=== PATIENT | female | born 1935 | race Caucasian/White ===

== ENCOUNTER 2016-08-11 12:30 | Inpatient (IN) | payer OTHER ==
[~2016-08-11] VITALS: Ht 167.6 cm; Wt 72.6 kg
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
--- NOTE | 2016-08-11 13:12 | NUR ---
PT TO AND FROM RADIOLOGY VIA STRETCHER.
--- NOTE | 2016-08-11 13:25 | RADIOLOGY REPORT ---
EXAMINATION: XR CHEST CLINICAL INFORMATION: Cough COMPARISON: None TECHNIQUE: 2 views of the chest were obtained. FINDINGS: The lungs are well expanded. No dense consolidation. Bronchial wall thickening noted. No pleural effusion or pneumothorax. The cardiomediastinal silhouette is normal in size with a tortuous aorta. No acute osseous abnormality. IMPRESSION: No dense consolidation. Bronchial wall thickening can be seen with a small airways process such as asthma or atypical/viral infection.
[2016-08-11 13:36] LABS: ABSOLUTE BASOPHIL COUNT 0 /CUMM (0.0-0.2); ABSOLUTE EOSINOPHIL COUNT 0.1 /CUMM (0.0-0.7); ABSOLUTE GRANULOCYTE CT 6.2 /CUMM (1.4-6.5); ABSOLUTE LYMPH COUNT 1.9 /CUMM (1.2-3.4); ABSOLUTE MONOCYTE COUNT 0.6 /CUMM (0.10-0.60); BASOPHIL % 0.3 % (0.0-2.0); EOSINOPHIL % 1.5 % (0-5); HEMATOCRIT 41.6 % (37-47); MEAN CORPUSCULAR HGB 30.1 PG (27.0-31.0); MEAN CORPUSCULAR HGB CONC 33.5 G/DL (33.0-37.0); MEAN CORPUSCULAR VOLUME 89.8 FL (81.0-99.0); MEAN PLATELET VOLUME 7.2 FL (7.4-10.4); PLATELET COUNT 348 /CUMM (130-400); RBC DISTRIBUTION WIDTH 12.9 % (11.5-14.5); RED BLOOD CELL CT 4.63 /CUMM (4.20-5.40); WHITE BLOOD CELL COUNT 8.8 /CUMM (4.8-10.8)
--- NOTE | 2016-08-11 13:38 | NUR ---
PT TO CAT SCAN AT THIS TIME.
--- NOTE | 2016-08-11 13:46 | NUR ---
CRITICAL TEST RESULTS [id number] DAIN PULIDO 81 F TESTS AND RESULTS: LACTIC 2.0 Results received and read back by: ESTEFANIA WIGGINS Results received date and time: 08/11/16 1606 The following provider was notified of the results, and read the results back: DR. MONDRAGON Notified date and time: 08/11/16 at 1606
--- NOTE | 2016-08-11 14:04 | NUR ---
PT TO CAT SCAN VIA STRETCHER.
--- NOTE | 2016-08-11 14:36 | CT SCAN REPORT ---
EXAMINATION: CT HEAD WITHOUT CONTRAST CLINICAL INFORMATION: Altered mental status. Headaches. COMPARISON: None. TECHNIQUE: Contiguous axial imaging was performed from the skull base to vertex without intravenous administration of contrast. DLP: 625 mGy-cm FINDINGS: Noncontrast CT imaging of the brain is notable for a focal region of hypoattenuation within the right parieto-occipital lobe (series 2, image 36). This finding is indeterminate and incompletely characterized on this examination but may reflect age-indeterminate ischemia within the right parieto-occipital lobe versus an underlying intracranial mass with surrounding vasogenic edema. No acute intracranial hemorrhage, mass effect or abnormal extra-axial fluid collections are identified. Chronic appearing lacunar infarcts are identified within the right nolan radiata, the right caudate lobe as well as the right basal ganglia. Subtle areas of hypoattenuation within the periventricular and deep cortical white matter are nonspecific but may reflect areas of mild chronic microvascular ischemia. The ventricles are normal in size, without hydrocephalus. The density within the dural venous sinuses is within normal limits. No acute calvarial abnormality is identified. There is moderate mucosal thickening of the left sphenoid sinus. The remaining imaged paranasal sinuses and mastoid air cells are well aerated. IMPRESSION: 1. A focal region of hypoattenuation within the right parieto-occipital lobe. This finding is indeterminate and incompletely characterized on this examination. Differential diagnostic considerations include but are not limited to age-indeterminate ischemia versus an underlying intracranial mass with surrounding vasogenic edema. Contrast-enhanced MRI of the brain would be helpful in further evaluation. 2. Chronic lacunar infarcts within the right basal ganglia. Subtle areas of hypoattenuation within the periventricular and deep cortical white matter are nonspecific but may reflect sequela of chronic microvascular ischemia. This critical result was discussed with Mauro Alarcon PA-C at 2:32 PM on 08/11/2016 and it was ascertained that the content and urgency of the report was understood at the time of direct communication.
--- NOTE | 2016-08-11 14:53 | NUR ---
DR. MONDRAGON TO BEDSIDE TO DISCUSS RESULTS AND POC.
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
--- NOTE | 2016-08-11 15:38 | NUR ---
HOUSE STAFF TO BEDSIDE FOR EVAL.
--- NOTE | 2016-08-11 16:19 | NUR ---
PT HAS BED ASSIGNMENT 175-1. RN NOTIFIED.
--- NOTE | 2016-08-11 16:34 | NUR ---
REPORT GIVEN TO RENATO SANTIAGO. ECHO AT BEDSIDE AT THIS TIME. TRANSPORT WILL BE BOOKED AFTER CAROTID US. PT WILL REMAIN NPO AT THIS TIME. HOUSE STAFF PAGED REGARDING PO MEDICATION ORDERS.
[2016-08-11] MEDS ORDERED: LOPRESSOR50 M1 PO (16:47)
[2016-08-11] MEDS ORDERED: NORVASC10 M1 PO (16:47)
[2016-08-11] MEDS ORDERED: LIPITOR40 M1 PO (16:48)
[2016-08-11] MEDS ORDERED: HYDROCHLOROTHIA25 M1 PO (16:49)
[2016-08-11] MEDS ORDERED: METFORMIN HCL500 M3 PO (16:49)
[2016-08-11] MEDS ORDERED: METFORMIN HCL500 M2 PO (16:49)
--- NOTE | 2016-08-11 17:04 | NUR ---
NURIA PAGED AT [phone] FOR SECOND TIME REGARDING PO MEDICATIONS.
--- NOTE | 2016-08-11 17:04 | NUR ---
PT TO US VIA STRETCHER. SITTER WITH PT FOR SAFETY.
--- NOTE | 2016-08-11 17:50 | NUR ---
PT RETURN FROM US VIA STRETCHER. TRANSPORT BOOKED.
[2016-08-11 18:43] VITALS: BP 154/78
--- NOTE | 2016-08-11 18:51 | ECHOCARDIOGRAM REPORT ---
DAIN PULIDO Age: 81 : 1935 Gender: F Exam Date: 08/11/2016 16:25 Exam Location: ER Ht (in): 66 Wt (lb): 150 BSA: 1.79 BP: 165 / 84 Ordering Physician: NURIA WANG MD Referring Physician: NURIA WANG MD Technologist: Bell [place] RDCS Room Number: ER#[id number] Indications: STROKE Rhythm: Sinus Technical Quality: fair FINDINGS Left Ventricle Normal size left ventricle. Left ventricular wall thickness moderately increased. Normal left ventricular ejection fraction estimated at 60-65%. Right Ventricle Normal right ventricular size and function. Right Atrium Normal right atrial size. Left Atrium Left atrial size at the upper limits of normal. Mitral Valve Mild mitral annular calcification. Trace to mild mitral regurgitation. Aortic Valve Diffuse thickening (sclerosis) of the aortic valve cusps without reduced excursion. Tricuspid Valve Tricuspid valve is normal in structure and function. Trace to mild tricuspid regurgitation. Pulmonic Valve Pulmonic valve not well visualized, grossly normal. Pericardium No pericardial effusion. Great Vessels Normal size aortic root. CONCLUSIONS Normal left ventricular systolic function with moderate concentric hypertrophy. Normal right ventricular size and function.No significant valvular abnoralities noted Jose Alejandro Meek M.D. (Electronically Signed) Final Date: 11 August 2016 18:50 MEASUREMENTS (Male / Female) Normal Values 2D ECHO LV Diastolic Diameter PLAX 3.8 cm 4.2 - 5.9 / 3.9 - 5.3 cm LV Systolic Diameter PLAX 2.4 cm 2.1 - 4.0 cm LV Fractional Shortening PLAX 36.8 % 25 - 46 % LV Ejection Fraction 2D Teich 67.5 % IVS Diastolic Thickness 1.7 cm LVPW Diastolic Thickness 1.7 cm LV Relative Wall Thickness 0.9 RV Internal Dim ED PLAX 2.6 cm 1.9 - 3.8 cm LVOT Diameter 1.9 cm Aortic Root Diameter 3.4 cm LA Systolic Diameter LX 2.8 cm 3.0 - 4.0 / 2.7 - 3.8 cm LA Volume 22.0 cm 18 - 58 / 22 - 52 cm Ascending Aorta Diameter 3.3 cm DOPPLER AV Peak Velocity 171.0 cm/s AV Peak Gradient 11.7 mmHg AV Mean Velocity 115.0 cm/s AV Mean Gradient 6.0 mmHg AV Velocity Time Integral 36.2 cm LVOT Peak Velocity 126.0 cm/s LVOT Peak Gradient 6.4 mmHg LVOT Mean Velocity 82.4 cm/s LVOT Mean Gradient 3.0 mmHg LVOT Velocity Time Integral 24.4 cm LVOT Stroke Volume 69.2 cm AV Area Cont Eq vti 1.9 cm AV Area Cont Eq pk 2.1 cm MV Peak Velocity 123.0 cm/s MV Peak Gradient 6.1 mmHg MV Mean Velocity 76.1 cm/s MV Mean Gradient 3.0 mmHg Mitral E Point Velocity 96.3 cm/s Mitral A Point Velocity 120.0 cm/s Mitral E to A Ratio 0.8 MV PHT Velocity 99.4 cm/s MV Deceleration [place] 354.0 cm/s MV Pressure Half Time 84.2 ms MV Area PHT 2.6 cm MV Deceleration Time 288.0 ms TR Peak Velocity 118.0 cm/s TR Peak Gradient 5.6 mmHg Right Atrial Pressure 5.0 mmHg Pulmonary Artery Systolic Pressu 10.6 mmHg Right Ventricular Systolic Press 10.6 mmHg PV Peak Velocity 70.3 cm/s PV Peak Gradient 2.0 mmHg PV Mean Velocity 52.2 cm/s PV Mean Gradient 1.0 mmHg PV Velocity Time Integral 14.0 cm LV E' Lateral Velocity 4.9 cm/s Mitral E to LV E' Lateral Ratio 19.8 LV E' Septal Velocity 5.1 cm/s Mitral E to LV E' Septal Ratio 19.0
--- NOTE | 2016-08-11 22:19 | Admission Certification ---
Admission Certification Certification Statement - As attending physician, I certify that at the time of - admission, based on clinical presentation, severity of - symptoms, need for further diagnostic testing and - therapeutic interventions, and risk of adverse outcomes - without in-hospital treatment, in my clinical assessment, - this patient requires an acute hospital stay for a minimum - of two nights or longer. I have also considered psychsocial - factors such as support system, advanced age, financial - issues, cognitive issues, and failed out-patient treatments, - past re-admission history, safety of patient, and lack of - compliance as applicable. Specific rationale supporting this admission is: Admission is required for further evaluation of stroke and abnormal EKG.
[2016-08-12] VITALS: BP 152/76
--- NOTE | 2016-08-12 04:53 | PN- Housestaff ---
EBONY RODRIGUEZ,APOLLO 08/12/16 0452: Subjective Follow-up For: Acute right MCA/PRINT SHOP MANAGER CVA Right internal carotid stenosis Diabetes Mellitus Hypertension Cardiac Stent Tele-Events Since Last Visit: NSR HR 64-71 No events Subjective: Patient seen and examined. She is seen lying flat in bed resting comfortably. She appears to be in no acute distress. Orange Grower Miley is present at bedside and providing translation as patient is primarily Romanian speaking. Patient reports feeling fine and denies any new or persitent weakness, numbness, or other neurologic deficits. Additionally she denies any fever, chills, chest pain, shortness of breath, nausea, vomiting, diarrhea. Review of Systems Constitutional: Reports: see HPI. Objective Last 24 Hrs of Vital Signs/I&O Vital Signs Date Time Temp Pulse Resp B/P B/P Pulse O2 O2 Flow FiO2 Mean Ox Delivery Rate 08/12 1614 97.6 75 20 138/70 95 08/12 1304 Room Air Room Air 08/12 1250 72 160/86 08/12 1250 72 160/86 08/12 0800 Room Air 08/12 0700 97.9 73 18 160/80 95 Room Air 08/12 0000 Room Air 08/12 0000 98.4 66 18 152/76 94 Room Air 08/11 1931 Room Air Intake & Output 08/12 1600 08/12 0800 08/12 0000 Intake Total 810 750 225 Output Total 675 Balance 810 75 225 Intake, IV 450 750 225 Intake, Oral 360 Output, Urine 675 Patient 72.575 kg Weight Physical Exam General Appearance: Alert, Oriented X3, Cooperative, No Acute Distress Other Physical Findings: General- well developed, well nourished elderly woman in no acute distress HEENT- NCAT, PERRL, EOMI, anicteric sclera, Chest- S1, S2 w/o m/g/r; RRR Lung- CTA bilaterally Abdomen- Soft, nontender, nondistended, bowel sounds intact Neuro- Awake and alert, CN II - XII grossly intact, normal speech/coordination, MMSE 27/30, no appreciable facial droop, all four extremites move spontaneously Ext- normal pulses, no cyanosis/clubbing/edema Current Medications: Current Medications Sig/Marc Start time Last Medication Dose Route Stop Time Status Admin Acetaminophen 650 MG Q4P PRN 06/13 1615 AC PO Aspirin 81 MG DAILY 08/12 1000 AC 08/12 PO 1007 Atorvastatin Calcium 80 MG 1700 08/11 1700 AC 08/12 PO 1730 Clopidogrel Bisulfate 75 MG DAILY 08/12 1415 AC 08/12 PO 1730 Dextrose/Sodium 1,000 ML Q13H 08/11 1645 DC 08/11 Chloride IV 08/12 0544 1901 Insulin Aspart 0 TIDAC 08/12 1200 AC 08/12 SC 1730 Insulin Human Regular 0 Q6 08/11 1800 DC 08/12 SC 0613 Lisinopril 20 MG DAILY 08/12 1000 AC 08/12 PO 1250 Melatonin 5 MG AT BEDTIME 08/11 2200 AC 08/11 PO 2158 Morphine Sulfate 1 MG Q6P PRN 08/11 1615 AC IV Oxycodone HCl 5 MG Q6 PRN 08/11 1615 AC PO Last 24 Hrs of Lab/Talib Results Last 24 Hrs of Labs/Mics: Laboratory Tests 08/12/16 0725: Anion Gap 10, Estimated GFR > 60, BUN/Creatinine Ratio 22.9, Triglycerides 159 H, Cholesterol 232 H, LDL Cholesterol, Calc 155 H, HDL Cholesterol 46, Cholesterol/HDL Ratio 5 H, CBC w Diff NO MAN DIFF REQ, RBC 4.40, MCV 90.2, MCH 30.3, RDW 12.8, MPV 7.5, Gran % 65.6, Lymphocytes % 23.7, Monocytes % 6.1, Eosinophils % 4.2, Basophils % 0.4, Absolute Granulocytes 5.3, Absolute Lymphocytes 1.9, Absolute Monocytes 0.5, Absolute Eosinophils 0.3, Absolute Basophils 0, PUBS MCHC 33.7 08/12/16 0042: Troponin I < 0.01 08/11/16 1936: Troponin I < 0.01 Assessment/Plan Assessment: 81 year old right handed nigerien speaking woman with multiple medical problems significant for CVA, cerebral aneurysm, cardiac stent, hypertension, and hyperlipidemia seen for progressively worsening altered mental status, elevated blood pressure, and headache. Vital signs were significant for elevated blood pressure with normal CBC, BEP, and LFTs. CXR was unremarkable. CT head demonstrated multiple chronic findings suggestive of microvascular ischemia and a focal region of hypoattenuation within the right parieto-occipital lobe concerning for age-indeterminant ischemia versus vasogenic edema. EKG was normal sinus rhythm with t-wave inversion in V2-V5. Acute Right MCA/PRINT SHOP MANAGER CVA / EKG Changes Patient was continued on aspirin and atorvastatin and admitted to the telemetry floor. Echocardiogram demonstrated an ejection fraction of 60-65% without any thrombus. Carotid doppler identified a right carotid stenosis of 50-79% for which a vascular surgery consult was placed. Neurology healthcare network pricing consultant recommended initiation of Plavix for 3-4 weeks. MRI/MRA identified patchy areas of acute infarction seen in the right MCA/PRINT SHOP MANAGER territories suggestive of embolism. -Telemetry -MMSE 27/30 -Aspirin 81mg PO Daily -Clopidogrel 75mg PO Daily -Atorvastatin 80mg PO Daily -Cardio consult -Neuro consult -Vascular consult -PT/OT Hypertension-Lisinopril 20mg PO Daily Hyperlipidemia-statin as above Insomnia-Melatonin 5mg PO QHS Diabetes Mellitus Patient is reported a 'borderline diabetic'. -HbA1c: 6.6 -Accuchecks TIDAC/HS -Hold oral hypoglycemics -Novolog Sliding Scale Insulin -Diabetic Diet Pain Plan-Acetaminophen/Oxycodone/Morphine Diet-Diabetic Diet DVT PPx-ALPS Code Status-FULL CODE Problem List: 1. CVA (cerebral vascular accident) Pain Ratin Pain Location: None Pain Goal: Remain pain free Pain Plan: See assessment Tomorrow's Labs & Rationales: None Consulting Request: Consulting Specialty: Neurology VICENTE RODRIGUEZ,QUINTON 08/12/16 1641: Attending MD Review Statement Attending Statement Attending MD Statement: examined this patient, discuss w/resident/PA/PRINCIPAL TECHNOLOGIST, agreed w/resident/PA/PRINCIPAL TECHNOLOGIST, reviewed EMR data (avail), discussed with nursing, discussed with case mgmt, amended to note Attending Assessment/Plan: Patient seen and examined. No events overnight on telemetry. No new complaints. Denies chest pain. Denies shortness of breath. Denies palpitations. There has been no reports of bizarre behavior here in the hospital as reported by her daughter at baseline at home. HEENT: Pupil equal and reactive. Extraocular muscles intact. Face is symmetric. Heart: S1-S2 regular with no added sounds Lungs: Clear to auscultation bilaterally Extremities: No pedal edema. Neurologic: Power is 5 over 5 bilateral upper extremities. However fine finger movements is interested in the left hand. Power is 4 over 5 in the right lower extremity however this is chronic and secondary to osteoarthritis according to her daughter Problems: 1. 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 2. Right internal carotid artery stenosis of 50-79%. 3. Hypertension 4. Dyslipidemia. 5. Diabetes mellitus 6. Possible vascular dementia. She however did well on a mini mental status evaluation scoring 27 out of 30. Plan: -Antiplatelet therapy with aspirin/Plavix combination for as recommended by the neurology service then continue on aspirin alone. Continue statin therapy. -Vascular surgery consultation has been placed for her right ICA stenosis. -Hypertension control with lisinopril 20 mg orally daily. -Recommend diabetic diet, nutrition is consult and outpatient follow-up for monitoring of her his A1c with diet control. -Anticipate discharge home tomorrow following evaluation by the vascular surgery service and reevaluation by the physical therapist. -Discontinue telemetry as her stroke does not appear to have been of cardio embolic origin.
[2016-08-12 07:00] VITALS: BP 160/80
[2016-08-12 08:23] LABS: ABSOLUTE BASOPHIL COUNT 0 /CUMM (0.0-0.2); ABSOLUTE EOSINOPHIL COUNT 0.3 /CUMM (0.0-0.7); ABSOLUTE GRANULOCYTE CT 5.3 /CUMM (1.4-6.5); ABSOLUTE LYMPH COUNT 1.9 /CUMM (1.2-3.4); ABSOLUTE MONOCYTE COUNT 0.5 /CUMM (0.10-0.60); BASOPHIL % 0.4 % (0.0-2.0); EOSINOPHIL % 4.2 % (0-5); GRANULOCYTE % 65.6 % (42.2-75.2); HEMATOCRIT 39.6 % (37-47); MEAN CORPUSCULAR HGB 30.3 PG (27.0-31.0); MEAN CORPUSCULAR HGB CONC 33.7 G/DL (33.0-37.0); MEAN CORPUSCULAR VOLUME 90.2 FL (81.0-99.0); MEAN PLATELET VOLUME 7.5 FL (7.4-10.4); PLATELET COUNT 333 /CUMM (130-400); RBC DISTRIBUTION WIDTH 12.8 % (11.5-14.5); WHITE BLOOD CELL COUNT 8.1 /CUMM (4.8-10.8)
--- NOTE | 2016-08-12 09:36 | ULTRASOUND REPORT ---
EXAMINATION: DUPLEX BILATERAL CAROTID ULTRASOUND CLINICAL INFORMATION: Stroke. Check for stenosis with vertebral flows. COMPARISON: None. TECHNIQUE: Duplex bilateral carotid US was performed using real-time ultrasound and Doppler techniques (integrating B-mode 2D vascular images, Doppler spectral analysis and color flow Doppler imaging). These techniques were utilized to interrogate the extracranial carotid and vertebral arteries bilaterally. The degree of stenosis is based off criteria similar to NASCET. FINDINGS: 1. On the right: There is a hemodynamically significant stenosis correlating to 50-79% diameter reduction of the proximal internal carotid artery. A [id number] amount of hyperechoic plaque is noted within the proximal internal and external carotid arteries. The peak systolic and diastolic velocities as measured within the proximal internal carotid artery equals 294 and 80 cm/s respectively. The vertebral artery is patent demonstrating antegrade flow. The external carotid artery is heavily calcified with minimal visualized flow. 2. On the left: A moderate amount of plaque is noted within the internal and carotid artery, but velocity measurements are all normal, not suggesting a stenosis of greater than 50% diameter reduction in the left ICA. The vertebral artery is patent demonstrating antegrade flow. The left external carotid artery appears normal. IMPRESSION: 1. Hemodynamically significant stenosis in the right internal carotid artery consistent with a 50-79% diameter reduction. 2. On the left, a stenosis of greater than 50% is not present. 3. Heavily calcified right external carotid artery which limits evaluation of flow, only minimal flow is visualized within the right external carotid artery.
[2016-08-12 12:50] VITALS: BP 160/86
--- NOTE | 2016-08-12 13:00 | MRI REPORT ---
EXAMINATION: MR BRAIN WITHOUT CONTRAST MR ANGIOGRAPHY BRAIN WITHOUT CONTRAST CLINICAL INFORMATION: 81-year-old woman with prior abnormal head CT and confusion. COMPARISON: 08/11/[address] TECHNIQUE: Multiplanar, multisequence MR imaging of the brain was obtained without the use of intravenous gadolinium. In addition, 3D [id number] MR angiography was performed through the brain, and axial source images were reviewed along with rotating MIPs. FINDINGS: BRAIN MRI: Correlating with the region of hypodensity on the patient's recent head CT, there is a focal area of acute infarction in the right parieto-occipital region. There are additional scattered patchy and punctate foci of infarction seen in a linear distribution throughout the centrum semiovale and to a lesser extent nolan radiata, as well as the frontal and parietal cortices. These findings are superimposed upon mild chronic microvascular ischemic changes. Areas of chronic lacunar infarction with hemosiderin staining are seen in the right caudate and putamen. The ventricles and sulcal spaces are diffusely prominent due to chronic volume loss. No intracranial mass, midline shift, or extra-axial collection is apparent. Midline structures, the posterior fossa, and the basal cisterns remain normal in appearance. Mild mucosal thickening is seen in the paranasal sinuses, moderate in the left sphenoid chamber. BRAIN MRA: There is limited visualization of the posterior circulation. The left vertebral artery terminates in PICA. The right vertebral artery is small and only incompletely visualized beyond the PICA origin. The basilar is tiny and not seen in continuity, raising the possibility of retrograde flow. There is a prominent left sided posterior communicating artery, although the left P1 segment is not visualized. There is a right posterior communicating artery and right P1 segment. Flow in the right posterior cerebral artery appears somewhat attenuated without a definite discrete proximal filling defect. Atherosclerotic irregularity affects the anterior circulation, although no definite MCA or DAVID filling defects are appreciated. IMPRESSION: Patchy areas of acute infarction are seen in the right MCA and BURNER HAND territories and are suspected to be embolic in nature. Overall, there is minimal visualization of the posterior circulation which raises the possibility of some retrograde flow in the basilar.
--- NOTE | 2016-08-12 13:06 | Cons- Neurology ---
General Information and HPI Consulting Request Date of Consult: 08/12/16 Requested By: QUINTON ZHANG M.D History of Present Illness: 81-year-old female, [place] speaking, admitted with a subacute history of confusion and urinary incontinence. History is obtained largely from the chart due to language barrier. She has also had a recent mechanical fall without reported head trauma. CAT scan of the brain on admission showed an area of hypoattenuation in the right parieto-occipital region of uncertain etiology. There was also evidence of old lacunar infarcts. MRI was just performed to clarify the abnormalities as there was some initial concern for possible mass. I have reviewed the study with neuroradiology. This reveals the presence of an acute to subacute infarct without significant mass effect. MRA showed benign appearing carotids however there appeared to be stenoses and irregularity in the posterior circulation. Allergies/Medications Allergies: Coded Allergies: No Known Allergies (08/11/16) Home Med List: Amlodipine Besylate (Norvasc) 10 MG TABLET 1 TAB PO DAILY htn (Reported) Atorvastatin Calcium (Lipitor) 40 MG TABLET 1 TAB PO DAILY CHOLESTROL ( Reported) Hydrochlorothiazide 25 MG TABLET 1 TAB PO DAILY HTN (Reported) Metformin HCl 500 MG TABLET 1 TAB PO BID DIABETES (Reported) Metoprolol Tartrate (Lopressor) 50 MG TABLET 1 TAB PO BID Heart (Reported) Review of Systems Review of Systems: Limited due to language barrier Past History Travel History Traveled to [place] past 21 day No Medical History Blood Transfusion Hx: No Neurological: CVA, STROKE ANNEURYSM EENT: NONE Cardiovascular: hypertension, hyperlipidemia, STENT BLOCKED ARTERY Respiratory: NONE Gastrointestinal: NONE Hepatic: NONE Renal: NONE Musculoskeletal: NONE Psychiatric: NONE Endocrine: NONE Blood Disorders: NONE Cancer(s): NONE 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 MOTHER FHx: diabetes mellitus BROTHER FH: myocardial infarction Psychosocial History Where Do You Live? Home Who Do You Live With? child Primary Language: [place] Smoking Status: Never Smoked ETOH Use: denies use Illicit Drug Use: denies illicit drug use Functional Ability ADLs Independent: dressing, eating, toileting, bathing. 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 Exam & Diagnostic Data Vital Signs and I&O Vital Signs Date Time Temp Pulse Resp B/P B/P Pulse O2 O2 Flow FiO2 Mean Ox Delivery Rate 08/12 1250 72 160/86 08/12 0800 Room Air 08/12 0700 97.9 73 18 160/80 95 Room Air 08/12 0000 Room Air 08/12 0000 98.4 66 18 152/76 94 Room Air 08/11 1931 Room Air 08/11 1843 98.2 71 16 154/78 94 Room Air 08/11 1758 98.4 76 18 154/80 97 Room Air Room Air 08/11 1657 98.6 77 18 152/80 96 Room Air Room Air 08/11 1439 98.5 78 18 165/84 96 Room Air Room Air Intake & Output 08/12 1600 08/12 0800 08/12 0000 Intake Total 750 225 Output Total 675 Balance 75 225 Intake, IV 750 225 Output, Urine 675 Patient 160 lb Weight Elderly white female, sitting up in bed and feeding herself with her right hand. The head was normocephalic and atraumatic. We were able to easily perform the examination through use of mime. Pupils were equal and reactive. Extraocular movements were full. Face was symmetric. Tongue was midline. Motor examination showed a drift of the left upper extremity. She was briefly antigravity with both lower extremities in the supine position. Deep tendon reflexes were symmetric. Plantar responses were flexor. Fine finger movements and rapid alternating movements were impaired in the left hand. Gait was not evaluated. Assessment/Plan Assessment: The patient presents with an acute to subacute right hemispheric infarct with findings of weakness and incoordination of the left upper extremity. She has multiple vascular risk factors. Recommendations: The patient will need physical and occupational therapy going forward. She should remain on aspirin and her statin. Plavix may be added for 3-4 weeks but then discontinued due to risk of bleeding with dual antiplatelet therapy outweighing the benefit of further stroke prevention. DVT precautions should be put into place while in hospital and prior to ambulation ad chip. Short-term rehabilitation may be appropriate. As the stroke likely occurred more than several days ago, further inpatient observation is likely unnecessary. Please feel free to call with any further questions. Consult Acknowledgment - Thank you for your consult request.
[2016-08-12 16:14] VITALS: BP 138/70
--- NOTE | 2016-08-12 18:31 | Cons- Cardiology ---
General Information and HPI Consulting Request Date of Consult: 08/12/16 Requested By: QUINTON ZHANG M.D Reason for Consult: Altered mental status. Source of Information: old records Exam Limitations: language barrier History of Present Illness: Mrs. Brayden Cespedes is a 81 year old female of [place] descent who has a history of hypertension, dyslipidemia, "borderline" diabetes mellitus, stroke 2015, and coronary artery disease s/p coronary stents who presented to be ED 08/11/2016 with altered mental status and who was ultimately discovered to have had an acute infarction in the right MCA and [employer] A[employer] territories by an MRI/neck MRA performed earlier today (08/12/2016). Allergies/Medications Allergies: Coded Allergies: No Known Allergies (08/11/16) Home Med List: Amlodipine Besylate (Norvasc) 10 MG TABLET 1 TAB PO DAILY htn (Reported) Aspirin (Aspirin*) 81 MG TAB.CHEW 81 MG PO DAILY STROKE Atorvastatin Calcium (Lipitor) 40 MG TABLET 1 TAB PO DAILY CHOLESTROL ( Reported) Atorvastatin Calcium 80 MG TABLET 1 TAB PO DAILY STROKE Clopidogrel Bisulfate (Plavix) 75 MG TABLET 75 MG PO DAILY STROKE Hydrochlorothiazide 25 MG TABLET 1 TAB PO DAILY HTN (Reported) Lisinopril 20 MG TABLET 20 MG PO DAILY HTN Metformin HCl 500 MG TABLET 1 TAB PO BID DIABETES (Reported) Metoprolol Tartrate (Lopressor) 50 MG TABLET 1 TAB PO BID Heart (Reported) Metoprolol Tartrate 25 MG TABLET 12.5 MG PO BID HEART Review of Systems Review of Systems: A 14 point system review was attempted, but could not be completed due to the language barrier. Past History Travel History Traveled to [place] past 21 day No Medical History Blood Transfusion Hx: No Neurological: CVA, STROKE ANNEURYSM EENT: NONE Cardiovascular: hypertension, hyperlipidemia, STENT BLOCKED ARTERY Respiratory: NONE Gastrointestinal: NONE Hepatic: NONE Renal: NONE Musculoskeletal: NONE Psychiatric: NONE Endocrine: NONE Blood Disorders: NONE Cancer(s): NONE NEUROLOGY HOSPITALIST/Reproductive: NONE Surgical History Surgical History: hip replacement (RIGHT) Family History Relations & Conditions If Any: FATHER, ; Cause: Lung cancer. MOTHER FHx: diabetes mellitus BROTHER FH: myocardial infarction Psychosocial History Where Do You Live? Home Who Do You Live With? child Primary Language: Portuguese Smoking Status: Never Smoked ETOH Use: denies use Illicit Drug Use: denies illicit drug use Functional Ability ADLs Independent: dressing, eating, toileting, bathing. 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[employer] Exam & Diagnostic Data Vital Signs and I&O Vital Signs Date Time Temp Pulse Resp B/P B/P Pulse O2 O2 Flow FiO2 Mean Ox Delivery Rate 08/12 1614 97.6 75 20 138/70 95 08/12 1304 Room Air Room Air 08/12 1250 72 160/86 08/12 1250 72 160/86 08/12 0800 Room Air 08/12 0700 97.9 73 18 160/80 95 Room Air 08/12 0000 Room Air 08/12 0000 98.4 66 18 152/76 94 Room Air 08/11 1931 Room Air 08/11 1843 98.2 71 16 154/78 94 Room Air Intake & Output 08/12 1600 08/12 0800 08/12 0000 08/11 1600 08/11 0800 08/11 0000 Intake Total 810 750 225 Output Total 675 Balance 810 75 225 Intake, IV 450 750 225 Intake, Oral 360 Output, Urine 675 Patient 160 lb 150 lb Weight Physical Exam: Well-developed, well-nourished elderly female in no acute distress with nasal oxygen in place. Vital signs: See above. HEENT: Normocephalic, atraumatic, EOMI, slightly dry mucous membranes. Neck: No JVD, no bruits. Lungs: Clear to auscultation bilaterally. Heart: S1, S2 with grade 1-2/6 systolic ejection murmur best heard at the base. No gallop or rub appreciated. Abdomen: Soft, nontender, positive bowel sounds. Extremities: No edema. Labs/Talib Results: Laboratory Tests 08/12 08/12 08/11 0725 0042 1936 Chemistry Sodium (137 - 145 mmol/L) 138 Potassium (3.5 - 5.1 mmol/L) 3.6 Chloride (98 - 107 mmol/L) 102 Carbon Dioxide (22 - 30 mmol/L) 27 Anion Gap (5 - 16) 10 BUN (7 - 17 mg/dL) 16 Creatinine (0.5 - 1.0 mg/dL) 0.7 Estimated GFR (>60 ml/min) > 60 BUN/Creatinine Ratio (7 - 25 %) 22.9 Troponin I (< 0.11 ng/ml) < 0.01 < 0.01 Triglycerides (<150 mg/dL) 159 H Cholesterol (<200 MG/DL) 232 H LDL Cholesterol, Calc (65 - 129 mg/dL) 155 H HDL Cholesterol (40 - 60 mg/dL) 46 Cholesterol/HDL Ratio (0.00 - 4.23 %) 5 H Hematology CBC w Diff NO MAN DIFF REQ WBC (4.8 - 10.8 /CUMM) 8.1 RBC (4.20 - 5.40 /CUMM) 4.40 Hgb (12.0 - 16.0 G/DL) 13.3 Hct (37 - 47 %) 39.6 MCV (81.0 - 99.0 FL) 90.2 MCH (27.0 - 31.0 PG) 30.3 RDW (11.5 - 14.5 %) 12.8 Plt Count (130 - 400 /CUMM) 333 MPV (7.4 - 10.4 FL) 7.5 Gran % (42.2 - 75.2 %) 65.6 Lymphocytes % (20.5 - 51.1 %) 23.7 Monocytes % (1.7 - 9.3 %) 6.1 Eosinophils % (0 - 5 %) 4.2 Basophils % (0.0 - 2.0 %) 0.4 Absolute Granulocytes (1.4 - 6.5 /CUMM) 5.3 Absolute Lymphocytes (1.2 - 3.4 /CUMM) 1.9 Absolute Monocytes (0.10 - 0.60 /CUMM) 0.5 Absolute Eosinophils (0.0 - 0.7 /CUMM) 0.3 Absolute Basophils (0.0 - 0.2 /CUMM) 0 PUBS MCHC (33.0 - 37.0 G/DL) 33.7 08/11 08/11 1615 1344 Toxicology Urine Opiates Screen (>2000 NG/ML) < 100.00 Methadone Screen (>300 NG/ML) Cancelled < 40 Barbiturate Screen (>200 NG/ML) Cancelled < 60 Ur Phencyclidine Scrn (>25 NG/ML) Cancelled < 6.00 Amphetamines Screen (>1000 NG/ML) Cancelled < 100 U Benzodiazepines Scrn (>200 NG/ML) Cancelled < 85 Urine Cocaine Screen (>300 NG/ML) Cancelled < 50 Urine Cannabis Screen (>50 NG/ML) Cancelled < 5.00 Urines Urinalysis LIGHT H Urine Color (YEL,AMB,STR) YEL Urine Clarity (CLEAR) HAZY H Urine pH (5.0 - 8.0) 5.5 Ur Specific [place] (1.001 - 1.035) >= 1.030 Urine Protein (NEG,<30 MG/DL) 30 H Urine Ketones (NEG) NEG Urine Nitrite (NEG) NEG Urine Bilirubin (NEG) NEG Urine Urobilinogen (0.1 - 1.0 EU/dl) 0.2 Ur Leukocyte Esterase (NEG) NEG Ur Microscopic SEDIMENT EXAMINED Urine RBC (0 - 5 /HPF) 1-3 Urine WBC (0 - 2 /HPF) RARE Ur Epithelial Cells (NONE,FEW) FEW Urine Bacteria (NEG/NONE) FEW H Granular Casts (NONE /LPF) 5-10 H Urine Mucus (FEW,NONE) FEW Urine Hemoglobin (NEG) SMALL H Urine Glucose (N MG/DL) >=1000 H 08/11 1326 Chemistry Sodium (137 - 145 mmol/L) 141 Potassium (3.5 - 5.1 mmol/L) 4.1 Chloride (98 - 107 mmol/L) 104 Carbon Dioxide (22 - 30 mmol/L) 24 Anion Gap (5 - 16) 13 BUN (7 - 17 mg/dL) 24 H Creatinine (0.5 - 1.0 mg/dL) 0.7 Estimated GFR (>60 ml/min) > 60 BUN/Creatinine Ratio (7 - 25 %) 34.3 H Glucose (65 - 99 mg/dL) 133 H Hemoglobin A1c (4.2 - 5.8 %) 6.6 H Lactic Acid (0.7 - 2.1 mmol/L) 2.0 Calcium (8.4 - 10.2 mg/dL) 9.8 Total Bilirubin (0.2 - 1.3 mg/dL) 0.6 AST (14 - 36 U/L) 23 ALT (9 - 52 U/L) 32 Alkaline Phosphatase (<127 U/L) 57 Troponin I (< 0.11 ng/ml) < 0.01 Total Protein (6.3 - 8.2 g/dL) 7.4 Albumin (3.5 - 5.0 g/dL) 4.2 Globulin (1.9 - 4.2 gm/dL) 3.2 Albumin/Globulin Ratio (1.1 - 2.2 %) 1.3 Vitamin B12 (239 - 931 pg/mL) 539 TSH (0.270 - 4.200 uIU/mL) 2.510 Hematology CBC w Diff NO MAN DIFF REQ WBC (4.8 - 10.8 /CUMM) 8.8 RBC (4.20 - 5.40 /CUMM) 4.63 Hgb (12.0 - 16.0 G/DL) 13.9 Hct (37 - 47 %) 41.6 MCV (81.0 - 99.0 FL) 89.8 MCH (27.0 - 31.0 PG) 30.1 RDW (11.5 - 14.5 %) 12.9 Plt Count (130 - 400 /CUMM) 348 MPV (7.4 - 10.4 FL) 7.2 L Gran % (42.2 - 75.2 %) 70.0 Lymphocytes % (20.5 - 51.1 %) 21.4 Monocytes % (1.7 - 9.3 %) 6.8 Eosinophils % (0 - 5 %) 1.5 Basophils % (0.0 - 2.0 %) 0.3 Absolute Granulocytes (1.4 - 6.5 /CUMM) 6.2 Absolute Lymphocytes (1.2 - 3.4 /CUMM) 1.9 Absolute Monocytes (0.10 - 0.60 /CUMM) 0.6 Absolute Eosinophils (0.0 - 0.7 /CUMM) 0.1 Absolute Basophils (0.0 - 0.2 /CUMM) 0 PUBS MCHC (33.0 - 37.0 G/DL) 33.5 Diagnostic Data EKG Results (08/12/2016): Sinus rhythm, LAFB, RBBB, probable indeterminate age ASMI, LVH, and nondiagnostic ST-T wave abnormalities. CXR Results (08/11/2016): No dense consolidation. Bronchial wall thickening can be seen with a small airways process such as asthma or atypical/viral infection. Other Results Head MRI/neck MRA (08/12/2016): Patchy areas of acute infarction are seen in the right MCA and [employer] AFLOAT territories and are suspected to be embolic in nature. Overall, there is minimal visualization of the posterior circulation which raises the possibility of some retrograde flow in the basilar. Carotid ultrasound (08/11/2016): Hemodynamically significant stenosis in the right internal carotid artery consistent with a 50-79% diameter reduction. On the left, a stenosis of greater than 50% is not present. Heavily calcified right external carotid artery which limits evaluation of flow, only minimal flow is visualized within the right external carotid artery. Echocardiogram (08/11/2016): Normal left ventricular systolic function with moderate concentric hypertrophy. Normal right ventricular size and function. No significant valvular abnoralities noted. Head CT (08/11/2016): A focal region of hypoattenuation within the right parieto -occipital lobe. This finding is indeterminate and incompletely characterized on this examination. Differential diagnostic considerations include but are not limited to age-indeterminate ischemia versus an underlying intracranial mass with surrounding vasogenic edema. Contrast-enhanced MRI of the brain would be helpful in further evaluation. Chronic lacunar infarcts within the right basal ganglia. Subtle areas of hypoattenuation within the periventricular and deep cortical white matter are nonspecific but may reflect sequela of chronic microvascular ischemia. Assessment/Plan Assessment/Plan 81 [id number] w/ hx HTN, HLD, pre-DM, previous stroke 2014, and CAD s/p coronary stents who presented to be ED 08/11/2016 with AMS and who was ultimately discovered to have had an acute infarction in the right MCA and [employer] A[employer] territories by MRI/neck MRA performed earlier today (08/12/2016). Fortunately, from a cardiac standpoint, her echocardiogram did not reveal a definite cardioembolic source for her presentation such as an apical thrombus and she has had no paroxysms of atrial fibrillation on telemetry, thus far. Given the findings on her carotid ultrasound, a neck MRA was performed that revealed relatively benign appearing carotids, but possible stenoses and irregularity in the posterior circulation. Recommendations: * Continue on telemetry to help exclude paroxysmal atrial fibrillation. * Continue antiplatelet, statin therapy, etc. * Continue on the rest of her cardiac regimen, given her known history of CAD. * Replete potassium and came to maintain between 4.0-4.5 mEq per liter. * Check magnesium and maintain at or above 2.0 mEq per liter. . * Continue occupational, speech therapy. * Continue DVT prophylaxis. Consult Acknowledgment - Thank you for your consult request.
[2016-08-13] VITALS: BP 148/72
--- NOTE | 2016-08-13 05:58 | Discharge Summary ---
Visit Information Visit Dates Admission Date: 08/11/16 Discharge Date: 08/15/16 Hospital Course Course Attending Physician: QUINTON ZHANG M.D Primary Care Physician: PATIENT HAS NO PRIMARY CARE DR Consulting Request: 1 Consulting Specialty: Neurology Consulting Request: 2 Consulting Specialty: Cardiology Consulting Request: 3 Consulting Specialty: Thoracic/Vascular Surgery Hospital Course: 81-year-old [place] speaking woman who has been non compliant with her medications and has a past medical history of hypertension, hyperlipidemia, pre- diabetic, stroke (2 years ago with no gross neuro deficits), CAD s/p PCI in 2004 at [facility] in [facility] presented to the ED because her daughter was concerned for safety at home as patient has not been acting herself lately and was also found to be hypertensiveto 200 systolic. Vitals at the time of admission blood pressure 176/87, respiratory rate of 20, pulse 88, afebrile saturating 90% on room air. On physical exam she is alert, ,oriented to time, place, person (as per med studednt who conversed iwth the pt in [place]). HEENT revealed PERRLA, EOMI. Examination of neck did not reveal any LAD. Cardiovascular exam pertinent for normal S1, S2, no murmurs, rubs, or gallops appreciated. Chest clear to ausculation bilaterally. Abdominal exam was bengin with abdomen soft, non-tender , non-distended, with normal bowel sound sin all 4 quadrants. Examination of lower extremnities revealed ankle edema 2+. Pulses intact. ROMinRLE was limited by right hip pain, strength wa ss4/5 in LUE, 5/5 in RUE, 5/5 in RLE, and 4/5 inLLE. Sensation grossly intact. Tone normal, subtle pronater drift on left side. Labs pertinent for normal white blood cell count of 8800, H&H of 13.9/41.6 and platelet count of 348,000. Serum chemistries revealed a sodium of 141, potassium of 4.1, bicarbonate 24, anion gap of 13, BUN 24 with a creatinine of 0.7. Serum glucose is elevated to 133. Lactic acid within normal limits at 2.0. LFTs unremarkable with an AST/L2 32/23/alkaline phosphatase of 57, first set troponin negative at less than 0.01. UA was hazy with proteinuria, negative for nitrite or esterase, 5-10 granular casts as well as few bacteria. Chest x-ray showed no dense consolidation, bronchial wall thickening consistent with asthma or atypical or viral infection. Head CT showed a focal region of hypoattenuation within the right parieto- occipital lobe suggestive of age-indeterminate ischemia versus an underlying intracranial mass with surrounding vasogenic edema. There also chronic lactic infarcts within the right basal ganglia, subtle areas of hypoattenuation within the periventricular and deep cortical white matter area which are nonspecific but may reflects equally of chronic microvascular ischemia. EKG: NSR, HR: 76, RBBB, LVH, T wave inversions in V3-V5, q waves in avL and lead I, NV: 176, QTC: 482. She was admitted to Telemetry and the following problems were addressed: # Altered mental status Consult was placed with Neurology and neurosurgery. Carotid Dopplers and Echocardiogram were done to look for any embolic source. Carotid doppler showed hemodynamically significant stenosis correlating to 50-79% diameter reduction of the right proximal internal carotid artery, and echocardiogram showed normal left ventricular systolic function with moderate concentric hypertrophy. Normal right ventricular size and function. No significant valvular abnormalities noted. An MRI and MRA of brain was done for further evluation of the mass and/or stroke, which showed patchy areas of acute infarction are seen in the right MCA and FILLING ROOM OPERATOR territories and are suspected to be embolic in nature. Patient failed bedside swallow eval, and a formal swallow eval was done which she passed and was staretd on regular diet. She was also started on ASA, atorvastatin 80 mg daily. Her TSH 2.510, Vit B12: 539 to r/o reversible causes of dementia. Meanhwhile she was evaluated by PT who recommended STR on discharge. There is concern that her stroke may have been embolic in nature and so she should folow up with cardiology as an outpatient for Holter monitor. She should also follow up with vascular surgery for possible carotid endarterectomy. CTA neck was done which showed 90% stenosis of the right internal carotid artery at its origin and 25% stenosis of the left internal carotid artery at its origin, and there is diffuse high-grade stenosis or occlusion of the vertebrobasilar system. The posterior cerebral arteries and superior cerebellar arteries appear to fill via the posterior communicating arteries. No acute surgical intervention was deemed necessary at this time as the patient had already infarcted. At the time of discharge she has left upper extremity weakness. Patient also has right lower extremity weakness however daughter states that this is chronic secondary to degenerative joint disease. #CAD s/p PCI Not compliant with meds. She was started on ASA 81 mg daily, Atrovstatin 40mg daily, and reduced dose of Ryydflumwr00.5mg BID. Of note, her EKG showed t wave inversions in V3-V5. ACS was r/o with trop and EKG that were negative. #HTN Supposed to be on HCTZ 25mg daily and Amlodipine 10mg daily, which she is not compliant with. These were held in the hospital to allow for permissive HTN. She was satrte don Lisinopril 20mg daily, and Amlodipine and HCTZ was discontinued. #Impaired glycemia HbA1C was 6.6. She was palced on Novolog sliding scale. She should continue taking Metformin 500mg BID upon discharge. #Insomnia - She was started on melatonin 5mg at bedtime to aid with sleep. - DVT prophylaxis - She was on ALPS given concern for hemmorhagic evolution of possible ischemic stroke. Allergies: Coded Allergies: No Known Allergies (08/11/16) Significant Procedures: SERVICE DATE: 08/11/16 EXAM TYPE: RAD - XRY-CHEST XRAY, PA AND LATERAL FINDINGS: The lungs are well expanded. No dense consolidation. Bronchial wall thickening noted. No pleural effusion or pneumothorax. The cardiomediastinal silhouette is normal in size with a tortuous aorta. No acute osseous abnormality. IMPRESSION: No dense consolidation. Bronchial wall thickening can be seen with a small airways process such as asthma or atypical/viral infection. SERVICE DATE: 08/11/16 EXAM TYPE: CAT - CT HEAD WO IV CONTRAST FINDINGS: Noncontrast CT imaging of the brain is notable for a focal region of hypoattenuation within the right parieto-occipital lobe (series 2, image 36). This finding is indeterminate and incompletely characterized on this examination but may reflect age-indeterminate ischemia within the right parieto-occipital lobe versus an underlying intracranial mass with surrounding vasogenic edema. No acute intracranial hemorrhage, mass effect or abnormal extra-axial fluid collections are identified. Chronic appearing lacunar infarcts are identified within the right nolan radiata, the right caudate lobe as well as the right basal ganglia. Subtle areas of hypoattenuation within the periventricular and deep cortical white matter are nonspecific but may reflect areas of mild chronic microvascular ischemia. The ventricles are normal in size, without hydrocephalus. The density within the dural venous sinuses is within normal limits. No acute calvarial abnormality is identified. There is moderate mucosal thickening of the left sphenoid sinus. The remaining imaged paranasal sinuses and mastoid air cells are well aerated. IMPRESSION: 1. A focal region of hypoattenuation within the right parieto-occipital lobe. This finding is indeterminate and incompletely characterized on this examination. Differential diagnostic considerations include but are not limited to age-indeterminate ischemia versus an underlying intracranial mass with surrounding vasogenic edema. Contrast-enhanced MRI of the brain would be helpful in further evaluation. 2. Chronic lacunar infarcts within the right basal ganglia. Subtle areas of hypoattenuation within the periventricular and deep cortical white matter are nonspecific but may reflect sequela of chronic microvascular ischemia. SERVICE DATE: 08/11/16 EXAM TYPE: CARD - ECHOCARDIOGRAM FINDINGS Left Ventricle Normal size left ventricle. Left ventricular wall thickness moderately increased. Normal left ventricular ejection fraction estimated at 60-65%. Right Ventricle Normal right ventricular size and function. Right Atrium Normal right atrial size. Left Atrium Left atrial size at the upper limits of normal. Mitral Valve Mild mitral annular calcification. Trace to mild mitral regurgitation. Aortic Valve Diffuse thickening (sclerosis) of the aortic valve cusps without reduced excursion. Tricuspid Valve Tricuspid valve is normal in structure and function. Trace to mild tricuspid regurgitation. Pulmonic Valve Pulmonic valve not well visualized, grossly normal. Pericardium No pericardial effusion. Great Vessels Normal size aortic root. CONCLUSIONS Normal left ventricular systolic function with moderate concentric hypertrophy. Normal right ventricular size and function.No significant valvular abnoralities noted Jose Alejandro Meek M.D. (Electronically Signed) Final Date: 11 August 2016 18:50 MEASUREMENTS (Male / Female) Normal Values 2D ECHO LV Diastolic Diameter PLAX 3.8 cm 4.2 - 5.9 / 3.9 - 5.3 cm LV Systolic Diameter PLAX 2.4 cm 2.1 - 4.0 cm LV Fractional Shortening PLAX 36.8 % 25 - 46 % LV Ejection Fraction 2D Teich 67.5 % IVS Diastolic Thickness 1.7 cm LVPW Diastolic Thickness 1.7 cm LV Relative Wall Thickness 0.9 RV Internal Dim ED PLAX 2.6 cm 1.9 - 3.8 cm LVOT Diameter 1.9 cm Aortic Root Diameter 3.4 cm LA Systolic Diameter LX 2.8 cm 3.0 - 4.0 / 2.7 - 3.8 cm LA Volume 22.0 cm 18 - 58 / 22 - 52 cm Ascending Aorta Diameter 3.3 cm DOPPLER AV Peak Velocity 171.0 cm/s AV Peak Gradient 11.7 mmHg AV Mean Velocity 115.0 cm/s AV Mean Gradient 6.0 mmHg AV Velocity Time Integral 36.2 cm LVOT Peak Velocity 126.0 cm/s LVOT Peak Gradient 6.4 mmHg LVOT Mean Velocity 82.4 cm/s LVOT Mean Gradient 3.0 mmHg LVOT Velocity Time Integral 24.4 cm LVOT Stroke Volume 69.2 cm AV Area Cont Eq vti 1.9 cm AV Area Cont Eq pk 2.1 cm MV Peak Velocity 123.0 cm/s MV Peak Gradient 6.1 mmHg MV Mean Velocity 76.1 cm/s MV Mean Gradient 3.0 mmHg Mitral E Point Velocity 96.3 cm/s Mitral A Point Velocity 120.0 cm/s Mitral E to A Ratio 0.8 MV PHT Velocity 99.4 cm/s MV Deceleration [place] 354.0 cm/s MV Pressure Half Time 84.2 ms MV Area PHT 2.6 cm MV Deceleration Time 288.0 ms TR Peak Velocity 118.0 cm/s TR Peak Gradient 5.6 mmHg Right Atrial Pressure 5.0 mmHg Pulmonary Artery Systolic Pressu 10.6 mmHg Right Ventricular Systolic Press 10.6 mmHg PV Peak Velocity 70.3 cm/s PV Peak Gradient 2.0 mmHg PV Mean Velocity 52.2 cm/s PV Mean Gradient 1.0 mmHg PV Velocity Time Integral 14.0 cm LV E' Lateral Velocity 4.9 cm/s Mitral E to LV E' Lateral Ratio 19.8 LV E' Septal Velocity 5.1 cm/s Mitral E to LV E' Septal Ratio 19.0 SERVICE DATE: 08/11/16 EXAM TYPE: US - [id number] DOPPLER FINDINGS: 1. On the right: There is a hemodynamically significant stenosis correlating to 50-79% diameter reduction of the proximal internal carotid artery. A adffhibs-od-sdwhht amount of hyperechoic plaque is noted within the proximal internal and external carotid arteries. The peak systolic and diastolic velocities as measured within the proximal internal carotid artery equals 294 and 80 cm/s respectively. The vertebral artery is patent demonstrating antegrade flow. The external carotid artery is heavily calcified with minimal visualized flow. 2. On the left: A moderate amount of plaque is noted within the internal and carotid artery, but velocity measurements are all normal, not suggesting a stenosis of greater than 50% diameter reduction in the left ICA. The vertebral artery is patent demonstrating antegrade flow. The left external carotid artery appears normal. IMPRESSION: 1. Hemodynamically significant stenosis in the right internal carotid artery consistent with a 50-79% diameter reduction. 2. On the left, a stenosis of greater than 50% is not present. 3. Heavily calcified right external carotid artery which limits evaluation of flow, only minimal flow is visualized within the right external carotid artery. SERVICE DATE: 08/12/16 EXAM TYPE: MRI - MRA-HEAD; MRI-HEAD W/O SARTHAK FINDINGS: BRAIN MRI: Correlating with the region of hypodensity on the patient's recent head CT, there is a focal area of acute infarction in the right parieto-occipital region. There are additional scattered patchy and punctate foci of infarction seen in a linear distribution throughout the centrum semiovale and to a lesser extent nolan radiata, as well as the frontal and parietal cortices. These findings are superimposed upon mild chronic microvascular ischemic changes. Areas of chronic lacunar infarction with hemosiderin staining are seen in the right caudate and putamen. The ventricles and sulcal spaces are diffusely prominent due to chronic volume loss. No intracranial mass, midline shift, or extra-axial collection is apparent. Midline structures, the posterior fossa, and the basal cisterns remain normal in appearance. Mild mucosal thickening is seen in the paranasal sinuses, moderate in the left sphenoid chamber. BRAIN MRA: There is limited visualization of the posterior circulation. The left vertebral artery terminates in PICA. The right vertebral artery is small and only incompletely visualized beyond the PICA origin. The basilar is tiny and not seen in continuity, raising the possibility of retrograde flow. There is a prominent left sided posterior communicating artery, although the left P1 segment is not visualized. There is a right posterior communicating artery and right P1 segment. Flow in the right posterior cerebral artery appears somewhat attenuated without a definite discrete proximal filling defect. Atherosclerotic irregularity affects the anterior circulation, although no definite MCA or DAVID filling defects are appreciated. IMPRESSION: Patchy areas of acute infarction are seen in the right MCA and FILLING ROOM OPERATOR territories and are suspected to be embolic in nature. Overall, there is minimal visualization of the posterior circulation which raises the possibility of some retrograde flow in the basilar. SERVICE DATE: 08/14/16- EXAM TYPE: CAT - CT NECK ANGIOGRAM FINDINGS: There is irregular eccentric atheromatous plaque involving the aortic arch apex. The origin of the left subclavian artery cannot be accurately assessed due to the extent of streak artifact related to the high density contrast material within the innominate vein. The left common carotid artery and brachiocephalic artery origins are patent. The right common carotid artery and right subclavian artery origins are patent. Common carotid arteries are patent. Lipid-laden atheromatous plaque causes near occlusive greater than 90% stenosis of the right internal carotid artery at its origin. The right external carotid artery origin also appears to be occluded with reconstitution of filling distally. Partially calcified eccentric atheromatous plaque at the left carotid bifurcation causes 25% stenosis of left internal carotid artery near its origin and mild to moderate focal narrowing at the origin of the left external carotid artery. There is moderate to high-grade focal narrowing of the V1 segment of the right vertebral artery. Mild irregular narrowing of the V1 segment of the left vertebral artery. Calcified atheromatous plaque causes moderate focal narrowing at the dural insertions of both vertebral arteries. There is diffuse high-grade stenosis or occlusion of the vertebrobasilar system and the posterior cerebral arteries and the superior cerebellar arteries appear to fill via the posterior communicating arteries. Calcified plaque causes mild narrowing of the cavernous segments of both internal carotid arteries. Visualized portions of the anterior and middle cerebral artery complexes are unremarkable. Limited visualization of intracranial structures reveals a cortical infarct at the junction of the right occipital and parietal lobes and numerous foci of nonspecific hypoattenuation within the perivenular white matter most likely represent a chronic manifestation of small vessel ischemia. Soft tissues of the neck including the thyroid gland are unremarkable. Visualized lung apices are clear. IMPRESSION: Lipid-laden atheromatous plaque causes 90% stenosis of the right internal carotid artery at its origin and 25% stenosis of the left internal carotid artery at its origin. There is moderate to high-grade focal narrowing of the V1 segment of the right vertebral artery and mild irregular narrowing of the V1 segment of the left vertebral artery. There is diffuse high-grade stenosis or occlusion of the vertebrobasilar system. The posterior cerebral arteries and superior cerebellar arteries appear to fill via the posterior communicating arteries. Calcified atherosclerotic plaque causes mild irregular narrowing of the cavernous segments of both internal carotid arteries. Visualized portions of the anterior and middle cerebral artery complexes are unremarkable. Disposition Summary Disposition Principal Diagnosis: Acute right MCA/FILLING ROOM OPERATOR territory stroke Right internal carotid artery stenosis of 50-79% Additional Diagnosis: - Hypertension - Dyslipidemia - Diabetes mellitus - Possible vascular dementia Discharge Disposition: SNF Discharge Instructions General Discharge Information Code Status: Full Code Patient's Diet: Diabetic (Regular and Thins) Patient's Activity: As tolerated Follow-Up Instructions/Appts: Please follow up with your primary care physician in one week. Please follow up with your neurologist in one week. Please discontinue Plavix 1 month after discharge. Please continue taking Aspirin for lifetime. Please follow up with our cardioloist for an out patient Holter/ event monitor. Follow up with a vascular surgeon as an outpatient for a possible surgical procedure. A referral has been made. Medications at Discharge Discharge Medications: Stop taking the following medications: Amlodipine Besylate (Norvasc) 10 MG TABLET ORAL DAILY Qty = 90 Metoprolol Tartrate (Lopressor) 50 MG TABLET ORAL TWICE DAILY Qty = 90 Atorvastatin Calcium (Lipitor) 40 MG TABLET ORAL DAILY Qty = 90 Hydrochlorothiazide (Hydrochlorothiazide) 25 MG TABLET ORAL DAILY Qty = 90 Continue taking these medications: Metformin HCl (Metformin HCl) 500 MG TABLET 1 Tablet ORAL TWICE DAILY Qty = 120 Comments: NOT GIVEN IN HOSPITAL. PT ON NOVOLOG SLIDING SCALE Start taking the following new medications: Clopidogrel Bisulfate (Plavix) 75 MG TABLET 75 Milligram ORAL DAILY Qty = 30 No Refills Comments: Last Taken: 08/15/16 Time: 9AM Lisinopril (Lisinopril) 20 MG TABLET 20 Milligram ORAL DAILY Qty = 90 No Refills Comments: Last Taken: 08/15/16 Time: 9AM Aspirin (Aspirin*) 81 MG TAB.CHEW 81 Milligram ORAL DAILY Qty = 120 No Refills Comments: Last Taken: 08/15/16 Time: 9AM Metoprolol Tartrate (Metoprolol Tartrate) 25 MG TABLET 12.5 Milligram ORAL TWICE DAILY Qty = 120 No Refills Comments: Last Taken: 08/15/16 Time: 9AM Atorvastatin Calcium (Atorvastatin Calcium) 80 MG TABLET 1 Tablet ORAL DAILY Qty = 120 No Refills Comments: Last Taken: 08/14/16 Time: 5PM Copies To: JUAN RODRIGUEZ,LOR Lloyd; ASHLEE RODRIGUEZ,NEYMAR Rodriguez; RAHEEL RODRIGUEZ,VIOLETTA Attending Review Statement Documenting Attending: QUINTON ZHANG M.D Other Findings: I have reviewed the discharge summaary.
--- NOTE | 2016-08-13 07:06 | PN- Housestaff ---
EBONY RODRIGUEZ,APOLLO 08/13/16 0706: Subjective Follow-up For: Acute right MCA/METAL HANGER CVA Right internal carotid stenosis Diabetes Mellitus Hypertension Cardiac Stent Tele-Events Since Last Visit: Off telemetry Subjective: Patient seen and examined. She is seen sitting upright in bed resting comfortably. She appears to be in no acute distress. She is primary estonian speaking, patients daugher it at bedside and is offering translation. She states that her mother reports that her left hand and left leg feel weaker than in previous days. SHe otherwise denies any new subjective complaints. Review of Systems Constitutional: Reports: see HPI. Objective Last 24 Hrs of Vital Signs/I&O Vital Signs Date Time Temp Pulse Resp B/P B/P Pulse O2 O2 Flow FiO2 Mean Ox Delivery Rate 08/13 0800 Room Air 08/13 0800 98.1 77 20 128/68 95 Room Air 08/13 0000 99.2 72 18 148/72 94 Room Air 08/12 1614 97.6 75 20 138/70 95 08/12 1304 Room Air Room Air 08/12 1250 72 160/86 08/12 1250 72 160/86 Intake & Output 08/13 1600 08/13 0800 08/13 0000 Intake Total 120 900 Output Total 350 300 Balance -230 600 Intake, IV 300 Intake, Oral 120 600 Output, Urine 350 300 Physical Exam General Appearance: Alert, Cooperative, No Acute Distress Other Physical Findings: General- well developed, well nourished elderly woman in no acute distress HEENT- NCAT, PERRL, EOMI, anicteric sclera Chest- S1, S2 w/o m/g/r; RRR Lung- CTA bilaterally Abdomen- Soft, nontender, nondistended, bowel sounds intact Neuro- Awake and alert, CN II - XII grossly intact, normal speech/coordination, no appreciable facial droop, all four extremites move spontaneously, apparent left sided neglect, inability Ext- normal pulses, no cyanosis/clubbing/edema Current Medications: Current Medications Sig/Marc Start time Last Medication Dose Route Stop Time Status Admin Acetaminophen 650 MG Q4P PRN 08/11 1615 AC PO Aspirin 81 MG DAILY 08/12 1000 AC 08/12 PO 1007 Atorvastatin Calcium 80 MG 1700 08/11 1700 AC 08/12 PO 1730 Clopidogrel Bisulfate 75 MG DAILY 08/12 1415 AC 06/14 PO 1730 Insulin Aspart 0 TIDAC 08/12 1200 AC 08/12 SC 1730 Insulin Human Regular 0 Q6 08/11 1800 DC 08/12 SC 0613 Lisinopril 20 MG DAILY 08/12 1000 AC 08/12 PO 1250 Melatonin 5 MG AT BEDTIME 08/11 2200 AC 08/12 PO 2216 Morphine Sulfate 1 MG Q6P PRN 08/11 1615 AC IV Oxycodone HCl 5 MG Q6 PRN 08/11 1615 AC PO Assessment/Plan Assessment: 81 year old right handed estonian speaking woman with multiple medical problems significant for CVA, cerebral aneurysm, cardiac stent, hypertension, and hyperlipidemia seen for progressively worsening altered mental status, elevated blood pressure, and headache. Vital signs were significant for elevated blood pressure with normal CBC, BEP, and LFTs. CXR was unremarkable. CT head demonstrated multiple chronic findings suggestive of microvascular ischemia and a focal region of hypoattenuation within the right parieto-occipital lobe concerning for age-indeterminant ischemia versus vasogenic edema. EKG was normal sinus rhythm with t-wave inversion in V2-V5. Acute Right MCA/METAL HANGER CVA / EKG Changes Patient was continued on aspirin and atorvastatin and admitted to the telemetry floor. Echocardiogram demonstrated an ejection fraction of 60-65% without any thrombus. Carotid doppler identified a right carotid stenosis of 50-79% for which a vascular surgery consult was placed. Neurology golf tournament consultant recommended initiation of Plavix for 3-4 weeks. MRI/MRA identified patchy areas of acute infarction seen in the right MCA/METAL HANGER territories suggestive of embolism. PT evaluation determined that patient will require short term rehabilitation. Vascular surgery recommendations still pending. -Telemetry -MMSE 27/30 -Aspirin 81mg PO Daily -Clopidogrel 75mg PO Daily -Atorvastatin 80mg PO Daily -Cardio following -Neuro following -Vascular consult, recommendations pending -PT/OT: Assist of 1, Rolling walker, STR Hypertension -Lisinopril 20mg PO Daily -Metoprolol 12.5mg PO BID, (HALF OF HOME DOSE) Hyperlipidemia-statin as above Insomnia-Melatonin 5mg PO QHS Diabetes Mellitus Patient is reported a 'borderline diabetic'. -HbA1c: 6.6 -Accuchecks TIDAC/HS -Hold oral hypoglycemics -Novolog Sliding Scale Insulin -Diabetic Diet Pain Plan-Acetaminophen/Oxycodone/Morphine Diet-Diabetic Diet DVT PPx-ALPS Code Status-FULL CODE Problem List: 1. CVA (cerebral vascular accident) Pain Ratin Pain Location: None Pain Goal: Remain pain free Pain Plan: See assessment Tomorrow's Labs & Rationales: None Consulting Request: Consulting Specialty: Thoracic/Vascular Surgery VICENTE RODRIGUEZ,ZELALEMFina 08/13/16 1004: Attending MD Review Statement Attending Statement Attending MD Statement: examined this patient, discuss w/resident/PA/HOSPICE VOLUNTEER COORDINATOR, agreed w/resident/PA/HOSPICE VOLUNTEER COORDINATOR, reviewed EMR data (avail), discussed with nursing, discussed with case mgmt, amended to note Attending Assessment/Plan: Patient seen and examined. Resting comfortably and not in any acute distress. No events overnight. On evaluation this morning she appears to have left-sided neglect. She does move her left upper extremity appropriately to command. However she does appear to help off over 5 in that extremity. She appears to keep her fingers in the contracted state at rest. She has no other deficits on examination other than the right lower extremity weakness. Recommendations: -Continue blood pressure control and lisinopril. Resume beta yael therapy however decrease dose to 12.5 mg twice daily. -Antiplatelet therapy with aspirin/Plavix for 4 weeks then transition to aspirin only. Continue statin therapy. -Basilar surgery service reports that her ICA stenosis may not be the etiology of her ischemic areas noted on MRI. In view of discontinue telemetry monitoring. Patient will be referred to the cardiology service as an outpatient for Holter monitoring. -Physical therapy services recommending [facility]. She'll be discharged once a bed becomes available.
[2016-08-13 08:00] VITALS: BP 128/68
[2016-08-13] MEDS ORDERED: PLAVIX75 M1 PO (09:52)
[2016-08-13] MEDS ORDERED: LISINOPRIL20 M1 PO (09:53)
[2016-08-13] MEDS ORDERED: ASPIRIN81 M4 PO (09:53)
[2016-08-13] MEDS ORDERED: ATORVASTATIN CA80 M1 PO (09:53)
--- NOTE | 2016-08-13 09:58 | Patient Discharge Instructions ---
Discharge Instructions General Discharge Information You were seen/treated for: - Acute right MCA/EMS EDUCATOR stroke Special Instructions: Please follow up with your primary care physician in one week. Please follow up with your neurologist in one week. Please discontinue Plavix 1 month after discharge. Please continue taking Aspirin for lifetime. Please follow up with our cardioloist for an out patient Holter/ event monitor. Follow up with a vascular surgeon as an outpatient for a possible surgical procedure. A referral has been made. Diet Recommended Diet: Diabetic Activity Activity Self Limited: Yes Acute Coronary Syndrome Inclusion Criteria At DC or during hospital stay patient has or had the following: ACS DIAGNOSIS No Discharge Core Measures Meds if any: Prescribed or Continued at Discharge Meds if any: NOT Prescribed or Continued at Discharge Congestive Heart Failure Inclusion Criteria At DC or during hospital stay patient has or had the following: CHF DIAGNOSIS No Discharge Core Measures Meds if any: Prescribed or Continued at Discharge Meds if any: NOT Prescribed or Continued at Discharge Cerebrovascular accident Inclusion Criteria At DC or during hospital stay patient has or had the following: CVA/TIA Diagnosis Yes Discharge Core Measures Meds if any: Prescribed or Continued at Discharge Antithrombotic Yes Statin (required if LDL =>70) Yes Anticoagulant No Meds if any: NOT Prescribed or Continued at Discharge No Anticoagulant d/t Medical Contraindication Venous thromboembolism Inclusion Criteria VTE Diagnosis No VTE Type NONE VTE Confirmed by (Test) NONE Discharge Core Measures - Per Current guidelines, there needs to be overlap - treatment for the first 5 days of Warfarin therapy. - If discharged on Warfarin prior to 5 days of - overlap therapy, the patient will need to be - assessed for post discharge needs including - *Post discharge parental anticoagulation - *Warfarin and/or parental anticoagulation education - *Follow up date to check INR post discharge At least 5 days overlap therapy as Inpatient No Meds if any: Prescribed or Continued at Discharge Note: Overlap Therapy is Warfarin and Anticoagulant Meds if any: NOT Prescribed or Continued at Discharge
[2016-08-13] MEDS ORDERED: METOPROLOL TART25 M1 PO (10:05)
[2016-08-13 11:25] VITALS: BP 146/88
--- NOTE | 2016-08-13 13:49 | PN- Neurology ---
Subjective Subjective: weakness left side Objective Vital Signs and I&Os Vital Signs Date Time Temp Pulse Resp B/P B/P Pulse O2 O2 Flow FiO2 Mean Ox Delivery Rate 08/13 1125 80 146/88 08/13 1124 77 128/68 08/13 1040 Room Air Room Air 08/13 0915 77 128/68 08/13 0800 Room Air 08/13 0800 98.1 77 20 128/68 95 Room Air 08/13 0000 99.2 72 18 148/72 94 Room Air 08/12 1614 97.6 75 20 138/70 95 Intake & Output 08/13 1600 08/13 0800 08/13 0000 08/12 1600 08/12 0800 08/12 0000 Intake Total 120 900 810 750 225 Output Total 350 300 675 Balance -230 600 810 75 225 Intake, IV 300 450 750 225 Intake, Oral 120 600 360 Output, Urine 350 300 675 Patient 160 lb Weight Awake and alert face symmetric drift and clusiness LUE Carotid U/S read as 50-79% stenosis on right Current Medications: Current Medications Sig/Marc Start time Last Medication Dose Route Stop Time Status Admin Acetaminophen 650 MG Q4P PRN 08/11 1615 AC PO Aspirin 81 MG DAILY 08/12 1000 AC 08/13 PO 0915 Atorvastatin Calcium 80 MG 1700 08/11 1700 AC 08/12 PO 1730 Clopidogrel Bisulfate 75 MG DAILY 08/12 1415 AC 08/13 PO 0915 Insulin Aspart 0 TIDAC 08/12 1200 AC 08/13 SC 1311 Lisinopril 20 MG DAILY 08/12 1000 AC 08/13 PO 0915 Melatonin 5 MG AT BEDTIME 08/11 2200 AC 08/12 PO 2216 Metoprolol Tartrate 12.5 MG BID 08/13 1003 AC 08/13 PO 1124 Morphine Sulfate 1 MG Q6P PRN 08/11 1615 AC IV Oxycodone HCl 5 MG Q6 PRN 08/11 1615 AC PO Assessment/Plan Assessment: Stable riht hemispheric stoke, questionably embolic from carotid Plan: Should have vascular surgery evaluation prior to D/C as may be a candidate for CEA in future. Contonue statin and antiplatelet rx. PT, OT
[2016-08-13 16:18] VITALS: BP 132/80
--- NOTE | 2016-08-13 17:57 | PN- Cardiology ---
Subjective Subjective: Language barrier remains a major issue. No evidence of paroxysmal atrial fibrillation on telemetry. Objective Vital Signs and I&Os Vital Signs Date Time Temp Pulse Resp B/P B/P Pulse O2 O2 Flow FiO2 Mean Ox Delivery Rate 08/13 1618 98.3 82 20 132/80 95 Room Air 08/13 1125 80 146/88 08/13 1124 77 128/68 08/13 1040 Room Air Room Air 08/13 0915 77 128/68 08/13 0800 Room Air 08/13 0800 98.1 77 20 128/68 95 Room Air 08/13 0000 99.2 72 18 148/72 94 Room Air Intake & Output 08/13 1600 08/13 0800 08/13 0000 08/12 1600 08/12 0800 08/12 0000 Intake Total 600 120 900 810 750 225 Output Total 300 350 300 675 Balance 300 -230 600 810 75 225 Intake, IV 300 450 750 225 Intake, Oral 600 120 600 360 Number 1 Bowel Movements Output, Urine 300 350 300 675 Patient 160 lb Weight Physical Exam: Well-developed, well-nourished elderly female in no acute distress. Vital signs: See above. Neck: No JVD, no bruits. Lungs: Clear to auscultation bilaterally. Heart: S1, S2 with grade 1-2/6 systolic murmur. No gallop or rub appreciated. Abdomen: Soft, nontender, positive bowel sounds. Extremities: No edema. Current Medications: Current Medications Sig/Marc Start time Last Medication Dose Route Stop Time Status Admin Acetaminophen 650 MG Q4P PRN 08/11 1615 AC PO Aspirin 81 MG DAILY 08/12 1000 AC 08/13 PO 0915 Atorvastatin Calcium 80 MG 1700 08/11 1700 AC 08/13 PO 1632 Clopidogrel Bisulfate 75 MG DAILY 08/12 1415 AC 08/13 PO 0915 Insulin Aspart 0 TIDAC 08/12 1200 AC 08/13 SC 1311 Lisinopril 20 MG DAILY 08/12 1000 AC 08/13 PO 0915 Melatonin 5 MG AT BEDTIME 08/11 2200 AC 08/12 PO 2216 Metoprolol Tartrate 12.5 MG BID 08/13 1003 AC 08/13 PO 1124 Morphine Sulfate 1 MG Q6P PRN 08/11 1615 AC IV Oxycodone HCl 5 MG Q6 PRN 08/11 1615 AC PO Results Last 48 Hrs of Labs/Mics: Laboratory Tests 08/12/16 0725: Anion Gap 10, Estimated GFR > 60, BUN/Creatinine Ratio 22.9, Triglycerides 159 H, Cholesterol 232 H, LDL Cholesterol, Calc 155 H, HDL Cholesterol 46, Cholesterol/HDL Ratio 5 H, CBC w Diff NO MAN DIFF REQ, RBC 4.40, MCV 90.2, MCH 30.3, RDW 12.8, MPV 7.5, Gran % 65.6, Lymphocytes % 23.7, Monocytes % 6.1, Eosinophils % 4.2, Basophils % 0.4, Absolute Granulocytes 5.3, Absolute Lymphocytes 1.9, Absolute Monocytes 0.5, Absolute Eosinophils 0.3, Absolute Basophils 0, PUBS MCHC 33.7 08/12/16 0042: Troponin I < 0.01 08/11/16 1936: Troponin I < 0.01 Assessment/Plan Assessment/Plan 81 [id number]-w-f w/ hx HTN, HLD, pre-DM, previous stroke 2014, and CAD s/p coronary stents who presented to be ED 08/11/2016 with AMS and who was ultimately discovered to have had an acute infarction in the right MCA and [employer] territories by MRI/neck MRA performed 08/12/2016. Fortunately, from a cardiac standpoint, her echocardiogram did not reveal a definite cardioembolic source for her presentation, such as an apical thrombus and she has had no paroxysms of atrial fibrillation on telemetry, thus far. Given the findings on her carotid ultrasound, a neck MRA was performed that revealed relatively benign appearing carotids, but possible stenoses and irregularity in the posterior circulation. Recommendations: * Continue on telemetry. * Vascular surgery consultation to help determine her suitability for carotid endarterectomy. * Continue statin and antiplatelet therapy. * Continue occupational and physical therapy. * Continue DVT prophylaxis. Continue telemetry? Yes
[2016-08-14 00:10] VITALS: BP 120/64
--- NOTE | 2016-08-14 06:52 | PN- Housestaff ---
EBONY RODRIGUEZ,APOLLO 08/14/16 0652: Subjective Follow-up For: Acute right MCA/PRIVATE WEALTH ADVISOR CVA Right internal carotid stenosis Diabetes Mellitus Hypertension Cardiac Stent Tele-Events Since Last Visit: NSR HR 70's/80s No events Subjective: Patient seen and examined. She is seen lying flat in bed resting comfortably. She appears to be in no acute distress. Review of Systems Constitutional: Reports: see HPI. Objective Last 24 Hrs of Vital Signs/I&O Vital Signs Date Time Temp Pulse Resp B/P B/P Pulse O2 O2 Flow FiO2 Mean Ox Delivery Rate 08/14 0010 98.1 82 20 120/64 94 Room Air 08/13 2215 78 134/78 08/13 1618 98.3 82 20 132/80 95 Room Air 08/13 1125 80 146/88 08/13 1124 77 128/68 08/13 1040 Room Air Room Air 08/13 0915 77 128/68 Intake & Output 08/14 1600 08/14 0800 08/14 0000 Intake Total 400 1080 Output Total 625 Balance 400 455 Intake, Oral 400 1080 Number 1 7 Bowel Movements Output, Urine 625 Physical Exam General Appearance: Alert, Cooperative, No Acute Distress Other Physical Findings: General- well developed, well nourished elderly woman in no acute distress HEENT- NCAT, PERRL, EOMI, anicteric sclera Chest- S1, S2 w/o m/g/r; RRR Lung- CTA bilaterally Abdomen- Soft, nontender, nondistended, bowel sounds intact Neuro- Awake and alert, CN II - XII grossly intact, normal speech/coordination, no appreciable facial droop, all four extremites move spontaneously, strength 5/ 5 in all extremities other than distal LUE with grasp minimally weak, coordination poor in LUE extremity Ext- normal pulses, no cyanosis/clubbing/edema Current Medications: Current Medications Sig/Marc Start time Last Medication Dose Route Stop Time Status Admin Acetaminophen 650 MG Q4P PRN 08/11 1615 AC PO Aspirin 81 MG DAILY 08/12 1000 AC 08/13 PO 0915 Atorvastatin Calcium 80 MG 1700 08/11 1700 AC 08/13 PO 1632 Clopidogrel Bisulfate 75 MG DAILY 08/12 1415 AC 08/13 PO 0915 Insulin Aspart 0 TIDAC 08/12 1200 AC 08/13 SC 1311 Lisinopril 20 MG DAILY 08/12 1000 AC 08/13 PO 0915 Melatonin 5 MG AT BEDTIME 08/11 2200 AC 08/13 PO 2215 Metoprolol Tartrate 12.5 MG BID 08/13 1003 AC 08/13 PO 2215 Morphine Sulfate 1 MG Q6P PRN 08/11 1615 AC IV Oxycodone HCl 5 MG Q6 PRN 08/11 1615 AC PO Assessment/Plan Assessment: 81 year old right handed guinean speaking woman with multiple medical problems significant for CVA, cerebral aneurysm, cardiac stent, hypertension, and hyperlipidemia seen for progressively worsening altered mental status, elevated blood pressure, and headache. Vital signs were significant for elevated blood pressure with normal CBC, BEP, and LFTs. CXR was unremarkable. CT head demonstrated multiple chronic findings suggestive of microvascular ischemia and a focal region of hypoattenuation within the right parieto-occipital lobe concerning for age-indeterminant ischemia versus vasogenic edema. EKG was normal sinus rhythm with t-wave inversion in V2-V5. Acute Right MCA/PRIVATE WEALTH ADVISOR CVA / EKG Changes Patient was continued on aspirin and atorvastatin and admitted to the telemetry floor. Echocardiogram demonstrated an ejection fraction of 60-65% without any thrombus. Carotid doppler identified a right carotid stenosis of 50-79% for which a vascular surgery consult was placed. Neurology specification consultant recommended initiation of Plavix for 3-4 weeks. MRI/MRA identified patchy areas of acute infarction seen in the right MCA/PRIVATE WEALTH ADVISOR territories suggestive of embolism. PT evaluation determined that patient will require short term rehabilitation. CTA neck was obtained at the request of vascular fashion consultant sales, results pending. Patient is to follow up with the vasulcar surgeon one to two weeks after discharge as it was determined no urgent surgical interventions are required. Patient is to be discharged to [facility] tomorrow morning. -Telemetry -MMSE 27/30 -Aspirin 81mg PO Daily -Clopidogrel 75mg PO Daily -Atorvastatin 80mg PO Daily -Cardio following -Neuro following -Vascular consult, recommendations pending -PT/OT: Assist of 1, Rolling walker, [facility] Hypertension -Lisinopril 20mg PO Daily -Metoprolol 12.5mg PO BID, (HALF OF HOME DOSE) Hyperlipidemia-statin as above Insomnia-Melatonin 5mg PO QHS Diabetes Mellitus Patient is reported a 'borderline diabetic'. -HbA1c: 6.6 -Accuchecks TIDAC/HS -Hold oral hypoglycemics -Novolog Sliding Scale Insulin -Diabetic Diet Pain Plan-Acetaminophen/Oxycodone/Morphine Diet-Diabetic Diet DVT PPx-ALPS Code Status-FULL CODE Problem List: 1. Altered mental status 2. CVA (cerebral vascular accident) Pain Ratin Pain Location: None Pain Goal: Remain pain free Pain Plan: See assessment Tomorrow's Labs & Rationales: None Consulting Request: Consulting Specialty: Thoracic/Vascular Surgery QUINTON ZHANG MD 08/14/16 1601: Attending MD Review Statement Attending Statement Attending MD Statement: examined this patient, discuss w/resident/PA/GENERAL MANAGER LAND DEPARTMENT, agreed w/resident/PA/GENERAL MANAGER LAND DEPARTMENT, discussed with family, reviewed EMR data (avail), discussed with nursing, discussed with case mgmt, amended to note Attending Assessment/Plan: Patient seen and examined. Resting comfortably and not in any acute distress. No events on telemetry overnight. She remains alert and oriented 3. She remains very jovial. No significant changes in neurologic deficits overnight. Vascular surgery consultation appreciated. Patient will undergo CT angiogram of the head and neck to further assess her vasculature. She is still awaiting placement in a retirement facility and will be discharged once a bed becomes available.
[2016-08-14 08:00] VITALS: BP 120/60
--- NOTE | 2016-08-14 14:51 | Cons- Vascular Surgery ---
General Information and HPI Consulting Request Date of Consult: 08/14/16 Requested By: QUINTON ZHANG M.D History of Present Illness: Patient is a 81-year-old Lao-speaking lady who was admitted to [facility] with the change of mental status and urinary incontinence. She has a history of hypertension, hyperlipidemia and CVA about 2 years ago which initially caused her to have slurred speech and left-sided weakness which resolved. The history is obtained by her daughter was at bedside. The patient denies smoking. She now developed weakness. She now has developed left upper extremity weakness MRI of the brain that showed the acute and subacute infarct in the right MCA AUDITING MANAGER territory. Carotid ultrasound showed a moderate 50-79% stenosis of the right ICA and no significant stenosis of the left ICA. Cardiology workup has shown no specific source for thromboembolic event Allergies/Medications Allergies: Coded Allergies: No Known Allergies (08/11/16) Home Med List: Amlodipine Besylate (Norvasc) 10 MG TABLET 1 TAB PO DAILY htn (Reported) Aspirin (Aspirin*) 81 MG TAB.CHEW 81 MG PO DAILY STROKE Atorvastatin Calcium (Lipitor) 40 MG TABLET 1 TAB PO DAILY CHOLESTROL ( Reported) Atorvastatin Calcium 80 MG TABLET 1 TAB PO DAILY STROKE Clopidogrel Bisulfate (Plavix) 75 MG TABLET 75 MG PO DAILY STROKE Hydrochlorothiazide 25 MG TABLET 1 TAB PO DAILY HTN (Reported) Lisinopril 20 MG TABLET 20 MG PO DAILY HTN Metformin HCl 500 MG TABLET 1 TAB PO BID DIABETES (Reported) Metoprolol Tartrate (Lopressor) 50 MG TABLET 1 TAB PO BID Heart (Reported) Metoprolol Tartrate 25 MG TABLET 12.5 MG PO BID HEART Past History Medical History Blood Transfusion Hx: No Neurological: CVA, STROKE ANNEURYSM EENT: NONE Cardiovascular: hypertension, hyperlipidemia, STENT BLOCKED ARTERY Respiratory: NONE Gastrointestinal: NONE Hepatic: NONE Renal: NONE Musculoskeletal: NONE Psychiatric: NONE Endocrine: NONE Blood Disorders: NONE Cancer(s): NONE ASSOCIATE CIVIL ENGINEER/Reproductive: NONE Surgical History Pertinent Surgical History: hip replacement (RIGHT) Family History Relations & Conditions If Any: FATHER, ; Cause: Lung cancer. MOTHER FHx: diabetes mellitus BROTHER FH: myocardial infarction Psychosocial History Where Do You Live? Home Who Do You Live With? child Primary Language: Lao Smoking Status: Never Smoked ETOH Use: denies use Illicit Drug Use: denies illicit drug use Functional Ability ADLs Independent: dressing, eating, toileting, bathing. 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 Review of Systems Review of Systems: Patient denies headache, dizziness, cough, apposition, diarrhea or constipation Exam & Diagnostic Data Vital Signs and I&O Vital Signs Date Time Temp Pulse Resp B/P B/P Pulse O2 O2 Flow FiO2 Mean Ox Delivery Rate 08/14 1156 79 120/60 08/14 1156 79 120/60 08/14 0800 98.1 79 16 120/60 96 Room Air 08/14 0010 98.1 82 20 120/64 94 Room Air 08/13 2215 78 134/78 08/13 1618 98.3 82 20 132/80 95 Room Air Intake & Output 08/14 1600 08/14 0800 08/14 0000 08/13 1600 08/13 0800 08/13 0000 Intake Total 400 1080 600 120 900 Output Total 625 300 350 300 Balance 400 455 300 -230 600 Intake, IV 300 Intake, Oral 400 1080 600 120 600 Number 1 7 1 Bowel Movements Output, Urine 625 300 350 300 Physical Exam: Patient is alert and oriented and following commands Lungs: Clear to auscultation bilaterally Cardiovascular: Regular rate and rhythm Abdomen: Soft, nontender nondistended Neuro: Cranial nerves II through XII are grossly intact. Patient is able to move her left arm but it is weak in compared to right. Motor and sensation of bilateral lower extremities are equal. Assessment/Plan Assessment/Plan 81-year-old lady with a prior history of CVA was found to have acute right MCA/ AUDITING MANAGER territory infarct with carotid ultrasound showing moderate, 50-70% stenosis of the right ICA. Cardiac source has so far been ruled out. She is currently on antiplatelet therapy. Her left upper extremity weakness has slightly improved according to the patient. Recommendations Continue antiplatelet therapy CTA of the neck to have a better idea of her carotid anatomy for possible future surgery No acute surgical intervention necessary at this time as the patient had already infarcted. I will follow her as outpatient 1-2 weeks after discharge. Consult Acknowledgment - Thank you for your consult request.
[2016-08-14 16:05] VITALS: BP 170/90
--- NOTE | 2016-08-14 17:44 | PN- Cardiology ---
Subjective Subjective: According to nursing, the patient has offered no complaints. Telemetry revealed a brief (10 beat) run of what appeared to be SVT at around 9: 04 this a.m. There is been no evidence of definite atrial fibrillation. Objective Vital Signs and I&Os Vital Signs Date Time Temp Pulse Resp B/P B/P Pulse O2 O2 Flow FiO2 Mean Ox Delivery Rate 08/14 1605 98.0 85 20 170/90 96 Room Air 08/14 1156 79 120/60 08/14 1156 79 120/60 08/14 0800 98.1 79 16 120/60 96 Room Air 08/14 0010 98.1 82 20 120/64 94 Room Air 08/13 2215 78 134/78 Intake & Output 08/14 1600 08/14 0800 08/14 0000 08/13 1600 08/13 0800 08/13 0000 Intake Total 048 781 9776 600 120 900 Output Total 875 625 300 350 300 Balance 25 400 455 300 -230 600 Intake, IV 300 Intake, Oral 759 238 5582 600 120 600 Number 1 1 7 1 Bowel Movements Output, Urine 875 625 300 350 300 Physical Exam: Well-developed, well-nourished elderly female in no acute distress. Vital signs: See above. Neck: No JVD, no bruits. Lungs: Clear to auscultation bilaterally. Heart: S1, S2 with grade 1-2/6 systolic murmur. No gallop or rub appreciated. Abdomen: Soft, nontender, positive bowel sounds. Extremities: No edema. Current Medications: Current Medications Sig/Marc Start time Last Medication Dose Route Stop Time Status Admin Acetaminophen 650 MG Q4P PRN 08/11 1615 AC PO Aspirin 81 MG DAILY 08/12 1000 AC 08/14 PO 1155 Atorvastatin Calcium 80 MG 1700 08/11 1700 AC 08/14 PO 1655 Clopidogrel Bisulfate 75 MG DAILY 08/12 1415 AC 08/14 PO 1156 Insulin Aspart 0 TIDAC 08/12 1200 AC 08/13 SC 1311 Lisinopril 20 MG DAILY 08/12 1000 AC 08/14 PO 1156 Melatonin 5 MG AT BEDTIME 08/11 2200 AC 08/13 PO 2215 Metoprolol Tartrate 12.5 MG BID 08/13 1003 AC 08/14 PO 1156 Morphine Sulfate 1 MG Q6P PRN 08/11 1615 AC IV Oxycodone HCl 5 MG Q6 PRN 08/11 1615 AC PO Assessment/Plan Assessment/Plan 81 [id number] w/ hx HTN, HLD, pre-DM, previous stroke 2014, and CAD s/p coronary stents who presented to be ED 08/11/2016 with AMS and who was ultimately discovered to have had an acute infarction in the right MCA and SIMULATION TECHNICIAN territories by MRI/neck MRA performed 08/12/2016. Fortunately, from a cardiac standpoint, her echocardiogram did not reveal a definite cardioembolic source for her presentation, such as an apical thrombus and she has had no paroxysms of atrial fibrillation on telemetry, thus far. Given the findings on her carotid ultrasound, a neck MRA was performed that revealed relatively benign appearing carotids, but possible stenoses and irregularity in the posterior circulation. Vascular surgery (Ferny Shaffer M.D.) saw Mrs. Cespedes and did not feel as though she was an appropriate candidate for surgery, given the time course of events. Recommendations: * Continue on telemetry. * Follow-up on vascular surgery recommendations. * Continue statin and antiplatelet therapy. * Continue occupational and physical therapy. * Continue DVT prophylaxis. Continue telemetry? Yes
--- NOTE | 2016-08-14 17:56 | CT SCAN REPORT ---
EXAMINATION: CT ANGIOGRAM NECK CLINICAL INFORMATION: Right carotid stenosis. Recent right MCA and SENIOR HR GENERALIST stroke. COMPARISON: Brain MRI 08/12/2016. TECHNIQUE: Test bolus sequences followed by administration of 95 mL of Optiray 350 intravenous contrast. Helical imaging was performed in the axial plane of the neck. The data was processed at the sand technologist workstation for generation of MIP sequences. Three-dimensional volume rendered reformatted images were also generated at an offline 3-D workstation. DLP: 808.19 mGy-cm FINDINGS: There is irregular eccentric atheromatous plaque involving the aortic arch apex. The origin of the left subclavian artery cannot be accurately assessed due to the extent of streak artifact related to the high density contrast material within the innominate vein. The left common carotid artery and brachiocephalic artery origins are patent. The right common carotid artery and right subclavian artery origins are patent. Common carotid arteries are patent. Lipid-laden atheromatous plaque causes near occlusive greater than 90% stenosis of the right internal carotid artery at its origin. The right external carotid artery origin also appears to be occluded with reconstitution of filling distally. Partially calcified eccentric atheromatous plaque at the left carotid bifurcation causes 25% stenosis of left internal carotid artery near its origin and mild to moderate focal narrowing at the origin of the left external carotid artery. There is moderate to high-grade focal narrowing of the V1 segment of the right vertebral artery. Mild irregular narrowing of the V1 segment of the left vertebral artery. Calcified atheromatous plaque causes moderate focal narrowing at the dural insertions of both vertebral arteries. There is diffuse high-grade stenosis or occlusion of the vertebrobasilar system and the posterior cerebral arteries and the superior cerebellar arteries appear to fill via the posterior communicating arteries. Calcified plaque causes mild narrowing of the cavernous segments of both internal carotid arteries. Visualized portions of the anterior and middle cerebral artery complexes are unremarkable. Limited visualization of intracranial structures reveals a cortical infarct at the junction of the right occipital and parietal lobes and numerous foci of nonspecific hypoattenuation within the perivenular white matter most likely represent a chronic manifestation of small vessel ischemia. Soft tissues of the neck including the thyroid gland are unremarkable. Visualized lung apices are clear. IMPRESSION: Lipid-laden atheromatous plaque causes 90% stenosis of the right internal carotid artery at its origin and 25% stenosis of the left internal carotid artery at its origin. There is moderate to high-grade focal narrowing of the V1 segment of the right vertebral artery and mild irregular narrowing of the V1 segment of the left vertebral artery. There is diffuse high-grade stenosis or occlusion of the vertebrobasilar system. The posterior cerebral arteries and superior cerebellar arteries appear to fill via the posterior communicating arteries. Calcified atherosclerotic plaque causes mild irregular narrowing of the cavernous segments of both internal carotid arteries. Visualized portions of the anterior and middle cerebral artery complexes are unremarkable.
[2016-08-14 18:48] VITALS: BP 160/80
--- NOTE | 2016-08-15 07:20 | PN- Housestaff ---
RADHA RODRIGUEZ,[facility] 08/15/16 0719: Subjective Follow-up For: Acute right MCA/MARKETING CO OP CVA Right internal carotid stenosis Diabetes Mellitus Hypertension Cardiac Stent Tele-Events Since Last Visit: Normal sinus rhythm, heart rate between 62-67, bundle-branch block at 12 and 4 AM Subjective: Patient seen and examined this morning she is lying in bed in no acute distress, offers no complaints. Review of Systems Constitutional: Reports: see HPI. Objective Last 24 Hrs of Vital Signs/I&O Vital Signs Date Time Temp Pulse Resp B/P B/P Pulse O2 O2 Flow FiO2 Mean Ox Delivery Rate 08/15 0815 97.5 68 18 142/80 96 Room Air 08/15 0800 Room Air 08/14 1852 160/80 08/14 1848 160/80 08/14 1605 98.0 85 20 170/90 96 Room Air 08/14 1156 79 120/60 08/14 1156 79 120/60 Intake & Output 08/15 1600 08/15 0800 08/15 0000 Intake Total 240 Output Total 300 Balance -60 Intake, Oral 240 Output, Urine 300 Physical Exam General Appearance: Alert, Oriented X3, Cooperative, No Acute Distress Cardiovascular: Regular Rate, Normal S1, Normal S2 Lungs: Clear to Auscultation, Normal Air Movement Abdomen: Normal Bowel Sounds, Soft, No Tenderness Neurological: Awake and alert, CN II - XII grossly intact, normal speech/ coordination, no appreciable facial droop, all four extremites move spontaneously, strength 5/5 in all extremities other than distal LUE with grasp minimally weak, coordination poor in LUE extremity Extremities: No Clubbing, No Cyanosis, No Edema Current Medications: Current Medications Sig/Marc Start time Last Medication Dose Route Stop Time Status Admin Acetaminophen 650 MG Q4P PRN 08/11 1615 AC PO Aspirin 81 MG DAILY 08/12 1000 AC 08/14 PO 1155 Atorvastatin Calcium 80 MG 1700 08/11 1700 AC 08/14 PO 1655 Clopidogrel Bisulfate 75 MG DAILY 08/12 1415 AC 08/14 PO 1156 Insulin Aspart 0 TIDAC 08/12 1200 AC 08/13 SC 1311 Lisinopril 20 MG DAILY 08/12 1000 AC 08/14 PO 1156 Melatonin 5 MG AT BEDTIME 08/11 2200 AC 08/14 PO 2103 Metoprolol Tartrate 12.5 MG BID 08/13 1003 AC 08/14 PO 1852 Morphine Sulfate 1 MG Q6P PRN 08/11 1615 AC IV Oxycodone HCl 5 MG Q6 PRN 08/11 1615 AC PO Assessment/Plan Assessment: 81 year old right handed andorran speaking woman with multiple medical problems significant for CVA, cerebral aneurysm, cardiac stent, hypertension, and hyperlipidemia seen for progressively worsening altered mental status, elevated blood pressure, and headache. Vital signs were significant for elevated blood pressure with normal CBC, BEP, and LFTs. CXR was unremarkable. CT head demonstrated multiple chronic findings suggestive of microvascular ischemia and a focal region of hypoattenuation within the right parieto-occipital lobe concerning for age-indeterminant ischemia versus vasogenic edema. EKG was normal sinus rhythm with t-wave inversion in V2-V5. Acute Right MCA/MARKETING CO OP CVA / EKG Changes Patient was continued on aspirin and atorvastatin and admitted to the telemetry floor. Echocardiogram demonstrated an ejection fraction of 60-65% without any thrombus. Carotid doppler identified a right carotid stenosis of 50-79% for which a vascular surgery consult was placed. Neurology provider relations consultant recommended initiation of Plavix for 3-4 weeks. MRI/MRA identified patchy areas of acute infarction seen in the right MCA/MARKETING CO OP territories suggestive of embolism. PT evaluation determined that patient will require short term rehabilitation. CTA neck was obtained at the request of vascular peoplesoft consultant, results pending. Patient is to follow up with the vasulcar surgeon one to two weeks after discharge as it was determined no urgent surgical interventions are required. Patient is to be discharged to [facility] tomorrow morning. -Telemetry -MMSE 27/30 -Aspirin 81mg PO Daily -Clopidogrel 75mg PO Daily -Atorvastatin 80mg PO Daily -Cardio following -Neuro following -Vascular consult, recommendations pending -PT/OT: Assist of 1, Rolling walker, [facility] Patient to be discharged to adhere to Hypertension -Lisinopril 20mg PO Daily -Metoprolol 12.5mg PO BID, (HALF OF HOME DOSE) Hyperlipidemia-statin as above Insomnia-Melatonin 5mg PO QHS Diabetes Mellitus Patient is reported a 'borderline diabetic'. -HbA1c: 6.6 -Accuchecks TIDAC/HS -Hold oral hypoglycemics -Novolog Sliding Scale Insulin -Diabetic Diet Pain Plan-Acetaminophen/Oxycodone/Morphine Diet-Diabetic Diet DVT PPx-ALPS Code Status-FULL CODE Problem List: 1. CVA (cerebral vascular accident) 2. Altered mental status Pain Ratin Pain Location: NONE Pain Goal: Remain pain free Pain Plan: [facility] Tomorrow's Labs & Rationales: None patient to be discharged Consulting Request: Consulting Specialty: Thoracic/Vascular Surgery Discharge Plan Discharge Disposition: STR/NH Stable for Discharge? Yes Anticipated Discharge (Day): today If Discharged Today/In 24 Hrs: W-10/discharge paper done, DC summary done, CMR done QUINTON ZHANG MD 08/15/16 1207: Attending MD Review Statement Attending Statement Attending MD Statement: examined this patient, discuss w/resident/PA/PHLEBOTOMY MANAGER, agreed w/resident/PA/PHLEBOTOMY MANAGER, reviewed EMR data (avail), discussed with nursing, discussed with case mgmt, amended to note Attending Assessment/Plan: Patient seen and examined. Resting comfortably and not in any acute distress. No issues overnight. No events on telemetry monitoring. She remains very jovial. She reports that she has been doing her bedside exercises. She is able to move her left upper extremity weakly. There are no changes in her neurologic deficits. She is medically stable to be discharged today to the [facility] facility for short-term rehabilitation. She'll be following up with vascular surgery service as an outpatient
[2016-08-15 08:15] VITALS: BP 142/80
[2016-08-15 11:47] VITALS: BP 142/80
== END 2016-08-15 13:00 | DRG 45 ==
LOC: ERH 12:30 → ERHI 15:28 → 1NO 15:28 → ENRESERV 16:09 → ENTRNSPT 17:50 → 1NO 18:15 → CMPTRNSPT 21:00 → 1NO 08-12 14:48
PROVIDERS: Internal Medicine Infectious Disease; Student in an Organized Health Care Education/Training Program; ADMIT Internal Medicine
DX: I63.9 Cerebral infarction, unspecified (principal); E11.9 Type 2 diabetes mellitus without complications; I47.1 Supraventricular tachycardia; F01.50 Vascular dementia, unspecified severity, without behavioral disturbance, psychotic disturbance, mood disturbance, and anxiety; I10 Essential (primary) hypertension; E78.5 Hyperlipidemia, unspecified; R32 Unspecified urinary incontinence; I25.10 Atherosclerotic heart disease of native coronary artery without angina pectoris; I65.21 Occlusion and stenosis of right carotid artery; Z86.73 Personal history of transient ischemic attack (TIA), and cerebral infarction without residual deficits; Z79.84 Long term (current) use of oral hypoglycemic drugs
CPT/HCPCS: 1NP; 70551; 70555; 36415; 80307; 81001; 82436; 93005; 93010; 93306; 97110-GO; 97116-GO; 97161-GP; 97530-GO; J3490; J7042

== ENCOUNTER 2016-08-21 17:09 | Inpatient (IN) | payer OTHER ==
[~2016-08-21] VITALS: Ht 165.1 cm; Wt 74.1 kg
[~2016-08-21 17:09] MED LIST: ASPIRIN81 M4 PO; ATORVASTATIN CA80 M1 PO; HYDROCHLOROTHIA25 M1 PO; LIPITOR40 M1 PO; LISINOPRIL20 M1 PO; LOPRESSOR50 M1 PO; METFORMIN HCL500 M2 PO; METFORMIN HCL500 M3 PO; METOPROLOL TART25 M1 PO; NORVASC10 M1 PO; PLAVIX75 M1 PO
--- NOTE | 2016-08-21 17:14 | NUR ---
YIFAN FROM [facility] FOR C/O NEAR SYNCOPE, STAFF HELPED LOWER PT TO GROUND WITH NO POSITIVE LOC. WHEN EMS ARRIVED ON SCENE PT WAS IN 3RD DEGREE HEART BLOCK. GLUCOSE IN ROUTE WAS 179, #20G RIGHT HAND EN ROUTE. PT BELARUSIAN SPEAKING ONLY, HX OF DEMENTIA AND IS BASELINE ALERTERED.
--- NOTE | 2016-08-21 17:18 | NUR ---
EKG COMPLETED, PT ON LUMP ROLLER IN ROOM, ON PACER PADS IN ROOM, ADDITIONAL IV STARTED IN LAC #18G, DR. MARQUES AT BEDSIDE UPON ARRIVAL. GLUCOSE CHECKED AND CHARTED. PT AWAKE, LOOKING AROUND ROOM, DOES NOT FOLLOW COMMANDS AT THIS TIME, UNSURE IF LANGUAGE BARRIER OR BASELINE NEURO STATUS. PT FALL RISK, RED SLIPPERS APPLIED AND FALL SIGN ON DOOR. BLOOD WORK DRAWN AND SENT TO LAB. PT IN 3RD DEGREE HEART BLOCK WITH RATE OF 27BPM AT THIS TIME.
[2016-08-21 17:39] LABS: ABSOLUTE BASOPHIL COUNT 0.1 /CUMM (0.0-0.2); ABSOLUTE EOSINOPHIL COUNT 0.3 /CUMM (0.0-0.7); ABSOLUTE GRANULOCYTE CT 7.7 /CUMM (1.4-6.5); ABSOLUTE LYMPH COUNT 4.1 /CUMM (1.2-3.4); ABSOLUTE MONOCYTE COUNT 0.9 /CUMM (0.10-0.60); BASOPHIL % 0.5 % (0.0-2.0); EOSINOPHIL % 2.6 % (0-5); GRANULOCYTE % 58.4 % (42.2-75.2); HEMATOCRIT 42.7 % (37-47); MEAN CORPUSCULAR HGB 30.2 PG (27.0-31.0); MEAN CORPUSCULAR HGB CONC 33.6 G/DL (33.0-37.0); MEAN CORPUSCULAR VOLUME 89.8 FL (81.0-99.0); MEAN PLATELET VOLUME 7.8 FL (7.4-10.4); PLATELET COUNT 362 /CUMM (130-400); RBC DISTRIBUTION WIDTH 12.9 % (11.5-14.5); RED BLOOD CELL CT 4.75 /CUMM (4.20-5.40); WHITE BLOOD CELL COUNT 13.1 /CUMM (4.8-10.8)
--- NOTE | 2016-08-21 17:43 | ED CARDIAC/CP/PALPITATIONS ---
History of Present Illness General Chief Complaint: Syncope and Near-Syncope Stated Complaint: BRADYCARDIA/NEAR SYNCOPY Source: old records, W10 Exam Limitations: unable to give history, dementia, poor historian, language barrier Allergies Coded Allergies: No Known Allergies (08/11/16) Triage Note: BIBA FROM [facility] FOR C/O NEAR SYNCOPE, STAFF HELPED LOWER PT TO GROUND WITH NO POSITIVE LOC. WHEN EMS ARRIVED ON SCENE PT WAS IN 3RD DEGREE HEART BLOCK. GLUCOSE IN ROUTE WAS 179, #20G RIGHT HAND EN ROUTE. PT HUNGARIAN SPEAKING ONLY, HX OF DEMENTIA AND IS BASELINE ALERTERED. Triage Nurses Notes Reviewed? yes HPI: 81F PMH HTN, CAD s/p PCI 2004, HLD, recently diagnosed with acute MCA and CARRIER BLOWER stroke on 08/14 after presenting with altered mental status and hypertensive urgency, brought in today for altered mental status, vomiting, and bradycardia of 29 with complete heart block on EKG. Patient is Lithuanian speaking but does not respond to a few words of Lithuanian spoken to her. She has vomited once. She is awake and responds to basic stimuli and looks in your direction when spoken to. Baseline mental status is unclear. BP 140/63. (MALU RODRIGUEZ,[facility]) Vital Signs & Intake/Output Vital Signs & Intake/Output Vital Signs Date Time Temp Pulse Resp B/P B/P Pulse O2 O2 Flow FiO2 Mean Ox Delivery Rate 08/24 1200 35 08/24 0940 73 140/71 08/24 0836 35 08/24 0800 99.1 70 16 156/78 96 Ventilator 35% 08/24 0545 35 08/24 0400 95 Ventilator 35% 08/24 0333 35 08/24 0112 35 08/24 0104 76 18 174/78 08/24 0000 95 Ventilator 35% 08/24 0000 97.9 76 16 164/82 95 Ventilator 35% 08/23 2231 35 08/23 2050 84 16 173/78 08/23 2008 35 08/23 2000 95 Ventilator 35% 08/23 1718 200/98 08/23 1652 35 08/23 1600 95 Ventilator 35% 08/23 1600 97.9 76 16 157/78 95 Ventilator 35% 08/23 1447 35 ED Intake and Output 08/24 0000 08/23 1200 Intake Total 1342 671 Output Total 710 450 Balance 632 221 Intake, IV 1342 671 Intake, Oral 0 Number 0 Bowel Movements Output, 0 Gastric Drainage Output, Urine 710 450 Reconcile Medications Acetaminophen (Arthritis Pain) 650 MG TABLET.ER 1 TAB PO BID PAIN (Reported) Aspirin (Aspirin*) 81 MG TAB.CHEW 81 MG PO DAILY STROKE Atorvastatin Calcium 80 MG TABLET 1 TAB PO DAILY STROKE Clopidogrel Bisulfate (Plavix) 75 MG TABLET 75 MG PO DAILY STROKE Losartan Potassium (Cozaar) 25 MG TABLET 1 TAB PO DAILY BP (Reported) Melatonin 3 MG TABLET 1 TAB PO QPM SLEEP AID (Reported) Metformin HCl 500 MG TABLET 1 TAB PO BID DIABETES (Reported) Metoprolol Tartrate 25 MG TABLET 12.5 MG PO BID HEART (YONAS RODRIGUEZ,LEANDRA) Past History Travel History Traveled to [place] past 21 day No Medical History Any Pertinent Medical History? see below for history Neurological: CVA, STROKE ANNEURYSM EENT: NONE Cardiovascular: hypertension, hyperlipidemia, STENT BLOCKED ARTERY Respiratory: NONE Gastrointestinal: NONE Hepatic: NONE Renal: NONE Musculoskeletal: NONE Psychiatric: NONE Endocrine: NONE Blood Disorders: NONE Cancer(s): NONE WIRE WEAVER CLOTH/Reproductive: NONE History of MRSA: No History of VRE: No History of CDIFF: No Surgical History Surgical History: hip replacement (RIGHT) Psychosocial History Who do you live with Daughter What is your primary language Lithuanian Tobacco Use: Cognitive Impairment ETOH Use: 6 6 Illicit Drug Use: UTD Family History Family History, If Any: FATHER, ; Cause: Lung cancer. MOTHER FHx: diabetes mellitus BROTHER FH: myocardial infarction Hx Contributory? No (MATTHEW TORIBIO MD) Review of Systems Review of Systems Constitutional: Reports: see HPI. EENTM: Reports: no symptoms. Respiratory: Reports: no symptoms. Cardiovascular: Reports: see HPI. GI: Reports: see HPI. Genitourinary: Reports: no symptoms. Musculoskeletal: Reports: no symptoms. Skin: Reports: no symptoms. Neurological/Psychological: Reports: no symptoms. Hematologic/Endocrine: Reports: no symptoms. Immunologic/Allergic: Reports: no symptoms. All Other Systems: Reviewed and Negative (MATTHEW TORIBIO MD) Physical Exam Physical Exam General Appearance: awake, mild distress, DIAPHORETIC AND ILL APPEARING Head: normal appearance Eyes: Bilateral: normal appearance. Ears, Nose, Throat: normal ENT inspection Neck: normal inspection Respiratory: crackles Cardiovascular: BRADYCARDIC WITHOUT MURMUR Peripheral Pulses: 1+ radial (R), 1+ radial (L) Gastrointestinal: soft, no organomegaly Extremities: normal inspection, normal capillary refill, no edema Neurologic/Psych: NONVERBAL (MALU RODRIGUEZ,MATTHEW) Core Measures ACS in differential dx? Yes Severe Sepsis Present: No Septic Shock Present: No (YONAS RODRIGUEZ,LEANDRA) Progress Differential Diagnosis: AMI, aortic dissection, atrial fibrillation, cholecystitis, CHF/pulm edema, costochondritis, hyperkalemia, hypovolemia, hyperthyroid, hyperventilation, intracranial hemorrhage, musculoskeletal pain, myocarditis, pancreatitis, pericarditis, pneumonia, pneumothorax, PSVT, pulmonary embolism, PUD/GERD, PVCs/PACs, respiratory failure, rib fracture, sepsis, unstable angina, V-fib/V-Tach, WPW syndrome, COMPLETE HEART BLOCK Initial ED EKG: COMPLETE HEART BLOCK WITH JUNCTION ESCAPE RHYTHM AT 29 (MALU RODRIGUEZ,MATTHEW) Plan of Care: Orders Procedure Date/time Status ICU LAB BUNDLE 08/25 0500 Active CBC WITHOUT DIFFERENTIAL 08/25 0500 Active Restraint- Medical 08/24 0840 Active [place], Insertion/Removal/Asses 08/24 0840 Active EKG 08/24 UNK Active OXYGEN 08/23 UNK Complete OXYGEN DAILY CHARGE 08/23 UNK Complete CONTINUOUS VENTILATOR 08/23 UNK Complete MISSING MEDICATION FORM 08/23 UNK Active OXYGEN 08/22 UNK Complete OXYGEN DAILY CHARGE 08/22 UNK Complete CONTINUOUS VENTILATOR 08/22 UNK Complete VENTILATOR SETUP 08/21 UNK Complete OXYGEN SETUP CHG 08/21 UNK Complete RESPIRATORY STAT 08/21 UNK Complete OXYGEN 08/21 UNK Complete OXYGEN TRANSPORT 08/21 UNK Complete AIRWAY MANAGEMENT EXTEND CARE 08/21 UNK Complete Current Medications Sig/Marc Start time Last Medication Dose Stop Time Status Admin Sodium Chloride 500 ML BOLUS ONE 08/24 1445 AC (Normal Saline 0.9%) 08/24 1544 Dextrose/Sodium 1,000 ML Q20H 08/24 1045 AC 08/24 Chloride 1054 (D5-Normal Saline) Losartan Potassium 25 MG DAILY 08/23 1713 AC 08/24 (Cozaar) 0940 Acetaminophen 650 MG Q6P PRN 08/21 2359 AC (Tylenol) Insulin Human Regular 0 Q6 08/21 2359 AC 08/24 (NovoLIN R) 1235 Pantoprazole Sodium 40 MG DAILY 08/21 2100 AC 08/24 (Protonix) 0940 Ampicillin Sodium/ 3,000 MG Q6 08/21 195 AC 08/24 Sulbactam Sodium 1236 (Unasyn) Sodium Chloride 100 ML (Normal Saline 0.9%) Laboratory Tests 08/24/16 0416: Anion Gap 9, Estimated GFR > 60, Glucose 160 H, Calcium 8.7, Phosphorus 2.2 L, Magnesium 2.1, Total Bilirubin 0.9, AST 19, ALT 24, Albumin 3.4 L, CBC w Diff NO MAN DIFF REQ, RBC 4.18 L, MCV 90.6, MCH 30.5, RDW 12.8, MPV 8.0, Gran % 81.8 H, Lymphocytes % 11.4 L, Monocytes % 6.5, Eosinophils % 0, Basophils % 0.3, Absolute Granulocytes 9.1 H, Absolute Lymphocytes 1.3, Absolute Monocytes 0.7 H, Absolute Eosinophils 0, Absolute Basophils 0, PUBS MCHC 33.7 CARDIOLOGY CONSULTED, TRANSCUTAENOUS PACING PADS PLACED, ATROPINE AT BEDSIDE, CARDIOLOGY TO PLACE TRANSVENOUS PACER. PATIENT TO BE ADMITTED TO ICU. (MATTHEW TORIBIO MD) Departure Departure Disposition: STILL A PATIENT Condition: Stable Clinical Impression Primary Impression: Complete heart block Referrals: PATIENT HAS NO PRIMARY CARE DR (PCP/Family) Departure Forms: Customer Survey General Discharge Information Admission Note Spoke With: AUREA BRITTON MD Documentation of Exam: Documentation of any treatments & extenuating circumstances including Concerns Regarding Discharge (functional status, medication knowledge or non-compliance, living conditions, etc.) that warrant an admission rather than observation: COMPLETE HEART BLOCK REQURING TRANSVENOUS PACING (MATTHEW TORIBIO MD) Resident Co-Sign Statement Statement: ED Attending supervision documentation- [X] I saw and evaluated the patient. I have also reviewed all the pertinent lab results and diagnostic results. I agree with the findings and the plan of care as documented in the Resident's documentation. [X] I have reviewed the ED Record and agree with the Resident's documentation. [] Additions or exceptions (if any) to the Resident's note and plan are summarized below: [] (YONAS RODRIGUEZ,LEANDRA) Critical Care Note Critical Care Note Critical Care Time: 30-74 min (MATTHEW TORIBIO MD)
--- NOTE | 2016-08-21 17:45 | RADIOLOGY REPORT ---
EXAMINATION: XR PORTABLE CHEST CLINICAL INFORMATION: Heart block COMPARISON: None TECHNIQUE: Portable frontal view of the chest was obtained. 5:27 PM FINDINGS: Patient rotated to left. Linear scarring/subsegmental atelectasis at left lung base unchanged since prior study. No acute infiltrate. No pulmonary vascular congestion. No pleural effusion pneumothorax. The cardiac and the mediastinal contours are normal. There is vascular wall calcifications of the aorta. IMPRESSION: No acute abnormality the chest.
[2016-08-21 17:49] LABS: PT 11.6 SEC (9.4-12.5); PTT 30 SEC (25-37)
--- NOTE | 2016-08-21 17:51 | NUR ---
CARDOLOGIST AT BEDSIDE. 1740: EXTERNAL PACER VIA LIFEPAK AT BEDSIDE, CURRENT 20 SET WITH RATE OF 60, HR 25BPM 1745: CURRENT UP TO 30 SET WITH RATE OF 60, HR 29BPM 174: MANUAL BP 110/52 174: CURRENT UP TO 40 SET WITH RATE OF 60, HR 41
--- NOTE | 2016-08-21 17:51 | NUR ---
CARDOLOGIST ASHLEE AT BEDSIDE. 1740: PERCUTANEOUS PACER VIA LIFEPAK ON PT AT BEDSIDE, CURRENT 20 SET WITH RATE OF 60 HR, NOT CAPTURING, HR 25BPM 174: CURRENT UP TO 30 SET WITH RATE OF 60, HR 29BPM 174: MANUAL BP 110/52 174: CURRENT UP TO 40 SET WITH RATE OF 60, HR 41
--- NOTE | 2016-08-21 17:59 | NUR ---
CRITICAL TEST RESULTS [id number] DAIN PULIDO 81 F TESTS AND RESULTS: LACTIC 3.3 Results received and read back by: VILLA BAGLEY Results received date and time: 08/21/16 175 The following provider was notified of the results, and read the results back: YONAS Notified date and time: 08/21/16 at 1756
--- NOTE | 2016-08-21 18:07 | NUR ---
PT VOMITING, GAVE 4MG IV ZOFRAN. SETTING UP ROOM FOR EXTERNAL PACER MAKER PLACEMENT.
--- NOTE | 2016-08-21 18:18 | NUR ---
DR. ORDONEZ AT BEDSIDE AT THIS TIME. EXTERNAL PACER SET UP AT BEDSIDE.
--- NOTE | 2016-08-21 18:31 | NUR ---
ED REMEDIOS AVILA RN CALLED [facility] TO FIND OUT CODE STATUS AND FAMILY CONTACT INFORMATION, [facility] REPORTED COULD NOT CONTACT FAMILY. PER DR. ROSADO, ATTEMPTED TO CONTACT FAMILY WITH NO SUCCESS.
--- NOTE | 2016-08-21 18:32 | NUR ---
PT NAMIBIAN SPEAKING ONLY, HX OF DEMENTIA AND IS BASELINE NONVERBAL. EMERGENCY EXTERNAL PACEMAKER PROCEDURE STARTED AT THIS TIME, PT NOT ABLE TO SIGN CONSENT FOR PROCEDURE. 120/46 MANUAL BP, HR 26, 98% 2 L PER NC.
--- NOTE | 2016-08-21 18:37 | Cons- Cardiology ---
General Information and HPI Consulting Request Date of Consult: 08/21/16 Requested By: MD TORIBIO YIANNIS Reason for Consult: Complete heart block. Source of Information: old records Exam Limitations: unable to give history, clinical condition, language barrier History of Present Illness: Mrs. 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 The patient can give no history, has a ventricular escape rhythm at 30 bpm, but fortunately an adequate blood pressure (120/46 mmHg). According to the records sent in with the patient, she is receiving metoprolol 12.5 mg twice daily at the short-term rehabilitation facility and last received metoprolol 12.5 mg by mouth this morning at 9 AM. Allergies/Medications Allergies: Coded Allergies: No Known Allergies (08/11/16) Home Med List: Acetaminophen (Arthritis Pain) 650 MG TABLET.ER 1 TAB PO BID PAIN (Reported) Amlodipine Besylate 5 MG TABLET 1 TAB PO DAILY blood pressure Aspirin (Aspirin*) 81 MG TAB.CHEW 81 MG PO DAILY STROKE Atorvastatin Calcium 80 MG TABLET 1 TAB PO DAILY STROKE Clopidogrel Bisulfate (Plavix) 75 MG TABLET 75 MG PO DAILY STROKE Losartan Potassium (Cozaar) 25 MG TABLET 1 TAB PO DAILY BP (Reported) Melatonin 3 MG TABLET 1 TAB PO QPM SLEEP AID (Reported) Metformin HCl 500 MG TABLET 1 TAB PO BID DIABETES (Reported) Review of Systems Review of Systems: Unobtainable. Past History Travel History Traveled to [place] past 21 day No Medical History Neurological: CVA, STROKE ANNEURYSM EENT: NONE Cardiovascular: hypertension, hyperlipidemia, STENT BLOCKED ARTERY Respiratory: NONE Gastrointestinal: NONE Hepatic: NONE Renal: NONE Musculoskeletal: NONE Psychiatric: NONE Endocrine: NONE Blood Disorders: NONE Cancer(s): NONE BAND MASTER/Reproductive: NONE Surgical History Surgical History: hip replacement (RIGHT) Family History Relations & Conditions If Any: FATHER, ; Cause: Lung cancer. MOTHER FHx: diabetes mellitus BROTHER FH: myocardial infarction Psychosocial History Who Do You Live With? child Primary Language: Paraguayan ETOH Use: 6 6 Illicit Drug Use: UTD Functional Ability ADLs Independent: dressing, eating, toileting, bathing. Ambulation: walker Exam & Diagnostic Data Vital Signs and I&O Vital Signs Date Time Temp Pulse Resp B/P B/P Pulse O2 O2 Flow FiO2 Mean Ox Delivery Rate 08/21 1805 96.4 22 16 116/48 98 Room Air 08/21 1750 110/52 08/21 1713 29 12 140/63 98 Nasal 2.0L Cannula Physical Exam: Well-developed, overweight elderly female in no acute distress. Vital signs: See above. HEENT: Normocephalic, atraumatic, EOMI, slightly dry mucous membranes. Neck: No JVD, no bruits. Lungs: Clear to auscultation bilaterally. Heart: S1, S2 with grade 1-2/6 systolic murmur best heard at the base. PMI fifth ICS at MCL. Abdomen: Soft, nontender, positive bowel sounds. Extremities: No edema. Labs/Talib Results: Laboratory Tests 08/21 08/21 1731 1730 Chemistry Sodium (137 - 145 mmol/L) 139 Potassium (3.5 - 5.1 mmol/L) 4.5 Chloride (98 - 107 mmol/L) 105 Carbon Dioxide (22 - 30 mmol/L) 21 L Anion Gap (5 - 16) 14 BUN (7 - 17 mg/dL) 24 H Creatinine (0.5 - 1.0 mg/dL) 0.9 Estimated GFR (>60 ml/min) > 60 BUN/Creatinine Ratio (7 - 25 %) 26.7 H Glucose (65 - 99 mg/dL) 164 H Lactic Acid (0.7 - 2.1 mmol/L) 3.3 H Calcium (8.4 - 10.2 mg/dL) 9.3 Total Bilirubin (0.2 - 1.3 mg/dL) 0.8 AST (14 - 36 U/L) 23 ALT (9 - 52 U/L) 31 Alkaline Phosphatase (<127 U/L) 78 Troponin I (< 0.11 ng/ml) < 0.01 Total Protein (6.3 - 8.2 g/dL) 6.9 Albumin (3.5 - 5.0 g/dL) 4.1 Globulin (1.9 - 4.2 gm/dL) 2.8 Albumin/Globulin Ratio (1.1 - 2.2 %) 1.5 Coagulation PT (9.4 - 12.5 SEC) 11.6 INR (0.90 - 1.19) 1.11 APTT (25 - 37 SEC) 30 Hematology CBC w Diff NO MAN DIFF REQ WBC (4.8 - 10.8 /CUMM) 13.1 H RBC (4.20 - 5.40 /CUMM) 4.75 Hgb (12.0 - 16.0 G/DL) 14.3 Hct (37 - 47 %) 42.7 MCV (81.0 - 99.0 FL) 89.8 MCH (27.0 - 31.0 PG) 30.2 RDW (11.5 - 14.5 %) 12.9 Plt Count (130 - 400 /CUMM) 362 MPV (7.4 - 10.4 FL) 7.8 Gran % (42.2 - 75.2 %) 58.4 Lymphocytes % (20.5 - 51.1 %) 31.5 Monocytes % (1.7 - 9.3 %) 7.0 Eosinophils % (0 - 5 %) 2.6 Basophils % (0.0 - 2.0 %) 0.5 Absolute Granulocytes (1.4 - 6.5 /CUMM) 7.7 H Absolute Lymphocytes (1.2 - 3.4 /CUMM) 4.1 H Absolute Monocytes (0.10 - 0.60 /CUMM) 0.9 H Absolute Eosinophils (0.0 - 0.7 /CUMM) 0.3 Absolute Basophils (0.0 - 0.2 /CUMM) 0.1 PUBS MCHC (33.0 - 37.0 G/DL) 33.6 Diagnostic Data EKG Results (08/21/2016) complete heart block with ventricular escape rate of 30 bpm, LAFB, RBBB, and T-wave abnormalities in diffuse leads. CXR Results (08/21/2016) no acute cardiopulmonary process. 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 The patient can give no hx, has a ventricular escape at 30 bpm, but fortunately an adequate BP. Recommendations: * ICU admission, follow-up troponins, follow-up with a line operator. * Place transcutaneous pacemaker pads and have transcutaneous pacing (ZOLL) trial to see that adequate pacing can occur if needed. * May additionally need to place a transvenous pacemaker, if transcutaneous pacing is unsuccessful. This has already been discussed with pacemaker specialist (Jaguar Moe M.D., PhD). * Suspect that she will need a permanent pacemaker implanted and, as such, would make her nothing by mouth after midnight on Wednesday (08/23/2016). * Hold beta yael for the short-term. * Contact family member (daughter) and alert her to the patient's condition and reestablish that the patient is a full code. * DVT prophylaxis. Further recommendations will follow, Thank you. Consult Acknowledgment - Thank you for your consult request.
[2016-08-21] MEDS ORDERED: COZAAR25 M1 PO (18:57)
[2016-08-21] MEDS ORDERED: MELATONIN3 M4 PO (18:58)
[2016-08-21] MEDS ORDERED: ARTHRITIS PAIN650 M2 PO (18:59)
--- NOTE | 2016-08-21 19:11 | NUR ---
END OF PROCEDURE. STAT CXR COMPLETED, DR. ORDONEZ WANTING TO LOOK AT XR PRIOR TO TRANSFER TO ICU. PT VOMITED DURING PROCEDURE, HEAD TURNED TO SIDE BEST COULD HANDLE AND PT SUCTIONED. PER DR. ORDONEZ NOT TO TURN PT TO CLEAN, TO KEEP PT FLAT CAPTURES BEST. HR OF 71 AFTER PACER PLACED. NO CHANGE IN NEURO STATUS. DR. ORDONEZ VIEWING XR AT THIS TIME.
--- NOTE | 2016-08-21 19:16 | NUR ---
EXTERNAL PACER INTERMITTENTLY CAPTURING, IS NOW DOWN TO 35BPM. DR. ORDONEZ ADJUSTING AT THIS TIME.
--- NOTE | 2016-08-21 19:17 | NUR ---
PACER BACK UP TO 71BPM FROM DR. JOSÉ LUIS ZAMORA.
--- NOTE | 2016-08-21 19:21 | NUR ---
PT VOMITING, WHEN SITTING UP TO SUCTION, CAPTURE DECREASES TO 32BPM. DR ORDONEZ ADJUSTING PACEMAKER AT THIS TIME.
--- NOTE | 2016-08-21 19:39 | NUR ---
REPORT GIVEN TO RENATO JAY ON ICU. INFORMATION CLERK CASHIER PAGED TO GO UP WITH PT PER HOSPITALIST. TRANSPORT BOOKED.
--- NOTE | 2016-08-21 19:47 | RADIOLOGY REPORT ---
EXAMINATION: XR PORTABLE CHEST CLINICAL INFORMATION: Status post pacer insertion. COMPARISON: 08/21/2016 5:27 PM. TECHNIQUE: Portable frontal view of the chest was obtained. FINDINGS: Single pacer leads via a right IJ approach overlies the central heart with its tip in indeterminate position. No generator is identified and this appears to be inserted from a right arm approach. Cardiomediastinal silhouette appears unchanged. There is no pneumothorax. No focal infiltrate. Minimal left basilar atelectasis. There are degenerative changes in the right shoulder. IMPRESSION: Pacer lead as noted.
--- NOTE | 2016-08-21 19:47 | Admission Certification ---
Admission Certification Certification Statement - As attending physician, I certify that at the time of - admission, based on clinical presentation, severity of - symptoms, need for further diagnostic testing and - therapeutic interventions, and risk of adverse outcomes - without in-hospital treatment, in my clinical assessment, - this patient requires an acute hospital stay for a minimum - of two nights or longer. I have also considered psychsocial - factors such as support system, advanced age, financial - issues, cognitive issues, and failed out-patient treatments, - past re-admission history, safety of patient, and lack of - compliance as applicable. Specific rationale supporting this admission is: Complete heart block.
--- NOTE | 2016-08-21 20:02 | NUR ---
2000: CAPTURE BACK DOWN TO 25BPM. HOUSE STAFF AT BEDSIDE FOR TRANSPORT. 02 DOWN TO 83% ON 4L NC. DETERMINED TO INTUBATE AT THIS TIME. RT AND ANESTHESIA CALLED. 2000: STARTED BAGGING PT WITH 02 SATS AT 80% ON 6L NC. DR. ORDONEZ PAGED WELL. EXTERNAL PACER NOT CAPTURING. HOUSE STAFF USING LIFEPAK TO PACE AND IS RATE OF 60BPM. 02 UP TO 100 WITH AMBU BAG. 2009:
--- NOTE | 2016-08-21 20:19 | NUR ---
2020: PROPOFOL STARTED AT THIS TIME BY RENATO AVILA.
--- NOTE | 2016-08-21 20:23 | NUR ---
BP 188/89, ATTEMPTING CAPTURE VIA [employer] PADS AT THIS TIME.
--- NOTE | 2016-08-21 20:37 | NUR ---
DR. GIBBS AT BEDSIDE, SETTING UP FOR CENTRAL LINE MISTY, STUDIO COORDINATOR REMAINS AT BEDSIDE. PT REMAINS ON LIFEPAK BEING PACED WITH RATE OF 60BPM. ON VENT, RT AT BEDSIDE. BP 74 PALP PER RENATO JAY. 2040: 1LNS BOLUS STARTED AT THIS TIME
--- NOTE | 2016-08-21 20:46 | NUR ---
OG MOVED TO 50 AT THE LIP FOR PLACEMENT.
--- NOTE | 2016-08-21 20:47 | NUR ---
PROPOFOL UP TO 10MCG/KG/MIN AND IS SEDATING PT.
--- NOTE | 2016-08-21 20:56 | NUR ---
PT TRANSPORTED VIA STRETCHER PER VERBAL ORDER FROM HOUSE STAFF WITH LABORER SYRUP MACHINEMISTY, FREIGHT AGENT, RT, RAIL LAYER AND THIS RN. CARE RELINQUISHED UPON ARRIVAL TO UNIT.
--- NOTE | 2016-08-21 21:05 | NUR ---
Admission Note- Patient arrives to ICU Rm. 111 at 2105 from ER. Patient is settled into ICU bed and placed on monitor. Patient is on transcutaneous pacer as there was no longer capture with transvenous pacing. Patient is sedated on 10mcg of propofol infusing through a peripheral line and is not following commands. Patient is intubated with #7 ETT to the right at 20cm. AC- 16, FiO2-80%, TV-500 and PEEP-5. Lungs are diminished but clear. Patient has OGT taped to ETT and is connected to LWS. Skin appears to be intact, but patient unable to be turned and assessed at this time due to instability. The patient has 2 patent peripheral IV's and a R groin TLC that is also patent. Awaiting Dr. Moe to assess patient and attempt to correct transvenous pacer. Will cont to closely monitor.
--- NOTE | 2016-08-21 21:06 | History & Physical ---
ALAINAFADUMOJUDDSHRUTHI 08/21/167: General Information and HPI MD Statement: I have seen and personally examined DAIN PULIDO and documented this H&P. The patient is a 81 year old F who presented with a patient stated chief complaint of [HEART BLOCK]. Source of Information: old records Exam Limitations: unable to give history, clinical condition, language barrier History of Present Illness: 81 year old lady with pmh hx of recent CVA on dual antiplatelet, HTN,DM, CAD PCI in 2004, carotid stenosis, was brought back from [place] after 7 days from discharge from [facility] with chief complaint of nausea,AMS and bradycardia and near syncope. Patient is speaks in gambian and there is a language barrier for obtaining the ROS. According to mary patient was not feeling well yesterday in the longterm as and was weak and lethargic couple of times. Per EMS patient was in complete heart block and when she came to the hospital she was a still in complete heart block with blood pressure of 130/50 and pulse rate of 25 with good O2 saturation on 2 L. patient was put on transcutaneous pacing and subsequently transvenous pacing was placed by Dr. Moe. However there were couple of episodes of noncapturing with transvenous pacer after it was placed. In the the of ED course patient also had episodes of nausea and vomiting with semi-bloody vomit as well. An 8 PM patient transvenous pacer failed to perform and patient O2 saturation dropped with bradycardia and altered mental status and failure to respond to questions (patient did open questioning but unable to answer the question), in addition to hypoxia despite being on 4 L oxygen. Patient was intubated and transcutaneous pacing was immediately started on a rate of 60. Patient blood pressure initially was 119/80 which are up to Systolic 70's. Femoral central line was also placed. Patient was put on propofol and transferred to room 111 in ICU unit. Family, attending Jen Britton MD and ICU attending Lavern Almazan MD were informed. Dr. Moe came back and repositioned the transvenous pacer and patient was capturing well with transvenous pacer with rate of 70 with blood pressure 150/80. Due to poor ventilation patient endoprobe current tube was replaced as well. Family was ad bedside and was updated as well. Allergies/Medications Allergies: Coded Allergies: No Known Allergies (08/11/16) Home Med list Acetaminophen (Arthritis Pain) 650 MG TABLET.ER 1 TAB PO BID PAIN (Reported) Aspirin (Aspirin*) 81 MG TAB.CHEW 81 MG PO DAILY STROKE Atorvastatin Calcium 80 MG TABLET 1 TAB PO DAILY STROKE Clopidogrel Bisulfate (Plavix) 75 MG TABLET 75 MG PO DAILY STROKE Losartan Potassium (Cozaar) 25 MG TABLET 1 TAB PO DAILY BP (Reported) Melatonin 3 MG TABLET 1 TAB PO QPM SLEEP AID (Reported) Metformin HCl 500 MG TABLET 1 TAB PO BID DIABETES (Reported) Metoprolol Tartrate 25 MG TABLET 12.5 MG PO BID HEART Past History Travel History Traveled to [place] past 21 day No Medical History Neurological: CVA, STROKE ANNEURYSM EENT: NONE Cardiovascular: hypertension, hyperlipidemia, STENT BLOCKED ARTERY Respiratory: NONE Gastrointestinal: NONE Hepatic: NONE Renal: NONE Musculoskeletal: NONE Psychiatric: NONE Endocrine: NONE Blood Disorders: NONE Cancer(s): NONE DRIVERS LICENSE EXAMINER/Reproductive: NONE History of MRSA: No History of VRE: No History of CDIFF: No Surgical History Surgical History: hip replacement (RIGHT) Past Family/Social History Family History Relations & Conditions if any FATHER, ; Cause: Lung cancer. MOTHER FHx: diabetes mellitus BROTHER FH: myocardial infarction Psychosocial History Who Do You Live With? child Primary Language: Thai ETOH Use: 6 6 Illicit Drug Use: UTD Functional Ability ADLs Independent: dressing, eating, toileting, bathing. Ambulation: walker Review of Systems Review of Systems Constitutional: Reports: see HPI. Exam & Diagnostic Data Last 24 Hrs of Vital Signs/I&O Vital Signs Date Time Temp Pulse Resp B/P B/P Pulse O2 O2 Flow FiO2 Mean Ox Delivery Rate 08/216 60 18 140/60 99 Ventilator 100% 08/21 2048 35 27 98 Ventilator 08/21 2036 100 08/21 2034 59 17 199/113 100 Ventilator 08/21 1940 71 15 120/60 97 Nasal 2.0L Cannula 08/21 1916 35 08/21 1916 71 15 138/65 94 Nasal 2.0L Cannula 08/21 1835 26 22 120/46 98 Nasal 2.0L Cannula 08/21 1805 96.4 22 16 116/48 98 Room Air 08/21 1750 110/52 08/21 1713 29 12 140/63 98 Nasal 2.0L Cannula Physical Exam General Appearance No Acute Distress, intubated Cardiovascular Regular Rate, pacemaker intravenous Lungs mild crackles basal Abdomen Normal Bowel Sounds, Soft Extremities mild bilteral trace edema Diagnostic Data EKG Results (08/21/2016) complete heart block with ventricular escape rate of 30 bpm, LAFB, RBBB, and T-wave abnormalities in diffuse leads. CXR Results (08/21/2016) 3 pm no acute cardiopulmonary process. Assessment/Plan Assessment: 81 year old lady with pmh hx of recent CVA on dual antiplatelet, HTN,DM, CAD PCI in 2004, carotid stenosis, was brought back from [place] after 7 days from discharge from [facility] with chief complaint of nausea,AMS and bradycardia and near syncope status post intubation due to altered mental status and semi-bloody vomiting, intravenous pacing due to complete heart block. Patient was intubated and transcutaneous pacing was immediately started on a rate of 60. Patient blood pressure initially was 119/80 which are up to Systolic 70's. Femoral central line was also placed. Patient was put on propofol and transferred to room 111 in ICU unit. Family, attending Jen Britton MD and ICU attending Lavern Almazan MD were informed. Dr. Moe came back and repositioned the transvenous pacer and patient was capturing well with transvenous pacer with rate of 70 with blood pressure 150/80. Due to poor ventilation patient endoprobe current tube was replaced as well. Family was ad bedside and was updated as well. Assessment and plan #Complete heart block status post transvenous pacer placement -admit to ICU -Keep the rate at 70 for now -1 dose IV glucagon was administered for combating the effect of beta yael -IV hydralazine once the systolic blood pressure is over 180 -Continue mild IV hydration -Troponin and EKG 3 -Follow-up x-ray to look at the placement of the pacemaker after second manipulation -Cardiology is on board, we are following notes #Status post intubation/ possible aspiration due to bloody vomiting -Chest x-ray and ABG in the morning -start the IV PPI -start the patient on Unasyn -watch for fevers -no aspirin/Plavix accident subcutaneous heparin for now -check CBC, ICU bundle 12 AM and 6 AM -NPO for now -IV propofol for sedation -NG tube suction for now #History of CVA, hyperlipidemia, hypertension, DM? -No oral medication over the night -Start the patient on regular NPO sliding scale insulin and IV hydration with D5 --75 mL/h DVT prophylaxis is Alps, NPO, Tylenol for pain,FULL CODE As Ranked By This Provider Problem List: 1. Complete heart block 2. Altered mental status Core Measures/Miscellaneous Acute Coronary Syndrome ACS Diagnosis: No Cerebrovascular Accident CVA/TIA Diagnosis: No Congestive Heart Failure CHF Diagnosis: No VTE (View Protocol) VTE Risk Factors: Age > 40 [facility] prophylaxis d/t: No contraindications No VTE Pharm Prophylaxis d/t: No contraindications VTE Diagnosis: No VTE Type: NONE VTE Confirmed by (Test): NONE Sepsis (View Protocol) Severe Sepsis Present: No Septic Shock Septic Shock Present: No Miscellaneous Documentation Attending Case Discussed With: MIRNA BRITTON MDHomero Primary Care Physician: PATIENT HAS NO PRIMARY CARE DR Patient sees these Specialists dR HARTMAN Level of Patient Care: Critical Care (CRI) VICKY BRITTON MD 08/22/16 0158: Attending MD Review Statement Attending Statement Attending MD Statement: examined this patient, discuss w/resident/PA/ENDOSCOPY RN, agreed w/resident/PA/ENDOSCOPY RN, discussed with family Attending Assessment/Plan: 81 yo F Thai speaking lady with h/o HTN, DM, CAD s/p stents (2004), stroke ( 2014), recent right MCA/DAIRY SPECIALIST stroke with residual left sided hemiparesis likely embolic from carotid stenosis, currently on aspirin and plavix, discharged to on August 15 to [facility] is sent in for evaluation of altered mental status, lethargy, vomiting and bradycardia (HR 29-30) with complete heart block noted on EKG. We spoke daughter Sheree Maria who reported that patient was very weak and lethargic for the past 24 hours. Upon ER arrival, BP was 120/46, HR was in 30's, sats 98% on 2L. Percutaneous pacer pads were applied, Cardiology was consulted. Dr. Mariano evaluated patient. Dr. Moe performed transvenous pacer placement in the ER with good capturing. Patient noted to have brown-bloody vomitus during and after the procedure, aspiration precautions placed. On my eval, patient was able to follow a few commands (open her mouth, track to verbal command, although she did not verbalize). However, around 8 pm, patient noted to be unresponsive, hypoxic and bradycardic with pacer not capturing. At this point, decision was made to intubate the patient for air way protection, right femoral line was placed in anticipation for need of pressors and transvenous pacer was adjusted to capture. Patient was then transferred to ICU, Dr. Moe and Dr. Almazan were informed and were at bedside. Dr. Moe re- adjusted transvenous pacer to ensure adequate capture. Around 11 pm, patient was noted to have no volumes on the vent, ETT was noted to be coiled in the mouth. Anesthesia was paged and patient was reintubated successfully. Exam: sedated, intubated, pupils equal RTL, extremities cold and clammy, Chest b /l rhonchi (R>L), Heart S1S2 regular, bradycardic, systolic murmur+, Abd soft, NT, Neuro: limited exam, left sided hemiparesis. Labs: WBC 13.1, no bandemia, INR 1.11, bicarb 21, BUN 24, glucose 164, lactic acid 3.3, trop neg. AB.38/ 35/234/20. Initial CXR: subsegmental atelectasis left lung base. EKG: complete heart block with HR 30/min, RBBB, diffuse T-wave changes. Echo (July 2016): EF 60-65%. 1. Complete heart block now s/p transvenous pacing and intubated for acute hypoxic respiratory failure/ airway protection. ICU admit, vitals Q1 hour, patient was on metoprolol 12.5 BID, last dose received at 9 am on August 21, would give a dose of glucagon to try to reverse effects, hold beta blockers, continue transvenous pacing overnight, ?eventual plan permanent pacemaker. Check TSH, free T4, Lyme antibody. Serial EKG and troponin, Cardio to follow. Hold aspirin and plavix. NPO, OG tube placed to low suction, panculture, repeat CXR to assess OGT and ETT placement, empiric IV Unasyn for aspiration pneumonia, IV fluids, trend lactic acid, propofol for sedation, IV PPI for GI prophylaxis. 2. DM. Accucheks, Insulin NPO SS. Hold metformin. I had a detailed discussion with patient's daughter Sheree and Mr. Francois, explaining critical condition of the patient and they would like to be updated about any change in status. DVT ppx Alps. Full code Update at 1 AM: Patient no longer paced, noted to be in NSR with HR in 70's. TTS > 45 mins
--- NOTE | 2016-08-21 21:25 | NUR ---
Dr. Moe at bedside to adjust and recapture transvenous pacer. Capture obtained at 2121pm. Per Dr. Moe we are not to move or turn patient due to instability of patient and pacer wires. Patient remains intubated. Family at bedside and updated after procedure. Will cont to monitor.
--- NOTE | 2016-08-21 22:18 | Event Note ---
Event Note Event Note: Just before the pt was being transfered to the unit, it was noticed that the transvenous pacing was not functional- failed to capture-and hence the mode of pacing was switched to transcutaneous. She was also found to have several episodes of vomiting, and was found to be more obtunded. Anesthesia was called urgently, and the pt was intubated. A femoral line was placed, once the vitals were stable- she was transfered to the unit. Dr Moe, adjusted the transvenous pacer, and after which the pacer was functional. Dr. Mcclain was present at the time of episode.
--- NOTE | 2016-08-21 22:37 | Proc Note Internal Medicine ---
Medicine Procedure Procedure Date: 08/21/16 Medical Procedure(s): femoral line Estimated Blood Loss: less than 50ml Anesthesia: local lidocaine Procedure Findings: Resident: Kelvin Mejia Attending: Dr. Wilfred Castillo A time-out was completed verifying correct patient, procedure, site, and positioning. The patient was placed in appropriate dependent position for femoral line placement. The patients right groin was prepped and draped in sterile fashion. 1% Lidocaine was used to anesthetize the surrounding skin area. Ultrasound was used to identify the vein and observe the needle entering the vein. A triple lumen catheter was introduced into the common femoral vein using Seldinger technique. The catheter was threaded smoothly over the guide wire and guide wire was removed. Appropriate blood return was obtained and each lumen of the catheter was evacuated of air and flushed with sterile saline. The catheter was then sutured in place to the skin and a sterile dressing applied. The patient tolerated the procedure well and there were no complications. Blood loss was minimal. Dr. Castillo monitored the line placement.
--- NOTE | 2016-08-21 23:15 | NUR ---
Around 2255, it is observed that patient has no volumes on vent. Patient is taken off ventilator and bagged by this RN and RT. There are no coordinating lung sounds with Bag compression. Upon opening patient's mouth, ETT is seen coiled in the mouth. At this time, Anesthesia is paged for re-intubation, existing ETT is removed, and bagging is continued via BVM. Patient does not appear to be in any distress and is seen breathing on own. O2 sats maintained >94%. 2305: WOOD LATHE OPERATOR José Manuel at bedside to re-intubate. WOOD LATHE OPERATOR successfully placed #8 ETT to Right at 22cm. Breath sounds ausculated bilaterally. Patient placed back onto ventilator with no change in work of breathing os oxygenation. At this time, RT decreased FiO2 to 30% based off of prior ABG. No distress noted, will cont to monitor.
[2016-08-22] VITALS: BP 148/84
--- NOTE | 2016-08-22 00:05 | RADIOLOGY REPORT ---
EXAMINATION: XR PORTABLE CHEST CLINICAL INFORMATION: Endotracheal tube placement. COMPARISON: 08/21/2016 7:02 PM. TECHNIQUE: Portable supine view of the chest was obtained. FINDINGS: Exam is limited due to rotation and multiple overlying EKG leads. An endotracheal tube is visualized, however the tip is not well seen due to overlying lines and tubes. An enteric tube is also suggested, however not well visualized. Lung volumes are low. Soft tissue prominence in the right paratracheal region may be due to rotation. There is discoid atelectasis at the right lung base. IMPRESSION: Limited exam, repeat imaging is recommended. EKG leads and other tube should be moved out of the way.
--- NOTE | 2016-08-22 00:19 | Cons- CRCU ---
EDILSON FOLEY 08/21/16 2238: General Information and HPI Consulting Request Date of Consult: 08/21/16 Requested By: Dr BRITTON Reason for Consult: intubated patient Source of Information: family, old records Exam Limitations: unable to give history, language barrier History of Present Illness: 81 year old lady with pmh hx of recent CVA on dual antiplatelet, HTN,DM, CAD PCI in 2004, carotid stenosis, was brought back from [place] after 7 days from discharge from [facility] with chief complaint of nausea,AMS and bradycardia and near syncope. Patient is speaks in [place] and there is a language barrier for obtaining the ROS. According to mary patient was not feeling well yesterday in the [facility] as and was weak and lethargic couple of times. Per EMS patient was in complete heart block and when she came to the hospital she was a still in complete heart block with blood pressure of 130/50 and pulse rate of 25 with good O2 saturation on 2 L. patient was put on transcutaneous pacing and subsequently transvenous pacing was placed by Dr. Moe. However there were couple of episodes of noncapturing with transvenous pacer after it was placed. In the the of ED course patient also had episodes of nausea and vomiting with semi-bloody vomit as well. An 8 PM patient transvenous pacer failed to perform and patient O2 saturation dropped with bradycardia and altered mental status and failure to respond to questions (patient did open questioning but unable to answer the question), in addition to hypoxia despite being on 4 L oxygen. Patient was intubated and transcutaneous pacing was immediately started on a rate of 60. Patient blood pressure initially was 119/80 which are up to Systolic 70's. Femoral central line was also placed. Patient was put on propofol and transferred to room 111 in ICU unit. Family, attending Jen Britton MD and ICU attending Lavern Almazan MD were informed. Dr. Moe came back and repositioned the transvenous pacer and patient was capturing well with transvenous pacer with rate of 70 with blood pressure 150/80. Due to poor ventilation patient endoprobe current tube was replaced as well. Family was ad bedside and was updated as well. Allergies/Medications Allergies: Coded Allergies: No Known Allergies (08/11/16) Home Med List: Acetaminophen (Arthritis Pain) 650 MG TABLET.ER 1 TAB PO BID PAIN (Reported) Aspirin (Aspirin*) 81 MG TAB.CHEW 81 MG PO DAILY STROKE Atorvastatin Calcium 80 MG TABLET 1 TAB PO DAILY STROKE Clopidogrel Bisulfate (Plavix) 75 MG TABLET 75 MG PO DAILY STROKE Losartan Potassium (Cozaar) 25 MG TABLET 1 TAB PO DAILY BP (Reported) Melatonin 3 MG TABLET 1 TAB PO QPM SLEEP AID (Reported) Metformin HCl 500 MG TABLET 1 TAB PO BID DIABETES (Reported) Metoprolol Tartrate 25 MG TABLET 12.5 MG PO BID HEART Review of Systems Review of Systems Constitutional: Reports: see HPI. Past History Travel History Traveled to [place] past 21 day No Medical History Neurological: CVA, STROKE ANNEURYSM EENT: NONE Cardiovascular: hypertension, hyperlipidemia, STENT BLOCKED ARTERY Respiratory: NONE Gastrointestinal: NONE Hepatic: NONE Renal: NONE Musculoskeletal: NONE Psychiatric: NONE Endocrine: NONE Blood Disorders: NONE Cancer(s): NONE RIM BUSTER/Reproductive: NONE Surgical History Surgical History: hip replacement (RIGHT) Family History Relations & Conditions If Any: FATHER, ; Cause: Lung cancer. MOTHER FHx: diabetes mellitus BROTHER FH: myocardial infarction Psychosocial History Who Do You Live With? child Primary Language: [facility] ETOH Use: 6 6 Illicit Drug Use: UTD Functional Ability ADLs Independent: dressing, eating, toileting, bathing. Ambulation: walker Exam & Diagnostic Data Last 24 Hrs of Vital Signs/I&O Vital Signs Date Time Temp Pulse Resp B/P B/P Pulse O2 O2 Flow FiO2 Mean Ox Delivery Rate 08/21 2056 60 18 140/60 99 Ventilator 100% 08/21 2048 35 27 98 Ventilator 08/21 2036 100 08/21 2034 59 17 199/113 100 Ventilator 08/21 1940 71 15 120/60 97 Nasal 2.0L Cannula 08/21 1916 35 08/21 1916 71 15 138/65 94 Nasal 2.0L Cannula 08/21 1835 26 22 120/46 98 Nasal 2.0L Cannula 08/21 1805 96.4 22 16 116/48 98 Room Air 08/21 1750 110/52 08/21 1713 29 12 140/63 98 Nasal 2.0L Cannula Physical Exam General Appearance: sedated, intubated Head: atraumatic Respiratory: normal breath sounds (basal), crackles Cardiovascular: regular rate/rhythm (on pacer) Gastrointestinal: normal bowel sounds Extremities: normal inspection (trace LE edema) Assessment/Plan Impression/Plan: 81 year old lady with pmh hx of recent CVA on dual antiplatelet, HTN,DM, CAD PCI in 2004, carotid stenosis, was brought back from [place] after 7 days from discharge from [facility] with chief complaint of nausea,AMS and bradycardia and near syncope status post intubation due to altered mental status and semi-bloody vomiting, intravenous pacing due to complete heart block. Patient was intubated and transcutaneous pacing was immediately started on a rate of 60. Patient blood pressure initially was 119/80 which are up to Systolic 70's. Femoral central line was also placed. Patient was put on propofol and transferred to room 111 in ICU unit. Family, attending Jen Britton MD and ICU attending Lavern Almazan MD were informed. Dr. Moe came back and repositioned the transvenous pacer and patient was capturing well with transvenous pacer with rate of 70 with blood pressure 150/80. Due to poor ventilation patient endoprobe current tube was replaced as well. Family was ad bedside and was updated as well. Assessment and plan #Complete heart block status post transvenous pacer placement -admit to ICU -Keep the rate at 70 for now -1 dose IV glucagon was administered for combating the effect of beta yael -IV hydralazine once the systolic blood pressure is over 180 -Continue mild IV hydration -Troponin and EKG 3 -Follow-up x-ray to look at the placement of the pacemaker after second manipulation -Cardiology is on board, we are following notes #Status post intubation/ possible aspiration due to bloody vomiting -Chest x-ray and ABG in the morning -start the IV PPI -start the patient on Unasyn -watch for fevers -no aspirin/Plavix accident subcutaneous heparin for now -check CBC, ICU bundle 12 AM and 6 AM -NPO for now -IV propofol for sedation -NG tube suction for now #History of CVA, hyperlipidemia, hypertension, DM? -No oral medication over the night -Start the patient on regular NPO sliding scale insulin and IV hydration with D5 --75 mL/h DVT prophylaxis is Alps, NPO, Tylenol for pain,FULL CODE Recommendations: see above Consult Acknowledgment - Thank you for your consult request. LETY RODRIGUEZ,Lavern BROUSSARD 08/22/16 0910: General Information and HPI Allergies/Medications Current Medications: Current Medications Sig/Marc Start time Last Medication Dose Route Stop Time Status Admin Acetaminophen 650 MG Q6P PRN 08/21 2359 AC PO Ampicillin Sodium/ 3,000 MG Q6 08/21 1957 AC 08/22 Sulbactam Sodium IV 0504 Sodium Chloride 100 ML Atorvastatin Calcium 80 MG 1700 08/22 1700 CAN PO Dextrose/Sodium 1,000 ML Q13H 08/21 2315 08/21 Chloride IV 2330 Fentanyl Citrate 1,000 MCG Q24H 08/21 2030 DC Dextrose/Water 250 ML IV Glucagon 5 MG ONCE ONE 08/21 2145 DC 08/21 IV 08/218 Glucagon 5 MG ONCE ONE 08/210 CAN IV 08/21 2130 Hydralazine HCl 10 MG ONCE ONE 08/21 2214 DC IV 08/22 2215 Insulin Human Regular 6 UNITS .STK-MED ONE 08/22 0023 DC IV 08/22 0024 Insulin Human Regular 0 Q6 08/21 2359 08/22 SC 0636 Lidocaine 0 .STK-MED ONE 08/21 1828 DC .ROUTE Non-Formulary 0 SEE ADMIN CRITERIA 08/21 2014 CAN Medication ANY Norepinephrine 0 .STK-MED ONE 08/21 2059 DC IV Ondansetron HCl 0 .STK-MED ONE 08/21 1806 DC .ROUTE Ondansetron HCl 4 MG ONCE ONE 08/21 1800 DC 08/21 IV 08/21 180 1807 Pantoprazole Sodium 40 MG DAILY 08/21 2100 08/22 IV 0023 Propofol 1,000 MG CONTINOUS INFUSION 08/21 2029 08/22 N/A 100 ML IV 0349 Exam & Diagnostic Data Last 48 Hrs of Labs/Talib: Laboratory Tests 08/24/16 0416: Anion Gap 9, Estimated GFR > 60, Glucose 160 H, Calcium 8.7, Phosphorus 2.2 L, Magnesium 2.1, Total Bilirubin 0.9, AST 19, ALT 24, Albumin 3.4 L, CBC w Diff NO MAN DIFF REQ, RBC 4.18 L, MCV 90.6, MCH 30.5, RDW 12.8, MPV 8.0, Gran % 81.8 H, Lymphocytes % 11.4 L, Monocytes % 6.5, Eosinophils % 0, Basophils % 0.3, Absolute Granulocytes 9.1 H, Absolute Lymphocytes 1.3, Absolute Monocytes 0.7 H, Absolute Eosinophils 0, Absolute Basophils 0, PUBS MCHC 33.7 08/23/16 0400: Anion Gap 9, Estimated GFR > 60, Glucose 155 H, Calcium 8.4, Phosphorus 2.5, Magnesium 2.2, Total Bilirubin 0.9, AST 20, ALT 27, Albumin 3.4 L, CBC w Diff NO MAN DIFF REQ, RBC 4.25, MCV 90.6, MCH 30.1, RDW 12.9, MPV 8.5, Gran % 83.0 H , Lymphocytes % 8.3 L, Monocytes % 8.4, Eosinophils % 0.3, Basophils % 0 L, Absolute Granulocytes 10.0 H, Absolute Lymphocytes 1.0 L, Absolute Monocytes 1.0 H, Absolute Eosinophils 0, Absolute Basophils 0, PUBS MCHC 33.3 08/22/16 1349: pH 7.42, pCO2 37, pO2 78 L, HCO3 23, ABG O2 Sat (Measured) 95.0 L, P-50 (Temp Corrected) YES, Carboxyhemoglobin 0.6 L, O2 Concentration % 35%, Temperature 99.1, O2 Delivery Method TPIECE, Phlebotomy Draw Site RIGHT RADIAL 08/22/16 1200: Troponin I Cancelled Assessment/Plan Impression/Plan: I have personally seen and examined the patient and agree with the resident's assessment and plan as detailed above. Will continue all supportive care. Consult Acknowledgment - Thank you for your consult request.
[2016-08-22 01:08] LABS: ABSOLUTE BASOPHIL COUNT 0 /CUMM (0.0-0.2); ABSOLUTE EOSINOPHIL COUNT 0 /CUMM (0.0-0.7); ABSOLUTE GRANULOCYTE CT 15.2 /CUMM (1.4-6.5); ABSOLUTE LYMPH COUNT 0.5 /CUMM (1.2-3.4); ABSOLUTE MONOCYTE COUNT 0.4 /CUMM (0.10-0.60); BASOPHIL % 0 % (0.0-2.0); EOSINOPHIL % 0 % (0-5); HEMATOCRIT 39.8 % (37-47); MEAN CORPUSCULAR HGB 30.4 PG (27.0-31.0); MEAN CORPUSCULAR HGB CONC 33.6 G/DL (33.0-37.0); MEAN CORPUSCULAR VOLUME 90.5 FL (81.0-99.0); MEAN PLATELET VOLUME 8.4 FL (7.4-10.4); PLATELET COUNT 329 /CUMM (130-400); RBC DISTRIBUTION WIDTH 12.6 % (11.5-14.5); WHITE BLOOD CELL COUNT 16.2 /CUMM (4.8-10.8)
[2016-08-22 01:19] LABS: GRANULOCYTE % 94.3 % (42.2-75.2)
[2016-08-22 01:25] LABS: PT 11.8 SEC (9.4-12.5); PTT 33 SEC (25-37)
--- NOTE | 2016-08-22 02:47 | NUR ---
0114- Patient noted to no longer be paced and is in a NSR with a HR of 78. Dr. Saturnino Mejia notified and in room to assess patient. EKG ordered and obtained. No distress noted. Will cont to monitor.
--- NOTE | 2016-08-22 07:01 | RADIOLOGY REPORT ---
EXAMINATION: XR PORTABLE CHEST CLINICAL INFORMATION: Intubated COMPARISON: 08/21/2016 TECHNIQUE: Portable frontal view of the chest was obtained. FINDINGS: Endotracheal tube is present, and the tip appears to lie approximately 1.5 cm below the olga in the right mainstem bronchus. Enteric tube is present, with the tip is not well seen. The lungs are hypoinflated, with bibasilar atelectasis suspected. No appreciable pneumothorax or definite pleural effusion. The cardiothymic is also remains prominent, likely accentuated by low lung volumes. No acute osseous findings are seen. IMPRESSION: 1. Endotracheal tube tip appears to lie approximately 1.5 cm below the olga in the right mainstem bronchus. Retraction is advised. 2. Low lung volumes which limits evaluation. Bibasilar atelectasis is suspected. This critical result was discussed with Dr. Matamoros on 08/22/2016 6:576AM, and it was ascertained that the content and urgency of the report was understood at the time of direct communication.
--- NOTE | 2016-08-22 07:03 | Event Note ---
Event Note Event Note: Called the [facility] to follow up on the CXR that was ordered to re- check the placement of ET tube. Apparently, they did not have any images uploaded and requested Niranjan to re-upload the images. The radiologist called around 655AM that the tip of the ET tube is 1.5 cm below the olga, and is currently in the right main stem bronchus. Advised to retract around 4cm. Follow repeat cxr after adjusting the tip of ET tube.
[2016-08-22 08:00] VITALS: BP 147/73
--- NOTE | 2016-08-22 08:14 | RADIOLOGY REPORT ---
EXAMINATION: XR PORTABLE CHEST CLINICAL INFORMATION: Post intubation COMPARISON: Previous chest x-rays most recent from earlier the same day TECHNIQUE: Portable frontal view of the chest was obtained. FINDINGS: The cardiac silhouette is enlarged but stable. There is a new endotracheal tube. The tip is difficult to determine but this appears to be at the level of the olga and should be pulled back several centimeters. There is a right jugular single chamber pacemaker. Again the tip is difficult to visualize but appears to project course toward the ventricular apex. There is bibasilar atelectasis or small infiltrates. The lungs are otherwise clear. There is no pleural effusion or pneumothorax. IMPRESSION: Endotracheal tube at the olga and should be pulled back several centimeters. Right jugular pacemaker tip difficult to visualize. Stable enlargement of the cardiac silhouette. Bibasilar atelectasis or small infiltrates.
--- NOTE | 2016-08-22 08:49 | PN- Resident CRCU ---
Subjective HPI/CRCU Issues: Afebrile, hemodynamically stable. Give the good urine output. Patient is sedated and mechanically ventilated requiring 35% oxygen. Patient is not able to offer complaints Objective Vital Signs & I&O Last 8 Hrs of Vitals and I&O: Vital Signs Date Time Temp Pulse Resp B/P B/P Pulse O2 O2 Flow FiO2 Mean Ox Delivery Rate 08/22 1200 96 Ventilator 35% 08/22 1131 35 08/22 0811 35 08/22 0800 95 Ventilator 35% 08/22 0800 99.1 78 16 147/73 95 Ventilator 35% 08/22 0617 35 08/22 0400 98 Ventilator 35% 08/22 0256 35 08/22 0105 35 08/22 0000 98.4 70 20 148/84 98 Ventilator 30% 08/22 0000 98 Ventilator 30% 08/21 2300 30 08/212 100 08/210 98 Ventilator 80% 08/21 2056 60 18 140/60 99 Ventilator 100% 08/21 2049 35 27 98 Ventilator 08/21 2037 100 08/21 203 59 17 199/113 100 Ventilator 08/21 1940 71 15 120/60 97 Nasal 2.0L Cannula 08/21 1916 35 08/21 1916 71 15 138/65 94 Nasal 2.0L Cannula 08/21 1835 26 22 120/46 98 Nasal 2.0L Cannula 08/21 1805 96.4 22 16 116/48 98 Room Air 08/21 1750 110/52 08/21 1713 29 12 140/63 98 Nasal 2.0L Cannula Intake & Output 08/22 1600 08/22 0800 08/22 0000 Intake Total 805 Output Total 700 100 Balance 105 -100 Intake, IV 805 Output, 300 Gastric Drainage Output, Urine 400 100 Patient 74.134 kg Weight Weight Bed scale Measurement Method Exam General Appearance: sedated, intubated Head: atraumatic, normal appearance Respiratory: normal breath sounds, chest non-tender, no respiratory distress, lungs clear Cardiovascular: regular rate/rhythm Gastrointestinal: normal bowel sounds, soft, non-tender Extremities: normal inspection, no edema Current Medications: Current Medications Sig/Marc Start time Last Medication Dose Route Stop Time Status Admin Acetaminophen 650 MG Q6P PRN 08/219 AC PO Ampicillin Sodium/ 3,000 MG Q6 08/21 1956 AC 08/22 Sulbactam Sodium IV 1158 Sodium Chloride 100 ML Atorvastatin Calcium 80 MG 1700 08/22 1700 CAN PO Dextrose/Sodium 1,000 ML Q13H 08/21 2315 AC 08/22 Chloride IV 1158 Fentanyl Citrate 1,000 MCG Q24H 08/21 2030 DC Dextrose/Water 250 ML IV Glucagon 5 MG ONCE ONE 08/21 2145 DC 08/21 IV 08/21 214 2208 Glucagon 5 MG ONCE ONE 08/21 2130 CAN IV 08/21 213 Hydralazine HCl 10 MG ONCE ONE 08/21 2215 DC IV 08/21 221 Insulin Human Regular 2 UNITS .STK-MED ONE 08/22 0516 DC IV 08/22 0517 Insulin Human Regular 6 UNITS .STK-MED ONE 08/22 0023 DC IV 08/22 0024 Insulin Human Regular 0 Q6 08/21 2359 AC 08/22 SC 1159 Lidocaine 0 .STK-MED ONE 08/21 1828 DC .ROUTE Magnesium Sulfate 1 GM Q2H 08/22 1230 AC 08/22 Dextrose/Water 100 ML IV 08/22 1629 1224 Non-Formulary 0 SEE ADMIN CRITERIA 08/21 2014 CAN Medication ANY Norepinephrine 0 .STK-MED ONE 08/21 2059 DC IV Ondansetron HCl 0 .STK-MED ONE 08/21 1806 DC .ROUTE Ondansetron HCl 4 MG ONCE ONE 08/21 1800 DC 08/21 IV 08/21 1801 1807 Pantoprazole Sodium 40 MG DAILY 08/21 2100 AC 08/22 IV 0023 Propofol 1,000 MG CONTINOUS INFUSION 08/21 2030 DC 08/22 N/A 100 ML IV 0349 Impression/Plan Impression/Problem List Impression: 81 year old lady with pmh hx of recent CVA on dual antiplatelet, HTN,DM, CAD PCI in 2004, carotid stenosis, was brought back from [place] after 7 days from discharge from [facility] with chief complaint of nausea,AMS and bradycardia and near syncope status post intubation due to altered mental status and semi-bloody vomiting, intravenous pacing due to complete heart block. Patient was intubated and transcutaneous pacing was immediately started on a rate of 60. Patient blood pressure initially was 119/80 which are up to Systolic 70's. Femoral central line was also placed. Patient was put on propofol and transferred to room [address] Abhi came back and repositioned the transvenous pacer and patient was capturing well with transvenous pacer with rate of 70 with blood pressure 150/80. Plan #Complete heart block status post transvenous pacer placement * Transvenous pacemaker required treatment positioning yesterday * Acute coronary syndrome was ruled out * Received 1 dose IV glucagon Wednesday to versus beta yael * Her rhythm has improved off the beta yael and she is presently not requiring pacing. * Continue mild IV hydration #Acute Hypoxic respiratory failure * possible aspiration due to bloody vomiting * ET adjusted and confirmed on position with x-ray this a.m. * Continue IV Unasyn * Continue IV PPI * Trend down lactic acid * We will DC IV propofol * We will try to extubate if she performed well during weaning trial #History of CVA, hyperlipidemia, hypertension, DM? * Accucheks * Insulin NPO SS * Hold metformin. * Nothing by mouth for now, no oral medication, we'll readdress oral medication after she can tolerate oral intake DVT prophylaxis is Alps NPO Tylenol for pain FULL CODE Problem List: 1. Complete heart block 2. Altered mental status 3. CVA (cerebral vascular accident) Pain Ratin Tomorrow's Labs & Rationales: CBC and ICU bundle Plan DVT/Prophylaxis: mechanical
--- NOTE | 2016-08-22 09:17 | PN- CRCU ---
Subjective HPI/Critical Care Issues: The patient remains sedated, on mechanical ventilation. She is on propofol for comfort. Her urine output is excellent noting she put out 120 mL the last hour. She is hemodynamically stable. Her oxygen requirement is stable at 35%. She is now in sinus rhythm. She is not able to offer complaints. Objective Current Medications: Current Medications Sig/Marc Start time Last Medication Dose Route Stop Time Status Admin Acetaminophen 650 MG Q6P PRN 08/21 2359 AC PO Ampicillin Sodium/ 3,000 MG Q6 08/21 1957 AC 08/22 Sulbactam Sodium IV 0504 Sodium Chloride 100 ML Atorvastatin Calcium 80 MG 1700 08/22 1700 CAN PO Dextrose/Sodium 1,000 ML Q13H 08/21 2315 08/21 Chloride IV 2330 Fentanyl Citrate 1,000 MCG Q24H 08/21 2029 DC Dextrose/Water 250 ML IV Glucagon 5 MG ONCE ONE 08/21 2145 DC 08/21 IV 08/21 214 2208 Glucagon 5 MG ONCE ONE 08/21 2130 CAN IV 08/21 213 Hydralazine HCl 10 MG ONCE ONE 08/21 2215 DC IV 08/21 221 Insulin Human Regular 6 UNITS .STK-MED ONE 08/22 0023 DC IV 08/22 0024 Insulin Human Regular 0 Q6 08/21 2359 08/22 SC 0636 Lidocaine 0 .STK-MED ONE 08/21 1828 DC .ROUTE Non-Formulary 0 SEE ADMIN CRITERIA 08/21 2014 CAN Medication ANY Norepinephrine 0 .STK-MED ONE 08/21 2059 DC IV Ondansetron HCl 0 .STK-MED ONE 08/21 1806 DC .ROUTE Ondansetron HCl 4 MG ONCE ONE 08/21 1800 DC 08/21 IV 08/21 1801 1807 Pantoprazole Sodium 40 MG DAILY 08/21 2100 08/22 IV 0023 Propofol 1,000 MG CONTINOUS INFUSION 08/21 2029 08/22 N/A 100 ML IV 0349 Vital Signs & I&O Last 24 Hrs of Vitals and I&O: Vital Signs Date Time Temp Pulse Resp B/P B/P Pulse O2 O2 Flow FiO2 Mean Ox Delivery Rate 08/22 0811 35 08/22 0800 95 Ventilator 35% 08/22 0800 99.1 78 16 147/73 95 Ventilator 35% 08/22 0617 35 08/22 0400 98 Ventilator 35% 08/22 0256 35 08/22 0105 35 08/22 0000 98.4 70 20 148/84 98 Ventilator 30% 08/22 0000 98 Ventilator 30% 08/21 2300 30 08/212 100 08/210 98 Ventilator 80% 08/216 60 18 140/60 99 Ventilator 100% 08/21 2049 35 27 98 Ventilator 08/217 100 08/21 2034 59 17 199/113 100 Ventilator 08/21 1940 71 15 120/60 97 Nasal 2.0L Cannula 08/21 1916 35 08/21 191 71 15 138/65 94 Nasal 2.0L Cannula 08/21 1835 26 22 120/46 98 Nasal 2.0L Cannula 08/21 1805 96.4 22 16 116/48 98 Room Air 08/21 1750 110/52 08/21 1713 29 12 140/63 98 Nasal 2.0L Cannula Intake & Output 08/22 1600 08/22 0800 08/22 0000 Intake Total 805 Output Total 700 100 Balance 105 -100 Intake, IV 805 Output, 300 Gastric Drainage Output, Urine 400 100 Patient 163 lb Weight Weight Bed scale Measurement Method 1. Endotracheal tube tip appears to lie approximately 1.5 cm below the olga in the right mainstem bronchus. Retraction is advised. 2. Low lung volumes which limits evaluation. Bibasilar atelectasis is suspected. Results Last 24 Hrs of Lab Results: Laboratory Tests 08/22/16 0610: pH 7.49 H, pCO2 29 L, pO2 91, HCO3 22, ABG O2 Sat (Measured) 96.0, P-50 (Temp Corrected) N, Carboxyhemoglobin 0.3 L, O2 Concentration % .35, Respiration Rate 16, O2 Delivery Method VENT, Vent Mode A/C, Expiratory Pressure 5, Tidal Volume 500, Phlebotomy Draw Site RIGHT RADIAL 08/22/16 0600: Troponin I 0.09 08/22/16 0600: Lactic Acid 2.4 H, CBC w Diff Cancelled, WBC Cancelled, RBC Cancelled, Hgb Cancelled, Hct Cancelled, MCV Cancelled, MCH Cancelled, RDW Cancelled, Plt Count Cancelled, MPV Cancelled, PUBS MCHC Cancelled 08/22/16 0300: Lactic Acid 2.7 H 08/22/16 0005: Anion Gap 14, Estimated GFR > 60, Glucose 241 H, Lactic Acid 2.4 H, Calcium 8.5, Phosphorus 4.5, Magnesium 1.6, Total Bilirubin 0.7, AST 22, ALT 35, Troponin I 0.10, Albumin 3.7, TSH 1.220, Thyroxine (T4) 11.2 H, PT 11.8, INR 1.13, APTT 33, CBC w Diff MAN DIFF ORDERED, RBC 4.40, MCV 90.5, MCH 30.4, RDW 12.6, MPV 8.4, Gran % 94.3 H, Lymphocytes % 3.3 L, Monocytes % 2.4, Eosinophils % 0, Basophils % 0 L, Absolute Granulocytes 15.2 H, Absolute Lymphocytes 0.5 L, Absolute Monocytes 0.4, Absolute Eosinophils 0, Absolute Basophils 0, Platelet Estimate ADEQUATE, Normocytic RBCs VERIFIED, Normochromic RBCs VERIFIED, PUBS MCHC 33.6, Lyme Disease Antibody Pending 08/21/16 2315: Troponin I Cancelled 08/21/16 2220: pH 7.38, pCO2 35, pO2 234 H, HCO3 20 L, ABG O2 Sat (Measured) 99.0, Carboxyhemoglobin 0.3 L, O2 Concentration % 80, O2 Delivery Method VENT, Phlebotomy Draw Site RIGHT RADIAL 08/21/16 2016: Lactic Acid Cancelled 08/21/16 1731: Anion Gap 14, Estimated GFR > 60, BUN/Creatinine Ratio 26.7 H, Glucose 164 H, Lactic Acid 3.3 H, Calcium 9.3, Total Bilirubin 0.8, AST 23, ALT 31, Alkaline Phosphatase 78, Troponin I < 0.01, Total Protein 6.9, Albumin 4.1, Globulin 2.8, Albumin/Globulin Ratio 1.5, PT 11.6, INR 1.11, APTT 30 08/21/16 1730: CBC w Diff NO MAN DIFF REQ, RBC 4.75, MCV 89.8, MCH 30.2, RDW 12.9, MPV 7.8, Gran % 58.4, Lymphocytes % 31.5, Monocytes % 7.0, Eosinophils % 2.6, Basophils % 0.5, Absolute Granulocytes 7.7 H, Absolute Lymphocytes 4.1 H, Absolute Monocytes 0.9 H, Absolute Eosinophils 0.3, Absolute Basophils 0.1, PUBS MCHC 33.6 Impression/Plan Impression/Plan Impression/Plan: 1. Complete heart block status post transvenous pacer placement. 2. Status post intubation, possible aspiration due to bloody vomiting. The patient's H&H is relatively stable. 3. Multiple comorbidities including Hhstory of stroke, hyperlipidemia, hypertension, and possible diabetes. Recommendations: * Discontinue propofol. * We'll attempt weaning trials. * Will extubate if parameters are acceptable. * Continue nebs/TRC. * We'll discuss plan with cardiology. * Continue insulin sliding scale. * Continue IV fluids. * DVT/GI prophylaxis at all times while intubated. * Continue all supportive care.
--- NOTE | 2016-08-22 09:45 | RADIOLOGY REPORT ---
EXAMINATION: XR PORTABLE CHEST CLINICAL INFORMATION: Check ET tube placement COMPARISON: Previous chest x-rays most recent from earlier today TECHNIQUE: Portable frontal view of the chest was obtained. FINDINGS: The cardiac and mediastinal contours are stable. The endotracheal tube tip is 2.5 cm above the olga. There is a nasogastric tube with tip projecting over the stomach. There is a right pacemaker lead. Again the tip is not well seen but projects toward the apex. There is atelectasis at the lung bases. There is no pleural effusion or pneumothorax. IMPRESSION: Endotracheal tube tip 2.5 cm above the olga. Nasogastric tube projects over the stomach. Single chamber pacemaker tip not well seen but projects toward the ventricular apex. Bibasilar atelectasis.
--- NOTE | 2016-08-22 12:59 | PN- Cardiology ---
Subjective Subjective: Events of last evening reviewed. A transvenous pacemaker was placed, but then was not found to be functioning properly and required repositioning which was successful. Patient also required intubation and remains intubated at this time. Her rhythm has improved off the beta yael and she is presently not requiring pacing. Objective Vital Signs and I&Os Vital Signs Date Time Temp Pulse Resp B/P B/P Pulse O2 O2 Flow FiO2 Mean Ox Delivery Rate 08/22 1200 96 Ventilator 35% 08/22 1131 35 08/22 0811 35 08/22 0800 95 Ventilator 35% 08/22 0800 99.1 78 16 147/73 95 Ventilator 35% 08/22 0617 35 08/22 0400 98 Ventilator 35% 08/22 0256 35 08/22 0105 35 08/22 0000 98.4 70 20 148/84 98 Ventilator 30% 08/22 0000 98 Ventilator 30% 08/21 2300 30 08/212 100 08/21 2130 98 Ventilator 80% 08/21 2056 60 18 140/60 99 Ventilator 100% 08/21 2049 35 27 98 Ventilator 08/21 2037 100 08/21 203 59 17 199/113 100 Ventilator 08/21 1940 71 15 120/60 97 Nasal 2.0L Cannula 08/21 1916 35 08/21 1916 71 15 138/65 94 Nasal 2.0L Cannula 08/21 1835 26 22 120/46 98 Nasal 2.0L Cannula 08/21 1805 96.4 22 16 116/48 98 Room Air 08/21 1750 110/52 08/21 1713 29 12 140/63 98 Nasal 2.0L Cannula Intake & Output 08/22 1600 08/22 0800 08/22 0000 08/21 1600 08/21 0800 08/21 0000 Intake Total 805 Output Total 700 100 Balance 105 -100 Intake, IV 805 Output, 300 Gastric Drainage Output, Urine 400 100 Patient 163 lb Weight Weight Bed scale Measurement Method Physical Exam: Neck: No JVD, no bruits. Lungs: Clear to auscultation bilaterally. Heart: S1, S2 with grade 1-2/6 systolic murmur best heard at the base. PMI fifth ICS at MCL. Abdomen: Soft, nontender, positive bowel sounds. Extremities: No edema. Current Medications: Current Medications Sig/Marc Start time Last Medication Dose Route Stop Time Status Admin Acetaminophen 650 MG Q6P PRN 08/21 2359 AC PO Ampicillin Sodium/ 3,000 MG Q6 08/21 1957 08/22 Sulbactam Sodium IV 1158 Sodium Chloride 100 ML Atorvastatin Calcium 80 MG 1700 08/22 1700 CAN PO Dextrose/Sodium 1,000 ML Q13H 08/21 2315 AC 08/22 Chloride IV 1158 Fentanyl Citrate 1,000 MCG Q24H 08/21 2030 DC Dextrose/Water 250 ML IV Glucagon 5 MG ONCE ONE 08/21 2145 DC 08/21 IV 08/21 214 2208 Glucagon 5 MG ONCE ONE 08/21 2130 CAN IV 08/21 213 Hydralazine HCl 10 MG ONCE ONE 08/21 2215 DC IV 08/21 221 Insulin Human Regular 6 UNITS .STK-MED ONE 08/22 0023 DC IV 08/22 0024 Insulin Human Regular 0 Q6 08/21 2359 08/22 SC 1159 Lidocaine 0 .STK-MED ONE 08/21 1828 DC .ROUTE Magnesium Sulfate 1 GM Q2H 08/22 1230 08/22 Dextrose/Water 100 ML IV 08/22 1629 1224 Non-Formulary 0 SEE ADMIN CRITERIA 08/21 2014 CAN Medication ANY Norepinephrine 0 .STK-MED ONE 08/21 2059 DC IV Ondansetron HCl 0 .STK-MED ONE 08/21 1806 DC .ROUTE Ondansetron HCl 4 MG ONCE ONE 08/21 1800 DC 08/21 IV 08/21 180 1807 Pantoprazole Sodium 40 MG DAILY 08/21 2100 08/22 IV 0023 Propofol 1,000 MG CONTINOUS INFUSION 08/21 2030 NC 08/22 N/A 100 ML IV 0349 Results Last 48 Hrs of Labs/Mics: Laboratory Tests 08/22/16 1200: Troponin I Cancelled 08/22/16 0610: pH 7.49 H, pCO2 29 L, pO2 91, HCO3 22, ABG O2 Sat (Measured) 96.0, P-50 (Temp Corrected) N, Carboxyhemoglobin 0.3 L, O2 Concentration % .35, Respiration Rate 16, O2 Delivery Method VENT, Vent Mode A/C, Expiratory Pressure 5, Tidal Volume 500, Phlebotomy Draw Site RIGHT RADIAL 08/22/16 0600: Troponin I 0.09 08/22/16 0600: Lactic Acid 2.4 H, CBC w Diff Cancelled, WBC Cancelled, RBC Cancelled, Hgb Cancelled, Hct Cancelled, MCV Cancelled, MCH Cancelled, RDW Cancelled, Plt Count Cancelled, MPV Cancelled, PUBS MCHC Cancelled 08/22/16 0300: Lactic Acid 2.7 H 08/22/16 0005: Anion Gap 14, Estimated GFR > 60, Glucose 241 H, Lactic Acid 2.4 H, Calcium 8.5, Phosphorus 4.5, Magnesium 1.6, Total Bilirubin 0.7, AST 22, ALT 35, Troponin I 0.10, Albumin 3.7, TSH 1.220, Thyroxine (T4) 11.2 H, PT 11.8, INR 1.13, APTT 33, CBC w Diff MAN DIFF ORDERED, RBC 4.40, MCV 90.5, MCH 30.4, RDW 12.6, MPV 8.4, Gran % 94.3 H, Lymphocytes % 3.3 L, Monocytes % 2.4, Eosinophils % 0, Basophils % 0 L, Absolute Granulocytes 15.2 H, Absolute Lymphocytes 0.5 L, Absolute Monocytes 0.4, Absolute Eosinophils 0, Absolute Basophils 0, Platelet Estimate ADEQUATE, Normocytic RBCs VERIFIED, Normochromic RBCs VERIFIED, PUBS MCHC 33.6, Lyme Disease Antibody Pending 08/21/16 2315: Troponin I Cancelled 08/21/16 2220: pH 7.38, pCO2 35, pO2 234 H, HCO3 20 L, ABG O2 Sat (Measured) 99.0, Carboxyhemoglobin 0.3 L, O2 Concentration % 80, O2 Delivery Method VENT, Phlebotomy Draw Site RIGHT RADIAL 08/21/16 2016: Lactic Acid Cancelled 08/21/16 1731: Anion Gap 14, Estimated GFR > 60, BUN/Creatinine Ratio 26.7 H, Glucose 164 H, Lactic Acid 3.3 H, Calcium 9.3, Total Bilirubin 0.8, AST 23, ALT 31, Alkaline Phosphatase 78, Troponin I < 0.01, Total Protein 6.9, Albumin 4.1, Globulin 2.8, Albumin/Globulin Ratio 1.5, PT 11.6, INR 1.11, APTT 30 08/21/16 1730: CBC w Diff NO MAN DIFF REQ, RBC 4.75, MCV 89.8, MCH 30.2, RDW 12.9, MPV 7.8, Gran % 58.4, Lymphocytes % 31.5, Monocytes % 7.0, Eosinophils % 2.6, Basophils % 0.5, Absolute Granulocytes 7.7 H, Absolute Lymphocytes 4.1 H, Absolute Monocytes 0.9 H, Absolute Eosinophils 0.3, Absolute Basophils 0.1, PUBS MCHC 33.6 Recent Imaging Studies: CXR (08/22/2016): Endotracheal tube tip 2.5 cm above the olga. Nasogastric tube projects over the stomach. Single chamber pacemaker tip not well seen but projects toward the ventricular apex. Bibasilar atelectasis. Assessment/Plan Assessment/Plan 81 [id number]-w/ hx of HTN, HLD, pre-DM, CAD, s/p PCI/coronary stents, previous strokes w/ 1st in 2014 w/o residua and her 2nd discovered after presentation here w/ AMS that req'd adm (08/11-08/15/2016) for an acute infarction in the R MCA and [employer] territories by MRI head/MRA neck performed on 08/12/2016, and conduction disease (LAFB, RBBB) who presented 08/21/2013 from [facility] in [facility] on BB ( metoprolol 12.5 mg twice daily). A transvenous pacemaker was placed, but then was not found to be functioning properly and required repositioning which was successful. Her rhythm has improved and, at present, she is not requiring the transvenous pacemaker. From a cardiac standpoint, the plan will be to continue the transvenous pacemaker for the short-term and determine whether a permanent pacemaker will be required. Attempts at weaning from mechanical ventilator underway. Continue present medical regimen. Discussed her cardiac issues with her daughter and other family members. Continue telemetry? Not applicable (ICU)
[2016-08-22 16:11] VITALS: BP 143/82
[2016-08-23] VITALS: BP 148/78
[2016-08-23 05:43] LABS: ABSOLUTE BASOPHIL COUNT 0 /CUMM (0.0-0.2); ABSOLUTE EOSINOPHIL COUNT 0 /CUMM (0.0-0.7); BASOPHIL % 0 % (0.0-2.0); EOSINOPHIL % 0.3 % (0-5); HEMATOCRIT 38.5 % (37-47); MEAN CORPUSCULAR HGB 30.1 PG (27.0-31.0); MEAN CORPUSCULAR HGB CONC 33.3 G/DL (33.0-37.0); MEAN CORPUSCULAR VOLUME 90.6 FL (81.0-99.0); MEAN PLATELET VOLUME 8.5 FL (7.4-10.4); PLATELET COUNT 305 /CUMM (130-400); RBC DISTRIBUTION WIDTH 12.9 % (11.5-14.5); RED BLOOD CELL CT 4.25 /CUMM (4.20-5.40); WHITE BLOOD CELL COUNT 12.1 /CUMM (4.8-10.8)
--- NOTE | 2016-08-23 07:21 | RADIOLOGY REPORT ---
EXAMINATION: XR PORTABLE CHEST CLINICAL INFORMATION: Intubated. Check ET tube position. COMPARISON: Previous chest x-rays most recent from yesterday TECHNIQUE: Portable frontal view of the chest was obtained. FINDINGS: The cardiac and mediastinal contours are stable. There is an endotracheal tube with tip 4.8 cm above the olga. There is a nasogastric tube with tip projecting over the proximal stomach. There is a right single chamber pacemaker the tip is not well seen but appears to project over the right atrium. There is atelectasis or small infiltrate at the lung bases. The lungs are otherwise clear. There is no pleural effusion or pneumothorax. IMPRESSION: Satisfactory position of ET and nasogastric tubes. Right-sided pacemaker tip not well seen but appears to project over the right atrium. Bibasilar atelectasis or small infiltrates similar to previous exam.
[2016-08-23 08:00] VITALS: BP 159/80
--- NOTE | 2016-08-23 08:08 | PN- Resident CRCU ---
Subjective HPI/CRCU Issues: Third-degree heart block status post transvenous pacemaker basement Respiratory failure status post intubated Patient has been seen and examined She remains afebrile overnight. Pulse is 70s, blood pressure 150/80 mmHg, currently intubated. She is undergoing CPAP trial then I went into the room which seems to be successful. She is currently not in acute distress, [place]- speaking, awake and alert denies any pain at the moment. 24 Hour Events: Patient is lying comfortably on the bed, alert and awake. She remians silent, denies any pain. She did have significant itching in the tube region requiring secretion drainage. She had fatigue and her breathing support increased with weaning trials. So unable to wean her off today. Objective Vital Signs & I&O Last 8 Hrs of Vitals and I&O: Afebrile with pulse and 70-80, respiratory to 16-20, blood pressure slightly on the higher side ranging between 199/113 to 143/82 mmHg. Exam General Appearance: no apparent distress, alert, awake, comfortable, intubated Head: atraumatic, normal appearance Neck: normal inspection Respiratory: normal breath sounds, chest non-tender, no respiratory distress, crackles Cardiovascular: regular rate/rhythm, normal peripheral pulses Gastrointestinal: normal bowel sounds, soft, non-tender Extremities: normal inspection, limited range of motion, pedal edema, swelling Cranial Nerves: normal hearing, PERRL Skin: intact Weaning Parameters NIF: 33 Minute Volume: 7.9 Resp rate: 16 Vt: 500 Heart Rate: 86 Weaning Schedule Start Time: 2000 Minute Volume: 6.32 Resp Rate: 12 Vt: 319 Heart Rate: 69 End Time: 2230 Minute Volume: 7 Resp Rate: 17 Vt: 335 Heart Rate: 71 Start Time: 1250 IV Drips IV Drips: D5 normal saline @75ml/hrl Nutrition Nutrition: NPO, D5NS Current Medications: Current Medications Sig/Marc Start time Last Medication Dose Route Stop Time Status Admin Acetaminophen 650 MG Q6P PRN 08/21 2359 AC PO Ampicillin Sodium/ 3,000 MG Q6 08/21 195 AC 08/23 Sulbactam Sodium IV 0503 Sodium Chloride 100 ML Dextrose/Sodium 1,000 ML Q13H 08/21 2315 AC 08/23 Chloride IV 0744 Hydralazine HCl 5 MG ONCE ONE 08/23 0915 DC 08/23 IV 08/23 0916 0921 Insulin Human Regular 4 UNITS .STK-MED ONE 08/22 2335 DC IV 08/22 2336 Insulin Human Regular 0 Q6 08/21 2359 AC 08/23 SC 0549 Magnesium Sulfate 1 GM Q2H 08/22 1230 DC 08/22 Dextrose/Water 100 ML IV 08/22 1629 1428 Pantoprazole Sodium 40 MG DAILY 08/21 2100 AC 08/23 IV 0921 Potassium Chloride 10 MEQ Q1H 08/23 0830 DC IV 08/23 0931 Potassium Chloride 10 MEQ Q1H 08/23 0715 DC 08/23 IV 08/23 0816 0921 Propofol 1,000 MG CONTINOUS INFUSION 08/21 2030 DC 08/22 N/A 100 ML IV 0349 CXR Findings: IMPRESSION: Satisfactory position of ET and nasogastric tubes. Right-sided pacemaker tip not well seen but appears to project over the right atrium. Bibasilar atelectasis or small infiltrates similar to previous exam. Impression/Plan Impression/Problem List Impression: 81 year old lady with pmh hx of recent CVA on dual antiplatelet, HTN,DM, CAD PCI in 2004, carotid stenosis, was brought back from [place] after 7 days from [facility] from [facility] with chief complaint of nausea,AMS and bradycardia and near syncope. Patient was intubated and transcutaneous pacermaker placement followed by pacing @ 60bpm . Patient blood pressure initially was 119/80 which dropped to Systolic 70's. A Femoral central line was also placed. Patient was put on propofol and transferred to in ICU. As pacer remained nonfunctional Dr. Moe repositioned and patient started capturing well with rate of 70 with blood pressure 150/80. Plan Complete heart block s/p transvenous pacer placement * Pacemaker Placement subsequent repositioning (not functional) -- currently HR improved and pacer independent. * Acute coronary syndrome was ruled out * As patient was on metoprolol 25mg daily, a single dose of glucagon given and remained off the beta yael. * Doing well. Acute Hypoxic respiratory failure * possible aspiration due to bloody vomiting * ET adjusted and confirmed on position with x-ray * Continue IV Unasyn and IV PPI * Unable to extubate today as her work of breathing increased with weaning and feeling fatigued. Hypertension * Patient is currently off oral anti cozaar and metoprolol * She received hydralazine 5mg IV twice so far * Monitor closely. History of CVA, hyperlipidemia, DM? * Accucheks * Insulin NPO SS * Hold metformin. * Nothing by mouth for now, no oral medication, we'll readdress oral medication after she can tolerate oral intake DVT prophylaxis is Alps NPO Tylenol for pain FULL CODE Problem List: 1. Altered mental status 2. Complete heart block Pain Ratin Pain Location: n/a Tomorrow's Labs & Rationales: cbc ICU bundle Plan DVT/Prophylaxis: mechanical
--- NOTE | 2016-08-23 09:20 | NUR ---
PT BP 182/90, HR 91, NOTIFIED, IV HYDRALAZINE 5MG GIVEN X 1, WILL CONT TO MON.
--- NOTE | 2016-08-23 09:25 | PN- CRCU ---
Subjective HPI/Critical Care Issues: The patient is awake and follows commands. She remains on mechanical ventilation. Her oxygen requirement is down to 35%, noting her saturations are in the mid 90s. Her blood pressure has been mildly elevated. She remains afebrile with excellent urine output. There were no overnight events reported. Objective Current Medications: Current Medications Sig/Marc Start time Last Medication Dose Route Stop Time Status Admin Acetaminophen 650 MG Q6P PRN 08/219 AC PO Ampicillin Sodium/ 3,000 MG Q6 08/21 1957 AC 08/23 Sulbactam Sodium IV 0503 Sodium Chloride 100 ML Dextrose/Sodium 1,000 ML Q13H 08/21 2315 08/23 Chloride IV 0744 Hydralazine HCl 5 MG ONCE ONE 08/23 0915 DC IV 08/23 0916 Insulin Human Regular 4 UNITS .STK-MED ONE 08/22 2335 DC IV 08/22 2336 Insulin Human Regular 0 Q6 08/21 2359 08/23 SC 0549 Magnesium Sulfate 1 GM Q2H 08/22 1230 DC 08/22 Dextrose/Water 100 ML IV 08/22 1629 1428 Pantoprazole Sodium 40 MG DAILY 08/21 2100 AC 08/22 IV 0023 Potassium Chloride 10 MEQ Q1H 08/23 0830 AC IV 08/23 0931 Potassium Chloride 10 MEQ Q1H 08/23 0715 DC IV 08/23 0816 Propofol 1,000 MG CONTINOUS INFUSION 08/21 2030 DC 08/22 N/A 100 ML IV 0349 Vital Signs & I&O Last 24 Hrs of Vitals and I&O: Vital Signs Date Time Temp Pulse Resp B/P B/P Pulse O2 O2 Flow FiO2 Mean Ox Delivery Rate 08/23 0827 35 08/23 0800 95 Ventilator 35% 08/23 0800 98.3 73 16 159/80 95 Ventilator 35% 08/23 0544 35 08/23 0400 94 Ventilator 35% 08/23 0332 35 08/23 0118 30 08/23 0000 98.4 82 16 148/78 93 Ventilator 35% 08/23 0000 94 Ventilator 35% 08/22 2239 35 08/23 1999 98 Ventilator 35% 08/22 1947 35 08/22 1612 35 08/22 1611 96.8 78 20 143/82 97 Ventilator 35% 08/22 1600 96 Ventilator 35% 08/22 1442 35 08/22 1200 96 Ventilator 35% 08/22 1131 35 Intake & Output 08/23 1600 08/23 0800 08/23 0000 Intake Total 671 700 Output Total 450 650 Balance 221 50 Intake, IV 671 700 Output, 50 Gastric Drainage Output, Urine 450 600 Physical Exam General Appearance: intubated, comfortable, follows commands Head: atraumatic Respiratory: normal breath sounds (basal), crackles Cardiovascular: regular rate/rhythm (on pacer) Gastrointestinal: normal bowel sounds Extremities: normal inspection (trace LE edema) Results Last 24 Hrs of Lab Results: Laboratory Tests 08/23/16 0400: Anion Gap 9, Estimated GFR > 60, Glucose 155 H, Calcium 8.4, Phosphorus 2.5, Magnesium 2.2, Total Bilirubin 0.9, AST 20, ALT 27, Albumin 3.4 L, CBC w Diff NO MAN DIFF REQ, RBC 4.25, MCV 90.6, MCH 30.1, RDW 12.9, MPV 8.5, Gran % 83.0 H , Lymphocytes % 8.3 L, Monocytes % 8.4, Eosinophils % 0.3, Basophils % 0 L, Absolute Granulocytes 10.0 H, Absolute Lymphocytes 1.0 L, Absolute Monocytes 1.0 H, Absolute Eosinophils 0, Absolute Basophils 0, PUBS MCHC 33.3 08/22/16 1349: pH 7.42, pCO2 37, pO2 78 L, HCO3 23, ABG O2 Sat (Measured) 95.0 L, P-50 (Temp Corrected) YES, Carboxyhemoglobin 0.6 L, O2 Concentration % 35%, Temperature 99.1, O2 Delivery Method TPIECE, Phlebotomy Draw Site RIGHT RADIAL 08/22/16 1200: Troponin I Cancelled Diagnostic Data CXR Findings: Satisfactory position of ET and nasogastric tubes. Right-sided pacemaker tip not well seen but appears to project over the right atrium. Bibasilar atelectasis or small infiltrates similar to previous exam. Impression/Plan Impression/Plan Impression/Plan: 1. Complete heart block status post transvenous pacer placement. 2. Respiratory failure with possible aspiration pneumonitis versus pneumonia. 3. Resolved bleeding from OG tube. 4. Multiple comorbidities including Hhstory of stroke, hyperlipidemia, hypertension, and possible diabetes. Recommendations: * Continue with weaning trials. * Will extubate if parameters are acceptable. * Continue nebs/TRC. * Electrolyte repletion as ordered. * Continue IV Unasyn empirically pending culture data. * We'll discuss plan with cardiology. * Continue insulin sliding scale. * Continue IV fluids. * DVT/GI prophylaxis at all times while intubated. * Continue all supportive care. * Discussed with patient's daughter at bedside.
[2016-08-23 16:00] VITALS: BP 157/78
--- NOTE | 2016-08-23 17:13 | NUR ---
PT BP 200/98, NOTIFIED, IV HYDRALAZINE GIVEN WILL CONT TO MON
--- NOTE | 2016-08-23 18:04 | PN- Cardiology ---
Subjective Subjective: Remains intubated and sedated. Rhythm/rate has improved after discontinuation of beta yael therapy. Blood pressure now running on high side. This responded well to IV hydralazine 5 mg 1 given earlier. Objective Vital Signs and I&Os Vital Signs Date Time Temp Pulse Resp B/P B/P Pulse O2 O2 Flow FiO2 Mean Ox Delivery Rate 08/23 1718 200/98 08/23 1600 95 Ventilator 35% 08/23 1600 97.9 76 16 157/78 95 Ventilator 35% 08/23 1447 35 08/23 1156 95 Ventilator 35% 08/23 1144 35 08/23 0827 35 08/23 0800 95 Ventilator 35% 08/23 0800 98.3 73 16 159/80 95 Ventilator 35% 08/23 0544 35 08/23 0400 94 Ventilator 35% 08/23 0332 35 08/23 0118 30 08/23 0000 98.4 82 16 148/78 93 Ventilator 35% 08/23 0000 94 Ventilator 35% 08/22 2239 35 08/22 2000 98 Ventilator 35% 08/22 1947 35 Intake & Output 08/23 1600 08/23 0800 08/23 0000 08/22 1600 08/22 0800 08/22 0000 Intake Total 675 671 700 713.1 805 Output Total 350 450 650 750 700 100 Balance 325 221 50 -36.9 105 -100 Intake, IV 675 671 700 713.1 805 Intake, Oral 0 0 Number 1 Bowel Movements Output, 0 50 150 300 Gastric Drainage Output, Urine 350 450 600 600 400 100 Patient 163 lb Weight Weight Bed scale Measurement Method Physical Exam: Neck: No JVD, no bruits. Lungs: Clear to auscultation bilaterally. Heart: S1, S2 with grade 1-2/6 systolic murmur best heard at the base. PMI fifth ICS at [facility]. Abdomen: Soft, nontender, positive bowel sounds. Extremities: No edema. Current Medications: Current Medications Sig/Marc Start time Last Medication Dose Route Stop Time Status Admin Acetaminophen 650 MG Q6P PRN 08/21 2359 AC PO Ampicillin Sodium/ 3,000 MG Q6 08/21 1956 AC 08/23 Sulbactam Sodium IV 1721 Sodium Chloride 100 ML Dextrose/Sodium 1,000 ML Q13H 08/21 2315 AC 08/23 Chloride IV 1351 Hydralazine HCl 5 MG ONCE ONE 08/23 1715 DC 08/23 IV 08/23 1716 1718 Hydralazine HCl 5 MG ONCE ONE 08/23 0915 DC 08/23 IV 08/23 0916 0921 Insulin Human Regular 4 UNITS .STK-MED ONE 08/23 0549 DC IV 08/23 0550 Insulin Human Regular 4 UNITS .STK-MED ONE 08/22 2335 DC IV 08/22 2336 Insulin Human Regular 0 Q6 08/21 2359 AC 08/23 SC 1742 Losartan Potassium 25 MG DAILY 08/23 1713 AC PO Pantoprazole Sodium 40 MG .STK-MED ONE 08/23 0749 DC IV 08/23 0750 Pantoprazole Sodium 40 MG DAILY 08/21 2100 AC 08/23 IV 0921 Potassium Chloride 10 MEQ Q1H 08/23 0830 DC 08/23 IV 08/23 0931 1025 Potassium Chloride 20 MEQ .STK-MED ONE 08/23 0751 DC IV 08/23 0752 Potassium Chloride 10 MEQ Q1H 08/23 0715 DC 08/23 IV 08/23 0816 0921 Results Last 48 Hrs of Labs/Mics: Laboratory Tests 08/23/16 0400: Anion Gap 9, Estimated GFR > 60, Glucose 155 H, Calcium 8.4, Phosphorus 2.5, Magnesium 2.2, Total Bilirubin 0.9, AST 20, ALT 27, Albumin 3.4 L, CBC w Diff NO MAN DIFF REQ, RBC 4.25, MCV 90.6, MCH 30.1, RDW 12.9, MPV 8.5, Gran % 83.0 H , Lymphocytes % 8.3 L, Monocytes % 8.4, Eosinophils % 0.3, Basophils % 0 L, Absolute Granulocytes 10.0 H, Absolute Lymphocytes 1.0 L, Absolute Monocytes 1.0 H, Absolute Eosinophils 0, Absolute Basophils 0, PUBS MCHC 33.3 08/22/16 1349: pH 7.42, pCO2 37, pO2 78 L, HCO3 23, ABG O2 Sat (Measured) 95.0 L, P-50 (Temp Corrected) YES, Carboxyhemoglobin 0.6 L, O2 Concentration % 35%, Temperature 99.1, O2 Delivery Method TPIECE, Phlebotomy Draw Site RIGHT RADIAL 08/22/16 1200: Troponin I Cancelled 08/22/16 0610: pH 7.49 H, pCO2 29 L, pO2 91, HCO3 22, ABG O2 Sat (Measured) 96.0, P-50 (Temp Corrected) N, Carboxyhemoglobin 0.3 L, O2 Concentration % .35, Respiration Rate 16, O2 Delivery Method VENT, Vent Mode A/C, Expiratory Pressure 5, Tidal Volume 500, Phlebotomy Draw Site RIGHT RADIAL 08/22/16 0600: Troponin I 0.09 08/22/16 0600: Lactic Acid 2.4 H, CBC w Diff Cancelled, WBC Cancelled, RBC Cancelled, Hgb Cancelled, Hct Cancelled, MCV Cancelled, MCH Cancelled, RDW Cancelled, Plt Count Cancelled, MPV Cancelled, PUBS MCHC Cancelled 08/22/16 0300: Lactic Acid 2.7 H 08/22/16 0005: Anion Gap 14, Estimated GFR > 60, Glucose 241 H, Lactic Acid 2.4 H, Calcium 8.5, Phosphorus 4.5, Magnesium 1.6, Total Bilirubin 0.7, AST 22, ALT 35, Troponin I 0.10, Albumin 3.7, TSH 1.220, Thyroxine (T4) 11.2 H, PT 11.8, INR 1.13, APTT 33, CBC w Diff MAN DIFF ORDERED, RBC 4.40, MCV 90.5, MCH 30.4, RDW 12.6, MPV 8.4, Gran % 94.3 H, Lymphocytes % 3.3 L, Monocytes % 2.4, Eosinophils % 0, Basophils % 0 L, Absolute Granulocytes 15.2 H, Absolute Lymphocytes 0.5 L, Absolute Monocytes 0.4, Absolute Eosinophils 0, Absolute Basophils 0, Platelet Estimate ADEQUATE, Normocytic RBCs VERIFIED, Normochromic RBCs VERIFIED, PUBS MCHC 33.6, Lyme Disease Antibody Pending 08/21/16 2315: Troponin I Cancelled 08/21/16 2220: pH 7.38, pCO2 35, pO2 234 H, HCO3 20 L, ABG O2 Sat (Measured) 99.0, Carboxyhemoglobin 0.3 L, O2 Concentration % 80, O2 Delivery Method VENT, Phlebotomy Draw Site RIGHT RADIAL 08/21/16 2016: Lactic Acid Cancelled Microbiology 08/21 2199 UPPER RESP: Surveillance Culture - COMP Recent Imaging Studies: CXR (08/23/2016):Satisfactory position of ET and nasogastric tubes. Right-sided pacemaker tip not well seen but appears to project over the right atrium. Bibasilar atelectasis or small infiltrates similar to previous exam. Assessment/Plan Assessment/Plan 81 y-o-w-f-w/ hx of HTN, HLD, pre-DM, CAD, s/p PCI/coronary stents, previous strokes w/ 1st in 2014 w/o residua and her 2nd discovered after presentation here w/ AMS that req'd adm (08/11-08/15/2016) for an acute infarction in the R MCA and [employer]OW[employer] TE[employer] territories by MRI head/MRA neck performed on 08/12/2016, and conduction disease (LAFB, RBBB) who presented 08/21/2013 from STR in [facility] on BB ( metoprolol 12.5 mg twice daily). A transvenous pacemaker was placed, but then was not found to be functioning properly and required repositioning which was successful. Her rhythm has improved off beta yael therapy and, at present, she is not requiring the transvenous pacemaker. From a cardiac standpoint, the plan will be to continue the transvenous pacemaker for the short-term and determine whether a permanent pacemaker will be required. Attempts at weaning from mechanical ventilator underway. Continue present medical regimen. Continue telemetry? Yes
--- NOTE | 2016-08-23 19:48 | NUR ---
PT ALERT, IRANIAN SPEAKING ONLY, FAMILY TRANSLATING FOR PT. DOES NOT MOVE LT SIDE FROM PREVIOUS CVA AT BASELINE. PT ALSO NONVERBAL AND CONFUSED AT BASESLINE. BILATERAL SOFT WRIST RESTRAINTS IN PLACE. MOVES RT SIDE. ORALLY INTUBATED AND VENTED. BREATH SOUNDS CLEAR WITH DIMINISHED BREATH SOUNDS AT BASES BILATERALLY. MINIMAL SUCTIONING OF CLEAR SECREATIONS VIA ETT. COPIOUS ORAL SECRETIONS-THICK AND WHITE. NO SOB OR RESP DISTRESS NOTED AT PRESENT. SEE FLOW SHEET FOR VS, 02 SATS, I/O'S. MONITOR SHOWS NSR, OCC PVC NOTED. RT CHEST WALL TRANSVENOUS PACEMAKER IN PLACE, EXTERNAL PACER PADS ON. BP ELEVATED AT PRESENT-AWAITING COZAAR FROM PHARMACY. ABD SOFT, NONTENDER, NONDISTENDED, POSITIVE BOWEL SOUNDS. OGT IN PLACE-TO LWS, MINIMAL DRAINAGE. DUNCAN IN PLACE-DRAINING ADEQUATE AMT OF CLEAR KAMLA URINE AT PRESENT. SKIN INTACT
[2016-08-24] VITALS: BP 164/82
[2016-08-24 04:37] LABS: ABSOLUTE BASOPHIL COUNT 0 /CUMM (0.0-0.2); ABSOLUTE EOSINOPHIL COUNT 0 /CUMM (0.0-0.7); ABSOLUTE GRANULOCYTE CT 9.1 /CUMM (1.4-6.5); ABSOLUTE LYMPH COUNT 1.3 /CUMM (1.2-3.4); ABSOLUTE MONOCYTE COUNT 0.7 /CUMM (0.10-0.60); BASOPHIL % 0.3 % (0.0-2.0); EOSINOPHIL % 0 % (0-5); GRANULOCYTE % 81.8 % (42.2-75.2); HEMATOCRIT 37.8 % (37-47); MEAN CORPUSCULAR HGB 30.5 PG (27.0-31.0); MEAN CORPUSCULAR HGB CONC 33.7 G/DL (33.0-37.0); MEAN CORPUSCULAR VOLUME 90.6 FL (81.0-99.0); PLATELET COUNT 294 /CUMM (130-400); RBC DISTRIBUTION WIDTH 12.8 % (11.5-14.5); RED BLOOD CELL CT 4.18 /CUMM (4.20-5.40); WHITE BLOOD CELL COUNT 11.1 /CUMM (4.8-10.8)
--- NOTE | 2016-08-24 06:37 | NUR ---
PT REMAINS ALERT, MOVING RT SIDE ONLY. REMAINS ORALLY INTUBATED AND VENTED. SUCTIONING FOR MINIMAL AMT OF CLEAR SECREATIONS. BREATH SOUNDS REMAIN CLEAR WITH DIMINISHED BREATH SOUNDS AT BASES BILATAERALLY. MONITOR NSR WITH OCC PVC'S AND SOME PACED BEATS. BP 1201-200'S FOR SHIFT. ABD SOFT, NONTENDER, NONDISTENDED, POSITIVE BOWEL SOUNDS. OGT DRAINED SM AMT OF BLOODY DRAINAGE. BORDERLINE URINE OUTPUT FOR SHIFT. SKIN INTACT
--- NOTE | 2016-08-24 07:13 | NUR ---
PACER PADS NOT STICKING-REMOVED
--- NOTE | 2016-08-24 07:48 | PN- Resident CRCU ---
Subjective HPI/CRCU Issues: Afebrile and hemodynamically stable. Patient is intubated and mechanically ventilated. Heartrate has been on normal sinus rhythm since admission. Patient was fatigued during weaning trial yesterday which required restarting her on the mechanical ventilation. Objective Vital Signs & I&O Last 8 Hrs of Vitals and I&O: Vital Signs Date Time Temp Pulse Resp B/P B/P Pulse O2 O2 Flow FiO2 Mean Ox Delivery Rate 08/24 1200 35 08/24 0940 73 140/71 08/24 0836 35 08/24 0800 99.1 70 16 156/78 96 Ventilator 35% 08/24 0545 35 08/24 0400 95 Ventilator 35% 08/24 0333 35 08/24 0112 35 08/24 0104 76 18 174/78 08/24 0000 95 Ventilator 35% 08/24 0000 97.9 76 16 164/82 95 Ventilator 35% 08/23 2231 35 08/23 2050 84 16 173/78 08/23 2008 35 08/23 2000 95 Ventilator 35% 08/23 1718 200/98 08/23 1652 35 08/23 1600 95 Ventilator 35% 08/23 1600 97.9 76 16 157/78 95 Ventilator 35% 08/23 1447 35 Intake & Output 08/24 1600 08/24 0800 08/24 0000 Intake Total 673 667 Output Total 295 360 Balance 378 307 Intake, IV 673 667 Number 0 0 Bowel Movements Output, 100 0 Gastric Drainage Output, Urine 195 360 Exam General Appearance: well developed/nourished, no apparent distress, alert, awake , comfortable Head: atraumatic, normal appearance Respiratory: normal breath sounds, chest non-tender, no respiratory distress, quiet respiration, intubated and mechanically ventilated Cardiovascular: regular rate/rhythm Gastrointestinal: normal bowel sounds, soft, non-tender Extremities: normal inspection, no edema Weaning Parameters NIF: 25 Minute Volume: 8.36 Resp rate: 27 Vt: 318 Heart Rate: 85 Weaning Schedule Start Time: 0850 Minute Volume: 8.24 Resp Rate: 27 Vt: 330 Heart Rate: 85 End Time: 0940 Minute Volume: 7 Resp Rate: 17 Vt: 335 Heart Rate: 99 Start Time: 1250 Current Medications: Current Medications Sig/Marc Start time Last Medication Dose Route Stop Time Status Admin Acetaminophen 650 MG Q6P PRN 08/21 2359 AC PO Ampicillin Sodium/ 3,000 MG Q6 08/21 1957 AC 08/24 Sulbactam Sodium IV 1236 Sodium Chloride 100 ML Dextrose/Sodium 1,000 ML Q20H 08/24 1045 AC 08/24 Chloride IV 1054 Dextrose/Sodium 1,000 ML Q13H 08/21 2315 DC 08/23 Chloride IV 2357 Hydralazine HCl 5 MG ONCE ONE 08/23 2300 DC 08/24 IV 08/23 2301 0104 Hydralazine HCl 5 MG ONCE ONE 08/23 1715 DC 08/23 IV 08/23 171 1718 Insulin Human Regular 4 UNITS .STK-MED ONE 08/23 2352 DC IV 08/23 2353 Insulin Human Regular 0 Q6 08/21 2359 AC 08/24 SC 1235 Losartan Potassium 25 MG DAILY 08/23 1713 AC 08/24 PO 0940 Pantoprazole Sodium 40 MG DAILY 08/21 2100 AC 08/24 IV 0940 Potassium Chloride 10 MEQ Q1H 08/24 0830 DC 08/24 IV 08/24 0931 1054 Potassium Phosphate 15 mMol ONE ONE 08/24 0645 DC 08/24 Sodium Chloride 250 ML IV 08/24 1048 1102 Impression/Plan Impression/Problem List Impression: 81 year old lady with pmh hx of recent CVA on dual antiplatelet, HTN,DM, CAD PCI in 2004, carotid stenosis, was brought back from [place] after 7 days from discharge from [facility] with chief complaint of nausea,AMS and bradycardia and near syncope status post intubation due to altered mental status and semi-bloody vomiting, intravenous pacing due to complete heart block. Patient was intubated and transcutaneous pacing was immediately started on a rate of 60. Patient blood pressure initially was 119/80 which are up to Systolic 70's. Femoral central line was also placed. Patient was put on propofol and transferred to ICU. Dr. Moe came back and repositioned the transvenous pacer and patient was capturing well with transvenous pacer with rate of 70 with blood pressure 150/80. Plan #Complete heart block status post transvenous pacer placement * Acute coronary syndrome was ruled out * Received 1 dose IV glucagon on the admission to reverse beta yael and since then she's been normal sinus rhythm bradycardia * Patient currently does not need permanent pacing as per cardiology #Acute Hypoxic respiratory failure * possible aspiration due to bloody vomiting * Continue IV Unasyn * Continue IV PPI * We will try to extubate if she performed well during weaning trial today #History of CVA, hyperlipidemia, hypertension, DM? * Accucheks * Insulin NPO SS * Hold metformin. * Nothing by mouth for now, no oral medication, we'll readdress oral medication after she can tolerate oral intake DVT prophylaxis is Alps NPO on IV fluids, we'll consult nutrition amd start tube feeds later today after extubation Tylenol for pain FULL CODE Problem List: 1. Altered mental status Pain Ratin Tomorrow's Labs & Rationales: CBC and ICU bundle Plan DVT/Prophylaxis: mechanical
[2016-08-24 08:00] VITALS: BP 156/78
--- NOTE | 2016-08-24 09:08 | PN- CRCU ---
Subjective HPI/Critical Care Issues: The patient remained awake, on mechanical ventilation. Yesterday, during her weaning trial, she requested to be placed back on the ventilator as she was fatigued. Her blood pressure is currently stable and her urine output is excellent. She remains on IV fluids for maintenance. There were no significant overnight events reported. Objective Current Medications: Current Medications Sig/Marc Start time Last Medication Dose Route Stop Time Status Admin Acetaminophen 650 MG Q6P PRN 08/21 2359 AC PO Ampicillin Sodium/ 3,000 MG Q6 08/21 1957 AC 08/24 Sulbactam Sodium IV 0556 Sodium Chloride 100 ML Dextrose/Sodium 1,000 ML Q13H 08/21 2315 AC 08/23 Chloride IV 2357 Hydralazine HCl 5 MG ONCE ONE 08/23 2300 DC 08/24 IV 08/23 2301 0104 Hydralazine HCl 5 MG ONCE ONE 08/23 1715 DC 08/23 IV 08/23 171 1718 Hydralazine HCl 5 MG ONCE ONE 08/23 0915 DC 08/23 IV 08/23 0916 0921 Insulin Human Regular 4 UNITS .STK-MED ONE 08/23 2352 DC IV 08/23 2353 Insulin Human Regular 0 Q6 08/21 2359 AC 08/24 SC 0556 Losartan Potassium 25 MG DAILY 08/23 1713 AC 08/23 PO 2050 Pantoprazole Sodium 40 MG DAILY 08/21 2100 AC 08/23 IV 0921 Potassium Chloride 10 MEQ Q1H 08/24 0830 AC IV 08/24 0931 Potassium Chloride 20 MEQ .STK-MED ONE 08/23 1008 DC IV 08/23 1009 Potassium Chloride 10 MEQ Q1H 08/23 0830 DC 08/23 IV 08/23 0931 1025 Potassium Phosphate 15 mMol ONE ONE 08/24 0645 AC Sodium Chloride 250 ML IV 08/24 1048 Vital Signs & I&O Last 24 Hrs of Vitals and I&O: Vital Signs Date Time Temp Pulse Resp B/P B/P Pulse O2 O2 Flow FiO2 Mean Ox Delivery Rate 08/24 0836 35 08/24 0545 35 08/24 0400 95 Ventilator 35% 08/24 0333 35 08/24 0112 35 08/24 0104 76 18 174/78 08/24 0000 95 Ventilator 35% 08/24 0000 97.9 76 16 164/82 95 Ventilator 35% 08/23 2231 35 08/23 2050 84 16 173/78 08/23 2008 35 08/23 2000 95 Ventilator 35% 08/23 1718 200/98 08/23 1652 35 08/23 1600 95 Ventilator 35% 08/23 1600 97.9 76 16 157/78 95 Ventilator 35% 08/23 1447 35 08/23 1156 95 Ventilator 35% 08/23 1144 35 Intake & Output 08/24 1600 08/24 0800 08/24 0000 Intake Total 673 667 Output Total 295 360 Balance 378 307 Intake, IV 673 667 Number 0 0 Bowel Movements Output, 100 0 Gastric Drainage Output, Urine 195 360 Physical Exam General Appearance: intubated, comfortable, follows commands Head: atraumatic Respiratory: Scattered rhonchi and basilar crackles Cardiovascular: regular rate/rhythm (on pacer) Gastrointestinal: normal bowel sounds Extremities: Trace lower extremity edema Results Last 24 Hrs of Lab Results: Laboratory Tests 08/24/16 0416: Anion Gap 9, Estimated GFR > 60, Glucose 160 H, Calcium 8.7, Phosphorus 2.2 L, Magnesium 2.1, Total Bilirubin 0.9, AST 19, ALT 24, Albumin 3.4 L, CBC w Diff NO MAN DIFF REQ, RBC 4.18 L, MCV 90.6, MCH 30.5, RDW 12.8, MPV 8.0, Gran % 81.8 H, Lymphocytes % 11.4 L, Monocytes % 6.5, Eosinophils % 0, Basophils % 0.3, Absolute Granulocytes 9.1 H, Absolute Lymphocytes 1.3, Absolute Monocytes 0.7 H, Absolute Eosinophils 0, Absolute Basophils 0, PUBS MCHC 33.7 Impression/Plan Impression/Plan Impression/Plan: 1. Complete heart block status post transvenous pacer placement. 2. Respiratory failure with possible aspiration pneumonitis versus pneumonia. 3. Resolved bleeding from OG tube. 4. Multiple comorbidities including Hhstory of stroke, hyperlipidemia, hypertension, and possible diabetes. Recommendations: * Replete electrolytes. * Continue nebs/TRC. * We will continue with weaning trials, however we will not extubate the patient until we discussed the plan for pacemaker implantation with cardiology, as the patient will require anesthesia. * Continue IV Unasyn empirically pending culture data. * Continue IV fluids but decrease to 50 ML per hour. * Consult nutrition, start tube feeds later today after the procedure if she has it or start them once we are sure she is not going to be undergoing anesthesia. * Continue with BP control. * DVT/GI prophylaxis at all times while intubated. * Continue all supportive care. * Discussed with patient's daughter at bedside.
--- NOTE | 2016-08-24 10:32 | PN- Cardiology ---
Subjective Subjective: Remains intubated and sedated. Sinus rhythm on monitoring. Pacemaker not functioning properly and shut off. Blood pressure coming under better control with IV Hydralazine. Objective Vital Signs and I&Os Vital Signs Date Time Temp Pulse Resp B/P B/P Pulse O2 O2 Flow FiO2 Mean Ox Delivery Rate 08/24 0940 73 140/71 08/24 0836 35 08/24 0545 35 08/24 0400 95 Ventilator 35% 08/24 0333 35 08/24 0112 35 08/24 0104 76 18 174/78 08/24 0000 95 Ventilator 35% 08/24 0000 97.9 76 16 164/82 95 Ventilator 35% 08/23 2231 35 08/23 2050 84 16 173/78 08/23 2008 35 08/23 2000 95 Ventilator 35% 08/23 1718 200/98 08/23 1652 35 08/23 1600 95 Ventilator 35% 08/23 1600 97.9 76 16 157/78 95 Ventilator 35% 08/23 1447 35 08/23 1156 95 Ventilator 35% 08/23 1144 35 Intake & Output 08/24 1600 08/24 0800 08/24 0000 08/23 1600 08/23 0800 08/23 0000 Intake Total 673 667 675 671 700 Output Total 295 360 350 450 650 Balance 378 307 325 221 50 Intake, IV 673 667 675 671 700 Intake, Oral 0 Number 0 0 Bowel Movements Output, 100 0 0 50 Gastric Drainage Output, Urine 195 360 350 450 600 Physical Exam: Neck: No JVD, no bruits. Lungs: Clear to auscultation bilaterally. Heart: S1, S2 with grade 1-2/6 systolic murmur best heard at the base. PMI fifth ICS at [facility]. Abdomen: Soft, nontender, positive bowel sounds. Extremities: No edema. Current Medications: Current Medications Sig/Marc Start time Last Medication Dose Route Stop Time Status Admin Acetaminophen 650 MG Q6P PRN 08/21 2358 AC PO Ampicillin Sodium/ 3,000 MG Q6 08/21 1956 AC 08/24 Sulbactam Sodium IV 0556 Sodium Chloride 100 ML Dextrose/Sodium 1,000 ML Q13H 08/21 2315 AC 08/23 Chloride IV 2357 Hydralazine HCl 5 MG ONCE ONE 08/23 2300 DC 08/24 IV 08/23 2300 0104 Hydralazine HCl 5 MG ONCE ONE 08/23 1715 DC 08/23 IV 08/24 1715 1718 Insulin Human Regular 4 UNITS .STK-MED ONE 08/23 2352 DC IV 08/23 2353 Insulin Human Regular 0 Q6 08/21 2359 AC 08/24 SC 0556 Losartan Potassium 25 MG DAILY 08/23 1713 AC 08/24 PO 0940 Pantoprazole Sodium 40 MG DAILY 08/21 2100 AC 08/24 IV 0940 Potassium Chloride 10 MEQ Q1H 08/24 0830 DC 08/24 IV 08/24 0931 0937 Potassium Phosphate 15 mMol ONE ONE 08/24 0645 AC Sodium Chloride 250 ML IV 08/24 1048 Results Last 48 Hrs of Labs/Mics: Laboratory Tests 08/24/16 0416: Anion Gap 9, Estimated GFR > 60, Glucose 160 H, Calcium 8.7, Phosphorus 2.2 L, Magnesium 2.1, Total Bilirubin 0.9, AST 19, ALT 24, Albumin 3.4 L, CBC w Diff NO MAN DIFF REQ, RBC 4.18 L, MCV 90.6, MCH 30.5, RDW 12.8, MPV 8.0, Gran % 81.8 H, Lymphocytes % 11.4 L, Monocytes % 6.5, Eosinophils % 0, Basophils % 0.3, Absolute Granulocytes 9.1 H, Absolute Lymphocytes 1.3, Absolute Monocytes 0.7 H, Absolute Eosinophils 0, Absolute Basophils 0, PUBS MCHC 33.7 08/23/16 0400: Anion Gap 9, Estimated GFR > 60, Glucose 155 H, Calcium 8.4, Phosphorus 2.5, Magnesium 2.2, Total Bilirubin 0.9, AST 20, ALT 27, Albumin 3.4 L, CBC w Diff NO MAN DIFF REQ, RBC 4.25, MCV 90.6, MCH 30.1, RDW 12.9, MPV 8.5, Gran % 83.0 H , Lymphocytes % 8.3 L, Monocytes % 8.4, Eosinophils % 0.3, Basophils % 0 L, Absolute Granulocytes 10.0 H, Absolute Lymphocytes 1.0 L, Absolute Monocytes 1.0 H, Absolute Eosinophils 0, Absolute Basophils 0, PUBS MCHC 33.3 08/22/16 1349: pH 7.42, pCO2 37, pO2 78 L, HCO3 23, ABG O2 Sat (Measured) 95.0 L, P-50 (Temp Corrected) YES, Carboxyhemoglobin 0.6 L, O2 Concentration % 35%, Temperature 99.1, O2 Delivery Method TPIECE, Phlebotomy Draw Site RIGHT RADIAL 08/22/16 1200: Troponin I Cancelled Assessment/Plan Assessment/Plan 81 y-o-w-f-w/ hx of HTN, HLD, pre-DM, CAD, s/p PCI/coronary stents, previous strokes w/ 1st in 2014 w/o residua and her 2nd discovered after presentation here w/ AMS that req'd adm (08/11-08/15/2016) for an acute infarction in the R MCA 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 A transvenous pacemaker was placed, but then was not found to be functioning properly and required repositioning which was successful, but is again not functioning properly and was shut off. Her rhythm has improved off beta yael therapy and, at present, she is no longer requiring the transvenous pacemaker. From a cardiac standpoint, the plan will be to continue to monitor her to determine if a permanent pacemaker is necessary. Attempts at weaning from mechanical ventilator underway. Continue present medical regimen. Discussed the situation with her daughter, pointing out the pros and cons of permanent pacemaking. Technically, is still a candidateor permanent pacemaker, but neurologically has not significantly improved. Continue telemetry? Yes
[2016-08-24 16:00] VITALS: BP 180/84
--- NOTE | 2016-08-24 17:07 | NUR ---
1500: PATIENT EXTUBATED AT THIS TIME, PLACED ON 4L NASAL CANNULA SATTING 97%. LUNGS CLEAR/DIMINISHED. NO DISTRESS NOTED. NONPRODUCTIVE COUGH. PATIENT WHISPERING TO HER FAMILY/TRANSLATED THAT HER THROAT IS SORE AND SHE WANTS A DRINK OF WATER. TO AWAIT FORMAL SWALLOW EVAL AND DO MOUTH SWABS. PATIENT RESTING COMFORTABLY AND VSS.
--- NOTE | 2016-08-24 17:08 | NUR ---
1430: PATIENT TOLERATED VENT TRIAL W/ PSV 6 FROM 1252 TO 1350. PLACED ON T-PIECE W/35% O2 AND TOLERATING WELL. TO BE EXTUBATED. FAMILY PRESENT GIVING EMOTIONAL REASSURANCE.
--- NOTE | 2016-08-24 17:14 | NUR ---
PATIENT NOTED TO HAVE LOW OUTPUT OVER THE DAY SHIFT. STARTED SHIFT AT AVERAGE 20 MLS/HR AND DECREASED WHEN D5NS AT 75 MLS/HR WAS LOWERED TO 50 MLS/HR AT 1040. INFORMED DR. FOLEY. IVF INCREASED BACK TO 75 MLS/HR AT 1445 AND 500 ML BOLUS OF NORMAL SALINE GIVEN OVER 1 HOUR. OUTPUT INCREASED IMMEDIATELY. CONTINUING TO MONITOR. B/P ELEVATED AT THIS TIME NQK=[id number]. DR. FOLEY ORDER 5MG IV HYDRALAZINE TO BE GIVEN.
--- NOTE | 2016-08-24 18:00 | NUR ---
174: Blood pressure 193/116 5mg iv hydralazine given repeated at 1800: 153/87, HR remains the same NSR 70s-80s without ectopy
--- NOTE | 2016-08-24 19:47 | NUR ---
Patient received NSR on the monitor 70s-80s w/ pacer spikes. Patient has RCW transvenous pacemaker settings: MA-3.5, sensitivity-7.5, heart rate 70. Dr Mariano shut the pacer off and 10 am with no changes noted. Patient's vitals remained the same. Monitored for ectopy/bradycardia per field counsel. No pacer to be placed permanently at this time.
[2016-08-25] VITALS: BP 158/88
[2016-08-25 04:13] LABS: ABSOLUTE BASOPHIL COUNT 0.1 /CUMM (0.0-0.2); ABSOLUTE EOSINOPHIL COUNT 0.1 /CUMM (0.0-0.7); ABSOLUTE GRANULOCYTE CT 7.8 /CUMM (1.4-6.5); ABSOLUTE LYMPH COUNT 1.7 /CUMM (1.2-3.4); ABSOLUTE MONOCYTE COUNT 0.8 /CUMM (0.10-0.60); EOSINOPHIL % 1.4 % (0-5); GRANULOCYTE % 73.4 % (42.2-75.2); HEMATOCRIT 35.9 % (37-47); MEAN CORPUSCULAR HGB 30.5 PG (27.0-31.0); MEAN CORPUSCULAR HGB CONC 33.7 G/DL (33.0-37.0); MEAN CORPUSCULAR VOLUME 90.8 FL (81.0-99.0); MEAN PLATELET VOLUME 7.6 FL (7.4-10.4); PLATELET COUNT 268 /CUMM (130-400); RBC DISTRIBUTION WIDTH 12.9 % (11.5-14.5); RED BLOOD CELL CT 3.95 /CUMM (4.20-5.40); WHITE BLOOD CELL COUNT 10.6 /CUMM (4.8-10.8)
--- NOTE | 2016-08-25 07:58 | PN- Resident CRCU ---
Subjective HPI/CRCU Issues: Afebrile, hypertensive and with a normal sinus rhythm. She is stable post extubation yesterday, saturating upper 90s on 4 L of oxygen. She passed swallowing eval this morning. No acute overnight events reported. Objective Vital Signs & I&O Last 8 Hrs of Vitals and I&O: Vital Signs Date Time Temp Pulse Resp B/P B/P Pulse O2 O2 Flow FiO2 Mean Ox Delivery Rate 08/25 08 97 Nasal 4.0L Cannula 08/25 08 98.4 70 25 180/80 96 Nasal 4.0L Cannula 08/25 0400 97 Nasal 4.0L Cannula Exam General Appearance: no apparent distress, alert, awake, comfortable Head: atraumatic, normal appearance Cardiovascular: regular rate/rhythm Gastrointestinal: normal bowel sounds, soft, non-tender Extremities: normal inspection, no edema Weaning Parameters NIF: 25 Minute Volume: 7.6 Resp rate: 16 Vt: 500 Heart Rate: 75 Weaning Schedule Start Time: 1252 Minute Volume: 5.8 Resp Rate: 23 Vt: 291 Heart Rate: 74 End Time: 1350 Minute Volume: 7 Resp Rate: 17 Vt: 335 Heart Rate: 99 Start Time: 1250 Current Medications: Current Medications Sig/Marc Start time Last Medication Dose Route Stop Time Status Admin Acetaminophen 650 MG Q6P PRN 08/21 2359 AC PO Amlodipine Besylate 5 MG DAILY 08/25 1000 AC PO Ampicillin Sodium/ 3,000 MG Q6 08/21 1957 08/25 Sulbactam Sodium IV 0539 Sodium Chloride 100 ML Dextrose/Sodium 1,000 ML Q20H 08/24 1045 08/24 Chloride IV 2300 Dextrose/Sodium 1,000 ML Q13H 08/21 2315 [place] 08/23 Chloride IV 2357 Hydralazine HCl 5 MG ONCE ONE 08/24 1700 DC 08/24 IV 08/24 1701 1746 Insulin Human Regular 4 UNITS .STK-MED ONE 08/24 2319 DC IV 08/24 2320 Insulin Human Regular 2 UNITS .STK-MED ONE 08/24 1756 DC IV 08/24 1757 Insulin Human Regular 2 UNITS .STK-MED ONE 08/24 1236 DC IV 08/24 1237 Insulin Human Regular 0 Q6 08/21 2359 08/25 SC 0541 Losartan Potassium 25 MG DAILY 08/23 1713 08/24 PO 0940 Pantoprazole Sodium 40 MG DAILY 08/21 2100 AC 08/24 IV 0940 Potassium Chloride 10 MEQ Q1H 08/25 1000 CAN IV 08/25 1101 Potassium Chloride 10 MEQ Q1H 08/25 0600 CAN IV 08/25 0701 Potassium Chloride 20 MEQ Q1H 08/25 0600 DC 08/25 IV 08/25 0701 0609 Potassium Phosphate 15 mMol ONE ONE 08/24 0645 DC 08/24 Sodium Chloride 250 ML IV 08/24 1048 1102 Sodium Chloride 500 ML BOLUS ONE 08/24 1445 DC 08/24 IV 08/24 1544 1455 Impression/Plan Impression/Problem List Impression: 81 year old lady with pmh hx of recent CVA on dual antiplatelet, HTN,DM, CAD PCI in 2004, carotid stenosis, was brought back from [place] after 7 days from discharge from [facility] with chief complaint of nausea,AMS and bradycardia and near syncope status post intubation due to altered mental status and semi-bloody vomiting, intravenous pacing due to complete heart block. Acute coronary syndrome was ruled out. Received 1 dose IV glucagon on the admission to reverse beta yael and since then she's been normal sinus rhythm bradycardia Plan #Complete heart block status post transvenous pacer placement * Patient currently does not need permanent pacing as per cardiology #Acute Hypoxic respiratory failure * Possible aspiration due to bloody vomiting * Status post extubation yesterday * Continue IV Unasyn * Continue IV PPI #History of CVA, hyperlipidemia, hypertension, DM? * Accucheks * Insulin SS * Hold metformin. * Modified diet as ordered * We will start amlodipine and continue lisinopril to control blood pressure #Positive Lyme titer * Follow-up Lyme Western blot * We will start ceftriaxone 2 g IV every 24 hours DVT prophylaxis is Alps NPO on IV fluids, we'll consult nutrition amd start tube feeds later today after extubation Tylenol for pain FULL CODE Problem List: 1. Complete heart block 2. Altered mental status 3. CVA (cerebral vascular accident) Pain Ratin Tomorrow's Labs & Rationales: CBC and ICU bundle Plan DVT/Prophylaxis: mechanical
[2016-08-25 08:00] VITALS: BP 180/80
--- NOTE | 2016-08-25 08:45 | PN- CRCU ---
Subjective HPI/Critical Care Issues: The patient is awake and interacting with the external environment. She is squeezing her hands on to command. Her respiratory status has been stable postextubation. Her saturations are in the mid to high 90s on 4 L nasal cannula. She is afebrile. She has had periods of hypertension noted. Maintenance IV fluids pending a swallowing evaluation. Objective Current Medications: Current Medications Sig/Marc Start time Last Medication Dose Route Stop Time Status Admin Acetaminophen 650 MG Q6P PRN 08/21 2359 AC PO Amlodipine Besylate 5 MG DAILY 08/25 1000 AC 08/26 PO 0832 Ampicillin Sodium/ 3,000 MG Q6 08/21 1957 DC 08/25 Sulbactam Sodium IV 1650 Sodium Chloride 100 ML Aspirin 81 MG DAILY 08/26 1000 CAN PO Ceftriaxone Sodium 2,000 MG DAILY 08/25 1125 AC 08/25 IV 1639 Dextrose/Sodium 1,000 ML Q20H 08/24 1045 DC 08/24 Chloride IV 2300 Docusate Sodium 100 MG BID 08/25 2200 AC 08/26 PO 0831 Insulin Aspart 0 TIDAC 08/25 1200 AC 08/25 SC 1647 Insulin Human Regular 0 Q6 08/21 2359 DC 08/25 SC 0541 Losartan Potassium 25 MG DAILY 08/23 1713 AC 08/26 PO 0832 Melatonin 3 MG QPM 08/26 2200 AC PO Omeprazole 40 MG DAILY AC 08/26 0700 AC 08/26 PO 0612 Pantoprazole Sodium 40 MG DAILY 08/21 2100 DC 08/25 IV 1100 Polyethylene Glycol 17 GM DAILY 08/25 1844 AC 08/26 PO 0832 Potassium Chloride 10 MEQ Q1H 08/26 0615 DC 08/26 IV 08/26 0716 0836 Vital Signs & I&O Last 24 Hrs of Vitals and I&O: Vital Signs Date Time Temp Pulse Resp B/P B/P Pulse O2 O2 Flow FiO2 Mean Ox Delivery Rate 08/26 0832 74 170/80 08/26 0832 74 170/80 08/26 0000 98.1 78 26 136/74 91 Room Air 08/25 1600 97.2 74 24 154/78 97 Nasal 4.0L Cannula 08/25 1600 98 Nasal 4.0L Cannula 08/25 1200 98 Nasal 4.0L Cannula 08/25 1100 69 170/98 08/25 1100 69 170/98 Intake & Output 08/26 1600 08/26 0800 08/26 0000 Intake Total 180 620 Output Total 450 600 Balance -270 20 Intake, IV 130 Intake, Oral 180 490 Output, Urine 450 600 Physical Exam General Appearance: comfortable, follows commands Head: atraumatic Respiratory: Scattered rhonchi and basilar crackles Cardiovascular: regular rate/rhythm (on pacer) Gastrointestinal: normal bowel sounds Extremities: Trace lower extremity edema Results Last 24 Hrs of Lab Results: Laboratory Tests 08/26/16 0440: Anion Gap 9, Estimated GFR > 60, Glucose 130 H, Calcium 8.0 L, Phosphorus 2.8, Magnesium 1.8, Total Bilirubin 0.8, AST 14, ALT 26, Albumin 2.7 L, CBC w Diff NO MAN DIFF REQ, RBC 4.08 L, MCV 90.4, MCH 30.6, RDW 12.6, MPV 8.1, Gran % 73.5 , Lymphocytes % 17.8 L, Monocytes % 5.0, Eosinophils % 3.4, Basophils % 0.3, Absolute Granulocytes 7.5 H, Absolute Lymphocytes 1.8, Absolute Monocytes 0.5, Absolute Eosinophils 0.3, Absolute Basophils 0, PUBS MCHC 33.9 Impression/Plan Impression/Plan Impression/Plan: 1. Complete heart block status post transvenous pacer placement, thought to be related to Betablockers. 2. Respiratory failure with possible aspiration pneumonitis versus pneumonia. 3. Resolved bleeding from OG tube. 4. Multiple comorbidities including Hhstory of stroke, hyperlipidemia, hypertension, and possible diabetes. 5. Positive lyme titer - 6. Uncontrolled hypertension, betablockers on hold. Recommendations: * Transvenous pacemaker management as per cardiology. * Replete electrolytes - ordered. * Continue nebs/TRC. * Await swallowing evaluation. * Losartan restarted. Need to improve BP control. Please discuss with cardiology. * Treat positive Lyme titer? - will discuss with ID. * Will then address IV Unasyn after discussion with ID. * Decrease IV fluid rate when the patient is taking in adequate by mouth. * PT assessment. * Out of bed to chair if able. * Change to oral Protonix. * DVT prophylaxis at alll times. * Continue all supportive care.
--- NOTE | 2016-08-25 10:55 | Cons- Infect Disease ---
General Information and HPI Consulting Request Date of Consult: 08/25/16 Requested By: Lavern DAVIDSON MD Reason for Consult: Rule out Lyme carditis Source of Information: family, old records Exam Limitations: clinical condition History of Present Illness: This is a 81-year-old woman with a history of hypertension, coronary artery disease, diabetes, status post several CVAs, most recently 2 weeks prior to admission when she presented with several weeks of altered behavior, discharged to a rehabilitation facility after 4 days with residual left upper extremity weakness, admitted on August 21 after a near syncopal episode with evidence of third-degree heart block when EMS arrived at the scene. On admission she was afebrile. EKG confirmed third-degree heart block with a heart rate of 27. A transcutaneous pacemaker was initially placed, followed by a transvenous pacemaker in the right subclavian, during which she vomited. She subsequently desaturated and was intubated. Following this she dropped her blood pressure, requiring pressors, for which a right femoral line was placed. Laboratory data revealed a white blood cell count of 13,000, BUN/creatinine 24 and 0.9, lactic acid 3.3, with normal liver enzymes, INR 1.11. Chest x-ray was negative. She was begun on Unasyn for possible aspiration. She was also given Glucagon to reverse the presumed beta yael toxicity secondary to Lopressor. By August 22 her rhythm had improved, not requiring pacing, and she has remained in normal sinus rhythm since. She has remained afebrile. Her white blood cell count did increase to 16,000 on August 22 but has since normalized. She was extubated on August 24 and her respiratory status has been stable on 4 L. A Lyme titer was sent and has been found to be positive, prompting this consult. At present she does not offer any complaints. Allergies/Medications Allergies: Coded Allergies: No Known Allergies (08/11/16) Home Med List: Acetaminophen (Arthritis Pain) 650 MG TABLET.ER 1 TAB PO BID PAIN (Reported) Aspirin (Aspirin*) 81 MG TAB.CHEW 81 MG PO DAILY STROKE Atorvastatin Calcium 80 MG TABLET 1 TAB PO DAILY STROKE Clopidogrel Bisulfate (Plavix) 75 MG TABLET 75 MG PO DAILY STROKE Losartan Potassium (Cozaar) 25 MG TABLET 1 TAB PO DAILY BP (Reported) Melatonin 3 MG TABLET 1 TAB PO QPM SLEEP AID (Reported) Metformin HCl 500 MG TABLET 1 TAB PO BID DIABETES (Reported) Metoprolol Tartrate 25 MG TABLET 12.5 MG PO BID HEART Past History Travel History Traveled to [place] past 21 day No Medical History Neurological: CVA, ANEURYSM EENT: NONE Cardiovascular: CAD (s/p stents), hypertension, hyperlipidemia Respiratory: NONE Gastrointestinal: NONE Hepatic: NONE Renal: NONE Musculoskeletal: NONE Psychiatric: NONE Endocrine: diabetes (borderline) Blood Disorders: NONE Cancer(s): NONE ASSOCIATE CREATIVE DIRECTOR/Reproductive: NONE History of MRSA: No History of VRE: No History of CDIFF: No Isolation History: Standard Surgical History Surgical History: hip replacement (RIGHT) Family History Relations & Conditions If Any: FATHER, ; Cause: Lung cancer. MOTHER FHx: diabetes mellitus BROTHER FH: myocardial infarction Psychosocial History Where Do You Live? Extended Care Facility Who Do You Live With? child Primary Language: [facility] Smoking Status: Unknown If Ever Smoked ETOH Use: 6 6 Illicit Drug Use: UTD Functional Ability ADLs Independent: dressing, eating, toileting, bathing. Ambulation: walker Review of Systems Review of Systems All Other Systems: Reviewed and Negative Exam & Diagnostic Data Last 24 Hrs of Vital Signs/I&O Vital Signs Date Time Temp Pulse Resp B/P B/P Pulse O2 O2 Flow FiO2 Mean Ox Delivery Rate 08/25 0800 97 Nasal 4.0L Cannula 08/25 0800 98.4 70 25 180/80 96 Nasal 4.0L Cannula 08/25 0400 97 Nasal 4.0L Cannula 08/25 0000 96 Nasal 4.0L Cannula 08/25 0000 98.1 84 25 158/88 94 Nasal 4.0L Cannula 08/24 2000 93 Nasal 4.0L Cannula 08/24 1746 74 193/116 08/24 1600 98.3 70 16 180/84 97 Nasal 4.0L Cannula 08/24 1600 97 Nasal 4.0L Cannula 08/24 1200 35 08/24 1200 94 Ventilator 35% Intake & Output 08/25 1600 08/25 0800 08/25 0000 Intake Total 712 1210 Output Total 900 950 Balance -188 260 Intake, IV 712 1210 Output, Urine 900 950 Physical Exam Other Physical Findings: She is awake and alert in no acute distress. She is afebrile. Skin reveals no rash. HEENT exam is negative. Neck is supple with no adenopathy; right subclavian transvenous pacemaker in place, with no inflammation at the site. Lungs are clear. Heart regular rhythm with a 1/6 systolic ejection murmur. Abdomen is distended, soft, nontender with positive bowel sounds. Back no CVA tenderness. Extremities no cyanosis, clubbing or edema; right femoral triple- lumen catheter in place with no inflammation at the site. Neuro 1/5 left upper extremity weakness; 4/5 left lower extremity weakness; no weakness of the right side. Greenfield catheter is in place. Last 24 Hours of Lab Results: Laboratory Tests 08/25 08/24 0400 1440 Blood Gas pH (7.35 - 7.45 PH) 7.50 H pCO2 (35 - 45 TORR) 33 L pO2 (80 - 100 TORR) 98 HCO3 (21 - 28 MEQ/L) 25 ABG O2 Sat (Measured) (>96.0 %) 98.0 P-50 (Temp Corrected) YES Carboxyhemoglobin (1.5 - 5.0 %) 0.7 L O2 Concentration % 35% Temperature (97.0 - 100.0 FARH) 99.1 O2 Delivery Method TPIECE Vent Mode TPIECE Chemistry Sodium (137 - 145 mmol/L) 144 Potassium (3.5 - 5.1 mmol/L) 3.2 L Chloride (98 - 107 mmol/L) 110 H Carbon Dioxide (22 - 30 mmol/L) 26 Anion Gap (5 - 16) 8 BUN (7 - 17 mg/dL) 18 H Creatinine (0.5 - 1.0 mg/dL) 0.6 Estimated GFR (>60 ml/min) > 60 Glucose (65 - 99 mg/dL) 124 H Calcium (8.4 - 10.2 mg/dL) 8.0 L Phosphorus (2.5 - 4.5 mg/dL) 2.7 Magnesium (1.6 - 2.3 mg/dL) 1.9 Total Bilirubin (0.2 - 1.3 mg/dL) 0.9 AST (14 - 36 U/L) 15 ALT (9 - 52 U/L) 22 Albumin (3.5 - 5.0 g/dL) 2.9 L Hematology CBC w Diff NO MAN DIFF REQ WBC (4.8 - 10.8 /CUMM) 10.6 RBC (4.20 - 5.40 /CUMM) 3.95 L Hgb (12.0 - 16.0 G/DL) 12.1 Hct (37 - 47 %) 35.9 L MCV (81.0 - 99.0 FL) 90.8 MCH (27.0 - 31.0 PG) 30.5 RDW (11.5 - 14.5 %) 12.9 Plt Count (130 - 400 /CUMM) 268 MPV (7.4 - 10.4 FL) 7.6 Gran % (42.2 - 75.2 %) 73.4 Lymphocytes % (20.5 - 51.1 %) 16.5 L Monocytes % (1.7 - 9.3 %) 7.7 Eosinophils % (0 - 5 %) 1.4 Basophils % (0.0 - 2.0 %) 1.0 Absolute Granulocytes (1.4 - 6.5 /CUMM) 7.8 H Absolute Lymphocytes (1.2 - 3.4 /CUMM) 1.7 Absolute Monocytes (0.10 - 0.60 /CUMM) 0.8 H Absolute Eosinophils (0.0 - 0.7 /CUMM) 0.1 Absolute Basophils (0.0 - 0.2 /CUMM) 0.1 PUBS MCHC (33.0 - 37.0 G/DL) 33.7 Miscellaneous Phlebotomy Draw Site RIGHT RADIAL Last 24 Hours of Talib Results: Blood culture 2 August 22 negative Urine culture August 22 negative Diagnostic Data Recent Imaging Findings: Chest x-ray August 21, personally reviewed, negative Chest x-ray August 23, personally reviewed, negative Assessment/Plan Assessment/Plan Impression: This is a 81-year-old woman with a history of borderline diabetes, hypertension, coronary artery disease, status post CVAs 3, most recently 2 weeks prior to admission leaving her with left upper extremity weakness, admitted on August 21 after a near syncopal episode at the rehabilitation facility, found to be in third-degree heart block, which quickly resolved after Glucagon for reversal of presumed beta yael toxicity, and found to have a positive Lyme titer. The significance of this titer is unclear. While Lyme carditis can certainly present with third-degree heart block, her rapid recovery makes this an unlikely etiology, though she has been on Unasyn since admission, which is an effective treatment for Lyme disease. She has spent time outdoors prior to her recent CVA and, therefore, could have been exposed to ticks. It may, therefore, be reasonable to treat her for possible Lyme carditis pending further evaluation. She remains on Unasyn now Day 4 of treatment for possible aspiration pneumonia, though her chest x-ray has remained negative. Suggestion: 1. Follow-up Lyme Western blot 2. Remove right femoral triple lumen catheter 3. Remove right subclavian transvenous pacemaker when feasible per Cardiology 4. Remove Greenfield catheter as soon as possible 5. Begin Ceftriaxone 2 g IV every 24 hours Consult Acknowledgment - Thank you for your consult request.
[2016-08-25 16:00] VITALS: BP 154/78
--- NOTE | 2016-08-25 19:18 | PN- Cardiology ---
Subjective Subjective: Nonverbal. Objective Vital Signs and I&Os Vital Signs Date Time Temp Pulse Resp B/P B/P Pulse O2 O2 Flow FiO2 Mean Ox Delivery Rate 08/25 1600 97.2 74 24 154/78 97 Nasal 4.0L Cannula 08/25 1100 69 170/98 08/25 1100 69 170/98 08/25 0800 97 Nasal 4.0L Cannula 08/25 0800 98.4 70 25 180/80 96 Nasal 4.0L Cannula 08/25 0400 97 Nasal 4.0L Cannula 08/25 0000 96 Nasal 4.0L Cannula 08/25 0000 98.1 84 25 158/88 94 Nasal 4.0L Cannula 08/24 2000 93 Nasal 4.0L Cannula Intake & Output 08/25 1600 08/25 0800 08/25 0000 08/24 1600 08/24 0800 08/24 0000 Intake Total 6735 264 7160 827 673 667 Output Total 600 900 950 100 295 360 Balance 500 -188 260 727 378 307 Intake, IV 962 687 7282 797 673 667 Intake, Oral 300 Intake, Other 30 Number 0 0 Bowel Movements Output, 100 0 Gastric Drainage Output, Urine 600 900 950 100 195 360 Patient 163 lb Weight Physical Exam: Neck: No JVD, no bruits. Lungs: Clear to auscultation bilaterally. Heart: S1, S2 with grade 1-2/6 systolic murmur best heard at the base. PMI fifth ICS at MCL. Abdomen: Soft, nontender, positive bowel sounds. Extremities: No edema. Current Medications: Current Medications Sig/Marc Start time Last Medication Dose Route Stop Time Status Admin Acetaminophen 650 MG Q6P PRN 08/21 2359 AC PO Amlodipine Besylate 5 MG DAILY 08/25 1000 AC 08/25 PO 1100 Ampicillin Sodium/ 3,000 MG Q6 08/21 1957 DC 08/25 Sulbactam Sodium IV 1650 Sodium Chloride 100 ML Ceftriaxone Sodium 2,000 MG DAILY 08/25 1125 AC 08/25 IV 1639 Dextrose/Sodium 1,000 ML Q20H 08/24 1045 AC 08/24 Chloride IV 2300 Docusate Sodium 100 MG BID 08/25 2200 AC PO Insulin Aspart 0 TIDAC 08/25 1200 AC 08/25 SC 1647 Insulin Human Regular 2 UNITS .ST-MED ONE 08/25 0541 DC IV 08/25 0542 Insulin Human Regular 4 UNITS .STK-MED ONE 08/24 2319 DC IV 08/24 2320 Insulin Human Regular 0 Q6 08/21 2359 DC 08/25 AR 0541 Losartan Potassium 25 MG DAILY 08/23 1713 AC 08/25 PO 1100 Omeprazole 40 MG DAILY AC 08/26 0700 AC PO Pantoprazole Sodium 40 MG DAILY 08/21 2100 DC 08/25 IV 1100 Polyethylene Glycol 17 GM DAILY 08/25 1844 AC PO Potassium Chloride 10 MEQ Q1H 08/25 1000 CAN IV 08/25 1101 Potassium Chloride 10 MEQ Q1H 08/25 0600 CAN IV 08/25 0701 Potassium Chloride 20 MEQ Q1H 08/25 0600 DC 08/25 IV 08/25 0701 0800 Results Last 48 Hrs of Labs/Mics: Laboratory Tests 08/25/16 0400: Anion Gap 8, Estimated GFR > 60, Glucose 124 H, Calcium 8.0 L, Phosphorus 2.7, Magnesium 1.9, Total Bilirubin 0.9, AST 15, ALT 22, Albumin 2.9 L, CBC w Diff NO MAN DIFF REQ, RBC 3.95 L, MCV 90.8, MCH 30.5, RDW 12.9, MPV 7.6, Gran % 73.4 , Lymphocytes % 16.5 L, Monocytes % 7.7, Eosinophils % 1.4, Basophils % 1.0, Absolute Granulocytes 7.8 H, Absolute Lymphocytes 1.7, Absolute Monocytes 0.8 H, Absolute Eosinophils 0.1, Absolute Basophils 0.1, PUBS MCHC 33.7 08/24/16 1440: pH 7.50 H, pCO2 33 L, pO2 98, HCO3 25, ABG O2 Sat (Measured) 98.0, P-50 (Temp Corrected) YES, Carboxyhemoglobin 0.7 L, O2 Concentration % 35%, Temperature 99.1, O2 Delivery Method TPIECE, Vent Mode TPIECE, Phlebotomy Draw Site RIGHT RADIAL 08/24/16 0416: Anion Gap 9, Estimated GFR > 60, Glucose 160 H, Calcium 8.7, Phosphorus 2.2 L, Magnesium 2.1, Total Bilirubin 0.9, AST 19, ALT 24, Albumin 3.4 L, CBC w Diff NO MAN DIFF REQ, RBC 4.18 L, MCV 90.6, MCH 30.5, RDW 12.8, MPV 8.0, Gran % 81.8 H, Lymphocytes % 11.4 L, Monocytes % 6.5, Eosinophils % 0, Basophils % 0.3, Absolute Granulocytes 9.1 H, Absolute Lymphocytes 1.3, Absolute Monocytes 0.7 H, Absolute Eosinophils 0, Absolute Basophils 0, PUBS MCHC 33.7 Assessment/Plan Assessment/Plan 81 [id number]/ hx of HTN, HLD, pre-DM, CAD, s/p PCI/coronary stents, previous strokes w/ 1st in 2014 w/o residua and her 2nd discovered after presentation here w/ AMS that req'd adm (08/11-08/15/2016) for an acute infarction in the R MCA and 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 A transvenous pacemaker was placed, but has not been required and has been removed. Continue present medical regimen. Discussed the situation with her daughter, pointing out the pros and cons of permanent pacemaking. Technically, is still a candidate for permanent pacemaker, but neurologically has not significantly improved. Continue telemetry? Yes
--- NOTE | 2016-08-25 20:48 | NUR ---
Received patient at 0800, alert, ukranian speaking, family occasionally at bedside to translate. Per Monegasque speaking bari, patient prayed the [employer] Father well on her own, but other words were disjointed/garbled. She gets her needs acrossed by signalling w/ her R hand. 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 Lower ext. weak. Titrated to room air satting 92-95%. Lungs clear/diminished. NSR on the monitor 60s-80s, no ectopy/bradycardia. Transvenous pacer removed at [address] Mariano and sterile dressing in place. Tolerated well, patient denies pain. PJV=[id number], norvasc added to daily regimen. Passed swallow eval w/ heart healthy, puree thick diet and tolerates well. Abdomen soft/nontender, +bs. Greenfield in place draining clear yellow urine. IVF d/c'd for good po intake. Skin intact, +1 edema to LUE and generalized trace edema. Follows commands. RG TLC removed this afternoon and new access placed to RF.
[2016-08-26] VITALS: BP 136/74
[2016-08-26 05:20] LABS: ABSOLUTE BASOPHIL COUNT 0 /CUMM (0.0-0.2); ABSOLUTE EOSINOPHIL COUNT 0.3 /CUMM (0.0-0.7); ABSOLUTE GRANULOCYTE CT 7.5 /CUMM (1.4-6.5); ABSOLUTE LYMPH COUNT 1.8 /CUMM (1.2-3.4); ABSOLUTE MONOCYTE COUNT 0.5 /CUMM (0.10-0.60); BASOPHIL % 0.3 % (0.0-2.0); EOSINOPHIL % 3.4 % (0-5); GRANULOCYTE % 73.5 % (42.2-75.2); HEMATOCRIT 36.9 % (37-47); MEAN CORPUSCULAR HGB 30.6 PG (27.0-31.0); MEAN CORPUSCULAR HGB CONC 33.9 G/DL (33.0-37.0); MEAN CORPUSCULAR VOLUME 90.4 FL (81.0-99.0); MEAN PLATELET VOLUME 8.1 FL (7.4-10.4); PLATELET COUNT 262 /CUMM (130-400); RBC DISTRIBUTION WIDTH 12.6 % (11.5-14.5); RED BLOOD CELL CT 4.08 /CUMM (4.20-5.40); WHITE BLOOD CELL COUNT 10.1 /CUMM (4.8-10.8)
--- NOTE | 2016-08-26 07:41 | PN- Resident CRCU ---
Subjective HPI/CRCU Issues: Afebrile, hypertensive, saturating well on room air and heart is in NSR. She is laying on bed looks relaxed and comfortable. No overnight events were reported. Pacemaker and femoral line were both removed yesterday. Objective Vital Signs & I&O Last 8 Hrs of Vitals and I&O: Vital Signs Date Time Temp Pulse Resp B/P B/P Pulse O2 O2 Flow FiO2 Mean Ox Delivery Rate 08/26 0832 74 170/80 08/26 0832 74 170/80 08/26 0000 98.1 78 26 136/74 91 Room Air 08/25 1600 97.2 74 24 154/78 97 Nasal 4.0L Cannula 08/25 1600 98 Nasal 4.0L Cannula 08/25 1200 98 Nasal 4.0L Cannula 08/25 1100 69 170/98 08/25 1100 69 170/98 Intake & Output 08/26 1600 08/26 0800 08/26 0000 Intake Total 180 620 Output Total 450 600 Balance -270 20 Intake, IV 130 Intake, Oral 180 490 Output, Urine 450 600 Exam General Appearance: well developed/nourished, no apparent distress, alert, awake , comfortable Head: atraumatic, normal appearance Respiratory: normal breath sounds, chest non-tender, no respiratory distress, quiet respiration, lungs clear Cardiovascular: 1/10 systolic murmur best heard at the base Gastrointestinal: normal bowel sounds, soft, non-tender Extremities: normal inspection, no edema Weaning Parameters NIF: 25 Minute Volume: 7.6 Resp rate: 16 Vt: 500 Heart Rate: 75 Weaning Schedule Start Time: 1252 Minute Volume: 5.8 Resp Rate: 23 Vt: 291 Heart Rate: 74 End Time: 1350 Minute Volume: 7 Resp Rate: 17 Vt: 335 Heart Rate: 99 Start Time: 1250 Current Medications: Current Medications Sig/Marc Start time Last Medication Dose Route Stop Time Status Admin Acetaminophen 650 MG Q6P PRN 08/21 2359 AC PO Amlodipine Besylate 5 MG DAILY 08/25 1000 AC 08/26 PO 0832 Ampicillin Sodium/ 3,000 MG Q6 08/21 1957 DC 08/25 Sulbactam Sodium IV 1650 Sodium Chloride 100 ML Aspirin 81 MG DAILY 08/26 1000 CAN PO Ceftriaxone Sodium 2,000 MG DAILY 08/25 1125 AC 08/25 IV 1639 Dextrose/Sodium 1,000 ML Q20H 08/24 1045 DC 08/24 Chloride IV 2300 Docusate Sodium 100 MG BID 08/25 2200 AC 08/26 PO 0831 Insulin Aspart 0 TIDAC 08/25 1200 AC 08/25 SC 1647 Insulin Human Regular 0 Q6 08/21 2359 DC 08/25 SC 0541 Losartan Potassium 25 MG DAILY 08/23 1713 AC 08/26 PO 0832 Melatonin 3 MG QPM 08/26 2200 AC PO Omeprazole 40 MG DAILY AC 08/26 0700 AC 08/26 PO 0612 Pantoprazole Sodium 40 MG DAILY 08/21 2100 DC 08/25 IV 1100 Polyethylene Glycol 17 GM DAILY 08/25 1844 AC 08/26 PO 0832 Potassium Chloride 10 MEQ Q1H 08/26 0615 DC 08/26 IV 08/26 0716 0836 Impression/Plan Impression/Problem List Impression: 81 year old lady with pmh hx of recent CVA on dual antiplatelet, HTN,DM, CAD PCI in 2004, carotid stenosis, was brought back from [place] after 7 days from discharge from [facility] with chief complaint of nausea,AMS and bradycardia and near syncope status post intubation due to altered mental status and semi-bloody vomiting, intravenous pacing due to complete heart block. Acute coronary syndrome was ruled out. Received 1 dose IV glucagon on the admission to reverse beta yael. A transvenous pacer was placement however since beta yael was held and he glucagon was given she has been in normal sinus rhythm without the need for the pacemaker. Plan #Complete heart block * Patient currently does not need permanent pacing as per cardiology, * further decision regarding possible permanent pacemaker placement ad per cardiology #Acute Hypoxic respiratory failure * Possible aspiration due to bloody vomiting * Status post extubation 2 days ago * Continue IV Unasyn #History of CVA, hyperlipidemia, hypertension, DM? * Accucheks * Insulin SS * Hold metformin. * Modified diet as ordered * We will start amlodipine and continue lisinopril to control blood pressure #Positive Lyme titer * Follow-up Lyme Western blot * Continue ceftriaxone 2 g IV every 24 hours DVT prophylaxis is Alps On modified diet FULL CODE Problem List: 1. Complete heart block 2. Altered mental status Pain Ratin Tomorrow's Labs & Rationales: CBC and ICU bundle Plan DVT/Prophylaxis: mechanical
[2016-08-26 08:00] VITALS: BP 170/80
--- NOTE | 2016-08-26 08:21 | PN- CRCU ---
Subjective HPI/Critical Care Issues: The patient is awake and during questions appropriately. She is comfortable. She denies any increased shortness of breath. Her blood pressure has been better controlled overall. Her triple lumen catheter and pacemaker have been removed. The Greenfield catheter remains in place. There were no overnight events reported. Objective Current Medications: Current Medications Sig/Marc Start time Last Medication Dose Route Stop Time Status Admin Acetaminophen 650 MG Q6P PRN 08/21 2359 AC PO Amlodipine Besylate 5 MG DAILY 08/25 1000 AC 08/25 PO 1100 Ampicillin Sodium/ 3,000 MG Q6 08/21 1957 DC 08/25 Sulbactam Sodium IV 1650 Sodium Chloride 100 ML Ceftriaxone Sodium 2,000 MG DAILY 08/25 1125 AC 08/25 IV 1639 Dextrose/Sodium 1,000 ML Q20H 08/24 1045 DC 08/24 Chloride IV 2300 Docusate Sodium 100 MG BID 08/25 2200 AC 08/25 PO 2223 Insulin Aspart 0 TIDAC 08/25 1200 AC 08/25 SC 1647 Insulin Human Regular 0 Q6 08/21 2359 DC 08/25 SC 0541 Losartan Potassium 25 MG DAILY 08/23 1713 AC 08/25 PO 1100 Omeprazole 40 MG DAILY AC 08/26 0700 AC 08/26 PO 0612 Pantoprazole Sodium 40 MG DAILY 08/21 2100 DC 08/25 IV 1100 Polyethylene Glycol 17 GM DAILY 08/25 1844 AC PO Potassium Chloride 10 MEQ Q1H 08/26 0615 DC 08/26 IV 08/26 0716 0627 Vital Signs & I&O Last 24 Hrs of Vitals and I&O: Vital Signs Date Time Temp Pulse Resp B/P B/P Pulse O2 O2 Flow FiO2 Mean Ox Delivery Rate 08/26 0000 98.1 78 26 136/74 91 Room Air 08/25 1600 97.2 74 24 154/78 97 Nasal 4.0L Cannula 08/25 1600 98 Nasal 4.0L Cannula 08/25 1200 98 Nasal 4.0L Cannula 08/25 1100 69 170/98 08/25 1100 69 170/98 Intake & Output 08/26 1600 08/26 0800 08/26 0000 Intake Total 180 620 Output Total 450 600 Balance -270 20 Intake, IV 130 Intake, Oral 180 490 Output, Urine 450 600 Physical Exam General Appearance: comfortable, follows commands, moves right hand spontaneously Head: atraumatic Respiratory: Scattered rhonchi and basilar crackles Cardiovascular: regular rate/rhythm (on pacer) Gastrointestinal: normal bowel sounds Extremities: Trace lower extremity edema Results Last 24 Hrs of Lab Results: Laboratory Tests 08/26/16 0440: Anion Gap 9, Estimated GFR > 60, Glucose 130 H, Calcium 8.0 L, Phosphorus 2.8, Magnesium 1.8, Total Bilirubin 0.8, AST 14, ALT 26, Albumin 2.7 L, CBC w Diff NO MAN DIFF REQ, RBC 4.08 L, MCV 90.4, MCH 30.6, RDW 12.6, MPV 8.1, Gran % 73.5 , Lymphocytes % 17.8 L, Monocytes % 5.0, Eosinophils % 3.4, Basophils % 0.3, Absolute Granulocytes 7.5 H, Absolute Lymphocytes 1.8, Absolute Monocytes 0.5, Absolute Eosinophils 0.3, Absolute Basophils 0, PUBS MCHC 33.9 Last 24 Hrs of Micro Results: Cultures negative to date. Impression/Plan Impression/Plan Impression/Plan: 1. Complete heart block, resolved, thought to be related to beta blockers versus, although patient's Lyme titer was positive she is now being treated with ceftriaxone. 2. Respiratory failure with possible aspiration pneumonitis versus pneumonia. 3. Resolved bleeding from OG tube. 4. Multiple comorbidities including Hhstory of stroke, hyperlipidemia, hypertension, and possible diabetes. 5. Uncontrolled hypertension, on Cozzar and Norvasc. Recommendations: * Weight further decision regarding possible permanent pacemaker placement as per cardiology. * Replete electrolytes - ordered. * Continue nebs/TRC. * Continue ceftriaxone as per ID. * PT assessment. * Out of bed to chair if able. * Change to oral Protonix. * DVT prophylaxis at alll times. * Downgrade to telemetry. * Continue all supportive care.
--- NOTE | 2016-08-26 10:00 | Transfer of Care Summary ---
Hospital Course Course Hospital Course: 81 year old lady with pmh hx of recent CVA on dual antiplatelet, HTN,DM, CAD PCI in 2004, conduction disease LAFB, RBBB, carotid stenosis, was brought back from [facility] 7 days after being discharged from [facility](admitted for acute infarction in [place] and [employer] territories) with chief complaint of nausea, AMS and bradycardia and near syncope. She was in complete HB/25, She was put on transcutaneous pacing followed by transvenous pacing which unfortunately failed to perform and patient became bradycardic and hypoxic. patient was thus intubated and a femoral line was placed. Transvenous pacer was later removed as her heart rate improved off-of beta yael therapy, by cardiology as patient did not require it any more so it was removed. Patient currently does not need permanent pacemaker as per cardiology. Patient had acute hypoxic respiratory failure that's most likely secondary to aspiration pneumonia given the vomiting. He was treated with IV Unasyn after which she improved. She was found to be lyme titer positive for which ID was consulted and she was started on IV ceftriaxone. Plan #Complete heart block * further decision regarding possible permanent pacemaker placement ad per cardiology * Patient currently does not need permanent pacing as per cardiology, #Acute Hypoxic respiratory failure * Possible aspiration due to bloody vomiting * Continue IV Unasyn #History of CVA, hyperlipidemia, hypertension, DM? * Accucheks * Insulin SS * Hold metformin. * Modified diet as ordered * We will start amlodipine and continue lisinopril to control blood pressure #Positive Lyme titer * Follow-up Lyme Western blot * Continue ceftriaxone 2 g IV every 24 hours DVT prophylaxis is Alps On modified diet FULL CODE Assessment/Plan: see above
--- NOTE | 2016-08-26 11:24 | PN- Infect Dx ---
Subjective Subjective: Afebrile without complaints. She remains in normal sinus rhythm. Objective Last 24 Hrs of Vital Signs/I&O Vital Signs Date Time Temp Pulse Resp B/P B/P Pulse O2 O2 Flow FiO2 Mean Ox Delivery Rate 08/26 0832 74 170/80 08/26 0832 74 170/80 08/26 0800 98.6 74 24 170/80 94 Room Air 08/26 0000 98.1 78 26 136/74 91 Room Air 08/25 1600 97.2 74 24 154/78 97 Nasal 4.0L Cannula 08/25 1600 98 Nasal 4.0L Cannula 08/25 1200 98 Nasal 4.0L Cannula Intake & Output 08/26 1600 08/26 0800 08/26 0000 Intake Total 180 620 Output Total 450 600 Balance -270 20 Intake, IV 130 Intake, Oral 180 490 Output, Urine 450 600 Physical Exam Other Physical Findings: She is awake and alert, appears comfortable, in no acute distress Lungs bibasilar crackles Heart regular rhythm with 1/6 systolic ejection murmur Extremities no cyanosis, clubbing or edema Greenfield catheter remains in place Results Last 24 Hours of Lab Results: Laboratory Tests 08/26 0440 Chemistry Sodium (137 - 145 mmol/L) 141 Potassium (3.5 - 5.1 mmol/L) 3.4 L Chloride (98 - 107 mmol/L) 108 H Carbon Dioxide (22 - 30 mmol/L) 24 Anion Gap (5 - 16) 9 BUN (7 - 17 mg/dL) 20 H Creatinine (0.5 - 1.0 mg/dL) 0.6 Estimated GFR (>60 ml/min) > 60 Glucose (65 - 99 mg/dL) 130 H Calcium (8.4 - 10.2 mg/dL) 8.0 L Phosphorus (2.5 - 4.5 mg/dL) 2.8 Magnesium (1.6 - 2.3 mg/dL) 1.8 Total Bilirubin (0.2 - 1.3 mg/dL) 0.8 AST (14 - 36 U/L) 14 ALT (9 - 52 U/L) 26 Albumin (3.5 - 5.0 g/dL) 2.7 L Hematology CBC w Diff NO MAN DIFF REQ WBC (4.8 - 10.8 /CUMM) 10.1 RBC (4.20 - 5.40 /CUMM) 4.08 L Hgb (12.0 - 16.0 G/DL) 12.5 Hct (37 - 47 %) 36.9 L MCV (81.0 - 99.0 FL) 90.4 MCH (27.0 - 31.0 PG) 30.6 RDW (11.5 - 14.5 %) 12.6 Plt Count (130 - 400 /CUMM) 262 MPV (7.4 - 10.4 FL) 8.1 Gran % (42.2 - 75.2 %) 73.5 Lymphocytes % (20.5 - 51.1 %) 17.8 L Monocytes % (1.7 - 9.3 %) 5.0 Eosinophils % (0 - 5 %) 3.4 Basophils % (0.0 - 2.0 %) 0.3 Absolute Granulocytes (1.4 - 6.5 /CUMM) 7.5 H Absolute Lymphocytes (1.2 - 3.4 /CUMM) 1.8 Absolute Monocytes (0.10 - 0.60 /CUMM) 0.5 Absolute Eosinophils (0.0 - 0.7 /CUMM) 0.3 Absolute Basophils (0.0 - 0.2 /CUMM) 0 PUBS MCHC (33.0 - 37.0 G/DL) 33.9 Last 24 Hours of Talib Results: No recent cultures Assessment/Plan Impression: Stable with patient remaining in normal sinus rhythm status post remover of the transvenous pacemaker yesterday. She remains afebrile with white blood cell count normal on Ceftriaxone for possible Lyme carditis, with the Lyme Western blot pending. Suggestion: 1. Follow-up Lyme Western blot 2. Remove Greenfield catheter 3. Continue Ceftriaxone pending above
--- NOTE | 2016-08-26 11:36 | NUR ---
PHYSICAL THERAPY: CANCEL AM EVAL FOR pt, FOLLOWING REVIEW OF pt's ADMISSION ASSESSMENT IT STATES pt WAS AT TOTAL ASSIST LEVEL AT BASELINE PER W10. NURSING STATED THEY HAD NOT MOBILIZED HER AT THIS POINT. NURSING REPORTED THEY WOULD CALL FACILITY TO CHECK AMB AND TRANSFER STATUS TO FIND OUT IF pt's BASELINE IS A REBEKAH LIFT. Pt IS HUSKY WITH BED HOLD AT STR.
--- NOTE | 2016-08-26 14:44 | NUR ---
wound care: requested by nursing staff to evlauate pt for skin alterations to left buttocks - daughter present at bedside offered hx and made aware of findings - stated pt had used balmex cream at [facility] for pressure sores in past with good effect - also stated pt s/p left sided stroke with weakness and impaired mobility - pt noted with left buttocks (2) 0.4 x 1 cm serous filled blisters clinically stage 2 pressure injuries - intact skin non drng - periwound light violaceous discolored hue - educated re: offloading and pressure relief to promote healing - stated an understanding - daughter also reports pts po intake has significantly improved recommendation: apply moisture barrier qs and prn after inc episodes - pt requires strict offloading with side to side repositioning please - currently on group 2 mattress
[2016-08-26 16:00] VITALS: BP 170/80
--- NOTE | 2016-08-26 16:28 | Event Note ---
Event Note Event Note: I was informed by physical therapy that patient left side weakness has been deteriorated when compared with the physical therapy but she got prior to last discharge. I spoke to the daughter Sheree Harper at , when I ask her about the patient left side weakness baseline, she reported that patient was feeling weak for the few days prior to admission, she added that patient yesterday was able to elevate her left arm and she feels that patient is improving and is almost reaching baseline and all this is just because of recent acute illness. When recommended head CT to exclude any new intra-cranial pathology her preference was to hold on the CT head until tomorrow as language barrier may be is the reason why patient is not following commands.
[2016-08-26 18:40] VITALS: BP 162/84
[2016-08-26 23:20] VITALS: BP 148/82
--- NOTE | 2016-08-27 07:44 | PN- Housestaff ---
Subjective Follow-up For: #Complete heart block #Acute Hypoxic respiratory failure #History of CVA, hyperlipidemia, hypertension Tele-Events Since Last Visit: SR 72-75 Subjective: patient seen and examined, lying in bed in no acute distress, afebrile, other vitals stable, on room air, offers no complaints. Ceftriaxone D/c as lyme titers negative, also to restart asprin and plavix as no need of pacemake placement felt by acid recovery operator. Review of Systems Constitutional: Reports: see HPI. Objective Last 24 Hrs of Vital Signs/I&O Vital Signs Date Time Temp Pulse Resp B/P B/P Pulse O2 O2 Flow FiO2 Mean Ox Delivery Rate 08/27 1019 72 142/76 08/27 1019 72 142/76 08/27 0800 94 Room Air 08/27 0748 98.3 72 18 142/76 94 Room Air 08/26 2325 Room Air 08/26 2320 98.2 73 16 148/82 94 Room Air 08/26 1840 98.8 75 16 162/84 92 Room Air 08/26 1600 98.0 74 22 170/80 96 Room Air Intake & Output 08/27 1600 08/27 0800 08/27 0000 Intake Total 425 120 Output Total 300 Balance 125 120 Intake, Oral 425 120 Output, Urine 300 Physical Exam General Appearance: Alert, Oriented X3, Cooperative Cardiovascular: Regular Rate, Normal S1, Normal S2, No Murmurs Lungs: Clear to Auscultation, Normal Air Movement Abdomen: Normal Bowel Sounds, Soft, No Tenderness Neurological: Normal Speech, Sensation Intact, rue power 3/5, Extremities: No Clubbing, No Cyanosis, No Edema Current Medications: Current Medications Sig/Marc Start time Last Medication Dose Route Stop Time Status Admin Acetaminophen 650 MG .STK-MED ONE 08/26 1748 DC PO 08/26 1749 Acetaminophen 650 MG Q6P PRN 08/21 2359 AC 08/26 PO 1748 Amlodipine Besylate 5 MG DAILY 08/25 1000 AC 08/27 PO 1019 Aspirin 81 MG DAILY 08/27 1111 UNVr PO Ceftriaxone Sodium 2,000 MG DAILY 08/25 1125 DC 08/27 IV 1019 Clopidogrel Bisulfate 75 MG DAILY 08/27 1111 UNVr PO Docusate Sodium 100 MG BID 08/25 2200 AC 08/27 PO 1019 Insulin Aspart 0 TIDAC 08/25 1200 AC 08/26 SC 1222 Losartan Potassium 25 MG DAILY 08/23 1713 AC 08/27 PO 1019 Melatonin 3 MG QPM 08/26 2200 AC 08/26 PO 2105 Omeprazole 40 MG DAILY AC 08/26 0700 AC 08/27 PO 0617 Polyethylene Glycol 17 GM DAILY 08/25 1844 AC 08/27 PO 1019 Trimethobenzamide HCl 200 MG ONCE ONE 08/26 1445 DC 08/26 IM 08/26 1446 1437 Last 24 Hrs of Lab/Talib Results Last 24 Hrs of Labs/Mics: Laboratory Tests 08/27/16 0707: Anion Gap 7, Estimated GFR > 60, BUN/Creatinine Ratio 28.3 H, CBC w Diff NO MAN DIFF REQ, RBC 4.04 L, MCV 90.2, MCH 30.7, RDW 12.2, MPV 8.1, Gran % 78.4 H, Lymphocytes % 13.3 L, Monocytes % 5.5, Eosinophils % 2.6, Basophils % 0.2, Absolute Granulocytes 6.8 H, Absolute Lymphocytes 1.1 L, Absolute Monocytes 0.5, Absolute Eosinophils 0.2, Absolute Basophils 0, PUBS MCHC 34.0 Assessment/Plan Assessment: 81 year old lady with pmh hx of recent CVA on dual antiplatelet, HTN,DM, CAD PCI in 2004, conduction disease LAFB, RBBB, carotid stenosis, [facility] being discharged from [facility](admitted for acute infarction in [place] and [employer] territories) with chief complaint of nausea, AMS and bradycardia and near syncope. She was in complete HB/25, She was put on transcutaneous pacing followed by transvenous pacing which unfortunately failed to perform and patient became bradycardic and hypoxic. patient was thus intubated and a femoral line was placed. Transvenous pacer was later removed as her heart rate improved off-of beta yael therapy, by cardiology as patient did not require it any more. Extubated successfully on 08/25 Patient transferred from ICU today. We are currently monitoring him for following conditions: #Complete heart block * Patient currently does not need permanent pacing as per cardiology, * Further decision regarding possible permanent pacemaker placement per cardiology #Acute Hypoxic respiratory failure * Resolved, satting well on RA * Status post extubation 3 days ago #History of CVA, hyperlipidemia, hypertension, DM? * Accucheks * Insulin SS * Hold metformin. * diabetic diet * Cont amlodipine and lisinopril to control blood pressure #Positive Lyme titer * Lyme Western blot negative * D/c ceftriaxone DVT prophylaxis is Alps On modified diet FULL CODE Problem List: 1. Complete heart block 2. CVA (cerebral vascular accident) 3. Altered mental status Pain Ratin Pain Location: none Pain Goal: Remain pain free Pain Plan: mpp Tomorrow's Labs & Rationales: none
[2016-08-27 07:48] VITALS: BP 142/76
--- NOTE | 2016-08-27 08:00 | Patient Discharge Instructions ---
Discharge Instructions General Discharge Information You were seen/treated for: #Complete heart block #Acute Hypoxic respiratory failure #History of CVA, hyperlipidemia, hypertension Special Instructions: Please follow up with your primary care physician, repair clerk, neurologist within one week. Diet Recommended Diet: Heart Healthy Activity Activity Self Limited: Yes Acute Coronary Syndrome Inclusion Criteria At DC or during hospital stay patient has or had the following: ACS DIAGNOSIS No Discharge Core Measures Meds if any: Prescribed or Continued at Discharge Meds if any: NOT Prescribed or Continued at Discharge Congestive Heart Failure Inclusion Criteria At DC or during hospital stay patient has or had the following: CHF DIAGNOSIS No Discharge Core Measures Meds if any: Prescribed or Continued at Discharge Meds if any: NOT Prescribed or Continued at Discharge Cerebrovascular accident Inclusion Criteria At DC or during hospital stay patient has or had the following: CVA/TIA Diagnosis No Discharge Core Measures Meds if any: Prescribed or Continued at Discharge Meds if any: NOT Prescribed or Continued at Discharge Venous thromboembolism Inclusion Criteria VTE Diagnosis No VTE Type NONE VTE Confirmed by (Test) NONE Discharge Core Measures - Per Current guidelines, there needs to be overlap - treatment for the first 5 days of Warfarin therapy. - If discharged on Warfarin prior to 5 days of - overlap therapy, the patient will need to be - assessed for post discharge needs including - *Post discharge parental anticoagulation - *Warfarin and/or parental anticoagulation education - *Follow up date to check INR post discharge At least 5 days overlap therapy as Inpatient No Meds if any: Prescribed or Continued at Discharge Note: Overlap Therapy is Warfarin and Anticoagulant Meds if any: NOT Prescribed or Continued at Discharge
[2016-08-27 08:09] LABS: ABSOLUTE BASOPHIL COUNT 0 /CUMM (0.0-0.2); ABSOLUTE EOSINOPHIL COUNT 0.2 /CUMM (0.0-0.7); ABSOLUTE GRANULOCYTE CT 6.8 /CUMM (1.4-6.5); ABSOLUTE LYMPH COUNT 1.1 /CUMM (1.2-3.4); ABSOLUTE MONOCYTE COUNT 0.5 /CUMM (0.10-0.60); BASOPHIL % 0.2 % (0.0-2.0); EOSINOPHIL % 2.6 % (0-5); GRANULOCYTE % 78.4 % (42.2-75.2); HEMATOCRIT 36.5 % (37-47); MEAN CORPUSCULAR HGB 30.7 PG (27.0-31.0); MEAN CORPUSCULAR VOLUME 90.2 FL (81.0-99.0); MEAN PLATELET VOLUME 8.1 FL (7.4-10.4); PLATELET COUNT 252 /CUMM (130-400); RBC DISTRIBUTION WIDTH 12.2 % (11.5-14.5); RED BLOOD CELL CT 4.04 /CUMM (4.20-5.40); WHITE BLOOD CELL COUNT 8.6 /CUMM (4.8-10.8)
--- NOTE | 2016-08-27 11:26 | PN- Att Addend ---
Attending MD Review Statement Attending Statement Attending MD Statement: examined this patient, discuss w/resident/PA/VFX ARTIST, agreed w/resident/PA/VFX ARTIST, reviewed EMR data (avail), discussed w/nursing, discussed w/ case mgmt Attending Assessment/Plan: Laboratory Tests 08/27/16 0707: Anion Gap 7, Estimated GFR > 60, BUN/Creatinine Ratio 28.3 H, CBC w Diff NO MAN DIFF REQ, RBC 4.04 L, MCV 90.2, MCH 30.7, RDW 12.2, MPV 8.1, Gran % 78.4 H, Lymphocytes % 13.3 L, Monocytes % 5.5, Eosinophils % 2.6, Basophils % 0.2, Absolute Granulocytes 6.8 H, Absolute Lymphocytes 1.1 L, Absolute Monocytes 0.5, Absolute Eosinophils 0.2, Absolute Basophils 0, PUBS MCHC 34.0 Vital Signs Date Time Temp Pulse Resp B/P B/P Pulse O2 O2 Flow FiO2 Mean Ox Delivery Rate 08/27 1019 72 142/76 08/27 1019 72 142/76 08/27 0800 94 Room Air 08/27 0748 98.3 72 18 142/76 94 Room Air 08/26 2325 Room Air 08/26 2320 98.2 73 16 148/82 94 Room Air 08/26 1840 98.8 75 16 162/84 92 Room Air 08/26 1600 98.0 74 22 170/80 96 Room Air 81-year-old female with recent CVA and was discharged on August 15 with right MCA 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 Patient was intubated secondary to altered mental status and possible aspiration and her beta blockers were stopped and she got 1 dose of glucagon. Patient also required IV pacing due to complete heart block which has been removed now. Her blood culture and urine cultures have been negative and also for Lyme test western blot was negative. We will stop her antibiotics today. Start discharge planning as patient may be discharged tomorrow if she stays stable off antibiotics.
--- NOTE | 2016-08-27 14:04 | PN- Infect Dx ---
Subjective Subjective: Afebrile without complaints Objective Last 24 Hrs of Vital Signs/I&O Vital Signs Date Time Temp Pulse Resp B/P B/P Pulse O2 O2 Flow FiO2 Mean Ox Delivery Rate 08/27 1019 72 142/76 08/27 1019 72 142/76 08/27 0800 94 Room Air 08/27 0748 98.3 72 18 142/76 94 Room Air 08/26 2325 Room Air 08/26 2320 98.2 73 16 148/82 94 Room Air 08/26 1840 98.8 75 16 162/84 92 Room Air 08/26 1600 98.0 74 22 170/80 96 Room Air Intake & Output 08/27 1600 08/27 0800 08/27 0000 Intake Total 425 120 Output Total 300 Balance 125 120 Intake, Oral 425 120 Output, Urine 300 Physical Exam Other Physical Findings: She appears comfortable in no acute distress Lungs bibasilar crackles Heart regular rhythm with no murmur Extremities no cyanosis, clubbing or edema Results Last 24 Hours of Lab Results: Laboratory Tests 08/27 0707 Chemistry Sodium (137 - 145 mmol/L) 137 Potassium (3.5 - 5.1 mmol/L) 3.7 Chloride (98 - 107 mmol/L) 104 Carbon Dioxide (22 - 30 mmol/L) 25 Anion Gap (5 - 16) 7 BUN (7 - 17 mg/dL) 17 Creatinine (0.5 - 1.0 mg/dL) 0.6 Estimated GFR (>60 ml/min) > 60 BUN/Creatinine Ratio (7 - 25 %) 28.3 H Hematology CBC w Diff NO MAN DIFF REQ WBC (4.8 - 10.8 /CUMM) 8.6 RBC (4.20 - 5.40 /CUMM) 4.04 L Hgb (12.0 - 16.0 G/DL) 12.4 Hct (37 - 47 %) 36.5 L MCV (81.0 - 99.0 FL) 90.2 MCH (27.0 - 31.0 PG) 30.7 RDW (11.5 - 14.5 %) 12.2 Plt Count (130 - 400 /CUMM) 252 MPV (7.4 - 10.4 FL) 8.1 Gran % (42.2 - 75.2 %) 78.4 H Lymphocytes % (20.5 - 51.1 %) 13.3 L Monocytes % (1.7 - 9.3 %) 5.5 Eosinophils % (0 - 5 %) 2.6 Basophils % (0.0 - 2.0 %) 0.2 Absolute Granulocytes (1.4 - 6.5 /CUMM) 6.8 H Absolute Lymphocytes (1.2 - 3.4 /CUMM) 1.1 L Absolute Monocytes (0.10 - 0.60 /CUMM) 0.5 Absolute Eosinophils (0.0 - 0.7 /CUMM) 0.2 Absolute Basophils (0.0 - 0.2 /CUMM) 0 PUBS MCHC (33.0 - 37.0 G/DL) 34.0 Lyme Western blot negative Last 24 Hours of Talib Results: No recent cultures Assessment/Plan Impression: Stable, with temperatures and white blood cell count remaining normal on Ceftriaxone, which was begun for the possibility of Lyme carditis. The Western blot has come back negative, suggesting that the JASON was a false positive and, therefore, the antibiotics can be discontinued.. Suggestion: 1. Discontinue Ceftriaxone and follow off antibiotics
--- NOTE | 2016-08-27 15:13 | Discharge Summary ---
Visit Information Visit Dates Admission Date: 08/21/16 Discharge Date: 08/27/16 Hospital Course Course Attending Physician: Dr. STEPHENS Primary Care Physician: PATIENT HAS NO PRIMARY CARE DR Hospital Course: Patient is a 81 year old lady with past medical history significant for recent CVA on dual antiplatelet, hypertension, diabetes, coronary artery disease PCI in 2014,conduction disease LAFB, RBBB, carotid stenosis, was brought back from [facility] 7 days after being discharged from [facility](admitted for acute infarction in [place] and [place] territories) with chief complaint of nausea, AMS and bradycardia and near syncope. In the ED Vitals temperature 120/46 and a heart rate in 30s saturating more than 96% on 2 L. EKG revealed complete heart block with a heart rate of 25 , transcutaneous t pacemaker was placed followed by placing intravenous pacemaker. Unfortunately patient became hypoxic and unresponsive and bradycardic with pacer was not capturing.Patient was thus intubated and a femoral line was placed, transferred to ICU. Transvenous pacemaker was readjusted to ensure adequate capture Pertinent labs on admission: Leukocytosis WBC count :13.1 without any bandemia,INR 1.11, bicarb 21, BUN 24, glucose 164, lactic acid 3.3, trop neg. AB.38/35/234/20. CXR: subsegmental atelectasis left lung base. Following problems were addressed while patient was in ICU 1.Complete heart block status post transvenous pacemaker: Patient was admitted to ICU, was closely monitored, Beta blockers were discontinued transvenous pacemaker .Heart rate remained stable, later on transvenous pacer was removed later on. Patient currently did not need permanent pacing as per cardiology ,the family was in agreement, might be a candidate of permanent pacemaker later on. Aspirin and plavix was resumed. 2.Acute hypoxic respiratory failure due to possible aspiration pneumonia status post intubation and successful extubation: Patient was started on IV Unasyn after sending the cultures for possible aspiration pneumonia. She remained afebrile vitals were stable. Patient was successfully extubated. 3.Positive Lyme's titer: Lyme's titer were positive patient was started on IV ceftriaxone after discussing with ID later western blot results came negative, so ceftriaxone discontinued. 4.History of diabetes mellitus: Metformin was held on admission .Blood sugar levels were controlled with NovoLog and Accu-Cheks. Diabetic diet was continued. 5. History of hypertension and hyperlipidemia: Home medications were continued. DVT prophylaxis is Alps On modified diet FULL CODE Allergies: Coded Allergies: No Known Allergies (08/11/16) Significant Procedures: XAM TYPE: RAD - XRY-PORTABLE CHEST XRAY EXAMINATION: XR PORTABLE CHEST CLINICAL INFORMATION: Heart block COMPARISON: None TECHNIQUE: Portable frontal view of the chest was obtained. 5:27 PM FINDINGS: Patient rotated to left. Linear scarring/subsegmental atelectasis at left lung base unchanged since prior study. No acute infiltrate. No pulmonary vascular congestion. No pleural effusion pneumothorax. The cardiac and the mediastinal contours are normal. There is vascular wall calcifications of the aorta. IMPRESSION: No acute abnormality the chest. DICTATED BY: SINDY THAO MD DATE/TIME DICTATED:08/21/161739 CYCLING INSTRUCTOR:LILIANA DATE/TIME TRANSCRIBED:08/21/161739 CONFIDENTIAL, DO NOT COPY WITHOUT APPROPRIATE AUTHORIZATION. <Electronically signed in Other Vendor System> SIGNED BY: SINDY THAO MD 08/21/161744 Disposition Summary Disposition Principal Diagnosis: Complete heart block status post transvenous pacemaker Additional Diagnosis: Acute hypoxic respiratory failure due to possible aspiration pneumonia status post intubation and successful extubation Discharge Disposition: SNF Discharge Instructions General Discharge Information Code Status: Full Code Patient's Diet: Diabetic diet Patient's Activity: As tolerated Follow-Up Instructions/Appts: Please follow up with your primary care physician, account advisor, neurologist within one week. Medications at Discharge Discharge Medications: Stop taking the following medications: Metoprolol Tartrate (Metoprolol Tartrate) 25 MG TABLET ORAL TWICE DAILY Qty = 120 Continue taking these medications: Metformin HCl (Metformin HCl) 500 MG TABLET 1 Tablet ORAL TWICE DAILY Qty = 120 Comments: NOT GIVEN IN HOSPITAL. PT ON NOVOLOG SLIDING SCALE Clopidogrel Bisulfate (Plavix) 75 MG TABLET 75 Milligram ORAL DAILY Qty = 30 Comments: Last Taken: 08/15/16 Time: 9AM Aspirin (Aspirin*) 81 MG TAB.CHEW 81 Milligram ORAL DAILY Qty = 120 Comments: Last Taken: 08/15/16 Time: 9AM Atorvastatin Calcium (Atorvastatin Calcium) 80 MG TABLET 1 Tablet ORAL DAILY Qty = 120 Comments: Last Taken: 08/14/16 Time: 5PM Losartan Potassium (Cozaar) 25 MG TABLET 1 Tablet ORAL DAILY Melatonin (Melatonin) 3 MG TABLET 1 Tablet ORAL Every night Acetaminophen (Arthritis Pain) 650 MG TABLET.ER 1 Tablet ORAL TWICE DAILY Start taking the following new medications: Amlodipine Besylate (Amlodipine Besylate) 5 MG TABLET 1 Tablet ORAL DAILY Qty = 30 No Refills Copies To: ANGELO RODRIGUEZ,JESSIE Rodriguez
--- NOTE | 2016-08-27 17:44 | PN- Cardiology ---
Subjective Subjective: Nonverbal. Maintaining sinus rhythm without any evidence of heart block on telemetry. Objective Vital Signs and I&Os Vital Signs Date Time Temp Pulse Resp B/P B/P Pulse O2 O2 Flow FiO2 Mean Ox Delivery Rate 08/27 1019 72 142/76 08/27 1019 72 142/76 08/27 0800 94 Room Air 08/27 0748 98.3 72 18 142/76 94 Room Air 08/26 2325 Room Air 08/26 2320 98.2 73 16 148/82 94 Room Air 08/26 1840 98.8 75 16 162/84 92 Room Air Intake & Output 08/27 1600 08/27 0800 08/27 0000 08/26 1600 08/26 0800 08/26 0000 Intake Total 240 425 120 920 180 620 Output Total 300 750 450 600 Balance 240 125 120 170 -270 20 Intake, IV 200 130 Intake, Oral 240 425 120 720 180 490 Number 0 Bowel Movements Output, Urine 300 750 450 600 Physical Exam: Neck: No JVD, no bruits. Lungs: Clear to auscultation bilaterally. Heart: S1, S2 with grade 1-2/6 systolic murmur best heard at the base. PMI fifth ICS at MCL. Abdomen: Soft, nontender, positive bowel sounds. Extremities: No edema. Current Medications: Current Medications Sig/Marc Start time Last Medication Dose Route Stop Time Status Admin Acetaminophen 650 MG .STK-MED ONE 08/26 1748 DC PO 08/26 1749 Acetaminophen 650 MG Q6P PRN 08/21 2359 AC 08/26 PO 1748 Amlodipine Besylate 5 MG DAILY 08/25 1000 AC 08/27 PO 1019 Aspirin 81 MG DAILY 08/27 1111 AC 08/27 PO 1151 Ceftriaxone Sodium 2,000 MG DAILY 08/25 1125 DC 08/27 IV 1019 Clopidogrel Bisulfate 75 MG DAILY 08/27 1111 AC 08/27 PO 1151 Docusate Sodium 100 MG BID 08/25 2200 AC 08/27 PO 1019 Insulin Aspart 0 TIDAC 08/25 1200 AC 08/27 SC 1200 Losartan Potassium 25 MG DAILY 08/23 1713 AC 08/27 PO 1019 Melatonin 3 MG QPM 08/26 2200 AC 08/26 PO 2105 Omeprazole 40 MG DAILY AC 08/26 0700 AC 08/27 PO 0617 Patient Medication 1 ED .STK-MED ONE 08/27 1401 DC Teaching ED 08/27 1402 Polyethylene Glycol 17 GM DAILY 08/25 1844 AC 08/27 PO 1019 Results Last 48 Hrs of Labs/Mics: Laboratory Tests 08/27/16 0707: Anion Gap 7, Estimated GFR > 60, BUN/Creatinine Ratio 28.3 H, CBC w Diff NO MAN DIFF REQ, RBC 4.04 L, MCV 90.2, MCH 30.7, RDW 12.2, MPV 8.1, Gran % 78.4 H, Lymphocytes % 13.3 L, Monocytes % 5.5, Eosinophils % 2.6, Basophils % 0.2, Absolute Granulocytes 6.8 H, Absolute Lymphocytes 1.1 L, Absolute Monocytes 0.5, Absolute Eosinophils 0.2, Absolute Basophils 0, PUBS MCHC 34.0 08/26/16 0440: Anion Gap 9, Estimated GFR > 60, Glucose 130 H, Calcium 8.0 L, Phosphorus 2.8, Magnesium 1.8, Total Bilirubin 0.8, AST 14, ALT 26, Albumin 2.7 L, CBC w Diff NO MAN DIFF REQ, RBC 4.08 L, MCV 90.4, MCH 30.6, RDW 12.6, MPV 8.1, Gran % 73.5 , Lymphocytes % 17.8 L, Monocytes % 5.0, Eosinophils % 3.4, Basophils % 0.3, Absolute Granulocytes 7.5 H, Absolute Lymphocytes 1.8, Absolute Monocytes 0.5, Absolute Eosinophils 0.3, Absolute Basophils 0, PUBS MCHC 33.9 Assessment/Plan Assessment/Plan 81 y-o-w-f-w/ hx of HTN, HLD, pre-DM, CAD, s/p PCI/coronary stents, previous strokes w/ 1st in 2014 w/o residua and her 2nd discovered after presentation here w/ AMS that req'd adm (08/11-08/15/2016) for an acute infarction in the R MCA and [employer] territories by MRI head/MRA neck performed on 08/12/2016, and conduction disease (LAFB, RBBB) who presented 08/21/2013 from [facility] in [facility] on BB ( metoprolol 12.5 mg twice daily). A transvenous pacemaker was placed, but was not needed after her first ~24-48 hrs following admission and was removed. Her western blot has come back negative for Lyme disease. Continue present medical regimen. Previously discussed the situation with her daughter, pointing out the pros and cons of permanent pacemaking. Technically, is still a candidate for permanent pacemaker, but has not had any evidence of further heart block and neurologically has not significantly improved. Again discussed situation with her daughter and told her that at this juncture a permanent pacemaker did not appear to be necessary, but that this could change. Continue telemetry? Yes
[2016-08-27 22:47] VITALS: BP 138/76
[2016-08-28 07:16] VITALS: BP 128/84
--- NOTE | 2016-08-28 07:30 | PN- Housestaff ---
Subjective Follow-up For: #Complete heart block #Acute Hypoxic respiratory failure #History of CVA, hyperlipidemia, hypertension Tele-Events Since Last Visit: No acute ON events, HR 65-75 Subjective: Patient seen and examined. lying in bed in no acute distress, offers no complaints, has been afebrile, other vitals stable. Patient is likely to be discharge today to nurse. Review of Systems Constitutional: Reports: see HPI. Objective Last 24 Hrs of Vital Signs/I&O Vital Signs Date Time Temp Pulse Resp B/P B/P Pulse O2 O2 Flow FiO2 Mean Ox Delivery Rate 08/28 0911 98.0 69 18 128/84 08/28 0910 98.0 69 18 128/84 08/28 0716 98.0 69 18 128/84 96 Room Air 08/28 0000 94 Nasal Cannula 08/27 2247 98.0 74 16 138/76 95 Room Air Intake & Output 08/28 1600 08/28 0800 08/28 0000 Intake Total 360 400 Output Total 2 Balance 358 400 Intake, Oral 360 400 Output, Urine 2 Physical Exam General Appearance: Alert, Oriented X3, Cooperative, No Acute Distress Cardiovascular: Regular Rate, Normal S1, Normal S2, No Murmurs Lungs: Clear to Auscultation, Normal Air Movement Extremities: No Clubbing, No Cyanosis Current Medications: Current Medications Sig/Marc Start time Last Medication Dose Route Stop Time Status Admin Acetaminophen 650 MG Q6P PRN 08/21 2359 AC 08/26 PO 1748 Amlodipine Besylate 5 MG DAILY 08/25 1000 AC 08/28 PO 0911 Aspirin 81 MG DAILY 08/27 1111 AC 08/28 PO 0910 Ceftriaxone Sodium 2,000 MG DAILY 08/25 1125 DC 08/27 IV 1019 Clopidogrel Bisulfate 75 MG DAILY 08/27 1111 AC 08/28 PO 0910 Docusate Sodium 100 MG BID 08/25 2200 AC 08/28 PO 0911 Insulin Aspart 0 TIDAC 08/25 1200 AC 08/27 SC 1200 Losartan Potassium 25 MG DAILY 08/23 1713 AC 08/28 PO 0910 Melatonin 3 MG QPM 08/26 2200 AC 08/27 PO 2310 Omeprazole 40 MG DAILY AC 08/26 0700 AC 08/27 PO 0617 Patient Medication 1 ED .STK-MED ONE 08/27 1401 VT Teaching ED 08/27 1402 Polyethylene Glycol 17 GM DAILY 08/25 1844 AC 08/28 PO 0911 Assessment/Plan Assessment: 81 year old lady with pmh hx of recent CVA on dual antiplatelet, HTN,DM, CAD PCI in 2004, conduction disease LAFB, RBBB, carotid stenosis, was [facility] from shelter 7 days after being discharged from [facility](admitted for acute infarction in [place] and [place] [employer] territories) with chief complaint of nausea, AMS and bradycardia and near syncope. She was in complete HB/25, She was put on transcutaneous pacing followed by transvenous pacing which unfortunately failed to perform and patient became bradycardic and hypoxic. patient was thus intubated and a femoral line was placed. Transvenous pacer was later removed as her heart rate improved off-of beta yael therapy, by cardiology as patient did not require it any more. Extubated successfully on 08/25 Patient transferred from ICU 08/26. We are currently monitoring her for following conditions: #Complete heart block * Patient currently does not need permanent pacing as per cardiology, asprin plavix resumed. Patient to be discharged today to retirement. #Acute Hypoxic respiratory failure * Resolved, satting well on RA * Status post extubation 3 days ago #History of CVA, hyperlipidemia, hypertension, DM? * Accucheks * Insulin SS * Hold metformin. * diabetic diet * Cont amlodipine and lisinopril to control blood pressure #Positive Lyme titer * Lyme Western blot negative * D/c ceftriaxone DVT prophylaxis is Alps On modified diet FULL CODE Pain Ratin Pain Location: none Pain Goal: Remain pain free Pain Plan: mpp Tomorrow's Labs & Rationales: none to be d/c Discharge Plan Discharge Disposition: STR/[facility] Stable for Discharge? Yes Anticipated Discharge (Day): today If Discharged Today/In 24 Hrs: W-10/discharge paper done, DC summary done, CMR done
[2016-08-28] MEDS ORDERED: AMLODIPINE BESYL5 M1 PO (08:37)
--- NOTE | 2016-08-28 11:22 | PN- Att Addend ---
Attending MD Review Statement Attending Statement Attending MD Statement: examined this patient, discuss w/resident/PA/LEAD CASHIER, agreed w/resident/PA/LEAD CASHIER, discussed with family, reviewed EMR data (avail), discussed w/ nursing, discussed w/case mgmt Attending Assessment/Plan: Vital Signs Date Time Temp Pulse Resp B/P B/P Pulse O2 O2 Flow FiO2 Mean Ox Delivery Rate 08/28 0911 98.0 69 18 128/84 08/28 0910 98.0 69 18 128/84 08/28 0716 98.0 69 18 128/84 96 Room Air 08/28 0000 94 Nasal Cannula 08/27 2247 98.0 74 16 138/76 95 Room Air 81-year-old female with recent CVA and was discharged on August 15 with right MCA and [place] [employer] BRICK stroke on dual antiplatelet therapy, hypertension, diabetes mellitus, coronary artery disease, carotid stenosis who presented to the emergency room with chief complaint of altered mental status and found to be bradycardic and also had a near-syncopal episode and hematemesis. Patient was intubated secondary to altered mental status and possible aspiration and her beta blockers were stopped and she got 1 dose of glucagon. Patient also required IV pacing due to complete heart block which has been removed now. Her blood culture and urine cultures have been negative and also for Lyme test western blot was negative. Staying afebrile off abx. Abx were stopped on 08/27. Dc back to [facility] [place]. See dc summary for more details.
--- NOTE | 2016-08-28 14:33 | PN- Cardiology ---
Subjective Subjective: Non-verbal. Maintaining sinus rhythm on telemetry w/ heart rate 65-75 bpm. Objective Vital Signs and I&Os Vital Signs Date Time Temp Pulse Resp B/P B/P Pulse O2 O2 Flow FiO2 Mean Ox Delivery Rate 08/28 0911 98.0 69 18 128/84 08/28 0910 98.0 69 18 128/84 08/28 0716 98.0 69 18 128/84 96 Room Air 08/28 0000 94 Nasal Cannula 08/27 2247 98.0 74 16 138/76 95 Room Air Intake & Output 08/28 1600 08/28 0800 08/28 0000 08/27 1600 08/27 0800 08/27 0000 Intake Total 360 400 240 425 120 Output Total 2 300 Balance 358 400 240 125 120 Intake, Oral 360 400 240 425 120 Output, Urine 2 300 Physical Exam: Neck: No JVD, no bruits. Lungs: Clear to auscultation bilaterally. Heart: S1, S2 with grade 1-2/6 systolic murmur best heard at the base. PMI fifth ICS at MCL. Abdomen: Soft, nontender, positive bowel sounds. Extremities: No edema. Current Medications: Current Medications Sig/Marc Start time Last Medication Dose Route Stop Time Status Admin Acetaminophen 650 MG Q6P PRN 08/21 2359 AC 08/26 PO 1748 Amlodipine Besylate 5 MG DAILY 08/25 1000 AC 08/28 PO 0911 Aspirin 81 MG DAILY 08/27 1111 AC 08/28 PO 0910 Clopidogrel Bisulfate 75 MG DAILY 08/27 1111 AC 08/28 PO 0910 Docusate Sodium 100 MG BID 08/25 2200 AC 08/28 PO 0911 Insulin Aspart 0 TIDAC 08/25 1200 AC 08/28 SC 1244 Losartan Potassium 25 MG DAILY 08/23 1713 AC 08/28 PO 0910 Melatonin 3 MG QPM 08/26 2200 AC 08/27 PO 2310 Omeprazole 40 MG DAILY AC 08/26 0700 AC 08/27 PO 0617 Polyethylene Glycol 17 GM DAILY 08/25 1844 AC 08/28 PO 0911 Results Last 48 Hrs of Labs/Mics: Laboratory Tests 08/27/16 0707: Anion Gap 7, Estimated GFR > 60, BUN/Creatinine Ratio 28.3 H, CBC w Diff NO MAN DIFF REQ, RBC 4.04 L, MCV 90.2, MCH 30.7, RDW 12.2, MPV 8.1, Gran % 78.4 H, Lymphocytes % 13.3 L, Monocytes % 5.5, Eosinophils % 2.6, Basophils % 0.2, Absolute Granulocytes 6.8 H, Absolute Lymphocytes 1.1 L, Absolute Monocytes 0.5, Absolute Eosinophils 0.2, Absolute Basophils 0, PUBS MCHC 34.0 Assessment/Plan Assessment/Plan 81 y-o-w-f-w/ hx of HTN, HLD, pre-DM, CAD, s/p PCI/coronary stents, previous strokes w/ 1st in 2014 w/o residua and her 2nd discovered after presentation here w/ AMS that req'd adm (08/11-08/15/2016) for an acute infarction in the R MCA and [employer] territories by MRI head/MRA neck performed on 08/12/2016, and conduction disease (LAFB, RBBB) who presented 08/21/2013 from [facility] on BB ( metoprolol 12.5 mg twice daily). A transvenous pacemaker was placed, but was not needed after her first ~24-48 hrs following admission and was removed. Her western blot has come back negative for Lyme disease. Continue present medical regimen. Previously discussed the situation with her daughter, pointing out the pros and cons of permanent pacemaking. Technically, Mrs. Cespedes is still a candidate for permanent pacemaker, but has not had any evidence of further heart block and neurologically has not significantly improved. Again discussed situation with her daughter and told her that at this juncture a permanent pacemaker did not appear to be necessary, but that this could change. Continue telemetry? Yes
[2016-08-28 14:42] VITALS: BP 128/84
[2016-08-28 14:47] VITALS: BP 140/82
--- NOTE | 2016-08-28 16:33 | Proc Note Cardiology ---
Cardiology Procedure Procedure Date: 08/21/16 Cardiology Procedure(s): temp. pacemaker insertion Pre-Operative Diagnosis: sick sinus syndrome Post-Operative Diagnosis: same Estimated Blood Loss: scant Anesthesia: local with lidocaine Procedure Findings: This 81 year old female had a recent stroke and was on the beta yael Metoprolol. She was found to be in complete heart block and an emergent temporary pacemaker lead was therefore placed in this patient in the ER. Attempts were made to obtain consent from family who was not available. The patient was prepped and draped in the usual sterile fashion and the right subcalvicular space was anesthetised with lidocaine. Using the Seldinger technique access was obtained into the right subclavian vein and a 5F sheath was placed. The pacemaker lead was then delivered to the right ventricle and pacing confirmed. An X-ray was also obtained to confirm proper placement. The patient was left pacing asynchronously at 70BPM. The patient tolerated the procedure well without complications.
== END 2016-08-28 17:41 | DRG 201 ==
LOC: ERH 17:09 → ERHI 18:48 → CRI 18:48 → 1NO 18:48 → ENRESERV 19:23 → ENTRNSPT 19:43 → EDTRNSPTSTS 19:53 → CMPTRNSPT 21:05 → CRI 21:17 → CMPBEDREQ 08-22 10:19 → 1NO 08-26 18:35 → ENPENDDIS 08-28 11:31 → 1NO 08-28 17:41
PROVIDERS: Emergency Medicine; Internal Medicine; Student in an Organized Health Care Education/Training Program; ADMIT Student in an Organized Health Care Education/Training Program
PROC: 06HM33Z Insertion of Infusion Device into Right Femoral Vein, Percutaneous Approach (ICD-10-PCS; principal; 2016-08-21)
PROC: 02HK3JZ Insertion of Pacemaker Lead into Right Ventricle, Percutaneous Approach (ICD-10-PCS; 2016-08-21)
PROC: 5A1945Z Respiratory Ventilation, 24-96 Consecutive Hours (ICD-10-PCS; 2016-08-21)
PROC: 0BH17EZ Insertion of Endotracheal Airway into Trachea, Via Natural or Artificial Opening (ICD-10-PCS; 2016-08-21)
DX: I44.2 Atrioventricular block, complete (principal); J96.01 Acute respiratory failure with hypoxia; I69.354 Hemiplegia and hemiparesis following cerebral infarction affecting left non-dominant side; F03.90 Unspecified dementia, unspecified severity, without behavioral disturbance, psychotic disturbance, mood disturbance, and anxiety; E11.9 Type 2 diabetes mellitus without complications; I25.10 Atherosclerotic heart disease of native coronary artery without angina pectoris; I10 Essential (primary) hypertension; E78.5 Hyperlipidemia, unspecified; Z79.84 Long term (current) use of oral hypoglycemic drugs; Z95.5 Presence of coronary angioplasty implant and graft
CPT/HCPCS: 1NP; 86618; CCU; 82436; 87040; 87086; 93005; 93010; 94799; 96374; 97110-GO; 97112-GO; 97162-GP; 97530-GO; 99291; J0360; J0696; J1610; J1815; J2405; J3250; J3490; J7040; J7042

== ENCOUNTER 2016-09-16 02:40 | Inpatient (IN) | payer OTHER ==
[~2016-09-16] VITALS: Ht 170.2 cm; Wt 75.3 kg
[~2016-09-16 02:40] MED LIST changes: +AMLODIPINE BESYL5 M1 PO; +ARTHRITIS PAIN650 M2 PO; +COZAAR25 M1 PO; +MELATONIN3 M4 PO
--- NOTE | 2016-09-16 02:48 | NUR ---
TRIAGE: PATIENT TO ER FROM [facility] W/ C/O VOMITTING X1 AND BRADYCARDIA. PER [facility], PATIENT CURRENTLY ON WAIT-LIST FOR PACEMAKER THOUGH [facility] REPORTS LAST HR AT 4PM TODAY WAS 85. PATIENT ARRIVES W/ HR:26-30 ON MONITOR. PLACED ON ROOM MONITOR AND PORTABLE MONITOR IN TRIAGE. PATIENT PRIMARILY COLOMBIAN SPEAKING THOUGH DENIES ABD PAIN AND CP. PATIENT SKIN MOIST AND WARM.
--- NOTE | 2016-09-16 03:00 | NUR ---
EVAL BY DR ZAFAR 2ND IV INSERTED. LABS DRAWN VIA BUTTERFLY STICK--SST,BLUE,LAV,THOMSON,PINK ALL SENT TO LAB
--- NOTE | 2016-09-16 03:05 | ED CARDIAC/CP/PALPITATIONS ---
History of Present Illness General Chief Complaint: General Adult Stated Complaint: "PER EMS BRADYCARDIA" Source: patient Exam Limitations: no limitations Vital Signs & Intake/Output Vital Signs & Intake/Output Vital Signs Date Time Temp Pulse Resp B/P B/P Pulse O2 O2 Flow FiO2 Mean Ox Delivery Rate 09/18 2308 97.3 09/18 2242 102 18 128/72 92 Nasal 1.0L Cannula 09/19 1999 96 Nasal 1.0L Cannula 09/19 1999 98.6 104 20 138/72 98 Nasal 1.0L Cannula 09/18 1600 96 Nasal 1.0L Cannula 09/19 1599 98.3 101 24 150/74 97 Nasal 1.0L Cannula 09/18 1537 80 140/80 09/18 0929 77 151/86 09/18 0800 98 Nasal 2.0L Cannula 09/18 08 98.2 70 18 110/60 99 Room Air 09/18 0400 96 Nasal 2.0L Cannula ED Intake and Output 09/19 0000 09/18 1200 Intake Total 1420 513 Output Total 851 300 Balance 569 213 Intake, IV 450 393 Intake, Oral 970 120 Number 0 0 Bowel Movements Output, Urine 851 300 Allergies Coded Allergies: No Known Allergies (08/11/16) Reconcile Medications Acetaminophen (Arthritis Pain) 650 MG TABLET.ER 1 TAB PO BID PAIN (Reported) Amlodipine Besylate 5 MG TABLET 1 TAB PO DAILY blood pressure Aspirin (Aspirin*) 81 MG TAB.CHEW 81 MG PO DAILY STROKE Atorvastatin Calcium (Lipitor) 80 MG TABLET 1 TAB PO 2000 CHOLESTEROL ( Reported) Cetirizine HCl (Zyrtec) 10 MG TABLET 1 TAB PO DAILY ALLERGIES (Reported) Clopidogrel Bisulfate (Plavix) 75 MG TABLET 75 MG PO DAILY STROKE Losartan Potassium (Cozaar) 25 MG TABLET 1 TAB PO DAILY BP (Reported) Melatonin 3 MG TABLET 1 TAB PO QPM SLEEP AID (Reported) Metformin HCl 500 MG TABLET 1 TAB PO BID DIABETES (Reported) Ranitidine HCl (Zantac) 150 MG TABLET 1 TAB PO BID ACID REFLUX (Reported) Triage Note: TRIAGE: PATIENT TO ER FROM F W/ C/O VOMITTING X1 AND BRADYCARDIA. PER ECF, PATIENT CURRENTLY ON WAIT-LIST FOR PACEMAKER THOUGH ECF REPORTS LAST HR AT 4PM TODAY WAS 85. PATIENT ARRIVES W/ HR:26-30 ON MONITOR. PLACED ON ROOM MONITOR AND PORTABLE MONITOR IN TRIAGE. PATIENT PRIMARILY MONEGASQUE SPEAKING THOUGH DENIES ABD PAIN AND CP. PATIENT SKIN MOIST AND WARM. Triage Nurses Notes Reviewed? yes HPI: She presents for evaluation of a slow heart rate at her extended care facility. Patient is a poor historian and unable to provide substantial history. According to the paramedics the patient is on a waiting list for a pacemaker placement. Past History Travel History Traveled to [place] past 21 day No Medical History Any Pertinent Medical History? 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 MOTHER FHx: diabetes mellitus BROTHER FH: myocardial infarction Hx Contributory? No Review of Systems Review of Systems Constitutional: Reports: no symptoms. EENTM: Reports: no symptoms. Respiratory: Reports: no symptoms. Cardiovascular: Reports: no symptoms. GI: Reports: no symptoms. Genitourinary: Reports: no symptoms. Musculoskeletal: Reports: no symptoms. Skin: Reports: no symptoms. Neurological/Psychological: Reports: no symptoms. Hematologic/Endocrine: Reports: no symptoms. Immunologic/Allergic: Reports: no symptoms. All Other Systems: Reviewed and Negative Physical Exam Physical Exam Cardiovascular: see below Comments: Gen.: Well-nourished, well-developed, no acute respiratory distress. Head: Normocephalic, atraumatic. Eyes: Normal inspection bilaterally Ears: Normal inspection bilaterally Nose: Normal inspection Throat/mouth : Moist mucosa Neck: Supple, full range of motion, no goiter Heart: irRegular rate and rhythm, systolic murmur Lungs: Clear to auscultation bilaterally with normal air entry Chest: Nontender Back: Normal range of motion Abdomen: Soft, nontender, nondistended, normal bowel sounds Extremities: Normal range of motion grossly, equal radial pulses, no cyanosis clubbing or edema Neurologic: Cranial nerves grossly intact, speech is clear Skin: warm and dry Psychiatric: Calm, cooperative, no apparent delusions or hallucinations Core Measures ACS in differential dx? No Severe Sepsis Present: No Septic Shock Present: No Progress Differential Diagnosis: HEART BLOCK Plan of Care: Orders Procedure Date/time Status Heart Healthy Diet 09/19 B Active CBC WITHOUT DIFFERENTIAL 09/19 0600 Active Wound Care/Dressing 09/18 0839 Active SWALLOW EVALUATION 09/18 UNK Active Evaluate Swallowing 09/18 UNK Complete Transfer patient to 09/18 UNK Active Current Medications Sig/Marc Start time Last Medication Dose Stop Time Status Admin Melatonin 3 MG ONCE ONE 09/18 2014 CAN (Melatonin) 09/19 2015 Losartan Potassium 25 MG DAILY 09/18 1252 AC 09/18 (Cozaar) 1537 Ibuprofen 400 MG Q6P PRN 09/18 0930 AC (Motrin) Morphine Sulfate 1 MG Q6P PRN 09/18 0930 AC 09/18 (Morphine) 1537 Oxycodone HCl 5 MG Q6 PRN 09/18 0930 AC 09/18 (Roxicodone) 0929 Atorvastatin Calcium 80 MG 2000 09/16 2000 AC 09/18 (Lipitor) 2014 Heparin Sodium 5,000 UNIT Q8 09/16 1400 AC 09/18 (Porcine) 2112 Insulin Aspart 0 TIDAC 09/16 1200 AC 09/18 (NovoLOG) 1537 Aspirin 81 MG DAILY 09/16 1101 AC 09/18 (Aspirin) 0929 Clopidogrel Bisulfate 75 MG DAILY 09/16 1101 AC 09/18 (Plavix) 0929 Amlodipine Besylate 5 MG DAILY 09/16 1100 AC 09/18 (Norvasc) 0929 Sodium Chloride 1,000 ML .Q20H 09/16 0830 AC 09/18 (Normal Saline 0.9%) 2014 Laboratory Tests 09/18/16 0330: Anion Gap 9, Estimated GFR > 60, Glucose 140 H, Calcium 9.0, Phosphorus 3.5, Magnesium 1.7, Total Bilirubin 1.0, AST 19, ALT 23, Albumin 3.4 L, CBC w Diff NO MAN DIFF REQ, RBC 4.28, MCV 91.3, MCH 30.4, RDW 13.4, MPV 8.1, Gran % 73.9, Lymphocytes % 15.1 L, Monocytes % 7.1, Eosinophils % 3.5, Basophils % 0.4, Absolute Granulocytes 5.7, Absolute Lymphocytes 1.2, Absolute Monocytes 0.5, Absolute Eosinophils 0.3, Absolute Basophils 0, PUBS MCHC 33.3 Initial ED EKG: tHIRD-DEGREE HEART BLOCK WITH VENTRICULAR RATE IN THE 20S Prior EKG: changed (NORMAL SINUS ON PRIOR) Repeat EKG: changed (NORMAL SINUS RHYTHM IN THE 70S) Comments: 09/16/2016 7:03:32 AM fortunately this patient's complete heart block has resolved. I have discussed her case with Dr. Moe who feels she needs to be admitted for pacemaker placement. Departure Departure Disposition: STILL A PATIENT Condition: Stable Clinical Impression Primary Impression: Third degree heart block Referrals: JOSE L SALAS MD (PCP/Family) Departure Forms: Customer Survey General Discharge Information Admission Note Spoke With: JOSÉ LUIS RODRIGUEZ PhD,SIXTO Rodriguez Documentation of Exam: Documentation of any treatments & extenuating circumstances including Concerns Regarding Discharge (functional status, medication knowledge or non-compliance, living conditions, etc.) that warrant an admission rather than observation: Patient presented in a third degree heart block placing her at very high risk of hypotension and cardio respiratory failure. She is not taking any rate controlling medications currently so the underlying cause of this patient's heart block is unclear. She requires continuous cardiac monitoring and serial vital signs to assess for hypotension. She will require a pacemaker placement to stabilize her cardiac function and avoid the possibility of hypotension, syncope, chest pain and mortality. She cannot be treated safely as an outpatient given her need for continuous cardiac monitoring. Given her advanced age and medical comorbidities I feel she'll require a multiple day hospitalization. Critical Care Note Critical Care Note Critical Care Time: non-applicable
--- NOTE | 2016-09-16 03:10 | NUR ---
PT ALERT, SLOW TO ANSWER SIMPLE QUESTIONS
[2016-09-16 03:22] LABS: ABSOLUTE BASOPHIL COUNT 0 /CUMM (0.0-0.2); ABSOLUTE EOSINOPHIL COUNT 0.2 /CUMM (0.0-0.7); ABSOLUTE GRANULOCYTE CT 7.7 /CUMM (1.4-6.5); ABSOLUTE LYMPH COUNT 1.9 /CUMM (1.2-3.4); ABSOLUTE MONOCYTE COUNT 0.6 /CUMM (0.10-0.60); BASOPHIL % 0.4 % (0.0-2.0); EOSINOPHIL % 1.7 % (0-5); GRANULOCYTE % 73.6 % (42.2-75.2); HEMATOCRIT 43.1 % (37-47); MEAN CORPUSCULAR HGB 30.4 PG (27.0-31.0); MEAN CORPUSCULAR HGB CONC 33.2 G/DL (33.0-37.0); MEAN CORPUSCULAR VOLUME 91.7 FL (81.0-99.0); MEAN PLATELET VOLUME 8.1 FL (7.4-10.4); PLATELET COUNT 343 /CUMM (130-400); RBC DISTRIBUTION WIDTH 13.4 % (11.5-14.5); WHITE BLOOD CELL COUNT 10.5 /CUMM (4.8-10.8)
--- NOTE | 2016-09-16 03:50 | NUR ---
CM = NSR 90 DR ZAFAR AWARE REPEAT EKG ORDERED.
--- NOTE | 2016-09-16 05:33 | NUR ---
PT RESTING ON STRETCHER. DENIES ANY DISTRESS AT THIS TIME. PT HR 79-80 ON HEART MONITOR. WILL CONTINUE TO MONITOR.
--- NOTE | 2016-09-16 07:17 | NUR ---
REPEAT TROP DRAWN AND SENT CM CONTINUES NSR 77
--- NOTE | 2016-09-16 08:20 | History & Physical ---
MAK RODRIGUEZ,EPHRAIM 09/16/16 0820: General Information and HPI MD Statement: I have seen and personally examined MADYSON PULIDO and documented this H&P. The patient is a 81 year old F who presented with a patient stated chief complaint of [N/V and Low HR]. Source of Information: patient, family, old records Exam Limitations: language barrier History of Present Illness: 81 YO primarily Ukranian Speaking patient brought from an ECF with complaints of N/V and low Heart rate of 27. Her past medical history is significant for recent CVA on dual antiplatelet therapy, hypertension, diabetes, coronary artery disease PCI in 2015,conduction disease LAFB, RBBB, carotid stenosis, and recently diagnosed complete heart block. She could not give any history due to language barrier and the laguage system in the ED is not functioning so I spoke with patient's daughter who was able to provide some background history but other information was gotten from ER notes and W-10 from the ECF. According to the daughter, she has been pending a permanent pace maker placement but final decision was yet to be made due to a recent stroke and overall health of the patient. She also had reverted to NSR and had no bradycardia since the initial diagnosis about 2 weeks ago. However, last night she developed nausea and vomiting and her HR was found to be 26 at the ECF, so she was brought to the ER. Patient denies any CP, shortness of breath, or diaphoresis. She did not syncopize at the ECF. During that admission she had a transvenous pacemaker placed that was eventually removed and a positive Lyme's titer. She was initially started on IV ceftriaxone but this was discontinued after western blot results came negative. Her Beta yael wer also discontinued. According to her daughter she is scheduled for carotid artery surgery in a week or so (She was found to hemodynamically significant stenosis correlating to 50- 79% diameter reduction of the right proximal internal carotid artery on carotid dopplers during a past admission). She follows with Dr. Rosado. 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 MOTHER FHx: diabetes mellitus BROTHER FH: myocardial infarction Psychosocial History Who Do You Live With? child Primary Language: Maltese Functional Ability ADLs Independent: dressing, eating, toileting, bathing. Ambulation: walker Review of Systems Review of Systems Constitutional: Reports: no symptoms. Exam & Diagnostic Data Last 24 Hrs of Vital Signs/I&O Vital Signs Date Time Temp Pulse Resp B/P B/P Pulse O2 O2 Flow FiO2 Mean Ox Delivery Rate 09/16 1011 96.6 82 18 182/90 94 Room Air 09/16 0829 97.0 77 18 167/79 96 Room Air Room Air 09/16 0531 97.2 80 17 144/82 93 Room Air 09/16 0425 97.0 90 16 136/76 95 Room Air 09/16 0249 96.5 27 18 184/78 95 Room Air Physical Exam General Appearance Alert, Oriented X3, Cooperative HEENT PERRLA, EOMI Cardiovascular Regular Rate, Normal S1, Normal S2 Lungs Clear to Auscultation, Normal Air Movement Abdomen Normal Bowel Sounds, Soft, No Tenderness Neurological Rt LE weaker than left, Full exam not done due to language barrier Extremities No Edema Last 24 Hrs of Labs/Talib: Laboratory Tests 09/16/16 0715: Troponin I 0.04 09/16/16 0306: Anion Gap 13, Estimated GFR 53 L, BUN/Creatinine Ratio 19.0, Glucose 153 H, Calcium 9.4, Magnesium 1.8, Total Bilirubin 0.6, AST 21, ALT 32, Alkaline Phosphatase 82, Troponin I 0.04, Total Protein 6.4, Albumin 3.7, Globulin 2.7, Albumin/Globulin Ratio 1.4, Amylase 44, Lipase 105, TSH &T3 &Free T4 Intrp 3.300 , CBC w Diff NO MAN DIFF REQ, RBC 4.70, MCV 91.7, MCH 30.4, RDW 13.4, MPV 8.1, Gran % 73.6, Lymphocytes % 18.2 L, Monocytes % 6.1, Eosinophils % 1.7, Basophils % 0.4, Absolute Granulocytes 7.7 H, Absolute Lymphocytes 1.9, Absolute Monocytes 0.6, Absolute Eosinophils 0.2, Absolute Basophils 0, PUBS MCHC 33.2 Diagnostic Data EKG Results Complete AV blook with wide QRS complex; HR 27 Repeat EKG-NSR, HR 92 Assessment/Plan Assessment: 81 YO primarily Ukranian Speaking patient brought from an ECF with complaints of N/V and low Heart rate of 27. Her past medical history is significant for recent CVA on dual antiplatelet therapy, hypertension, diabetes, coronary artery disease PCI in 2014,conduction disease LAFB, RBBB, carotid stenosis, and recently diagnosed complete heart block. Assessment Complete Heart Block; Unclear etiology HTN CVA Diabetes CAD Carotid Artery stenosis Plan Admit to Tele for close monitoring Pt is not in NSR; keep transcutaneous pacer by bedside and keep pacer pads on chest wall at all times Patient will likely need a permanent pacemaker Avoid AV rachael blocking meds Resume her impt home meds Close monitoring of vitals salvador BP and HR hold oral hypoglycemics Start ISS and check fingersticks glucose TIDAC/HS Follow certified fraud examiner recommendations SC heparin for DVT ppx Tylenol for pain FC As Ranked By This Provider Problem List: 1. Complete heart block Core Measures/Miscellaneous Acute Coronary Syndrome ACS Diagnosis: No Cerebrovascular Accident CVA/TIA Diagnosis: No Congestive Heart Failure CHF Diagnosis: No VTE (View Protocol) VTE Risk Factors: Acute medical illness, Age > 40 [facility] prophylaxis d/t: No contraindications No VTE Pharm Prophylaxis d/t: No contraindications VTE Diagnosis: No VTE Type: NONE VTE Confirmed by (Test): NONE Sepsis (View Protocol) Severe Sepsis Present: No Septic Shock Septic Shock Present: No Miscellaneous Documentation Attending Case Discussed With: Dr. Rosado Primary Care Physician: JOSE L SALAS MD Patient sees these Specialists cardiology Level of Patient Care: Telemetry Consults Needed: Consulting Specialty: Cardiology Resident Review Statement Resident Statement: examined this patient Other Findings: See HPI NEYMAR ROSADO MD 09/16/16 1009: General Information and HPI Allergies/Medications Home Med list Acetaminophen (Arthritis Pain) 650 MG TABLET.ER 1 TAB PO BID PAIN (Reported) Amlodipine Besylate 5 MG TABLET 1 TAB PO DAILY blood pressure Aspirin (Aspirin*) 81 MG TAB.CHEW 81 MG PO DAILY STROKE Atorvastatin Calcium (Lipitor) 80 MG TABLET 1 TAB PO 2000 CHOLESTEROL ( Reported) Cetirizine HCl (Zyrtec) 10 MG TABLET 1 TAB PO DAILY ALLERGIES (Reported) Clopidogrel Bisulfate (Plavix) 75 MG TABLET 75 MG PO DAILY STROKE Losartan Potassium (Cozaar) 25 MG TABLET 1 TAB PO DAILY BP (Reported) Melatonin 3 MG TABLET 1 TAB PO QPM SLEEP AID (Reported) Metformin HCl 500 MG TABLET 1 TAB PO BID DIABETES (Reported) Ranitidine HCl (Zantac) 150 MG TABLET 1 TAB PO BID ACID REFLUX (Reported) Attending MD Review Statement Attending Statement Attending MD Statement: examined this patient, discuss w/resident/PA/BOX TENDER, agreed w/resident/PA/BOX TENDER, discussed with family, reviewed EMR data (avail), discussed with nursing, discussed with case mgmt, reviewed images, amended to note Attending Assessment/Plan: Mrs. Madyson Pulido is a 81-y-o-w Maltese-speaking female w/ hx of HTN, HLD, pre-DM, CAD, s/p PCI/coronary stents, previous strokes w/ 1st in 2014 w/o residua and 2nd discovered after presentation here w/ AMS that req'd adm (-08/15/2016) for an acute infarction in the R MCA and ENVELOPE ADDRESSER territories by MRI head/MRA neck performed on 08/12/2016, and conduction disease (LAFB, RBBB) who was last hospitalized here (08/21-08/27/2016) after presenting from her SNF in [facility] on BB (metoprolol 12.5 mg twice daily). The BB was held and a transvenous pacemaker was placed (08/21/2016), but was not needed after the first ~24-48 hrs following admission and was removed. A western blot returned negative for Lyme disease. Management options were initially discussed w/ her daughter, pointing out the pros and cons of permanent pacemaking. Technically, Mrs. Pulido was still a candidate for a permanent pacemaker, but had not had any evidence of further heart block and neurologically had not significantly improved following her recent stroke. We again discussed situation with her daughter and it was felt reasonable to hold off on permanent pacemaker implantation, unless she again had evidence of high-grade heart block. She was reportedly doing well at her SNF until early this a.m. w/ N/V and was again found to be in CHB. At present she appears comfortable, is without complaints, and is in sinus rhythm with a heart rate in the 80 beat per minute range. A repeat ECG revealed sinus rhythm, LAFB, RBBB, Q waves in leads V1, V2 consistent with possible indeterminate age ASMI and lateral ST-T wave abnormalities, cannot exclude ischemia. Medications: See above. Physical examination: Well-developed, well-nourished elderly female in no acute distress with nasal oxygen in place. Vital signs: See above. HEENT: Normocephalic, atraumatic, EOMI, slightly dry mucous membranes. Neck: No JVD, no bruits. Lungs: Clear to auscultation. Heart: S1, S2 with no murmur, gallop, or rub appreciated. PMI fifth ICS at MCL. Abdomen: Soft, nontender, positive bowel sounds. Extremities: No edema. Impression: High-grade conduction disease in this elderly Maltese-speaking female who is status post recent stroke. At this juncture, permanent pacing is indicated and will be planned for as soon as possible. Will discuss the situation with her daughter to obtain informed consent. We will place transcutaneous pacemaker pads and have a transcutaneous pacemaker at the ready should the need arise. Naturally, avoid any medications that can cause bradycardia or slow conduction through the atrioventricular node. Make nothing by mouth after midnight in anticipation of permanent pacemaker implantation. Further recommendations will follow, Thank you.
[2016-09-16] MEDS ORDERED: ZANTAC150 M1 PO (09:15)
[2016-09-16] MEDS ORDERED: ZYRTEC10 M3 PO (09:15)
[2016-09-16] MEDS ORDERED: LIPITOR80 M1 PO (09:16)
--- NOTE | 2016-09-16 10:15 | NUR ---
RECEIVED PT FROM ROOM 11. CARE ASSUMED. INCONTIENT WITH LARGE URINE. PAERICARE PROVIDED. REPOSITIONED FOR COMFORT. NO S/S OF CARDIOPULMONARY DISTRESS. PLACED ON HEART MONITOR. SR IN 80'S.
--- NOTE | 2016-09-16 10:37 | NUR ---
MANUAL B/P 172/88. ORDERED TRAY.
--- NOTE | 2016-09-16 13:21 | NUR ---
DR ROSADO CALLED STATING HE WOULD LIKE PACER PLACEMENT SOON POSSIBLE DUE TO PT HX OF COMPLETE HEART BLOCK AND CURRENT SYMPTOMATIC BRADYCARDIA. PT RATE REMAINS 80'S AT THIS TIME. ON PORTABLE MONITOR IN ROOM. PACER PADS AT BEDSIDE. HOUSE STAFF PAGED TO READ DR IRENE CONSULT NOTE MEDICAL REVIEWER INFORMED OF SAME.
--- NOTE | 2016-09-16 13:26 | NUR ---
EKG DONE. SINUS RHYTHM WITH RIGHT BUNDLE BRANCH BLOCK IN 80'S. PT'S DAUGHTER WANTED TO TALK TO THE ADMITTING DRS. BANERJEE HOUSE STAFF NO ANSWER. PAGED MOD.
--- NOTE | 2016-09-16 14:00 | NUR ---
HOUSE STAFF IN ROOM SPEAKING WITH THE PT'S DAUGHTER.
--- NOTE | 2016-09-16 14:24 | NUR ---
PT ASSIGNED TO 189-1
--- NOTE | 2016-09-16 14:55 | NUR ---
PT UPGRADED TO ICU RM 108
--- NOTE | 2016-09-16 15:00 | NUR ---
SPOKE WITH DR IRENE OFFICE AGAIN - CALLED INQUIRING ABOUT PACER PLACEMENT. OFFICE INFORMED DR ROSADO AND DR BHARDWAJ NEED TO SPEAK REGARDING SAME. THIS RN SPOKE WITH DR BHARDWAJ AND REQUESTED SHE SPEAK WITH DR ROSADO DIRECTLY TO COORDINATE PTS CARE, PHONE NUMBER PROVIDED OF DR IRENE OFFICE. DR BHARDWAJ THEN CALLED THIS RN BACK STATING SHE SPOKE WITH DR ROSADO WHO WANTS PT TO BE IN ICU FOR PACER PLACEMENT TOMORROW, NPO AT MIDNIGHT. PER OMARI BHARDWAJ, NPO ORDER IS IN / TRANSFER ORDER IS IN AND HOUSE STAFF CAN BE REACHED AT X 137 ED NURSES BERONICA AND ANDRES INFORMED OF SAME [employer] CHACHO INFORMED OF SAME AWAITING ICU UPGRADE AND BED ASSIGNEMENT
--- NOTE | 2016-09-16 16:02 | NUR ---
ATTEMPTED TO CALL REPORT. RN HENOK WILL CALL BACK.
--- NOTE | 2016-09-16 16:10 | NUR ---
PT TAKEN TO NEUROLOGY DEPTT AT THIS TIME.
--- NOTE | 2016-09-16 16:19 | NUR ---
REPORT CALLED TO ICU.
[2016-09-17] VITALS: BP 132/75
[2016-09-17 05:13] LABS: ABSOLUTE BASOPHIL COUNT 0 /CUMM (0.0-0.2); ABSOLUTE EOSINOPHIL COUNT 0.4 /CUMM (0.0-0.7); ABSOLUTE GRANULOCYTE CT 4.8 /CUMM (1.4-6.5); ABSOLUTE MONOCYTE COUNT 0.5 /CUMM (0.10-0.60); BASOPHIL % 0.4 % (0.0-2.0); EOSINOPHIL % 5.4 % (0-5); GRANULOCYTE % 61.5 % (42.2-75.2); HEMATOCRIT 39.3 % (37-47); MEAN CORPUSCULAR HGB 30.7 PG (27.0-31.0); MEAN CORPUSCULAR HGB CONC 33.5 G/DL (33.0-37.0); MEAN CORPUSCULAR VOLUME 91.6 FL (81.0-99.0); MEAN PLATELET VOLUME 8.1 FL (7.4-10.4); PLATELET COUNT 302 /CUMM (130-400); RBC DISTRIBUTION WIDTH 13.4 % (11.5-14.5); RED BLOOD CELL CT 4.29 /CUMM (4.20-5.40); WHITE BLOOD CELL COUNT 7.8 /CUMM (4.8-10.8)
[2016-09-17 08:00] VITALS: BP 150/90
--- NOTE | 2016-09-17 08:21 | NUR ---
ASSUMED CARE AT 0200, PATIENT IS A/O X 3, OPEN EYES SPONTANEOUSLY, RIGHT SIDE IS SLIGHTLY WEAK THAN THE LEFT OTHERWISE ABLE TO MOVE ALL THE LIMBS, FOLLOWING COMMAND, PERRLA, NO C/O PAIN. AFEBRILE, SINUS RHYTHM, BLOOD PRESSURE IS STABLE. BREATHING SPONTANEOUSLY ON RA, GOOD OXYGEN SATURATION, LUNGS IS CLEAR. ABDOMEN IS SOFT, GOOD BOWEL SOUNDS, ON NPO, LAST BM WAS YESTERDAY ( 09/16 ). ABLE TO VOID USING BEDPAN, GOOD AMOUNT. SKIN HAS RED BLANCHABLE AT THE COCCYX, OTHERWISE SKIN REMAIN INTACT.
--- NOTE | 2016-09-17 13:24 | PN- Resident CRCU ---
Subjective HPI/CRCU Issues: Pt seen and examined at the bedside with Dr. Peres who was translating. The patient denies any any acute distress. She states she has some right upper leg pain, but only when ambulating, at home. She has a previous fall with fracture and hardware in thr right lower extremity. She had no acute cardiac events overnight. She remains in NSR with a rate in the 80s. She denies any palpitations, dyspnea, chest pain, lightheadedness or dizziness. Labs were reviewed. Electrolytes, H&H and TSH within normal limits. Objective Vital Signs & I&O Last 8 Hrs of Vitals and I&O: Intake & Output 09/17 1600 Intake Total 400 Output Total 650 Balance -250 Intake, IV 400 Output, Urine 650 Patient 75.296 kg Weight Weight Bed scale Measurement Method Exam General Appearance: well developed/nourished, no apparent distress, alert, awake , comfortable Head: atraumatic, normal appearance Neck: normal inspection, supple Respiratory: normal breath sounds, chest non-tender, no respiratory distress Cardiovascular: regular rate/rhythm Gastrointestinal: normal bowel sounds, soft, non-tender Extremities: no edema Current Medications: Current Medications Sig/Marc Start time Last Medication Dose Route Stop Time Status Admin Acetaminophen 650 MG Q6P PRN 09/16 0830 AC PO Amlodipine Besylate 5 MG DAILY 09/16 1100 AC 09/17 PO 1007 Aspirin 81 MG DAILY 09/16 1101 AC 09/17 PO 1007 Atorvastatin Calcium 80 MG 2000 09/16 2000 AC 09/16 PO 1950 Clopidogrel Bisulfate 75 MG DAILY 09/16 1101 AC 09/17 PO 1007 Heparin Sodium 5,000 UNIT Q8 09/16 1400 AC 09/17 (Porcine) SC 0550 Insulin Aspart 0 TIDAC 09/16 1200 AC SC Sodium Chloride 1,000 ML .Q20H 09/16 0830 AC 09/17 IV 0550 Impression/Plan Impression/Problem List Impression: Mrs. 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 While using the commode]. She was found to be in complete heart block. She has a negative ACS workup so far, and since being in the hospital, she has been in normal sinus rhythm. Her beta yael has been held and she was admitted to the ICU for close monitoring. She is planned for insertion of a permanent pacemaker placement. We will continue her by mouth medications, including aspirin and Plavix, as well as her atorvastatin 80 mg given her previous history of coronary/cerebrovascular disease. We will also restart her anti-hypertensives and restart a diet and await further instructions from cardiology after she returns. Problem List: 1. Complete heart block Pain Ratin Tomorrow's Labs & Rationales: cbc/icu Plan DVT/Prophylaxis: mechanical
--- NOTE | 2016-09-17 18:34 | RADIOLOGY REPORT ---
EXAMINATION: XR PORTABLE CHEST CLINICAL INFORMATION: Pacemaker COMPARISON: Chest x-ray 08/23/2016 TECHNIQUE: Portable frontal view of the chest was obtained. 6:08 PM FINDINGS: Pacemaker lead in right atrium and right ventricle. Heart size normal. Thoracic aorta uncoiled. No pulmonary vascular congestion. Small linear atelectasis or scar left lung base. No acute infiltrate or pleural effusion. No pneumothorax. IMPRESSION: Pacemaker leads in right atrium and right ventricle.
--- NOTE | 2016-09-17 21:06 | NUR ---
89 ARRIVED BACK FROM PACU S/P RCW PACEMAKER DUAL CHAMBER (AAIR=DDDR). PLACED PT ONTO BED SAFELY W/4 STAFF. PT VIET[place]ESE SPEAKING. FOLLOWS DIRECTIONS WELL. ARYA SLING INSITU. CSM+VE. PULSES +VE TO ALL RADIAL/PEDAL. DRSG TO RCW/LCW D/I. 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 SBP 140/MANUAL & 150/AUTO. ON 2LNC POX >99-100%, LS CLEAR & DIMINISHED AT THE BASES. INC OF URINE PERICARE GIVEN. 2029 DTR AT THE BEDSIDE UPDATED ON PT'S OR STATUS. TRANSLATED TO RN RE. PT'S CONCERNS, PAIN LEVEL & IF PT HAS ANY NUMBNESS OR TINGLING TO THE RUE. LUE WEAKER D/T RECENT STROKE. ABLE TO MOVE ALL LIMBS. PT HAS NO NUMBNESS/TINGLING BUT BURNING SENSATION TO UPPER CHEST. WILL MEDICATE. CONT TO MONITOR.
[2016-09-18] VITALS: BP 151/86
[2016-09-18 04:31] LABS: ABSOLUTE BASOPHIL COUNT 0 /CUMM (0.0-0.2); ABSOLUTE EOSINOPHIL COUNT 0.3 /CUMM (0.0-0.7); ABSOLUTE GRANULOCYTE CT 5.7 /CUMM (1.4-6.5); ABSOLUTE LYMPH COUNT 1.2 /CUMM (1.2-3.4); ABSOLUTE MONOCYTE COUNT 0.5 /CUMM (0.10-0.60); BASOPHIL % 0.4 % (0.0-2.0); EOSINOPHIL % 3.5 % (0-5); GRANULOCYTE % 73.9 % (42.2-75.2); HEMATOCRIT 39.1 % (37-47); MEAN CORPUSCULAR HGB 30.4 PG (27.0-31.0); MEAN CORPUSCULAR HGB CONC 33.3 G/DL (33.0-37.0); MEAN CORPUSCULAR VOLUME 91.3 FL (81.0-99.0); MEAN PLATELET VOLUME 8.1 FL (7.4-10.4); PLATELET COUNT 304 /CUMM (130-400); RBC DISTRIBUTION WIDTH 13.4 % (11.5-14.5); RED BLOOD CELL CT 4.28 /CUMM (4.20-5.40); WHITE BLOOD CELL COUNT 7.7 /CUMM (4.8-10.8)
--- NOTE | 2016-09-18 07:30 | NUR ---
PT WAS LYING ON HER R SIDE & DRSG TO RCW PACEMAKER WAS GETTING SATURATED & IT PASSED OVER THE NEYMAR LINES. HAD MICHELLE THE MST WHO WAS ABLE TO TRANSLATE. TO NOT LAY ON THE R SIDE, NOT TO RISE HER RUE. PT WAS IN AGREEMENT. MEDICATED EARLIER W/MORPHINE FOR BURNING SENSATION 7/10 SCORE SEE EMAR FOR TIMES. PT WAS ABLE TO SWALLOW SOME CRACKERS W/THIN H2O & QUINCY WELL BUT MAY NEED SWAL EVAL D/T HER RECENT STROKE. PLACED A PILLOW TO RUE TO PROP HER RUE. CONT TO MONITOR. 8930 RN KEI ASSUME CARE.
[2016-09-18 08:00] VITALS: BP 110/60
--- NOTE | 2016-09-18 08:08 | PN- Resident CRCU ---
Subjective HPI/CRCU Issues: Med[employer] Advisa DR PEARLTA [id number] right atrial-ventricular pacemaker placed last night. No overnight events including bradycardia or pacemaker pacing, she was NSR overnight. This morning she has no acute complaints. She is tolerating food well. Labs reviewed as well as CXR post PPM placement. No lab derangements Objective Vital Signs & I&O Last 8 Hrs of Vitals and I&O: Vital Signs Date Time Temp Pulse Resp B/P B/P Pulse O2 O2 Flow FiO2 Mean Ox Delivery Rate 09/18 0929 77 151/86 09/18 0800 98 Nasal 2.0L Cannula 09/18 0800 98.2 70 18 110/60 99 Room Air 09/18 0400 96 Nasal 2.0L Cannula 09/18 0000 97.4 77 20 151/86 98 Nasal 2.0L Cannula 09/18 0000 98 Nasal 2.0L Cannula 09/17 2000 98 Nasal 2.0L Cannula 09/17 1600 94 Room Air Room Air Exam General Appearance: well developed/nourished, no apparent distress, alert, awake Head: atraumatic, normal appearance Neck: normal inspection, supple Respiratory: normal breath sounds, appropriately TTP Cardiovascular: regular rate/rhythm, right sided chest wall PPM Gastrointestinal: normal bowel sounds, soft, non-tender Extremities: Right arm splint in place. No TTP Current Medications: Current Medications Sig/Marc Start time Last Medication Dose Route Stop Time Status Admin Acetaminophen 650 MG .STK-MED ONE 09/17 2110 DC PO 09/17 211 Acetaminophen 650 MG Q6P PRN 09/16 0830 DC PO Amlodipine Besylate 5 MG DAILY 09/16 1100 AC 09/18 PO 0929 Aspirin 81 MG DAILY 09/16 1101 AC 09/18 PO 0929 Atorvastatin Calcium 80 MG 09/16 AC 09/17 PO 2118 Clopidogrel Bisulfate 75 MG DAILY 09/16 1101 AC 09/18 PO 0929 Fentanyl Citrate 100 MCG .STK-MED ONE 09/17 1435 DC IM 09/17 1436 Heparin Sodium 5,000 UNIT Q8 09/16 1400 AC 09/18 (Porcine) SC 0700 Ibuprofen 400 MG Q6P PRN 09/18 0930 AC PO Insulin Aspart 0 TIDAC 09/16 1200 AC SC Midazolam HCl 2 MG .STK-MED ONE 09/17 1436 DC IM 09/17 1437 Morphine Sulfate 1 MG Q6P PRN 09/18 0930 AC IV Morphine Sulfate 1 MG ONCE ONE 09/18 0300 DC 09/18 IV 09/18 0301 0311 Morphine Sulfate 1 MG ONCE ONE 09/17 2130 DC 09/17 IV 09/17 Oxycodone HCl 5 MG Q6 PRN 09/18 0930 AC 09/18 PO 0929 Oxycodone/ 1 TAB ONCE ONE 09/17 2129 CAN Acetaminophen PO 09/17 2130 Sodium Chloride 1,000 ML .Q20H 09/16 0830 AC 09/17 IV 2301 Impression/Plan Impression/Problem List Impression: Mrs. 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 While using the commode]. She was found to be in complete heart block. She has a negative ACS workup so far, and since being in the hospital, she has been in normal sinus rhythm. Yesterday, she had a Medtronic Advisa DR PERALTA [id number] permanent pacemaker placed. She had no overnight event including bradycardia, n/v or lightheadedness. She is doing well overall. We have restarted PO diet as well as her meds including aspirin and Plavix, as well as her atorvastatin 80 mg given her previous history of coronary/ cerebrovascular disease. We will also restart her losartan in addition to her amlodipine as her BP has been slightly up. We will transfer back to telemetry for close monitoring per cardiology for 1-2 days and then d/c to home most likely. FULL CODE Heart healthy diet Problem List: 1. CVA (cerebral vascular accident) 2. Complete heart block Pain Ratin Tomorrow's Labs & Rationales: cbc Plan DVT/Prophylaxis: mechanical
--- NOTE | 2016-09-18 10:11 | PN- Cardiology ---
Subjective Subjective: No complaints. Med[employer] Advisa DR PERALTA [id number] permanent pacemaker placed last evening successfully. Presently in sinus rhythm. Objective Vital Signs and I&Os Vital Signs Date Time Temp Pulse Resp B/P B/P Pulse O2 O2 Flow FiO2 Mean Ox Delivery Rate 09/18 0929 77 151/86 09/18 0400 96 Nasal 2.0L Cannula 09/18 0000 97.4 77 20 151/86 98 Nasal 2.0L Cannula 09/18 0000 98 Nasal 2.0L Cannula 09/18 1999 98 Nasal 2.0L Cannula 09/17 1600 94 Room Air Room Air 09/17 1200 94 Room Air 09/17 1007 82 193/95 Intake & Output 09/18 1600 09/18 0800 09/18 0000 09/17 1600 09/17 0800 09/17 0000 Intake Total 513 670 400 650 971 Output Total 300 650 670 500 Balance 213 670 -250 -20 471 Intake, IV 393 550 400 400 251 Intake, Oral 120 120 250 720 Number 0 0 1 Bowel Movements Output, Urine 300 650 670 500 Patient 166 lb 182 lb Weight Weight Bed scale Bed scale Measurement Method Physical Exam: Physical examination: Well-developed, well-nourished elderly female in no acute distress with nasal oxygen in place. Vital signs: See above. HEENT: Normocephalic, atraumatic, EOMI, slightly dry mucous membranes. Neck: No JVD, no bruits. Lungs: Clear to auscultation. Heart: S1, S2 with no murmur, gallop, or rub appreciated. PMI fifth ICS at MCL. Abdomen: Soft, nontender, positive bowel sounds. Extremities: No edema. Current Medications: Current Medications Sig/Marc Start time Last Medication Dose Route Stop Time Status Admin Acetaminophen 650 MG .STK-MED ONE 09/17 2109 DC PO 09/17 2110 Acetaminophen 650 MG Q6P PRN 09/16 0830 DC PO Amlodipine Besylate 5 MG DAILY 09/16 1100 AC 09/18 PO 09 Aspirin 81 MG DAILY 09/16 1101 AC 09/18 PO 09 Atorvastatin Calcium 80 MG 09/16 AC 09/17 PO 211 Clopidogrel Bisulfate 75 MG DAILY 09/16 1101 AC 09/18 PO 09 Fentanyl Citrate 100 MCG .STK-MED ONE 09/17 1435 DC IM 09/17 1436 Heparin Sodium 5,000 UNIT Q8 09/16 1400 AC 09/18 (Porcine) SC 0700 Ibuprofen 400 MG Q6P PRN 09/18 0930 UNVr PO Insulin Aspart 0 TIDAC 09/16 1200 AC SC Midazolam HCl 2 MG .STK-MED ONE 09/17 1436 DC IM 09/17 1437 Morphine Sulfate 1 MG Q6P PRN 09/18 0930 UNVr IV Morphine Sulfate 1 MG ONCE ONE 09/18 0300 DC 09/18 IV 09/18 0301 0311 Morphine Sulfate 1 MG ONCE ONE 09/17 2130 DC 09/17 IV 09/17 2130 212 Oxycodone HCl 5 MG Q6 PRN 09/18 0930 UNVr 09/18 PO 0929 Oxycodone/ 1 TAB ONCE ONE 09/17 2129 CAN Acetaminophen PO 09/17 2130 Sodium Chloride 1,000 ML .Q20H 09/16 0830 AC 09/17 IV 2301 Results Last 48 Hrs of Labs/Mics: Laboratory Tests 09/18/16 0330: Anion Gap 9, Estimated GFR > 60, Glucose 140 H, Calcium 9.0, Phosphorus 3.5, Magnesium 1.7, Total Bilirubin 1.0, AST 19, ALT 23, Albumin 3.4 L, CBC w Diff NO MAN DIFF REQ, RBC 4.28, MCV 91.3, MCH 30.4, RDW 13.4, MPV 8.1, Gran % 73.9, Lymphocytes % 15.1 L, Monocytes % 7.1, Eosinophils % 3.5, Basophils % 0.4, Absolute Granulocytes 5.7, Absolute Lymphocytes 1.2, Absolute Monocytes 0.5, Absolute Eosinophils 0.3, Absolute Basophils 0, PUBS MCHC 33.3 09/17/16 0330: Anion Gap 11, Estimated GFR > 60, BUN/Creatinine Ratio 31.7 H, CBC w Diff NO MAN DIFF REQ, RBC 4.29, MCV 91.6, MCH 30.7, RDW 13.4, MPV 8.1, Gran % 61.5, Lymphocytes % 25.8, Monocytes % 6.9, Eosinophils % 5.4 H, Basophils % 0.4, Absolute Granulocytes 4.8, Absolute Lymphocytes 2.0, Absolute Monocytes 0.5, Absolute Eosinophils 0.4, Absolute Basophils 0, PUBS MCHC 33.5 Microbiology 09/16 1645 GI: Surveillance Culture - COMP 09/16 1643 UPPER RESP: Surveillance Culture - COMP Recent Imaging Studies: CXR (09/17/2016): Pacemaker lead in right atrium and right ventricle. Heart size normal. Thoracic aorta uncoiled. No pulmonary vascular congestion. Small linear atelectasis or scar left lung base. No acute infiltrate or pleural effusion. No pneumothorax. Assessment/Plan Assessment/Plan [id number] w/ hx of HTN, HLD, pre-DM, CAD, s/p PCI/coronary stents, previous strokes w/ 1st in 2014 w/o residua and 2nd discovered after presentation here w/ AMS that req'd adm (08/11-08/15/2016) for an acute infarction in the R MCA and MANAGING BROKER territories by MRI head/MRA neck performed on 08/12/2016, and conduction disease (LAFB, RBBB) who was last hospitalized here (08/21-08/27/2016) after presenting [place] on BB (metoprolol 12.5 mg twice daily). The BB was held and a transvenous pacemaker was placed (08/21/2016), but was not needed after the first ~24-48 hrs following admission and was removed. A western blot returned negative for Lyme disease. Management options were initially discussed w/ her daughter, pointing out the pros and cons of permanent pacemaking. Technically, Mrs. Cespedes was still a potential candidate for a permanent pacemaker, but had not had any evidence of further heart block off the BB and neurologically had not significantly improved following her recent stroke. We again discussed situation with her daughter and it was felt reasonable to hold off on permanent pacemaker implantation, unless she again had evidence of high-grade heart block. She was reportedly doing well at her SNF until early on 09/16/2016 when she presented w/ N/V and was again found to be in transient CHB. As such, her daughter was contacted and it was recommended that a permanent pacemaker be placed and to this her daughter agreed. At present she appears comfortable, is without complaints, and is in sinus rhythm with a heart rate in the 80 beat per minute range. A repeat ECG performed after the permanent pacemaker was placed on 09/17/2016 revealed sinus rhythm, LAFB, RBBB, Q waves in leads V1, V2 consistent with possible indeterminate age ASMI and lateral ST-T wave abnormalities, cannot exclude ischemia. Mrs. Cespedes is doing well s/p permanent pacemaker implantation and can be transferred to telemetry. Continue present medical regimen. Continue telemetry? Not applicable (In ICU) At this juncture, permanent pacing is indicated and will be planned for as soon as possible. Will discuss the situation with her daughter to obtain informed consent. We will place transcutaneous pacemaker pads and have a transcutaneous pacemaker at the ready should the need arise. Naturally, avoid any medications that can cause bradycardia or slow conduction through the atrioventricular node. Make nothing by mouth after midnight in anticipation of permanent pacemaker implantation. Continue telemetry? Not applicable (In ICU)
--- NOTE | 2016-09-18 11:03 | RADIOLOGY REPORT ---
EXAMINATION:\H\ \N\XR CHEST/INTRAOPERATIVE FLUOROSCOPY CLINICAL INFORMATION: Pacemaker insertion. COMPARISON: Chest x-ray dated 08/23/2016. TECHNIQUE/FINDINGS: Fluoroscopic equipment was dedicated to the operating room for the performance of the pacemaker insertion. Single spot film was obtained and is archived in PACS. This image demonstrates a right atrial pacer lead and a second lead which extends into the right ventricle with tip not included. FLUOROSCOPY TIME: 11.2 minutes. IMPRESSION: Administrative dictation for pacemaker insertion. Please refer to operative notes.
--- NOTE | 2016-09-18 15:15 | NUR ---
WOUND CARE: DISCUSSED SKIN INTEGRITY WITH BRENDEN RN - STAFF STATED PT HAS AN AREA OF DTI TO HER BUTTOCKS - INTACT AT THIS TIME DUE TO NEW SKIN ALTERATION AND RISK FOR SKIN BREAKDOWN, PLEASE OBTAIN CLINITRON MATTRESS FOR PREVENTION
[2016-09-18 16:00] VITALS: BP 150/74
--- NOTE | 2016-09-18 18:32 | NUR ---
[id number], PATIENT TRYING TO CLIMB OOB PULLING AT BI-PAP, PUSHING HIMSELF DOWN TO THE BOTTOM OF THE BED, REPOSITIONED & BOOSTED, TO HOB X [address] BECK/ DR. BAKER IN TO SEE PATIENT AND HELP WITH CARE; DIRECTOR STALIN CALLED TO EXPLORE BED OPTIONS; 5MG HALDOL GIVEN; PATIENT HOYERED INTO GENNY CHAIR; PATIENT COMFORTABLE IN CHAIR SLEEPING UNTIL 1800 TRYING TO SLIDE OUT OF CHAIR PULLING AT LINES, BOOSTED PATIENT IN CHAIR AND TRANSFER HIM TO SIZE WIZE BED; CONTINUES TO PULL AT LINES/ TRYING TO CLIMB OOB; B/ SOFT UPPER AND LOWER RESTRAINTS ORDERED
[2016-09-18 20:00] VITALS: BP 138/72
[2016-09-18 22:42] VITALS: BP 128/72
[2016-09-19 07:17] VITALS: BP 122/72
--- NOTE | 2016-09-19 08:46 | PN- Housestaff ---
Subjective Follow-up For: s/p pacemaker placement Complaints: no complaints Tele-Events Since Last Visit: nsr, 89 to 99, BBB Subjective: i have seen and examiend the patient today morning. vitals stable, no new complaints, s/p pacemaker, trasnferred from ICU, doign well. Review of Systems Constitutional: Reports: see HPI. Objective Last 24 Hrs of Vital Signs/I&O Vital Signs Date Time Temp Pulse Resp B/P B/P Pulse O2 O2 Flow FiO2 Mean Ox Delivery Rate 09/19 1027 96 122/72 09/19 1026 96 122/72 09/19 0800 93 Nasal 1.0L Cannula 09/19 0717 99.1 96 18 122/72 93 Nasal Cannula 09/19 0000 95 Nasal 1.0L Cannula 09/18 2308 97.3 09/18 2242 102 18 128/72 92 Nasal 1.0L Cannula 09/18 2000 96 Nasal 1.0L Cannula 09/19 1999 98.6 104 20 138/72 98 Nasal 1.0L Cannula Intake & Output 09/19 1600 09/19 0800 09/19 0000 Intake Total 550 600 620 Output Total 75 300 301 Balance 475 300 319 Intake, IV 300 400 450 Intake, Oral 250 200 170 Number 0 Bowel Movements Output, Urine 75 300 301 Patient 75.296 kg Weight Physical Exam General Appearance: Alert, Oriented X3, Cooperative Skin: No Rashes, No Breakdown Cardiovascular: Regular Rate, Normal S1, Normal S2, No Murmurs Lungs: Clear to Auscultation, Normal Air Movement Abdomen: Normal Bowel Sounds, Soft, No Tenderness Neurological: nonfocal Extremities: No Clubbing, No Cyanosis, No Edema, Normal Pulses Assessment/Plan Assessment: Mrs. Cespedes is a 81 Lithuanian speaking female with a PMH of HTN, HLD, pre-DM, CAD, s/p PCI/coronary stents, previous CVA in 2014 without residual deficit and another one in July 2016 [acute infarction in the R MCA and DIGITAL ASSISTANT territories by MRI head/MRA neck performed on 08/12/2016], as well as left anterior fascicular block and right bundle branch block [without permanent pacemaker placed; patient 's choice] who presented to the hospital with nausea and vomiting as well as bradycardia [? While using the commode]. She was found to be in complete heart block. She has a negative ACS workup so far, and since being in the hospital, she has been in normal sinus rhythm. She had a Medtronic advise DR PERALTA [id number] permanent pacemaker placed on 09/17/16 Problem list alongwith assessment and plan #1 Complete heart block s/p pacemaker placement * ct front desk monitor * doing well * Ct ASA. * Ct statin * No telemetry events * NSR with rate between 80 to 90 #2 H/o HTN * Ct cozaar 25 mg * Ct norvasc 5 mg OD * BP stable. * ct to monitor. #3 H/O HL * Ct statin #4 H/o CAD s/p PCI/coronary stents. * Ct ASA * Ct statin #5 H?O previous strokes She is doing better anticipated d/c tmrw. please touch base with attending and tire repairman for d/c tmrw. FULL CODE Heart healthy diet Problem List: 1. CVA (cerebral vascular accident) 2. Altered mental status 3. Complete heart block Pain Ratin Pain Location: none Pain Goal: Remain pain free Pain Plan: current plan Tomorrow's Labs & Rationales: electrolytes Consulting Request: Consulting Specialty: Cardiology Discharge Plan Discharge Disposition: STR/NH Stable for Discharge? No Anticipated Discharge (Day): tomorrow
[2016-09-19 12:28] LABS: ABSOLUTE BASOPHIL COUNT 0 /CUMM (0.0-0.2); ABSOLUTE EOSINOPHIL COUNT 0 /CUMM (0.0-0.7); ABSOLUTE GRANULOCYTE CT 8.1 /CUMM (1.4-6.5); ABSOLUTE LYMPH COUNT 0.8 /CUMM (1.2-3.4); ABSOLUTE MONOCYTE COUNT 0.8 /CUMM (0.10-0.60); BASOPHIL % 0.2 % (0.0-2.0); EOSINOPHIL % 0.1 % (0-5); GRANULOCYTE % 83.4 % (42.2-75.2); MEAN CORPUSCULAR HGB 30.8 PG (27.0-31.0); MEAN CORPUSCULAR HGB CONC 33.7 G/DL (33.0-37.0); MEAN CORPUSCULAR VOLUME 91.3 FL (81.0-99.0); MEAN PLATELET VOLUME 8.2 FL (7.4-10.4); PLATELET COUNT 267 /CUMM (130-400); RBC DISTRIBUTION WIDTH 13.1 % (11.5-14.5); RED BLOOD CELL CT 3.53 /CUMM (4.20-5.40); WHITE BLOOD CELL COUNT 9.7 /CUMM (4.8-10.8)
[2016-09-19 12:35] LABS: HEMATOCRIT 32.2 % (37-47)
--- NOTE | 2016-09-19 15:16 | PN- Cardiology ---
Subjective Subjective: No complaints, but grimaces to palpation around pacemaker implantation site. Sinus rhythm at 88 bpm on telemetry. Objective Vital Signs and I&Os Vital Signs Date Time Temp Pulse Resp B/P B/P Pulse O2 O2 Flow FiO2 Mean Ox Delivery Rate 09/19 1027 96 122/72 09/19 1026 96 122/72 09/19 0800 93 Nasal 1.0L Cannula 09/19 0717 99.1 96 18 122/72 93 Nasal Cannula 09/19 0000 95 Nasal 1.0L Cannula 09/18 2308 97.3 09/18 2242 102 18 128/72 92 Nasal 1.0L Cannula 09/19 1999 96 Nasal 1.0L Cannula 09/19 1999 98.6 104 20 138/72 98 Nasal 1.0L Cannula 09/18 1600 96 Nasal 1.0L Cannula 09/19 1599 98.3 101 24 150/74 97 Nasal 1.0L Cannula 09/18 1537 80 140/80 Intake & Output 09/19 1600 09/19 0800 09/19 0000 09/18 1600 09/18 0800 09/18 0000 Intake Total 550 600 620 800 513 670 Output Total 75 300 301 550 300 Balance 475 300 319 250 213 670 Intake, IV 300 400 450 393 550 Intake, Oral 250 200 170 800 120 120 Number 0 0 0 0 Bowel Movements Output, Urine 75 300 301 550 300 Patient 166 lb Weight Physical Exam: Physical examination: Well-developed, well-nourished elderly female in no acute distress with nasal oxygen in place. Vital signs: See above. HEENT: Normocephalic, atraumatic, EOMI, slightly dry mucous membranes. Neck: No JVD, no bruits. Lungs: Clear to auscultation. Heart: S1, S2 with no murmur, gallop, or rub appreciated. PMI fifth ICS at [facility]. Abdomen: Soft, nontender, positive bowel sounds. Extremities: No edema. Current Medications: Current Medications Sig/Marc Start time Last Medication Dose Route Stop Time Status Admin Amlodipine Besylate 5 MG DAILY 09/16 1100 AC 09/19 PO 1026 Aspirin 81 MG DAILY 09/16 1101 AC 09/19 PO 1027 Atorvastatin Calcium 80 MG 09/16 AC 09/18 PO 2015 Clopidogrel Bisulfate 75 MG DAILY 09/16 1101 AC 09/19 PO 1026 Heparin Sodium 5,000 UNIT Q8 09/16 1400 AC 09/19 (Porcine) SC 1348 Ibuprofen 400 MG Q6P PRN 09/18 0930 AC PO Insulin Aspart 0 TIDAC 09/16 1200 AC 09/19 SC 1230 Losartan Potassium 25 MG DAILY 09/18 1252 AC 09/19 PO 1027 Magnesium Oxide 400 MG BID 09/19 1140 DC PO 09/19 2200 Melatonin 5 MG ONE TIME ONE 09/18 2029 DC 09/18 PO 09/18 Melatonin 3 MG ONCE ONE 09/18 2014 CAN PO 09/19 2015 Morphine Sulfate 1 MG Q6P PRN 09/18 0930 AC 09/19 IV 0635 Oxycodone HCl 5 MG Q6 PRN 09/18 0930 AC 09/18 PO 0929 Sodium Chloride 1,000 ML .Q20H 09/16 0830 AC 09/18 IV 2014 Results Last 48 Hrs of Labs/Mics: Laboratory Tests 09/19/16 1202: CBC w Diff MAN DIFF ORDERED, RBC 3.53 L, MCV 91.3, MCH 30.8, RDW 13.1, MPV 8.2, Gran % 83.4 H, Lymphocytes % 7.9 L, Monocytes % 8.4, Eosinophils % 0.1, Basophils % 0.2, Absolute Granulocytes 8.1 H, Absolute Lymphocytes 0.8 L, Absolute Monocytes 0.8 H, Absolute Eosinophils 0, Absolute Basophils 0, Platelet Estimate VERIFIED BY SMEAR, Normocytic RBCs VERIFIED, Normochromic RBCs VERIFIED, PUBS MCHC 33.7 09/18/16 0330: Anion Gap 9, Estimated GFR > 60, Glucose 140 H, Calcium 9.0, Phosphorus 3.5, Magnesium 1.7, Total Bilirubin 1.0, AST 19, ALT 23, Albumin 3.4 L, CBC w Diff NO MAN DIFF REQ, RBC 4.28, MCV 91.3, MCH 30.4, RDW 13.4, MPV 8.1, Gran % 73.9, Lymphocytes % 15.1 L, Monocytes % 7.1, Eosinophils % 3.5, Basophils % 0.4, Absolute Granulocytes 5.7, Absolute Lymphocytes 1.2, Absolute Monocytes 0.5, Absolute Eosinophils 0.3, Absolute Basophils 0, PUBS MCHC 33.3 Assessment/Plan Assessment/Plan [id number] w/ hx of HTN, HLD, pre-DM, CAD, s/p PCI/coronary stents, previous strokes w/ 1st in 2014 w/o residua and 2nd discovered after presentation here w/ AMS that req'd adm (08/11-08/15/2016) for an acute infarction in the R MCA and FILM OR VIDEOTAPE EDITOR territories by MRI head/MRA neck performed on 08/12/2016, and conduction disease (LAFB, RBBB) who was last hospitalized here (08/21-08/27/2016) after presenting [place] BB (metoprolol 12.5 mg twice daily) w/ resolution of CHB after discontinuation of BB until early on 09/16/2016 when she presented from her SNF w/ N/V and was again found to be in transient [place] which prompted implantation of permanent pacemaker on 09/17/2016. Mrs. Cespedes is s/p ppm for documented CHB and is hemodynamically stable but did have a significant drop in her H/H since yesterday. Repeat H/H this evening and if remain stable will consider discharge to SNF in a.m. Continue telemetry? Yes
--- NOTE | 2016-09-19 17:44 | Patient Discharge Instructions ---
Discharge Instructions General Discharge Information You were seen/treated for: s/p pacemaker placement Special Instructions: please ct to follow with PCP and cardiolgoist upon discharge. Acute Coronary Syndrome Inclusion Criteria At DC or during hospital stay patient has or had the following: ACS DIAGNOSIS No Discharge Core Measures Meds if any: Prescribed or Continued at Discharge Meds if any: NOT Prescribed or Continued at Discharge Congestive Heart Failure Inclusion Criteria At DC or during hospital stay patient has or had the following: CHF DIAGNOSIS No Discharge Core Measures Meds if any: Prescribed or Continued at Discharge Meds if any: NOT Prescribed or Continued at Discharge Cerebrovascular accident Inclusion Criteria At DC or during hospital stay patient has or had the following: CVA/TIA Diagnosis No Discharge Core Measures Meds if any: Prescribed or Continued at Discharge Meds if any: NOT Prescribed or Continued at Discharge Venous thromboembolism Inclusion Criteria VTE Diagnosis No VTE Type NONE VTE Confirmed by (Test) NONE Discharge Core Measures - Per Current guidelines, there needs to be overlap - treatment for the first 5 days of Warfarin therapy. - If discharged on Warfarin prior to 5 days of - overlap therapy, the patient will need to be - assessed for post discharge needs including - *Post discharge parental anticoagulation - *Warfarin and/or parental anticoagulation education - *Follow up date to check INR post discharge At least 5 days overlap therapy as Inpatient No Meds if any: Prescribed or Continued at Discharge Note: Overlap Therapy is Warfarin and Anticoagulant Meds if any: NOT Prescribed or Continued at Discharge
[2016-09-19 23:48] VITALS: BP 106/64
[2016-09-20 06:00] VITALS: BP 118/68
--- NOTE | 2016-09-20 07:38 | NUR ---
@0600 ORAL TEMP 100.2, ONCOMING NURSE PAUL MADE AWARE TO RECHECK PT AND UPDATE HOUSESTAFF. JAGDEEP DAY MD AWARE.
[2016-09-20 08:32] LABS: ABSOLUTE BASOPHIL COUNT 0 /CUMM (0.0-0.2); ABSOLUTE EOSINOPHIL COUNT 0.1 /CUMM (0.0-0.7); ABSOLUTE LYMPH COUNT 1.7 /CUMM (1.2-3.4); ABSOLUTE MONOCYTE COUNT 0.9 /CUMM (0.10-0.60); BASOPHIL % 0.4 % (0.0-2.0); EOSINOPHIL % 0.8 % (0-5); GRANULOCYTE % 71.6 % (42.2-75.2); HEMATOCRIT 31.2 % (37-47); MEAN CORPUSCULAR HGB 30.8 PG (27.0-31.0); MEAN CORPUSCULAR HGB CONC 33.5 G/DL (33.0-37.0); MEAN CORPUSCULAR VOLUME 91.8 FL (81.0-99.0); MEAN PLATELET VOLUME 8.6 FL (7.4-10.4); PLATELET COUNT 260 /CUMM (130-400); RBC DISTRIBUTION WIDTH 13.7 % (11.5-14.5); WHITE BLOOD CELL COUNT 9.8 /CUMM (4.8-10.8)
--- NOTE | 2016-09-20 10:01 | PN- Housestaff ---
Subjective Follow-up For: s/p pacemaker placement Complaints: no complaints Tele-Events Since Last Visit: NSR ST [id number] Subjective: He was seen the patient today at bedside she had no complaints she was transferred from the ICU Review of Systems Constitutional: Denies: see HPI. Objective Last 24 Hrs of Vital Signs/I&O Vital Signs Date Time Temp Pulse Resp B/P B/P Pulse O2 O2 Flow FiO2 Mean Ox Delivery Rate 09/20 1458 97.9 87 18 122/70 93 Room Air 09/20 1019 118/68 09/20 1019 95 118/68 09/20 0600 100.2 95 18 118/68 91 Room Air 09/19 2348 98.9 99 20 106/64 92 Room Air Intake & Output 09/20 1600 09/20 0800 09/20 0000 Intake Total 350 900 Output Total Balance 350 900 Intake, IV 350 Intake, Oral 900 Physical Exam General Appearance: Alert, Oriented X3, Cooperative, No Acute Distress Skin: No Rashes, No Breakdown, No Significant Lesion HEENT: Atraumatic, PERRLA, EOMI, Mucous Membr. moist/pink Cardiovascular: Regular Rate, Normal S1, Normal S2, No Murmurs Lungs: Clear to Auscultation, Normal Air Movement Abdomen: Normal Bowel Sounds, Soft, No Tenderness Neurological: Normal Speech, Strength at 5/5 X4 Ext, Normal Tone Extremities: No Clubbing, No Cyanosis, No Edema, Normal Pulses Assessment/Plan Assessment: Mrs. 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 While using the commode]. She was found to be in complete heart block. She has a negative ACS workup so far, and since being in the hospital, she has been in normal sinus rhythm. She had a [employer] advise DR PERALTA [id number] permanent pacemaker placed on 09/17/16 #1 Complete heart block s/p pacemaker placement * Continue time study technologist * doing well * Ct ASA. * Ct statin * No telemetry events * Patient has significant drop in her H&H yesterday, it was down slightly but not significantly today Follow-up on H&H in the a.m. #2 H/o HTN * Ct cozaar 25 mg * Ct norvasc 5 mg OD * BP stable. * ct to monitor. #3 H/O HLD * Ct statin #4 H/o CAD s/p PCI/coronary stents. * Ct ASA * Ct statin #5 H/O previous strokes She is doing better anticipated d/c tmrw. please touch base with attending and director of solutions architecture for d/c tmrw. FULL CODE Heart healthy diet DVT prophylaxis: Pharmacological Problem List: 1. Complete heart block 2. Altered mental status 3. CVA (cerebral vascular accident) Pain Ratin Pain Location: N/a Pain Goal: Remain pain free Pain Plan: Tylenol Tomorrow's Labs & Rationales: C BC BEP DVT/Prophylaxis: pharmacological Consulting Request: Consulting Specialty: Cardiology
[2016-09-20 14:58] VITALS: BP 122/70
--- NOTE | 2016-09-20 17:22 | PN- Cardiology ---
Subjective Subjective: No complaints. On telemetry: Sinus rhythm in the 80-90 bpm range. Objective Vital Signs and I&Os Vital Signs Date Time Temp Pulse Resp B/P B/P Pulse O2 O2 Flow FiO2 Mean Ox Delivery Rate 09/20 1458 97.9 87 18 122/70 93 Room Air 09/20 1019 118/68 09/20 1019 95 118/68 09/20 0600 100.2 95 18 118/68 91 Room Air 09/19 2348 98.9 99 20 106/64 92 Room Air Intake & Output 09/20 1600 09/20 0800 09/20 0000 09/19 1600 09/19 0800 09/19 0000 Intake Total 350 900 550 600 620 Output Total 75 300 301 Balance 350 900 475 300 319 Intake, IV 350 300 400 450 Intake, Oral 900 250 200 170 Number 0 Bowel Movements Output, Urine 75 300 301 Patient 166 lb Weight Physical Exam: Physical examination: Well-developed, well-nourished elderly female in no acute distress with nasal oxygen in place. Vital signs: See above. HEENT: Normocephalic, atraumatic, EOMI, slightly dry mucous membranes. Neck: No JVD, no bruits. Lungs: Clear to auscultation. Heart: S1, S2 with no murmur, gallop, or rub appreciated. PMI fifth ICS at [facility]. Abdomen: Soft, nontender, positive bowel sounds. Extremities: No edema. Current Medications: Current Medications Sig/Marc Start time Last Medication Dose Route Stop Time Status Admin Amlodipine Besylate 5 MG DAILY 09/16 1100 AC 09/20 PO 1019 Aspirin 81 MG DAILY 09/16 1101 AC 09/20 PO 1019 Atorvastatin Calcium 80 MG 2000 09/16 2000 AC 09/19 PO 2118 Clopidogrel Bisulfate 75 MG DAILY 09/16 1101 AC 09/20 PO 1019 Heparin Sodium 5,000 UNIT Q8 09/16 1400 AC 09/20 (Porcine) SC 0535 Ibuprofen 400 MG Q6P PRN 09/18 0930 AC PO Insulin Aspart 0 TIDAC 09/16 1200 AC 09/20 SC 1245 Losartan Potassium 25 MG DAILY 09/18 1252 AC 09/20 PO 1019 Morphine Sulfate 1 MG Q6P PRN 09/18 0930 AC 09/19 IV 0635 Oxycodone HCl 5 MG Q6 PRN 09/18 0930 AC 09/18 PO 0929 Sodium Chloride 1,000 ML .Q20H 09/16 0830 AC 09/19 IV 1926 Results Last 48 Hrs of Labs/Mics: Laboratory Tests 09/20/16 0545: Anion Gap 11, Estimated GFR > 60, BUN/Creatinine Ratio 31.7 H, CBC w Diff NO MAN DIFF REQ, RBC 3.40 L, MCV 91.8, MCH 30.8, RDW 13.7, MPV 8.6, Gran % 71.6, Lymphocytes % 17.8 L, Monocytes % 9.4 H, Eosinophils % 0.8, Basophils % 0.4, Absolute Granulocytes 7.0 H, Absolute Lymphocytes 1.7, Absolute Monocytes 0.9 H, Absolute Eosinophils 0.1, Absolute Basophils 0, PUBS MCHC 33.5 09/19/16 1202: CBC w Diff MAN DIFF ORDERED, RBC 3.53 L, MCV 91.3, MCH 30.8, RDW 13.1, MPV 8.2, Gran % 83.4 H, Lymphocytes % 7.9 L, Monocytes % 8.4, Eosinophils % 0.1, Basophils % 0.2, Absolute Granulocytes 8.1 H, Absolute Lymphocytes 0.8 L, Absolute Monocytes 0.8 H, Absolute Eosinophils 0, Absolute Basophils 0, Platelet Estimate VERIFIED BY SMEAR, Normocytic RBCs VERIFIED, Normochromic RBCs VERIFIED, PUBS MCHC 33.7 Assessment/Plan Assessment/Plan [id number] w/ hx of HTN, HLD, pre-DM, CAD, s/p PCI/coronary stents, previous strokes w/ 1st in 2014 w/o residua and 2nd discovered after presentation here w/ AMS that req'd adm (08/11-08/15/2016) for an acute infarction in the R MCA 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 Mrs. Cespedes is s/p ppm for documented CHB and is hemodynamically stable but did have a significant drop in her H/H yesterday (09/19/2016) that is down slightly, but not significantly today. Repeat H/H and the a.m. and discharged to SNF in stable. . Continue telemetry? Yes
[2016-09-20 23:15] VITALS: BP 112/64
[2016-09-21 06:58] VITALS: BP 140/80
[2016-09-21 08:37] LABS: ABSOLUTE BASOPHIL COUNT 0 /CUMM (0.0-0.2); ABSOLUTE EOSINOPHIL COUNT 0.3 /CUMM (0.0-0.7); ABSOLUTE GRANULOCYTE CT 5.5 /CUMM (1.4-6.5); ABSOLUTE LYMPH COUNT 1.1 /CUMM (1.2-3.4); ABSOLUTE MONOCYTE COUNT 0.5 /CUMM (0.10-0.60); BASOPHIL % 0.3 % (0.0-2.0); EOSINOPHIL % 3.4 % (0-5); HEMATOCRIT 28.7 % (37-47); MEAN CORPUSCULAR HGB 30.9 PG (27.0-31.0); MEAN CORPUSCULAR HGB CONC 33.5 G/DL (33.0-37.0); MEAN CORPUSCULAR VOLUME 92.1 FL (81.0-99.0); MEAN PLATELET VOLUME 8.6 FL (7.4-10.4); PLATELET COUNT 256 /CUMM (130-400); RBC DISTRIBUTION WIDTH 13.4 % (11.5-14.5); RED BLOOD CELL CT 3.11 /CUMM (4.20-5.40); WHITE BLOOD CELL COUNT 7.4 /CUMM (4.8-10.8)
--- NOTE | 2016-09-21 08:47 | PN- Housestaff ---
Subjective Follow-up For: s/p pacemaker placement Tele-Events Since Last Visit: NSR, no events Subjective: I have personally examined the patient at bedside, she was sitting in bed in no acute distress, was complaining of some discomfort on the right side of her chest Review of Systems Constitutional: Denies: see HPI. Cardiovascular: Denies: see HPI. Objective Last 24 Hrs of Vital Signs/I&O Vital Signs Date Time Temp Pulse Resp B/P B/P Pulse O2 O2 Flow FiO2 Mean Ox Delivery Rate 09/21 0854 98.9 79 18 140/80 09/21 0854 98.9 79 18 140/80 09/21 0658 98.9 79 18 140/80 92 Room Air 09/20 2315 98.9 87 18 112/64 92 Room Air 09/20 1458 97.9 87 18 122/70 93 Room Air Intake & Output 09/21 1600 09/21 0800 09/21 0000 Intake Total 100 840 Output Total Balance 100 840 Intake, IV 600 Intake, Oral 100 240 Physical Exam General Appearance: Alert, Oriented X3, Cooperative, No Acute Distress Skin: No Rashes, No Breakdown, No Significant Lesion Sepsis Skin Exam (color): Normal for Ethnicity HEENT: Atraumatic, PERRLA, EOMI, Mucous Membr. moist/pink Neck: Supple, No JVD Cardiovascular: Normal S1, Normal S2, No Murmurs Abdomen: Normal Bowel Sounds, Soft, No Tenderness Neurological: Normal Speech Extremities: No Clubbing, No Cyanosis, No Edema Current Medications: Current Medications Sig/Marc Start time Last Medication Dose Route Stop Time Status Admin Amlodipine Besylate 5 MG DAILY 09/16 1100 AC 09/21 PO 0854 Aspirin 81 MG DAILY 09/16 1101 AC 09/21 PO 0854 Atorvastatin Calcium 80 MG 2000 09/17 1999 AC 09/20 PO 2125 Clopidogrel Bisulfate 75 MG DAILY 09/16 1101 AC 09/21 PO 0854 Heparin Sodium 5,000 UNIT Q8 09/16 1400 AC 09/21 (Porcine) SC 1233 Ibuprofen 400 MG Q6P PRN 09/18 0930 AC PO Insulin Aspart 0 TIDAC 09/16 1200 AC 09/21 SC 1233 Losartan Potassium 25 MG DAILY 09/18 1252 AC 09/21 PO 0854 Morphine Sulfate 1 MG Q6P PRN 09/18 0930 AC 09/19 IV 0635 Oxycodone HCl 5 MG Q6 PRN 09/18 0930 AC 09/21 PO 1036 Polyethylene Glycol 17 GM DAILY 09/21 1342 UNVr PO Senna/Docusate Sodium 1 TAB BID 09/21 1341 UNVr PO Sodium Chloride 1,000 ML .Q20H 09/16 0830 AC 09/21 IV 0902 Last 24 Hrs of Lab/Talib Results Last 24 Hrs of Labs/Mics: Laboratory Tests 09/21/16 0623: Anion Gap 8, Estimated GFR > 60, BUN/Creatinine Ratio 28.0 H, Iron Pending, TIBC Pending, Ferritin Pending, CBC w Diff NO MAN DIFF REQ, RBC 3.11 L, MCV 92.1, MCH 30.9, RDW 13.4, MPV 8.6, Gran % 75.0, Lymphocytes % 14.2 L, Monocytes % 7.1, Eosinophils % 3.4, Basophils % 0.3, Absolute Granulocytes 5.5, Absolute Lymphocytes 1.1 L, Absolute Monocytes 0.5, Absolute Eosinophils 0.3, Absolute Basophils 0, PUBS MCHC 33.5 Orders Radiology Findings: CTA:1. Pericardial fluid with density of complex fluid or hemorrhage. 2. Bilateral pleural effusions. Small dependent atelectasis at lung bases. 3. Pacemaker leads in place in right atrium and right ventricle. Pacemaker in right anterior chest wall subcutaneous tissue. There is also a pocket of air in the subcutaneous tissue of the left anterior chest. Correlate with history for iatrogenic etiology. Assessment/Plan Assessment: Mrs. 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 While using the commode]. She was found to be in complete heart block. She has a negative ACS workup so far, and since being in the hospital, she has been in normal sinus rhythm. She had a [employer] advise DR PERALTA [id number] permanent pacemaker placed on 09/17/16 CTA: 1. Pericardial fluid with density of complex fluid or hemorrhage. 2. Bilateral pleural effusions. Small dependent atelectasis at lung bases. 3. Pacemaker leads in place in right atrium and right ventricle. Pacemaker in right anterior chest wall subcutaneous tissue. There is also a pocket of air in the subcutaneous tissue of the left anterior chest. Correlate with history for iatrogenic etiology. # Hemopericardium The patient started dropping her H&H today, and she complained of back pain CTA was done which showed hemopericardium, and bilateral pleural effusion. Stat echo was ordered, aspirin was DC'd after discussion with Dr. Gagnon (this patient had history of recent CVA) We'll consider DC the PLAVIX after discussion with Dr. Mariano(Dr. 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 * Ct statin * No telemetry events * Patient has significant drop in her H&H yesterday, she also has vague back pain * CT chest as per cardiology recommendation # Anemia H&H are dropping Follow-up: CBC Iron studies TIBC and ferritin Stool for guaiac # HTN * Ct cozaar 25 mg * Ct norvasc 5 mg OD * BP stable. * ct to monitor. # H/O HLD * Ct statin # H/o CAD s/p PCI/coronary stents. * Ct ASA * Ct statin # H/O previous strokes FULL CODE Heart healthy diet DVT prophylaxis: Pharmacological Problem List: 1. Complete heart block 2. Altered mental status 3. CVA (cerebral vascular accident) 4. Back pain Pain Ratin Pain Location: Back, Alt Method for Pain Treatment: Other(free text) Pain Goal: Pain 4 or less Pain Plan: Tylenol Tomorrow's Labs & Rationales: CBC BEP DVT/Prophylaxis: pharmacological Consulting Request: Consulting Specialty: Cardiology
--- NOTE | 2016-09-21 10:45 | PN- Cardiology ---
Subjective Subjective: Admits to some back discomfort. On telemetry: Sinus rhythm. Objective Vital Signs and I&Os Vital Signs Date Time Temp Pulse Resp B/P B/P Pulse O2 O2 Flow FiO2 Mean Ox Delivery Rate 09/21 0854 98.9 79 18 140/80 09/21 0854 98.9 79 18 140/80 09/21 0658 98.9 79 18 140/80 92 Room Air 09/20 2315 98.9 87 18 112/64 92 Room Air 09/20 1458 97.9 87 18 122/70 93 Room Air Intake & Output 09/21 1600 09/21 0800 09/21 0000 09/20 1600 09/20 0800 09/20 0000 Intake Total 100 840 350 900 Output Total Balance 100 840 350 900 Intake, IV 600 350 Intake, Oral 100 240 900 Physical Exam: Physical examination: Well-developed, well-nourished elderly female in no acute distress with nasal oxygen in place. Vital signs: See above. HEENT: Normocephalic, atraumatic, EOMI, slightly dry mucous membranes. Neck: No JVD, no bruits. Lungs: Clear to auscultation. Heart: S1, S2 with no murmur, gallop, or rub appreciated. PMI fifth ICS at MCL. Abdomen: Soft, nontender, positive bowel sounds. Extremities: No edema. Current Medications: Current Medications Sig/Marc Start time Last Medication Dose Route Stop Time Status Admin Amlodipine Besylate 5 MG DAILY 09/16 1100 AC 09/21 PO 0854 Aspirin 81 MG DAILY 09/16 1101 AC 09/21 PO 0854 Atorvastatin Calcium 80 MG 2000 09/16 2000 AC 09/20 PO 2125 Clopidogrel Bisulfate 75 MG DAILY 09/16 1101 AC 09/21 PO 0854 Heparin Sodium 5,000 UNIT Q8 09/16 1400 AC 09/21 (Porcine) SC 0523 Ibuprofen 400 MG Q6P PRN 09/18 0930 AC PO Insulin Aspart 0 TIDAC 09/16 1200 AC 09/20 SC 1245 Losartan Potassium 25 MG DAILY 09/18 1252 AC 09/21 PO 0854 Morphine Sulfate 1 MG Q6P PRN 09/18 0930 AC 09/19 IV 0635 Oxycodone HCl 5 MG Q6 PRN 09/18 0930 AC 09/21 PO 1036 Sodium Chloride 1,000 ML .Q20H 09/16 0830 AC 09/21 IV 0902 Results Last 48 Hrs of Labs/Mics: Laboratory Tests 09/21/16 0623: Anion Gap 8, Estimated GFR > 60, BUN/Creatinine Ratio 28.0 H, CBC w Diff NO MAN DIFF REQ, RBC 3.11 L, MCV 92.1, MCH 30.9, RDW 13.4, MPV 8.6, Gran % 75.0, Lymphocytes % 14.2 L, Monocytes % 7.1, Eosinophils % 3.4, Basophils % 0.3, Absolute Granulocytes 5.5, Absolute Lymphocytes 1.1 L, Absolute Monocytes 0.5, Absolute Eosinophils 0.3, Absolute Basophils 0, PUBS MCHC 33.5 09/20/16 0545: Anion Gap 11, Estimated GFR > 60, BUN/Creatinine Ratio 31.7 H, CBC w Diff NO MAN DIFF REQ, RBC 3.40 L, MCV 91.8, MCH 30.8, RDW 13.7, MPV 8.6, Gran % 71.6, Lymphocytes % 17.8 L, Monocytes % 9.4 H, Eosinophils % 0.8, Basophils % 0.4, Absolute Granulocytes 7.0 H, Absolute Lymphocytes 1.7, Absolute Monocytes 0.9 H, Absolute Eosinophils 0.1, Absolute Basophils 0, PUBS MCHC 33.5 09/19/16 1202: CBC w Diff MAN DIFF ORDERED, RBC 3.53 L, MCV 91.3, MCH 30.8, RDW 13.1, MPV 8.2, Gran % 83.4 H, Lymphocytes % 7.9 L, Monocytes % 8.4, Eosinophils % 0.1, Basophils % 0.2, Absolute Granulocytes 8.1 H, Absolute Lymphocytes 0.8 L, Absolute Monocytes 0.8 H, Absolute Eosinophils 0, Absolute Basophils 0, Platelet Estimate VERIFIED BY SMEAR, Normocytic RBCs VERIFIED, Normochromic RBCs VERIFIED, PUBS MCHC 33.7 Assessment/Plan Assessment/Plan [id number]-o-w-[id number] w/ hx of HTN, HLD, pre-DM, CAD, s/p PCI/coronary stents, previous strokes w/ 1st in 2014 w/o residua and 2nd discovered after presentation here w/ AMS that req'd adm (08/11-08/15/2016) for an acute infarction in the R MCA 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 Mrs. Cespedes is s/p ppm for documented CHB and is hemodynamically stable but did have a significant drop in her H/H on 09/19/2016 that continues to slowly drop and is complaining of back pain. Check chest CT. Continue telemetry? Yes
--- NOTE | 2016-09-21 15:24 | CT SCAN REPORT ---
EXAMINATION: CT CHEST WITHOUT CONTRAST CLINICAL INFORMATION: Drop in H\T\H after pacemaker placement. COMPARISON: Portable chest 09/17/2016. CT of neck 08/14/2016. TECHNIQUE: Multidetector volumetric CT imaging of the chest was done. Axial MIP volume rendering provided. Sagittal and coronal reformatted images were obtained. DLP: 644.42 mGy-cm FINDINGS: LUNGS: Small band of subsegmental atelectasis at dependent lung bases bilateral. MEDIASTINUM: There is a pericardial effusion. This has a transverse dimension of 1.4 cm. Fluid density measures 35 Hounsfield units, could be hemorrhagic or complex fluid. Dual-lead pacemaker is present in right atrium and right ventricle. There is vascular wall calcification of the aorta PLEURA: Small to moderate volume bilateral pleural effusions at dependent lungs AXILLA: Pacemaker in subcutaneous tissue right anterior chest wall. No hematoma of the chest wall. There is a small pocket of air in the subcutaneous tissue of the left anterior chest, axial image 162 (4). Correlate with history for iatrogenic etiology. UPPER ABDOMEN: There is fullness of the right and left renal pelvis which could be due to parapelvic cysts. Visualized portions of liver, spleen, pancreas and adrenal glands are normal. OSSEOUS STRUCTURES: Degenerative disc disease of dorsal spine. IMPRESSION: 1. Pericardial fluid with density of complex fluid or hemorrhage. 2. Bilateral pleural effusions. Small dependent atelectasis at lung bases. 3. Pacemaker leads in place in right atrium and right ventricle. Pacemaker in right anterior chest wall subcutaneous tissue. There is also a pocket of air in the subcutaneous tissue of the left anterior chest. Correlate with history for iatrogenic etiology.
[2016-09-21 16:00] VITALS: BP 132/68
--- NOTE | 2016-09-21 18:39 | ECHOCARDIOGRAM REPORT ---
DAIN PULIDO Age: 81 : 1935 Gender: F Exam Date: 09/21/2016 16:50 Exam Location: [address] [facility] Ht (in): 67 Wt (lb): 165 BSA: 1.89 BP: 140 / 80 Ordering Physician: LIZZETTE MONTGOMERY, Referring Physician: Mario Mariano MD Technologist: [place] [facility] Room Number: 189-02 Indications: PERICARDIAL EFFUSION, S/P PACEMAKER, ? PERICARDIAL HEMORRHAGE Rhythm: Sinus Technical Quality: Fair FINDINGS Left Ventricle Normal size left ventricle. Moderate concentric left ventricular hypertrophy. No obvious regional wall motion abnormalities. Normal left ventricular ejection fraction visually estimated at >60%. Abnormal relaxation filling pattern of the left ventricle for age (stage 1 diastolic dysfunction). Right Ventricle Normal right ventricular size and function. Catheter/pacemaker wire in the right ventricular cavity. On some of the subcostal views it appears possible that the tip of the pacemaker wire is in the pericardial space. Right Atrium Normal right atrial size. Catheter/pacemaker wire in the right atrial cavity. Left Atrium Left atrial size at the upper limits of normal. Mitral Valve Mild mitral annular calcification. Mitral valve thickened. Trace mitral regurgitation. Aortic Valve Aortic sclerosis. No aortic valve stenosis or regurgitation. Tricuspid Valve Structurally normal tricuspid valve. Trace tricuspid regurgitation. No evidence of pulmonary hypertension. Right ventricular systolic pressure estimated to be within the normal range at 12 mmHg. Pulmonic Valve Pulmonic valve not well visualized, grossly normal. No pulmonic regurgitation. Pericardium Small pericardial effusion. No echocardiographic findings to suggest a hemodynamically significant pericardial effusion. Great Vessels Normal size aortic root. CONCLUSIONS Normal size left ventricle. Moderate concentric left ventricular hypertrophy. Normal left ventricular ejection fraction visually estimated at > 60%. Abnormal relaxation filling pattern of the left ventricle for age (stage 1 diastolic dysfunction). Normal right ventricular size and function. Catheter/pacemaker wire in the right ventricular cavity. On some of the subcostal views it appears possible that the tip of the pacemaker wire is in the pericardial space. Normal right atrial size. Catheter/pacemaker wire in the right atrial cavity. Left atrial size at the upper limits of normal. Trace mitral regurgitation. Trace tricuspid regurgitation. No evidence of pulmonary hypertension. Small pericardial effusion. No echocardiographic findings to suggest a hemodynamically significant pericardial effusion. Mario Mariano M.D. (Electronically Signed) Final Date: 21 September 2016 18:38 MEASUREMENTS (Male / Female) Normal Values 2D ECHO LV Diastolic Diameter PLAX 3.5 cm 4.2 - 5.9 / 3.9 - 5.3 cm LV Systolic Diameter PLAX 2.3 cm 2.1 - 4.0 cm LV Fractional Shortening PLAX 34.3 % 25 - 46 % LV Ejection Fraction 2D Teich 64.4 % IVS Diastolic Thickness 1.6 cm LVPW Diastolic Thickness 1.5 cm LV Relative Wall Thickness 0.9 LVOT Diameter 1.8 cm Aortic Root Diameter 3.0 cm LA Systolic Diameter LX 3.6 cm 3.0 - 4.0 / 2.7 - 3.8 cm LA Volume 32.0 cm 18 - 58 / 22 - 52 cm DOPPLER AV Peak Velocity 157.0 cm/s AV Peak Gradient 9.9 mmHg AV Mean Velocity 96.5 cm/s AV Mean Gradient 5.0 mmHg AV Velocity Time Integral 28.5 cm LVOT Peak Velocity 135.0 cm/s LVOT Peak Gradient 7.3 mmHg LVOT Mean Velocity 92.9 cm/s LVOT Mean Gradient 4.0 mmHg LVOT Velocity Time Integral 25.5 cm LVOT Stroke Volume 64.9 cm AV Area Cont Eq vti 2.3 cm AV Area Cont Eq pk 2.2 cm MV Peak Velocity 116.0 cm/s MV Peak Gradient 5.4 mmHg MV Mean Velocity 76.4 cm/s MV Mean Gradient 3.0 mmHg Mitral E Point Velocity 91.8 cm/s Mitral A Point Velocity 111.0 cm/s Mitral E to A Ratio 0.8 MV PHT Velocity 116.0 cm/s MV Deceleration Irion 388.0 cm/s MV Pressure Half Time 89.7 ms MV Area PHT 2.5 cm MV Deceleration Time 206.0 ms TR Peak Velocity 133.0 cm/s TR Peak Gradient 7.1 mmHg Right Atrial Pressure 5.0 mmHg Pulmonary Artery Systolic Pressu 12.1 mmHg Right Ventricular Systolic Press 12.1 mmHg PV Peak Velocity 85.5 cm/s PV Peak Gradient 2.9 mmHg PV Mean Velocity 56.2 cm/s PV Mean Gradient 1.0 mmHg PV Velocity Time Integral 17.9 cm LV E' Lateral Velocity 5.5 cm/s Mitral E to LV E' Lateral Ratio 16.8 LV E' Septal Velocity 5.9 cm/s Mitral E to LV E' Septal Ratio 15.7
--- NOTE | 2016-09-21 19:44 | RADIOLOGY REPORT ---
EXAMINATION: XR CHEST CLINICAL INFORMATION: Hemopericardium suggested after pacemaker insertion, pleural effusions. COMPARISON: Preprocedure portable exam 08/23/2016, post procedure exam 09/17/2016. CT performed earlier the same day. TECHNIQUE: AP and lateral views of the chest were obtained. FINDINGS: A right-sided pacemaker and leads are again noted. Overall heart size appears slightly larger than the most recent chest x-ray exam currently measuring 17.6 cm in maximal transverse dimension previously 15.1. This appears largely unchanged to slightly improved compared with the scanogram of the chest CT. Mild bibasilar atelectasis and effusions, left side greater than right are likely unchanged compared with the recent CT scan. IMPRESSION: Cardiomegaly with residual basilar atelectasis and effusions.
--- NOTE | 2016-09-21 22:53 | Event Note ---
Event Note Event Note: I was signed out by Dr. Jean that patient's echocardiogram showed one of the pacemaker leads are in pericardium space and there is a pericardial effusion and Dr. Mariano is aware of that and he will contact the housestaff for further instructions. However Dr. Mariano were not initially available by paging and I spoke to Dr. Moe. Since the patient was hemodynamically stable and was in sinus rhythm and the pericardial effusion was a small, Dr. Moe recommended observing the patient in telemetry for now. Dr. Mariano also called back later with the same recommendation. Patient vital signs are stable and she is not in distress. We will continue monitoring the patient.
[2016-09-21 23:29] VITALS: BP 138/88
--- NOTE | 2016-09-22 07:19 | PN- Housestaff ---
Subjective Follow-up For: #1 Pericardial effusion #2 bilateral pulmonary effusion #3 Heart block S/p pacemaker Complaints: pain scale (0-10) Tele-Events Since Last Visit: NSR 73-75 Subjective: I HAVE PERSONALLY EXAMINED THE PATIENT AT BED SIDE , SHE WAS LYING DOWN IN BED IN MODERATE DISTRESS, REPORTED HAVING CHEST PAIN AND STMACHACHE. Review of Systems Constitutional: Reports: malaise. Cardiovascular: Reports: chest pain. Respiratory: Denies: no symptoms. Gastrointestinal: Reports: abdominal pain. Genitourinary: Denies: no symptoms. Musculoskeletal: Denies: no symptoms. Objective Last 24 Hrs of Vital Signs/I&O Vital Signs Date Time Temp Pulse Resp B/P B/P Pulse O2 O2 Flow FiO2 Mean Ox Delivery Rate 09/22 1448 98.3 88 20 134/72 92 Room Air 09/22 1031 97.8 79 16 130/70 09/22 1031 97.8 79 16 130/70 09/22 0814 130/70 09/22 0728 97.8 79 16 1130/70 92 Room Air 09/21 2329 99.5 68 20 138/88 97 Room Air 09/21 1600 97.7 83 16 132/68 91 Room Air Intake & Output 09/22 1600 09/22 0800 09/22 0000 Intake Total 800 250 800 Output Total Balance 800 250 800 Intake, IV 250 600 Intake, Oral 800 0 200 Physical Exam General Appearance: Alert, Oriented X3, Cooperative, IN MODERATE DISTRESS Skin: No Rashes, No Breakdown, No Significant Lesion Skin Temp/Moisture Exam: Warm/Dry HEENT: Atraumatic, PERRLA, EOMI, Mucous Membr. moist/pink Neck: Supple Cardiovascular: Regular Rate, Normal S1, Normal S2, No Murmurs Lungs: Clear to Auscultation, Normal Air Movement Abdomen: Normal Bowel Sounds, Soft, No Tenderness Neurological: Normal Speech, Strength at 5/5 X4 Ext, Normal Tone Extremities: No Cyanosis, No Edema Assessment/Plan Assessment: Mrs. 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 While using the commode]. She was found to be in complete heart block. She has a negative ACS workup so far, and since being in the hospital, she has been in normal sinus rhythm. She had a [employer] advise DR PERALTA [id number] permanent pacemaker placed on 09/17/16 CTA: 1. Pericardial fluid with density of complex fluid or hemorrhage. 2. Bilateral pleural effusions. Small dependent atelectasis at lung bases. 3. Pacemaker leads in place in right atrium and right ventricle. Pacemaker in right anterior chest wall subcutaneous tissue. There is also a pocket of air in the subcutaneous tissue of the left anterior chest. Correlate with history for iatrogenic etiology. Echo: Normal size left ventricle. Moderate concentric left ventricular hypertrophy. Normal left ventricular ejection fraction visually estimated at > 60%. Abnormal relaxation filling pattern of the left ventricle for age (stage 1 diastolic dysfunction). Normal right ventricular size and function. Catheter/pacemaker wire in the right ventricular cavity. On some of the subcostal views it appears possible that the tip of the pacemaker wire is in the pericardial space. Normal right atrial size. Catheter/pacemaker wire in the right atrial cavity. Left atrial size at the upper limits of normal. Trace mitral regurgitation. Trace tricuspid regurgitation. No evidence of pulmonary hypertension. Small pericardial effusion. No echocardiographic findings to suggest a hemodynamically significant pericardial effusion. # Hemopericardium The patient started dropping her H&H today, and she complained of back pain CTA was done which showed hemopericardium, and bilateral pleural effusion. Stat echo was ordered, aspirin was DC'd after discussion with Dr. Gagnon (this patient had history of recent CVA) We'll consider DC the PLAVIX after discussion with Dr. Mariano(Dr. Mariano on board) will continue to monitor the patient on telemetry Continue to monitor CBC, vitals # Complete heart block s/p pacemaker placement * Continue monitor worker * Improved * Ct ASA. * Ct statin * No telemetry events * Patient has significant drop in her H&H yesterday, she also has vague back pain * CT chest as per cardiology recommendation # Anemia most likely due to bleeding into the pericardium H&H was droping , stable today 9.8 Follow-up: CBC # HTN * Ct cozaar 25 mg * Ct norvasc 5 mg OD * BP stable. * ct to monitor. # H/O HLD * Ct statin # H/o CAD s/p PCI/coronary stents. * Ct ASA * Ct statin # H/O previous strokes FULL CODE Heart healthy diet DVT prophylaxis: Pharmacological Problem List: 1. Anemia 2. Back pain 3. Complete heart block 4. Altered mental status 5. CVA (cerebral vascular accident) 6. Pericardial effusion Pain Ratin Pain Location: chest Pain Goal: Pain 4 or less Pain Plan: tylenol oxycodone Tomorrow's Labs & Rationales: cbc bep DVT/Prophylaxis: mechanical, pharmacological Consulting Request: Consulting Specialty: Cardiology
[2016-09-22 07:28] VITALS: BP 1130/70; BP 120/60
[2016-09-22 08:14] VITALS: BP 130/70
[2016-09-22 08:32] LABS: ABSOLUTE BASOPHIL COUNT 0 /CUMM (0.0-0.2); ABSOLUTE EOSINOPHIL COUNT 0.4 /CUMM (0.0-0.7); ABSOLUTE GRANULOCYTE CT 3.7 /CUMM (1.4-6.5); ABSOLUTE LYMPH COUNT 1.1 /CUMM (1.2-3.4); ABSOLUTE MONOCYTE COUNT 0.4 /CUMM (0.10-0.60); BASOPHIL % 0.7 % (0.0-2.0); EOSINOPHIL % 6.9 % (0-5); HEMATOCRIT 28.9 % (37-47); MEAN CORPUSCULAR HGB 30.9 PG (27.0-31.0); MEAN CORPUSCULAR HGB CONC 33.9 G/DL (33.0-37.0); MEAN CORPUSCULAR VOLUME 91.3 FL (81.0-99.0); PLATELET COUNT 327 /CUMM (130-400); RBC DISTRIBUTION WIDTH 13.2 % (11.5-14.5); RED BLOOD CELL CT 3.16 /CUMM (4.20-5.40); WHITE BLOOD CELL COUNT 5.7 /CUMM (4.8-10.8)
[2016-09-22 14:48] VITALS: BP 134/72
--- NOTE | 2016-09-22 18:14 | PN- Cardiology ---
Subjective Subjective: No complaints. Objective Vital Signs and I&Os Vital Signs Date Time Temp Pulse Resp B/P B/P Pulse O2 O2 Flow FiO2 Mean Ox Delivery Rate 09/22 1448 98.3 88 20 134/72 92 Room Air 09/22 1031 97.8 79 16 130/70 09/22 1031 97.8 79 16 130/70 09/22 0814 130/70 09/22 0728 97.8 79 16 1130/70 92 Room Air 09/21 2329 99.5 68 20 138/88 97 Room Air Intake & Output 09/22 1600 09/22 0800 09/22 0000 09/21 1600 09/21 0809/21 0000 Intake Total 800 250 800 800 100 840 Output Total Balance 800 250 800 800 100 840 Intake, IV 250 600 600 Intake, Oral 800 0 200 800 100 240 Physical Exam: Physical examination: Well-developed, well-nourished elderly female in no acute distress with nasal oxygen in place. Vital signs: See above. HEENT: Normocephalic, atraumatic, EOMI, slightly dry mucous membranes. Neck: No JVD, no bruits. Lungs: Clear to auscultation. Heart: S1, S2 with no murmur, gallop, or rub appreciated. PMI fifth ICS at MCL. Abdomen: Soft, nontender, positive bowel sounds. Extremities: No edema. Current Medications: Current Medications Sig/Marc Start time Last Medication Dose Route Stop Time Status Admin Amlodipine Besylate 5 MG DAILY 09/16 1100 AC 09/22 PO 1031 Atorvastatin Calcium 80 MG 09/16 AC 09/21 PO 2220 Clopidogrel Bisulfate 75 MG DAILY 09/16 1101 AC 09/22 PO 1031 Heparin Sodium 5,000 UNIT Q8 09/16 1400 AC 09/22 (Porcine) SC 1229 Ibuprofen 400 MG Q6P PRN 09/18 0930 AC PO Insulin Aspart 0 TIDAC 09/16 1200 AC 09/22 SC 1712 Losartan Potassium 25 MG DAILY 09/18 1252 AC 09/22 PO 1031 Morphine Sulfate 1 MG Q6P PRN 09/18 0930 AC 09/21 IV 2241 Oxycodone HCl 5 MG Q6 PRN 09/18 0930 AC 09/21 PO 1036 Polyethylene Glycol 17 GM DAILY 09/21 1342 AC 09/22 PO 1030 Senna/Docusate Sodium 1 TAB BID 09/21 1341 AC 09/22 PO 1030 Sodium Chloride 1,000 ML .Q20H 09/16 0830 AC 09/21 IV 0902 Trimethobenzamide HCl 200 MG 4 TIMES/DAY PRN 09/21 1600 AC IM Results Last 48 Hrs of Labs/Mics: Laboratory Tests 09/22/16 0634: Anion Gap 7, Estimated GFR > 60, BUN/Creatinine Ratio 24.0, CBC w Diff NO MAN DIFF REQ, RBC 3.16 L, MCV 91.3, MCH 30.9, RDW 13.2, MPV 8.0, Gran % 66.0, Lymphocytes % 18.9 L, Monocytes % 7.5, Eosinophils % 6.9 H, Basophils % 0.7, Absolute Granulocytes 3.7, Absolute Lymphocytes 1.1 L, Absolute Monocytes 0.4, Absolute Eosinophils 0.4, Absolute Basophils 0, PUBS MCHC 33.9 09/21/16 0623: Anion Gap 8, Estimated GFR > 60, BUN/Creatinine Ratio 28.0 H, Iron 21 L, TIBC 197 L, Ferritin 166.0, CBC w Diff NO MAN DIFF REQ, RBC 3.11 L, MCV 92.1, MCH 30.9, RDW 13.4, MPV 8.6, Gran % 75.0, Lymphocytes % 14.2 L, Monocytes % 7.1, Eosinophils % 3.4, Basophils % 0.3, Absolute Granulocytes 5.5, Absolute Lymphocytes 1.1 L, Absolute Monocytes 0.5, Absolute Eosinophils 0.3, Absolute Basophils 0, PUBS MCHC 33.5 Recent Imaging Studies: CXR (09/22/2016): A right-sided pacemaker and leads are again noted. Overall heart size appears slightly larger than the most recent chest x-ray exam currently measuring 17.6 cm in maximal transverse dimension previously 15.1. This appears largely unchanged to slightly improved compared with the scanogram of the chest CT. Mild bibasilar atelectasis and effusions, left side greater than right are likely unchanged compared with the recent CT scan. Echocardiogram (09/21/2016): Normal size left ventricle. Moderate concentric left ventricular hypertrophy. Normal left ventricular ejection fraction visually estimated at > 60%. Abnormal relaxation filling pattern of the left ventricle for age (stage 1 diastolic dysfunction). Normal right ventricular size and function. Catheter/pacemaker wire in the right ventricular cavity. On some of the subcostal views it appears possible that the tip of the pacemaker wire is in the pericardial space. Normal right atrial size. Catheter/pacemaker wire in the right atrial cavity. Left atrial size at the upper limits of normal. Trace mitral regurgitation. Trace tricuspid regurgitation. No evidence of pulmonary hypertension. Small pericardial effusion. No echocardiographic findings to suggest a hemodynamically significant pericardial effusion. CT chest (09/21/2016): Pericardial fluid with density of complex fluid or hemorrhage. Bilateral pleural effusions. Small dependent atelectasis at lung bases. Pacemaker leads in place in right atrium and right ventricle. Pacemaker in right anterior chest wall subcutaneous tissue. There is also a pocket of air in the subcutaneous tissue of the left anterior chest. Correlate with history for iatrogenic etiology. 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 Mrs. Cespedes is s/p ppm for documented CHB and is hemodynamically stable but did have a significant drop in her H/H on 09/19/[address] of the chest revealed a new small pericardial effusion. This then led to repeat echocardiogram that suggested the possibility that the right ventricular pacemaker lead may have pierced the RV apex. To further evaluate this CXR PA and lateral was performed that did not reveal the pacemaker lead beyond the cardiac border. Today, she is without complaints and her H/H is stable. The plan will be for discharge to her SNF in the a.m. Continue telemetry? Yes
[2016-09-22 23:03] VITALS: BP 136/70
[2016-09-23 06:36] VITALS: BP 152/78
[2016-09-23 08:14] LABS: ABSOLUTE BASOPHIL COUNT 0 /CUMM (0.0-0.2); ABSOLUTE EOSINOPHIL COUNT 0.4 /CUMM (0.0-0.7); ABSOLUTE GRANULOCYTE CT 4.6 /CUMM (1.4-6.5); ABSOLUTE LYMPH COUNT 1.1 /CUMM (1.2-3.4); ABSOLUTE MONOCYTE COUNT 0.5 /CUMM (0.10-0.60); BASOPHIL % 0.6 % (0.0-2.0); EOSINOPHIL % 5.5 % (0-5); GRANULOCYTE % 69.2 % (42.2-75.2); HEMATOCRIT 32.4 % (37-47); MEAN CORPUSCULAR HGB 30.8 PG (27.0-31.0); MEAN CORPUSCULAR HGB CONC 33.5 G/DL (33.0-37.0); PLATELET COUNT 371 /CUMM (130-400); RED BLOOD CELL CT 3.52 /CUMM (4.20-5.40); WHITE BLOOD CELL COUNT 6.6 /CUMM (4.8-10.8)
--- NOTE | 2016-09-23 08:18 | PN- Housestaff ---
Subjective Follow-up For: #1 Pericardial effusion #2 bilateral pulmonary effusion #3 Heart block S/p pacemaker Complaints: pain scale (0-10) Tele-Events Since Last Visit: NSR- SB: 50-61 Subjective: I have personally examined the patient at bedside she was lying down comfortably in bed in no acute distress. Breathing room air Review of Systems Constitutional: Denies: no symptoms. EENTM: Denies: no symptoms. Cardiovascular: Denies: see HPI. Respiratory: Denies: see HPI. Gastrointestinal: Denies: no symptoms. Genitourinary: Denies: no symptoms. Objective Last 24 Hrs of Vital Signs/I&O Vital Signs Date Time Temp Pulse Resp B/P B/P Pulse O2 O2 Flow FiO2 Mean Ox Delivery Rate 09/23 1038 98.2 77 18 152/78 09/23 0904 77 152/78 09/23 0904 77 152/78 09/23 0636 98.2 77 18 152/78 93 09/22 2303 97.4 80 16 136/70 94 Room Air Intake & Output 09/23 1600 09/23 0800 09/23 0000 Intake Total 900 520 640 Output Total 2 Balance 900 518 640 Intake, IV 300 400 400 Intake, Oral 600 120 240 Number 1 Bowel Movements Output, Urine 2 Physical Exam General Appearance: Alert, Oriented X3, Cooperative, No Acute Distress Skin: No Rashes, No Breakdown, No Significant Lesion Skin Temp/Moisture Exam: Warm/Dry HEENT: Atraumatic, PERRLA, EOMI, Mucous Membr. moist/pink Neck: Supple, No JVD Cardiovascular: Regular Rate, Normal S1, Normal S2, No Murmurs Lungs: Clear to Auscultation, Normal Air Movement Abdomen: Normal Bowel Sounds, Soft, No Tenderness Neurological: Normal Speech, Normal Tone Extremities: No Clubbing, No Cyanosis, No Edema Vascular: Normal Pulses, Pulses Symmetrical Assessment/Plan Assessment: Mrs. 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 While using the commode]. She was found to be in complete heart block. She has a negative ACS workup so far, and since being in the hospital, she has been in normal sinus rhythm. She had a [employer] advise DR PERALTA [id number] permanent pacemaker placed on 09/17/16 CTA: 1. Pericardial fluid with density of complex fluid or hemorrhage. 2. Bilateral pleural effusions. Small dependent atelectasis at lung bases. 3. Pacemaker leads in place in right atrium and right ventricle. Pacemaker in right anterior chest wall subcutaneous tissue. There is also a pocket of air in the subcutaneous tissue of the left anterior chest. Correlate with history for iatrogenic etiology. Echo: Normal size left ventricle. Moderate concentric left ventricular hypertrophy. Normal left ventricular ejection fraction visually estimated at > 60%. Abnormal relaxation filling pattern of the left ventricle for age (stage 1 diastolic dysfunction). Normal right ventricular size and function. Catheter/pacemaker wire in the right ventricular cavity. On some of the subcostal views it appears possible that the tip of the pacemaker wire is in the pericardial space. Normal right atrial size. Catheter/pacemaker wire in the right atrial cavity. Left atrial size at the upper limits of normal. Trace mitral regurgitation. Trace tricuspid regurgitation. No evidence of pulmonary hypertension. Small pericardial effusion. No echocardiographic findings to suggest a hemodynamically significant pericardial effusion. # Hemopericardium Today, she is without complaints and her H/H is stable. The plan will be for discharge to her SNF on her present medical regimen. aspirin was DC'd after discussion with Dr. Gagnon (this patient had history of recent CVA) # Complete heart block s/p pacemaker placement Improved Ct ASA. Ct statin No telemetry events Further outpatient follow-up for her permanent pacemaker and coronary artery disease will be scheduled. # Anemia most likely due to bleeding into the pericardium H&H was droping , stable today 10.8 # HTN * Ct cozaar 25 mg * Ct norvasc 5 mg OD * BP stable. # H/O HLD * Ct statin # H/o CAD s/p PCI/coronary stents. * Ct ASA * Ct statin # H/O previous strokes Continue her home meds The patient is stable for discharge today FULL CODE Heart healthy diet DVT prophylaxis: Pharmacological Problem List: 1. Pericardial effusion 2. Anemia 3. Back pain 4. Complete heart block 5. CVA (cerebral vascular accident) Pain Ratin Pain Location: N/A Pain Goal: Remain pain free Pain Plan: Motrin Oxycodone Morphine Tomorrow's Labs & Rationales: N/A DVT/Prophylaxis: pharmacological Consulting Request: Consulting Specialty: Cardiology
--- NOTE | 2016-09-23 10:17 | Discharge Summary ---
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 CXR (09/22/2016): A right-sided pacemaker and leads are again noted. Overall heart size appears slightly larger than the most recent chest x-ray exam currently measuring 17.6 cm in maximal transverse dimension previously 15.1. This appears largely unchanged to slightly improved compared with the scanogram of the chest CT. Mild bibasilar atelectasis and effusions, left side greater than right are likely unchanged compared with the recent CT scan. Echocardiogram (09/21/2016): Normal size left ventricle. Moderate concentric left ventricular hypertrophy. Normal left ventricular ejection fraction visually estimated at > 60%. Abnormal relaxation filling pattern of the left ventricle for age (stage 1 diastolic dysfunction). Normal right ventricular size and function. Catheter/pacemaker wire in the right ventricular cavity. On some of the subcostal views it appears possible that the tip of the pacemaker wire is in the pericardial space. Normal right atrial size. Catheter/pacemaker wire in the right atrial cavity. Left atrial size at the upper limits of normal. Trace mitral regurgitation. Trace tricuspid regurgitation. No evidence of pulmonary hypertension. Small pericardial effusion. No echocardiographic findings to suggest a hemodynamically significant pericardial effusion. CT chest (09/21/2016): Pericardial fluid with density of complex fluid or hemorrhage. Bilateral pleural effusions. Small dependent atelectasis at lung bases. Pacemaker leads in place in right atrium and right ventricle. Pacemaker in right anterior chest wall subcutaneous tissue. There is also a pocket of air in the subcutaneous tissue of the left anterior chest. Correlate with history for iatrogenic etiology. She was treated in the hospital. #1.Symptomatic bradycardia requiring pacemaker placement: The BB was held and a transvenous pacemaker was placed (08/21/2016), but was not needed after the first ~24-48 hrs following admission and was removed. A western blot returned negative for Lyme disease. She was ruled out for ACS with 3 sets of negative troponin and EKG. She was evaluated by cardiology.She had a [employer]tronic advise DR PERALTA [id number] permanent pacemaker placed on 09/17/16 after discussion with patient and daughter.A repeat ECG performed after the permanent pacemaker revealed sinus rhythm, LAFB, RBBB, Q waves in leads V1, V2 consistent with possible indeterminate age ASMI and lateral ST-T wave abnormalities, cannot exclude ischemia. Patient remained asymptomatic and tolerated the procedure well. She was continued on home medications aspirin, statin and Plavix. No motor episodes of bradycardia was noted on the floor. #2 Drop in H&H and hemopericardium:Mrs. Cespedes s/p ppm for documented CHB and was hemodynamically stable but did have a significant drop in her H/H on [address] of the chest revealed a new small pericardial effusion. This then led to repeat echocardiogram that suggested the possibility that the right ventricular pacemaker lead may have pierced the RV apex. To further evaluate this CXR PA and lateral was performed that did not reveal the pacemaker lead beyond the cardiac border. He remained hemodynamically stable and was discharged to his DR with follow-up with cardiology as an outpatient. H&H remained stable thereafter. FULL CODE Heart healthy diet DVT prophylaxis: Subcutaneous heparin Allergies: Coded Allergies: No Known Allergies (08/11/16) Disposition Summary Disposition Principal Diagnosis: s/p pacemaker placement Additional Diagnosis: hemopericardium Discharge Disposition: SNF Discharge Instructions General Discharge Information Code Status: Full Code Patient's Diet: heart healthy Patient's Activity: as tolerated Follow-Up Instructions/Appts: please follow with PCP and cardiolgoist upon discharge. Medications at Discharge Discharge Medications: Continue taking these medications: Metformin HCl (Metformin HCl) 500 MG TABLET 1 Tablet ORAL TWICE DAILY Qty = 120 Comments: NOT GIVEN IN HOSPITAL. PT GIVEN NOVOLOG SLIDING SCALE. Clopidogrel Bisulfate (Plavix) 75 MG TABLET 75 Milligram ORAL DAILY Qty = 30 Comments: Last Taken: 08/28/16 Time: 9:10A.M Aspirin (Aspirin*) 81 MG TAB.CHEW 81 Milligram ORAL DAILY Qty = 120 Comments: Last Taken: 08/28/16 Time: 09:10A.M Losartan Potassium (Cozaar) 25 MG TABLET 1 Tablet ORAL DAILY Comments: Last Taken:08/28/16 Time:9:10A.M Melatonin (Melatonin) 3 MG TABLET 1 Tablet ORAL Every night Comments: Last Taken:08/27/16 Time11:10P.M Acetaminophen (Arthritis Pain) 650 MG TABLET.ER 1 Tablet ORAL TWICE DAILY Comments: NOT GIVEN THIS ADMISSION Amlodipine Besylate (Amlodipine Besylate) 5 MG TABLET 1 Tablet ORAL DAILY Qty = 30 Comments: Last Taken:08/28/16 Time:9:10A.M Ranitidine HCl (Zantac) 150 MG TABLET 1 Tablet ORAL TWICE DAILY Cetirizine HCl (Zyrtec) 10 MG TABLET 1 Tablet ORAL DAILY Atorvastatin Calcium (Lipitor) 80 MG TABLET 1 Tablet ORAL 2000 Copies To: ASHLEE RODRIGUEZ,NEYMAR Rodriguez; MARITZA RODRIGUEZ,JOSE L
--- NOTE | 2016-09-23 10:30 | PN- Cardiology ---
Subjective Subjective: No complaints. Objective Vital Signs and I&Os Vital Signs Date Time Temp Pulse Resp B/P B/P Pulse O2 O2 Flow FiO2 Mean Ox Delivery Rate 09/23 0904 77 152/78 09/23 0904 77 152/78 09/23 0636 98.2 77 18 152/78 93 09/22 2303 97.4 80 16 136/70 94 Room Air 09/22 1448 98.3 88 20 134/72 92 Room Air 09/22 1031 97.8 79 16 130/70 09/22 1031 97.8 79 16 130/70 Intake & Output 09/23 1600 09/23 0800 09/23 0000 09/22 1600 09/22 0800 09/22 0000 Intake Total 520 640 800 250 800 Output Total 2 Balance 518 640 800 250 800 Intake, IV 400 400 250 600 Intake, Oral 120 240 800 0 200 Output, Urine 2 Physical Exam: Physical examination: Well-developed, well-nourished elderly female in no acute distress with nasal oxygen in place. Vital signs: See above. HEENT: Normocephalic, atraumatic, EOMI, slightly dry mucous membranes. Neck: No JVD, no bruits. Lungs: Clear to auscultation. Heart: S1, S2 with no murmur, gallop, or rub appreciated. PMI fifth ICS at MCL. Abdomen: Soft, nontender, positive bowel sounds. Extremities: No edema. Current Medications: Current Medications Sig/Marc Start time Last Medication Dose Route Stop Time Status Admin Amlodipine Besylate 5 MG DAILY 09/16 1100 AC 09/23 PO 0904 Atorvastatin Calcium 80 MG 2000 09/17 1999 AC 09/22 PO 2105 Bisacodyl 10 MG ONCE ONE 09/23 0815 DC 09/23 MI 09/23 0816 0813 Clopidogrel Bisulfate 75 MG DAILY 09/16 1101 AC 09/23 PO 0904 Heparin Sodium 5,000 UNIT Q8 09/16 1400 AC 09/23 (Porcine) SC 0532 Ibuprofen 400 MG Q6P PRN 09/18 0930 AC PO Insulin Aspart 0 TIDAC 09/16 1200 AC 09/23 SC 0809 Losartan Potassium 25 MG DAILY 09/18 1252 AC 09/23 PO 0904 Morphine Sulfate 1 MG Q6P PRN 09/18 0930 AC 09/21 IV 2241 Oxycodone HCl 5 MG Q6 PRN 09/18 929 AC 09/21 PO 1036 Polyethylene Glycol 17 GM DAILY 09/23 1000 AC PO Polyethylene Glycol 17 GM DAILY 09/21 1342 AC 09/23 PO 0912 Senna/Docusate Sodium 1 TAB BID 09/21 1341 AC 09/23 PO 0904 Sodium Chloride 1,000 ML .Q20H 09/16 0830 AC 09/22 IV 1941 Trimethobenzamide HCl 200 MG 4 TIMES/DAY PRN 09/21 1600 AC IM Results Last 48 Hrs of Labs/Mics: Laboratory Tests 09/23/16 0624: Anion Gap 8, Estimated GFR > 60, BUN/Creatinine Ratio 16.0, CBC w Diff NO MAN DIFF REQ, RBC 3.52 L, MCV 92.0, MCH 30.8, RDW 13.0, MPV 8.0, Gran % 69.2, Lymphocytes % 17.0 L, Monocytes % 7.7, Eosinophils % 5.5 H, Basophils % 0.6, Absolute Granulocytes 4.6, Absolute Lymphocytes 1.1 L, Absolute Monocytes 0.5, Absolute Eosinophils 0.4, Absolute Basophils 0, PUBS MCHC 33.5 09/22/16 0634: Anion Gap 7, Estimated GFR > 60, BUN/Creatinine Ratio 24.0, CBC w Diff NO MAN DIFF REQ, RBC 3.16 L, MCV 91.3, MCH 30.9, RDW 13.2, MPV 8.0, Gran % 66.0, Lymphocytes % 18.9 L, Monocytes % 7.5, Eosinophils % 6.9 H, Basophils % 0.7, Absolute Granulocytes 3.7, Absolute Lymphocytes 1.1 L, Absolute Monocytes 0.4, Absolute Eosinophils 0.4, Absolute Basophils 0, PUBS MCHC 33.9 Assessment/Plan Assessment/Plan 81-y-o-w-f w/ hx of HTN, HLD, pre-DM, CAD, s/p PCI/coronary stents, previous strokes w/ 1st in 2014 w/o residua and 2nd discovered after presentation here w/ AMS that req'd adm (08/11-08/15/2016) for an acute infarction in the R MCA 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 Mrs. Cespedes is s/p ppm for documented CHB and is hemodynamically stable but did have a significant drop in her H/H on 09/19/[address] of the chest revealed a new small pericardial effusion. This then led to repeat echocardiogram that suggested the possibility that the right ventricular pacemaker lead may have pierced the RV apex. To further evaluate this CXR PA and lateral was performed that did not reveal the pacemaker lead beyond the cardiac border. Today, she is without complaints and her H/H is stable. The plan will be for discharge to her SNF on her present medical regimen. Further outpatient follow-up for her permanent pacemaker and coronary artery disease will be scheduled. Continue telemetry? No
[2016-09-23 10:38] VITALS: BP 152/78
--- NOTE | 2016-09-24 09:40 | Proc Note Cardiology ---
Cardiology Procedure Procedure Date: 09/17/16 Cardiology Procedure(s): dual chamber permanent pacemaker Pre-Operative Diagnosis: complete heart block Post-Operative Diagnosis: same Estimated Blood Loss: scant Anesthesia: TIVA Procedure Findings: History: This patient is a 81 year old female with prior admission in the setting of transient heart block while on a beta yael. She did receive a temporary pacemaker lead at that time. She again presented with third degree AV block off any negative chronotropic agents and a permanent pacemaker was recommended. Procedure: This patient was prepped and draped in the usual sterile fashion after having obtained informed consent. She was administered 2 gm of Ancef as prophylaxis against infection. An incision was then made in the left subclavicular space where a pacemaker pocket was dissected out. Access was attempted through the left subclavian vein via the Seldinger techinique. A 7F sheath was placed in the vein. Two wires were placed and the sheath then removed and placed over a single wire with retention of the remaining wire for later use. The pacemaker lead would not cross into the left ventricle from this position despite multiple attempts. We therefore closed the incision and made a pacemaker pocket on the right side. Access was obtained using the Seldinger technique with placement of a 7F sheath. Two wires were placed and the sheath then removed and placed over a single wire with retention of the remaining wire for later use. The right ventricular lead was then placed in the right ventricular apex and pacing parameters were checked and confirmed to be good. We then removed the sheath and placed a second 7F sheath in the right subclavian vein and through this passed the lead to the right atrial appendage. Pacing parameters were again checked and confirmed to be within acceptable, or better, limits. The sheath was removed and the leads were sewn into place and the pacemaker was then placed in the pocket after attaching both leads. The pacemaker pocket was sutured closed with three layers of absorbable suture. The pacemaker was again tested and the patient was brought to recovery where a chest X-ray and 12 lead ECG were obtained. Pacemaker: Medtronic Advisa MRI safe Pacemaker Model # [id number] with serial # [id number] Atrial Lead: Model # 5076-52 Serial # [id number] Voltage: 0.7V Current: mA Impedance: 600 Ohms P wave: 3.5mV Ventricular Lead: Model # 5076-58 Serial # [id number] Voltage: 0.9V Current: mA Impedance: Ohms R wave: 7 The patient tolerated this procedure well without complications.
== END 2016-09-23 15:40 | DRG 171 ==
LOC: ERH 02:40 → 1NO 07:38 → ERHI 07:38 → CRI 07:38 → CANRESERV 14:31 → ENRESERV 14:31 → ERHI 14:54 → EDBEDREQTM 14:55 → EDBEDREQ 14:55 → ENTRNSPT 16:26 → EDTRNSPTSTS 16:30 → CRI 16:51 → CMPTRNSPT 17:14 → ENTRNSPT 09-17 19:16 → EDTRNSPTSTS 09-17 19:30 → CMPTRNSPT 09-17 19:42 → 1NO 09-18 21:45 → ENPENDDIS 09-23 10:17 → 1NO 09-23 15:40
PROVIDERS: Emergency Medicine; Internal Medicine; Internal Medicine Cardiovascular Disease; Student in an Organized Health Care Education/Training Program; ADMIT Internal Medicine Interventional Cardiology
PROC: 0JH606Z Insertion of Pacemaker, Dual Chamber into Chest Subcutaneous Tissue and Fascia, Open Approach (ICD-10-PCS; principal; 2016-09-17)
PROC: 02H63JZ Insertion of Pacemaker Lead into Right Atrium, Percutaneous Approach (ICD-10-PCS; 2016-09-17)
PROC: 02HK3JZ Insertion of Pacemaker Lead into Right Ventricle, Percutaneous Approach (ICD-10-PCS; 2016-09-17)
DX: I44.2 Atrioventricular block, complete (principal); R00.1 Bradycardia, unspecified; I10 Essential (primary) hypertension; Z86.73 Personal history of transient ischemic attack (TIA), and cerebral infarction without residual deficits; I25.10 Atherosclerotic heart disease of native coronary artery without angina pectoris; I45.10 Unspecified right bundle-branch block; I65.29 Occlusion and stenosis of unspecified carotid artery; R71.0 Precipitous drop in hematocrit; I31.3 Pericardial effusion (noninflammatory); E78.5 Hyperlipidemia, unspecified; R73.03 Prediabetes; Z95.5 Presence of coronary angioplasty implant and graft; I44.4 Left anterior fascicular block; I31.2 Hemopericardium, not elsewhere classified; M54.9 Dorsalgia, unspecified; J90 Pleural effusion, not elsewhere classified; Z79.01 Long term (current) use of anticoagulants; Z96.641 Presence of right artificial hip joint
CPT/HCPCS: 1NSP; CCU; 36415; 82436; 93005; 93010; 93306; C1785; C1898; J0690; J1644; J3250; J3490